=== PATIENT | male | born 1980 | race American Indian/Alaskan Native ===

== ENCOUNTER 2016-10-09 17:30 | Emergency (ER) | payer MEDICARE ==
[2016-10-09] MEDS ORDERED: DILAUDID IV ONE ×2 (21:06→22:12)
[2016-10-09] MEDS ORDERED: ZOFRAN IV ONE (21:06)
[2016-10-09] MEDS ORDERED: BENADRYL IV ONE ×2 (21:06→22:12)
--- NOTE | 2016-10-09 21:45 | Emergency Department Report ---
HPI - General Chief Complaint: Sickle Cell Crisis Time Seen by Provider: 10/09/16 21:01 - HPI HPI: The patient is a 36-year-old male with a history of sickle cell disease, presents for evaluation of pain. The patient reports recurrence of sickle cell pain attack. The patient states that his pain has been present since yesterday evening, 24 hours ago, and has been 8/10 in severity, throbbing in quality, exacerbated with movement of the lower back. He states that his current pain is consistent with previous sickle cell pain episodes. The patient denies blunt trauma to the back, fall, fever, chills, night sweats, saddle anesthesia, paresthesias, numbness or tingling in the legs, leg weakness, urine or bowel incontinence or retention, or other focal neurological deficits. 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 New port placed 2014. - Social History Smoking Status: Never Smoker Substance Use Type: None - Medications Home Medications: Home Medications Medication Instructions Recorded Confirmed Last Taken Type Methadone [Dolophine] 10 mg PO Q12H #60 tablet 12/19/15 06/22/16 1 Day Ago Rx 10 Folic Acid [Folvite] 1 mg PO QDAY #30 tablet 02/10/16 06/22/16 1 Day Ago Rx 1 Rivaroxaban [Xarelto] 2 mg PO BIDDIAB 05/30/16 06/22/16 Unknown History oxyCODONE [Roxicodone] 30 mg PO BID PRN 05/30/16 06/22/16 Unknown History Oxycodone HCl/Acetaminophen 1 each PO Q6HR PRN #15 tablet 07/28/16 Unknown Rx [Percocet 10/325 mg] ED Review of Systems ROS: Stated complaint: SICKLE CELL CRISIS Other details as noted in HPI Constitutional: denies: fever ENT: denies: throat or neck pain Respiratory: denies: cough, shortness of breath Cardiovascular: denies: chest pain Endocrine: denies unexplained weight loss or gain Gastrointestinal: denies: abdominal pain, nausea Genitourinary: denies: dysuria Musculoskeletal: reports back pain Skin: denies: rash Neurological: denies: headache Hematological/Lymphatic: denies: easy bleeding or easy bruising Psych: denies sadness or hopelessness Physical Exam - Physical Exam Vital Signs: Vital Signs 10/09/16 10/09/16 18:08 21:38 Temperature 99 F Pulse Rate 103 H Respiratory 20 18 Rate Blood Pressure 119/74 O2 Sat by Pulse 100 Oximetry Physical Exam: General: well-nourished, well-developed, no acute distress Head: Normocephalic, atraumatic Eyes: normal sclera ENT: Mucous membranes are pale and dry Neck: trachea midline, neck supple, No neck stiffness, no cervical adenopathy Respiratory: Breath sounds equal bilaterally, no wheezing, rales, or rhonchi Cardio: S1 and S2 present, no murmurs, rubs, gallops, capillary refill is delayed Abdomen: Normoactive bowel sounds, soft abdomen, no rigidity, no guarding or rebound tenderness Musc: Tenderness to palpation present to bilateral lumbar paraspinal musculature , no midline lumbar spinous tenderness to palpation, normal active range of motion at the hip intact, no spinous step-off or obvious deformity, ipsi- lateral and contralateral straight leg raise tests are negative. On extremity testing, compartments are soft and pliable, no obvious gross motor strength deficit, 5+ motor strength, including extension of the great toe bilaterally, no muscular atrophy, spasticity, fasciculations, or clonus, no obvious gross sensation deficit including web space between 1st and 2nd toes, reflexes 2+ & symmetric on DTR testing at the knee and ankle joints, distal pulses intact. Skin: No rash Neuro: no facial drooping, normal speech Psych: Normal affect ED Course Vital Signs 10/09/16 10/09/16 18:08 21:38 Temperature 99 F Pulse Rate 103 H Respiratory 20 18 Rate Blood Pressure 119/74 O2 Sat by Pulse 100 Oximetry ED Medical Decision Making - Medical Decision Making The patient was seen and examined by myself. The patient is placed on a curb setter and continuous pulse ox. On initial evaluation, the patient was found to be in no distress. No findings on exam concerning for cauda equina syndrome, spinal stenosis, epidural abscess, or other emergent etiology of back pain. As the patient has no midline tenderness on exam, no neuro deficits, and no findings concerning for emergent etiology of their back pain, imaging will not be obtained at this time. IV access is established and the patient is given fluid resuscitation, Zofran, and multiple doses of dilaudid for their pain. Lab results reveal elevated reticulocyte count, and a stable hemoglobin level at patient baseline. Lab results otherwise are not concerning. The patient was reevaluated and reported that their pain was significantly improved. The patient is stable for discharge with outpatient follow-up. The patient is given follow-up and return instructions. The patient expressed understanding and agreed with the plan. The patient is discharged in stable condition. Critical care attestation.: If time is entered above; I have spent that time in minutes in the direct care of this critically ill patient, excluding procedure time. ED Disposition Clinical Impression: Sickle cell anemia with crisis, Dehydration, Acute bilateral low back pain without sciatica Disposition: DISCHARGED TO HOME OR SELFCARE Is pt being admited?: No Does the pt Need Aspirin: No Condition: Stable Instructions: Sickle Cell Crisis (ED) Referrals: JAMAICA HOLLAND MD, PHD [Primary Care Provider] - 3-5 Days Time of Disposition: 21:41
[2016-10-09 21:52] LABS: Hematocrit 29.7 % (35.5-45.6); Hemoglobin 10.1 gm/dl (11.8-15.2); Mean Corpuscular HGB Conc 34 % (32-34); Mean Corpuscular Hemoglobin 36 pg (28-32); Mean Corpuscular Volume 107 fl (84-94); Platelet Count 284 K/mm3 (140-440); Red Blood Count 2.78 M/mm3 (3.65-5.03); Red Cell Distribution Width 19.7 % (13.2-15.2); Reticulocyte % 3.64 % (0.78-2.58); White Blood Count 10.2 K/mm3 (4.5-11.0)
[2016-10-09] MEDS ORDERED: D5NS 0.2% 1,000 ML IV SCH (22:00)
[2016-10-09 22:15] LABS: Anion Gap 16 mmol/L; Blood Urea Nitrogen 5 mg/dL (9-20); Calcium 8.3 mg/dL (8.4-10.2); Carbon Dioxide 26 mmol/L (22-30); Chloride 101.1 mmol/L (98-107); Glucose 103 mg/dL (75-100); Sodium 140 mmol/L (137-145)
[2016-10-09] MEDS ORDERED: KCL 10MEQ/100ML 10 MEQ/100 ML BAG IV ONE ×2 (22:20→22:32)
[2016-10-09 22:23] LABS: Basophils % (Manual) 0 % (0.0-1.8); Blastocytes % (Manual) 0 %
[2016-10-09 22:24] LABS: Anisocytosis 1+; Potassium 2.9 mmol/L (3.6-5.0)
[2016-10-09 22:25] LABS: Sickle Cells 1+; Target Cells 2+
[2016-10-09 22:26] LABS: Diff Status Complete
[2016-10-09] MEDS ORDERED: FLUSH HEPARIN IV ONE ×2 (23:20→23:35)
[2016-10-10] MEDS ORDERED: KCL 10MEQ/100ML 10 MEQ/100 ML BAG IV ONE (01:30)
[2016-10-10 01:49] VITALS: BP 126/68
== END 2016-10-09 23:45 | disposition home or self-care (01) ==
LOC: ED 17:30
DX: D57.00 Hb-SS disease with crisis, unspecified (principal); E86.0 Dehydration; M54.5 Low back pain; I82.402 Acute embolism and thrombosis of unspecified deep veins of left lower extremity; F41.9 Anxiety disorder, unspecified; Z90.49 Acquired absence of other specified parts of digestive tract
CPT/HCPCS: 36415; 80048; 85007; 85025; 85045; 96361; 96374; 96375; 96376; 99283; J1170; J1200; J1642; J2405; J3480

== ENCOUNTER 2016-12-15 00:18 | Inpatient (IN) | payer MEDICARE ==
--- NOTE | 2016-12-15 16:00 | Cat Scan Report ---
CRANIAL CT SCAN: Serial contiguous axial images were obtained through the cranium. Intravenous contrast material was not administered. The ventricles are normal in size and appearance. There is no mass effect or midline shift. No areas of abnormally increased or decreased attenuation are seen. No mass lesion is seen. The mastoid air cells and visualized portions of the sinuses are normal. IMPRESSION: Cranial CT scan within normal limits. No significant change compared to prior study of December 2015.
[2016-12-15] MEDS ORDERED: PERCOCET 5/325 ONE (16:27)
[2016-12-15] MEDS ORDERED: TORADOL IV ONE ×2 (16:45→18:30)
[2016-12-15] MEDS ORDERED: ZOFRAN IV ONE (16:45)
[2016-12-15 16:53] LABS: INR 1.18 (0.87-1.13)
[2016-12-15] MEDS ORDERED: TORADOL ONE (16:53)
[2016-12-15] MEDS ORDERED: ZOFRAN ONE (16:53)
[2016-12-15 16:55] LABS: Alanine Aminotransferase 10 units/L (7-56); Albumin 3.4 g/dL (3.9-5); Albumin/Globulin Ratio 0.8 %; Anion Gap 14 mmol/L; Bilirubin,Direct 0.3 mg/dL (0-0.2); Bilirubin,Indirect 1.2 mg/dL; Blood Urea Nitrogen 10 mg/dL (9-20); Calcium 8.3 mg/dL (8.4-10.2); Carbon Dioxide 27 mmol/L (22-30); Chloride 102.5 mmol/L (98-107); Creatine Kinase 24 units/L (55-170); Glucose 100 mg/dL (75-100); Partial Thromboplastin Time 144.4 Sec. (24.2-36.6); Potassium 3.6 mmol/L (3.6-5.0); Sodium 140 mmol/L (137-145); Total Protein 7.8 g/dL (6.3-8.2)
[2016-12-15] MEDS: D5NS 0.2% 1,000 ML IV SCH (17:00)
[2016-12-15 17:03] LABS: Basophils % (Auto) 0.5 % (0.0-1.8); Eosinophils % (Auto) 4.3 % (0.0-4.3); Hematocrit 26.8 % (35.5-45.6); Mean Corpuscular HGB Conc 34 % (32-34); Mean Corpuscular Hemoglobin 32 pg (28-32); Mean Corpuscular Volume 96 fl (84-94); Platelet Count 278 K/mm3 (140-440); Red Blood Count 2.81 M/mm3 (3.65-5.03); Reticulocyte % 1.87 % (0.78-2.58); White Blood Count 8.3 K/mm3 (4.5-11.0)
[2016-12-15 17:05] LABS: Creatine Kinase MB < 1.0 ng/mL (0.0-4.0)
--- NOTE | 2016-12-15 17:13 | Emergency Department Report ---
ED General Adult HPI - General Chief complaint: Sickle Cell Crisis Stated complaint: SICKLE CELL PAIN, NUMBNESS AND TINGLING RIGHT SIDE Time Seen by Provider: 12/15/16 15:06 Source: patient Mode of arrival: Ambulatory Limitations: No Limitations - History of Present Illness Initial comments: The patient presents with a somewhat bizarre story which is difficult to have them. He states that he was in his kitchen 2 weeks ago when he passed out. He did not hurt himself. He is vague about the time of his lapse of consciousness but ultimately said it was probably a few minutes. When he awoke he had acute weakness and numbness in his right upper extremity. Since then this has not changed. He has not attempted to consult a physician for the same. He states that he goes to the [facility] and has not gone there either. This patient had frequent visits to this emergency department last year for pain -related complaints and sickle cell disease. However this year he was only here once in September and now today. He states that he has chronic pain in his back and his legs. He does not report any pain in his neck or headache he states that he did not injure his neck at all. 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 He does have an indwelling port. He is not claiming to be in a sickle cell crisis. Indeed he states he's been taking his regular pain medicine all long but it hasn't been helping. When asked specifically if he states taking his methadone he states that he has not taken it for 2 days. Far to reconcile his history as these 2 things are conflicting as she is on chronic accident. The degree to which he is a reliable historian is really uncertain however certainly it would be in question. In any case he denies any history of previous stroke or neuropathy. He denies any prolonged pressure on his right axillary area. He states he is never passed out before as well. -: week(s) (2 weeks ago), year(s) (chronic pain for years) Location: back, lower extremity Radiation: non-radiation Quality: aching Consistency: intermittent Improves with: none Worsens with: none Associated Symptoms: denies other symptoms - Related Data Previous Rx's Medication Instructions Recorded Last Taken Type Methadone [Dolophine] 10 mg PO Q12H #60 tablet 12/19/15 1 Day Ago Rx 10 Folic Acid [Folvite] 1 mg PO QDAY #30 tablet 02/10/16 12/15/16 Rx Oxycodone HCl/Acetaminophen 1 each PO Q6HR PRN #15 tablet 07/28/16 12/15/16 Rx [Percocet 10/325 mg] Allergies Allergy/AdvReac Type Severity Reaction Status Date / Time No Known Allergies Allergy Verified 05/04/16 00:22 ED Review of Systems ROS: Stated complaint: SICKLE CELL PAIN, NUMBNESS AND TINGLING RIGHT SIDE Other details as noted in HPI Constitutional: denies: chills, fever Eyes: denies: eye pain, eye discharge, vision change ENT: denies: ear pain, throat pain Respiratory: denies: cough, shortness of breath, wheezing Cardiovascular: denies: chest pain, palpitations Endocrine: no symptoms reported Gastrointestinal: denies: abdominal pain, nausea, diarrhea Genitourinary: denies: urgency, dysuria Musculoskeletal: as per HPI, back pain, arthralgia, myalgia, other (sickle cell pain). denies: joint swelling Skin: denies: rash, lesions Neurological: as per HPI, weakness, numbness. denies: headache, paresthesias Psychiatric: denies: anxiety, depression Hematological/Lymphatic: denies: easy bleeding, easy bruising ED Past Medical Hx - Past Medical History Previous Medical History?: Yes Hx Hypertension: No Hx CVA: No Hx Heart Attack/AMI: No Hx Congestive Heart Failure: No Hx Diabetes: No Hx Deep Vein Thrombosis: Yes (LEFT LEG) Hx Pulmonary Embolism: No Hx GERD: No Hx Liver Disease: No Hx Renal Disease: No Hx Sickle Cell Disease: Yes Hx Arthritis: No Hx Headaches / Migraines: No Hx Seizures: No Hx Kidney Stones: No Hx Psychiatric Treatment: Yes (anxiety) Hx Asthma: No Hx COPD: No Hx Tuberculosis: No Hx Dementia: No Hx HIV: No Additional medical history: 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 New port placed 2014. - Social History Smoking Status: Never Smoker Substance Use Type: None - Medications Home Medications: Home Medications Medication Instructions Recorded Confirmed Last Taken Type Methadone [Dolophine] 10 mg PO Q12H #60 tablet 12/19/15 12/15/16 1 Day Ago Rx 10 Folic Acid [Folvite] 1 mg PO QDAY #30 tablet 02/10/16 12/15/16 12/15/16 Rx Oxycodone HCl/Acetaminophen 1 each PO Q6HR PRN #15 tablet 07/28/16 12/15/16 Rx [Percocet 10/325 mg] ED Physical Exam - General Limitations: No Limitations General appearance: alert - Head Head exam: Present: atraumatic - Eye Eye exam: Present: normal appearance - ENT ENT exam: Present: normal exam, mucous membranes moist - Neck Neck exam: Present: normal inspection. Absent: tenderness, meningismus - Respiratory Respiratory exam: Present: normal lung sounds bilaterally. Absent: respiratory distress - Cardiovascular Cardiovascular Exam: Present: regular rate, normal rhythm. Absent: systolic murmur, diastolic murmur, rubs, gallop - GI/Abdominal GI/Abdominal exam: Present: soft, normal bowel sounds. Absent: distended, tenderness, guarding, rebound, rigid - Extremities Exam Extremities exam: Present: normal inspection - Back Exam Back exam: Present: normal inspection - Neurological Exam Neurological exam: Present: alert, CN II-XII intact, motor sensory deficit ( motor exam of the patient had upper extremity shows no effort against gravity wrist extensor flexor. Patient does not approximate his thumb and fingers. He has minimal ulnar function. He does appear to have sensation in the ulnar distribution but diminished sensation in the median and radial distribution. He not does have drift of the arm at large. He does have a wrist drop. He does not seem to have drift of the right lower extremity) - Psychiatric Psychiatric exam: Present: normal mood, flat affect ED Course Vital Signs 12/15/16 12/15/16 12/15/16 00:22 05:27 15:10 Temperature 98.4 F Pulse Rate 95 H 81 Respiratory 18 18 18 Rate Blood Pressure 103/65 112/65 O2 Sat by Pulse 100 99 99 Oximetry 12/15/16 17:00 Temperature Pulse Rate Respiratory 18 Rate Blood Pressure O2 Sat by Pulse Oximetry - Reevaluation(s) Reevaluation #1: Patient has reticulocyte count of less than 3. This presentation is not consistent with sickle cell crisis. He was given Percocet for pain. He requested Toradol and I did order that. A CT of his head was negative. A 12- lead EKG showed not infrequent PVCs but no evidence of ischemia. I spoke to the hospitalist about this strange presentation. I feel it is worthwhile to put the patient hospital complete his neurological workup. I have ordered an MRI of the brain and cervical spine. I don't think contrast is useful at this point. Further workup per hospitalist staff. 12/15/16 18:45 ED Medical Decision Making - Lab Data Result diagrams: 12/15/16 16:50 12/15/16 16:18 Laboratory Results - last 24 hr 12/15/16 12/15/16 12/15/16 16:18 16:18 16:50 [place] % (Auto) 10.1 H Eos % (Auto) 4.3 [place] # 0.8 Eos # 0.4 Baso # 0.0 Seg Neutrophils % 60.2 Seg Neutrophils # 5.0 PT 14.9 INR 1.18 H APTT 144.4 H* Sodium 140 Potassium 3.6 Chloride 102.5 Carbon Dioxide 27 Anion Gap 14 BUN 10 Creatinine 0.5 L Estimated GFR > 60 BUN/Creatinine Ratio 20.00 Glucose 100 Calcium 8.3 L Magnesium 1.80 Total Bilirubin 1.50 H Direct Bilirubin 0.3 H Indirect Bilirubin 1.2 AST 17 ALT 10 Alkaline Phosphatase 72 Total Creatine Kinase 24 L CK-MB (CK-2) < 1.0 CK-MB (CK-2) Rel Index 4.1 H Total Protein 7.8 Albumin 3.4 L Albumin/Globulin Ratio 0.8 - EKG Data -: EKG Interpreted by Me EKG shows normal: sinus rhythm Rate: normal - EKG Data Interpretation: other (moderately frequent PVCs are noted. Nonspecific ST-T wave changes.) - Radiology Data Radiology results: report reviewed - Medical Decision Making It would appear that this is a referral neuropathy either axillary or brachial I would think. I do not think this is a stroke syndrome. However the patient will be given aspirin and further workup to include MRI of his brain is pending. Critical care attestation.: If time is entered above; I have spent that time in minutes in the direct care of this critically ill patient, excluding procedure time. ED Disposition Clinical Impression: Weakness of right upper extremity, Ventricular ectopy Sickle cell anemia Qualifiers: Sickle-cell associated disorders: without crisis Qualified Code(s): D57.1 - Sickle-cell disease without crisis Syncope Qualifiers: Syncope type: unspecified Qualified Code(s): R55 - Syncope and collapse Disposition: OP ADMITTED IP TO THIS HOSP Is pt being admited?: Yes Does the pt Need Aspirin: Yes Condition: Stable Time of Disposition: 18:51
[2016-12-15 17:25] LABS: Alkaline Phosphatase 72 units/L (35-129)
[2016-12-15 17:29] LABS: Red Cell Distribution Width 22.8 % (13.2-15.2)
[2016-12-15] MEDS: BABY ASPIRIN PO SCH (20:03)
[2016-12-15] MEDS ORDERED: BABY ASPIRIN ONE (20:03)
--- NOTE | 2016-12-15 20:14 | Magnetic Resonance Report ---
FINAL REPORT EXAM: MR BRAIN WO CON HISTORY: RUE weakness TECHNIQUE: Multi sequence, Multiplanar MR imaging is acquired without administration of gadolinium intravenous contrast. PRIORS: Head CT of the same date FINDINGS: There is no restricted diffusion or abnormal susceptibility. The ventricles and cisterns and sulci are within normal limits. No midline shift or herniation. No intraparenchymal mass , mass effect or hemorrhage. Vascular flow voids are unremarkable. Singer and white matter signal characteristics are also within normal limits. Normal spherical shape of the globes. No abnormal signal within the paranasal sinuses or mastoid aircells. IMPRESSION: Normal MRI Brain.
[2016-12-15] MEDS ORDERED: NON-FORMULARY (Oxycodone Hcl/Acetaminophen [Percocet 10/325 Mg] 1 EACH) PO PRN (20:44)
--- NOTE | 2016-12-15 20:44 | Magnetic Resonance Report ---
FINAL REPORT EXAM: MR CERVICAL SPINE WO CON HISTORY: RUE weakness acute onset 2 weeks ago following fall TECHNIQUE: Multi sequence, multiplanar MR imaging was obtained through the cervical spine without contrast. PRIORS: Cervical spine radiograph FINDINGS: Examination is compromised by motion artifact. The imaged portion of the posterior fossa is unremarkable. The cervical spinal cord is normal in caliber. Signal characteristics of the spinal cord are not well assessed. No obvious cord edema on T2 weighted imaging. There is pulsation artifact. No epidural space abnormality. There is increased T2 weighted signal within the left-sided paraspinal soft tissues best demonstrated on axial series 6, image 8 and sagittal series 2 and series 4, images 5 and 6. Muscular borders are respected. No masslike morphology. The mucosal spaces of the neck are unremarkable. Vertebral body heights throughout the cervical spine are preserved. Marrow signal is within normal limits. No listhesis. No significant spinal canal or neural foraminal stenosis throughout the cervical spine small posterior disc bulges are present the at C4-C5, C5-C6 and C6-C7. IMPRESSION: No specific findings to explain patient's symptoms. The examination is compromised by motion artifact. Nerve root avulsion and cord signal abnormality cannot be sufficiently excluded on this examination. If there is persistent concern, consider repeat cervical spine study with high-resolution imaging of the cervical spinal cord and with intravenous contrast administration. There is focal T2 weighted non masslike signal abnormality within several left paraspinal soft tissues, which is most likely edema/partial thickness tearing related to recent injury. Dr. Morales discussed findings with OLIVIER Anderson at [address] [employer] following the examination.
--- NOTE | 2016-12-15 20:54 | History and Physical Report ---
History of Present Illness Date of admission: 12/15/16 18:26 Chief complaint: Right upper extremity weakness History of present illness: 36-year-old -[place]osoth[place] male with past medical history significant for sickle cell anemia, a vascular necrosis of hips, DVT presented to the emergency department complaining of right upper extremity weakness of one week duration. Patient states a week ago he fell and lost consciousness and from that day onwards he has weakness, tingling and numbness of his right upper extremity. He also complains numbness of his left leg. Patient didn't seek any medical attention by the time. Since it didn't get better he came to the ED. With impression of possible CVA CT head was done and negative for acute intracranial process. Recent is also complaining he has pain in his back and arm 7 out of 10 in intensity, sharp pain. Patient has been taking his pain medications at home and didn't run out of it. patient has been followed by [facility]. Patient has history of DVT and was on xarelto but it is discontinued now by the advice of his doctor at [facility]. REVIEW OF SYSTEMS: GENERAL: no weight change, no fatigue, no fever HEAD: no head ache EYES: no blurry vision, no acute visual loss EARS: no hearing loss, no discharge, no earache NOSE: no stuffiness, no sneezing, no discharge MOUTH, THROAT AND NECK: no bleeding gums, no sore throat, no swollen neck CARDIAC: no palpitations, no dyspnea on exertion, no orthopnea, no PND, no edema , no chest pain RESPIRATORY: no shortness of breath, no wheeze, no cough, no sputum, no hemoptysis, no asthma GI: no decreased appetite, no nausea, no vomiting, no dysphagia, no diarrhea, no constipation, no abdominal pain URINARY: no change in frequency, no urgency, no polyuria, no hematuria, no incontinence MUSCULOSKELETAL: no muscle weakness, no pain, no joint stiffness NEUROLOGIC: Numbness and weakness of the right upper extremity HEMATOLOGIC: Sickle cell anemia, no easy bruising SKIN: no rashes ENDOCRINE: no heat/cold intolerance, no polyuria, no polydipsia, no thyroid problems, no diabetes PSYCHIATRIC: no anxiety, no depression, no suicidal ideations Past History Past Medical History: DVT, other (sickle cell, , avascular necrosis of bilateral hips) Past Surgical History: cholecystectomy, hernia repair Social history: full code. denies: smoking, alcohol abuse, prescription drug abuse, IV drug use Family history: diabetes, other (sickle cell) Medications and Allergies Allergies Allergy/AdvReac Type Severity Reaction Status Date / Time No Known Allergies Allergy Verified 05/04/16 00:22 Home Medications Medication Instructions Recorded Confirmed Last Taken Type Methadone [Dolophine] 10 mg PO Q12H #60 tablet 12/19/15 12/15/16 1 Day Ago Rx 10 Folic Acid [Folvite] 1 mg PO QDAY #30 tablet 02/10/16 12/15/16 12/15/16 Rx Oxycodone HCl/Acetaminophen 1 each PO Q6HR PRN #15 tablet 07/28/16 12/15/16 Rx [Percocet 10/325 mg] Active Meds: Active Medications Aspirin (Baby Aspirin) 162 mg PO QDAY [facility] Last Admin: 12/15/16 20:03 Dose: 162 mg Folic Acid (Folvite) 1 mg PO QDAY [facility] Dextrose/Sodium Chloride (D5ns 0.2%) 1,000 mls @ 250 mls/hr IV DIRECT [facility] Last Admin: 12/15/16 17:00 Dose: 250 mls/hr Methadone HCl (Dolophine) 10 mg PO Q12H [facility] Miscellaneous Medication (Oxycodone Hcl/Acetaminophen [Percocet 10/325 Mg]) 1 each PO Q6HR PRN PRN Reason: Pain Morphine Sulfate (Ms Contin Er) 30 mg PO Q12HR [facility] Exam - Physical Exam Narrative exam: Not in cardiopulmonary distress. The patient appeared well nourished and normally developed. Vital signs as documented. Head exam is unremarkable. No scleral icterus . Neck is without jugular venous distension, thyromegaly, or carotid bruits. Lungs are clear to auscultation. Cardiac exam reveals regular rate and Rhythm. First and second heart sounds normal. No murmurs, rubs or gallops. Abdominal exam reveals normal bowel sounds, no masses, no organomegaly and no aortic enlargement. Extremities are nonedematous and both femoral and pedal pulses are normal. [employer]SEM[employer]: Alert and oriented 3. Right upper extremity weakness. - Constitutional Vitals: Temp Pulse Resp BP Pulse Ox 98.4 F 81 16 112/65 99 12/15/16 00:22 12/15/16 05:27 12/15/16 17:30 12/15/16 05:27 12/15/16 15:10 Results - Labs CBC & Chem 7: 12/15/16 16:50 12/15/16 16:18 Labs: Laboratory Last Values WBC 8.3 K/mm3 (4.5-11.0) 12/15/16 16:50 RBC 2.81 M/mm3 (3.65-5.03) L 12/15/16 16:50 Hgb 9.0 gm/dl (11.8-15.2) L 12/15/16 16:50 Hct 26.8 % (35.5-45.6) L 12/15/16 16:50 MCV 96 fl (84-94) H 12/15/16 16:50 MCH 32 pg (28-32) 12/15/16 16:50 MCHC 34 % (32-34) 12/15/16 16:50 RDW 22.8 % (13.2-15.2) H 12/15/16 16:50 Plt Count 278 K/mm3 (140-440) 12/15/16 16:50 Lymph % (Auto) 24.9 % (13.4-35.0) 12/15/16 16:50 [place] % (Auto) 10.1 % (0.0-7.3) H 12/15/16 16:50 Eos % (Auto) 4.3 % (0.0-4.3) 12/15/16 16:50 Baso % (Auto) 0.5 % (0.0-1.8) 12/15/16 16:50 Lymph # 2.1 K/mm3 (1.2-5.4) 12/15/16 16:50 Pierce # 0.8 K/mm3 (0.0-0.8) 12/15/16 16:50 Eos # 0.4 K/mm3 (0.0-0.4) 12/15/16 16:50 Baso # 0.0 K/mm3 (0.0-0.1) 12/15/16 16:50 Seg Neutrophils % 60.2 % (40.0-70.0) 12/15/16 16:50 Seg Neutrophils # 5.0 K/mm3 (1.8-7.7) 12/15/16 16:50 Percent Retic 1.87 % (0.78-2.58) 12/15/16 16:50 PT 14.9 Sec. (12.2-14.9) 12/15/16 16:18 INR 1.18 (0.87-1.13) H 12/15/16 16:18 APTT 144.4 Sec. (24.2-36.6) H* 12/15/16 16:18 Sodium 140 mmol/L (137-145) 12/15/16 16:18 Potassium 3.6 mmol/L (3.6-5.0) 12/15/16 16:18 Chloride 102.5 mmol/L (98-107) 12/15/16 16:18 Carbon Dioxide 27 mmol/L (22-30) 12/15/16 16:18 Anion Gap 14 mmol/L 12/15/16 16:18 BUN 10 mg/dL (9-20) 12/15/16 16:18 Creatinine 0.5 mg/dL (0.8-1.5) L 12/15/16 16:18 Estimated GFR > 60 ml/min 12/15/16 16:18 BUN/Creatinine Ratio 20.00 % 12/15/16 16:18 Glucose 100 mg/dL (75-100) 12/15/16 16:18 Calcium 8.3 mg/dL (8.4-10.2) L 12/15/16 16:18 Magnesium 1.80 mg/dL (1.7-2.3) 12/15/16 16:18 Total Bilirubin 1.50 mg/dL (0.1-1.2) H 12/15/16 16:18 Direct Bilirubin 0.3 mg/dL (0-0.2) H 12/15/16 16:18 Indirect Bilirubin 1.2 mg/dL 12/15/16 16:18 AST 17 units/L (5-40) 12/15/16 16:18 ALT 10 units/L (7-56) 12/15/16 16:18 Alkaline Phosphatase 72 units/L (35-129) 12/15/16 16:18 Total Creatine Kinase 24 units/L (55-170) L 12/15/16 16:18 CK-MB (CK-2) < 1.0 ng/mL (0.0-4.0) 12/15/16 16:18 CK-MB (CK-2) Rel Index 4.1 (0-4) H 12/15/16 16:18 Total Protein 7.8 g/dL (6.3-8.2) 12/15/16 16:18 Albumin 3.4 g/dL (3.9-5) L 12/15/16 16:18 Albumin/Globulin Ratio 0.8 % 12/15/16 16:18 Assessment and Plan Assessment and plan: Sickle cell anemia with pain crises History of syncope and right upper extremity weakness Avascular necrosis of the hips History of DVT - Head CT was negative, we going to do MRI of spine, head, carotid Doppler, echo - Patient is on aspirin, we going to do lipid panel - Patient is on methadone, ER morphine and breakthrough Percocet - Physical therapy DVT prophylaxis - Lovenox Disposition - Admit to [facility] Advance Directives: Yes VTE prophylaxis?: Chemical Plan of care discussed with patient/family: Yes
[2016-12-15] MEDS: DOLOPHINE PO SCH (21:45)
[2016-12-15] MEDS: MS CONTIN ER PO SCH (21:48)
[2016-12-15] MEDS: ROXICODONE PO PRN (22:15)
[2016-12-16] MEDS: PERCOCET 5/325 PO PRN ×2 (02:56→20:59)
[2016-12-16] MEDS: ROXICODONE PO PRN ×2 (02:57→20:58)
[2016-12-16] MEDS ORDERED: ROXICODONE PO ONE (05:46)
[2016-12-16 07:26] LABS: Basophils % (Auto) 0.4 % (0.0-1.8); Hematocrit 25.8 % (35.5-45.6); Hemoglobin 8.6 gm/dl (11.8-15.2); Mean Corpuscular HGB Conc 33 % (32-34); Mean Corpuscular Hemoglobin 33 pg (28-32); Mean Corpuscular Volume 98 fl (84-94); Platelet Count 271 K/mm3 (140-440); Red Blood Count 2.64 M/mm3 (3.65-5.03); White Blood Count 6.7 K/mm3 (4.5-11.0)
[2016-12-16 07:28] LABS: Red Cell Distribution Width 22.5 % (13.2-15.2)
[2016-12-16 07:46] LABS: Anion Gap 14 mmol/L; Blood Urea Nitrogen 9 mg/dL (9-20); Carbon Dioxide 27 mmol/L (22-30); Chloride 104.7 mmol/L (98-107); Glucose 102 mg/dL (75-100); Potassium 3.4 mmol/L (3.6-5.0); Sodium 142 mmol/L (137-145)
[2016-12-16] MEDS ORDERED: K-DUR PO ONE (08:19)
[2016-12-16] MEDS ORDERED: LOVENOX SUB-Q SCH (10:00)
[2016-12-16] MEDS: BABY ASPIRIN PO SCH (10:29)
[2016-12-16] MEDS: MS CONTIN ER PO SCH (10:29)
[2016-12-16] MEDS: FOLVITE PO SCH (10:29)
--- NOTE | 2016-12-16 10:35 | Progress Note ---
Assessment and Plan Assessment and plan: --History of syncope : no new episodes of syncope, fall precautions follow workup --Hypokalemia; replenish per protocol and monitor levels --Sickle cell disease with painful crises Continue current pain medications per protocol oxygen IV fluids, supportive care --Sickle cell anemia closely monitor H&H and transfuse as needed --right upper extremity weakness, significantly improved CT head MRI negative --Chronic pain syndrome Continue current pain medications, patient needs to see pain management upon discharge --DVT prophylaxis with Lovenox Closely monitor the patient and adjust management as needed Possible discharge home tomorrow if stable Patient's condition treatment plan discussed in detail with the patient and his nurse Medical records reviewed History Interval history: Patient seen and evaluated in his room this morning medical records reviewed Complains of generalized body pains and asked for more pain medications Denies any chest pain or shortness of breath Alert awake oriented 3 not in acute distress Vital signs reviewed stable Hospitalist Physical - Constitutional Vitals: Temp Pulse Resp BP Pulse Ox 98.6 F 80 18 106/63 98 12/16/16 08:00 12/16/16 08:00 12/16/16 08:00 12/16/16 08:00 12/16/16 08:00 General appearance: Present: no acute distress, well-nourished - EENT Eyes: Present: PERRL, EOM intact - Neck Neck: Present: supple, normal ROM - Respiratory Respiratory effort: normal Respiratory: negative: rales, rhonchi, wheezing - Cardiovascular Rhythm: regular Heart Sounds: Present: S1 & S2 - Extremities Extremities: no ischemia, pulses intact, pulses symmetrical Peripheral Pulses: within normal limits - Abdominal General gastrointestinal: soft, non-tender, non-distended, normal bowel sounds - Integumentary Integumentary: Present: clear, warm - Psychiatric Psychiatric: appropriate mood/affect, cooperative - Neurologic Neurologic: CNII-XII intact, moves all extremities Results - Labs CBC & Chem 7: 12/16/16 06:46 12/16/16 06:46 Labs: Laboratory Last Values WBC 6.7 K/mm3 (4.5-11.0) 12/16/16 06:46 RBC 2.64 M/mm3 (3.65-5.03) L 12/16/16 06:46 Hgb 8.6 gm/dl (11.8-15.2) L 12/16/16 06:46 Hct 25.8 % (35.5-45.6) L 12/16/16 06:46 MCV 98 fl (84-94) H 12/16/16 06:46 MCH 33 pg (28-32) H 12/16/16 06:46 MCHC 33 % (32-34) 12/16/16 06:46 RDW 22.5 % (13.2-15.2) H 12/16/16 06:46 Plt Count 271 K/mm3 (140-440) 12/16/16 06:46 Lymph % (Auto) 35.7 % (13.4-35.0) H 12/16/16 06:46 [place] % (Auto) 13.5 % (0.0-7.3) H 12/16/16 06:46 Eos % (Auto) 9.0 % (0.0-4.3) H 12/16/16 06:46 Baso % (Auto) 0.4 % (0.0-1.8) 12/16/16 06:46 Lymph # 2.4 K/mm3 (1.2-5.4) 12/16/16 06:46 [place] # 0.9 K/mm3 (0.0-0.8) H 12/16/16 06:46 Eos # 0.6 K/mm3 (0.0-0.4) H 12/16/16 06:46 Baso # 0.0 K/mm3 (0.0-0.1) 12/16/16 06:46 Seg Neutrophils % 41.4 % (40.0-70.0) 12/16/16 06:46 Seg Neutrophils # 2.8 K/mm3 (1.8-7.7) 12/16/16 06:46 Percent Retic 1.87 % (0.78-2.58) 12/15/16 16:50 PT 14.9 Sec. (12.2-14.9) 12/15/16 16:18 INR 1.18 (0.87-1.13) H 12/15/16 16:18 APTT 144.4 Sec. (24.2-36.6) H* 12/15/16 16:18 Sodium 142 mmol/L (137-145) 12/16/16 06:46 Potassium 3.4 mmol/L (3.6-5.0) L 12/16/16 06:46 Chloride 104.7 mmol/L (98-107) 12/16/16 06:46 Carbon Dioxide 27 mmol/L (22-30) 12/16/16 06:46 Anion Gap 14 mmol/L 12/16/16 06:46 BUN 9 mg/dL (9-20) 12/16/16 06:46 Creatinine 0.3 mg/dL (0.8-1.5) L 12/16/16 06:46 Estimated GFR > 60 ml/min 12/16/16 06:46 BUN/Creatinine Ratio 30.00 % 12/16/16 06:46 Glucose 102 mg/dL (75-100) H 12/16/16 06:46 Calcium 8.0 mg/dL (8.4-10.2) L 12/16/16 06:46 Magnesium 1.80 mg/dL (1.7-2.3) 12/15/16 16:18 Total Bilirubin 1.50 mg/dL (0.1-1.2) H 12/15/16 16:18 Direct Bilirubin 0.3 mg/dL (0-0.2) H 12/15/16 16:18 Indirect Bilirubin 1.2 mg/dL 12/15/16 16:18 AST 17 units/L (5-40) 12/15/16 16:18 ALT 10 units/L (7-56) 12/15/16 16:18 Alkaline Phosphatase 72 units/L (35-129) 12/15/16 16:18 Total Creatine Kinase 24 units/L (55-170) L 12/15/16 16:18 CK-MB (CK-2) < 1.0 ng/mL (0.0-4.0) 12/15/16 16:18 CK-MB (CK-2) Rel Index 4.1 (0-4) H 12/15/16 16:18 Total Protein 7.8 g/dL (6.3-8.2) 12/15/16 16:18 Albumin 3.4 g/dL (3.9-5) L 12/15/16 16:18 Albumin/Globulin Ratio 0.8 % 12/15/16 16:18 Triglycerides 80 mg/dL (2-149) 12/16/16 06:46 Cholesterol 81 mg/dL (50-199) 12/16/16 06:46 LDL Cholesterol Direct 33 mg/dL (50-130) L 12/16/16 06:46 HDL Cholesterol 32 mg/dL (40-59) L 12/16/16 06:46 Cholesterol/HDL Ratio 2.53 % 12/16/16 06:46
[2016-12-16] MEDS: LOVENOX SUB-Q SCH (10:36)
[2016-12-16] MEDS: DOLOPHINE PO SCH ×2 (10:37→21:54)
[2016-12-16] MEDS: MORPHINE IV PRN ×2 (12:32→18:06)
[2016-12-16] MEDS: D5NS 0.2% 1,000 ML IV SCH ×2 (15:59→21:53)
[2016-12-17] MEDS: MORPHINE IV PRN ×2 (00:22→06:58)
[2016-12-17] MEDS: ROXICODONE PO PRN ×3 (02:50→15:40)
[2016-12-17] MEDS: PERCOCET 5/325 PO PRN ×3 (02:50→15:40)
[2016-12-17] MEDS: D5NS 0.2% 1,000 ML IV SCH ×2 (02:51→06:47)
[2016-12-17 03:58] LABS: Basophils % (Auto) 1.4 % (0.0-1.8); Eosinophils % (Auto) 8.9 % (0.0-4.3); Hematocrit 25.1 % (35.5-45.6); Hemoglobin 8.4 gm/dl (11.8-15.2); Mean Corpuscular HGB Conc 34 % (32-34); Mean Corpuscular Hemoglobin 32 pg (28-32); Mean Corpuscular Volume 96 fl (84-94); Platelet Count 284 K/mm3 (140-440); Red Blood Count 2.62 M/mm3 (3.65-5.03); White Blood Count 7.1 K/mm3 (4.5-11.0)
[2016-12-17 04:06] LABS: Red Cell Distribution Width 23.3 % (13.2-15.2)
[2016-12-17 04:22] LABS: Anion Gap 12 mmol/L; BUN/Creatinine Ratio 16.66; Blood Urea Nitrogen 5 mg/dL (9-20); Calcium 7.9 mg/dL (8.4-10.2); Carbon Dioxide 28 mmol/L (22-30); Glucose 108 mg/dL (75-100); Potassium 3.2 mmol/L (3.6-5.0); Sodium 137 mmol/L (137-145)
[2016-12-17] MEDS ORDERED: K-DUR PO ONE (08:45)
[2016-12-17] MEDS: BABY ASPIRIN PO SCH (09:41)
[2016-12-17] MEDS: LOVENOX SUB-Q SCH (09:41)
[2016-12-17] MEDS: DOLOPHINE PO SCH (09:43)
[2016-12-17] MEDS: FOLVITE PO SCH (09:44)
--- NOTE | 2016-12-17 10:16 | Discharge Summary ---
Providers - Providers Date of Admission: 12/15/16 18:26 Date of discharge: 12/17/16 Attending physician: MIR TAMEZ 12/15/16 20:43 Consult to Physician [CONS] Routine Consulting Provider: JONO FITZGERALD Reason For Exam: cva, right arm weakness Place consult to:: Laura Ponce Notified:: Yes Phone number called:: [phone] Was contact made?: No Comment:: Message left for office to confirm they rec'd consult 12/15/16 20:59 Physical Therapy Evaluation and Treat [CONS] Routine Comment: Reason For Exam: RUE weakness Primary care physician: JAMAICA HOLLAND Hospitalization Reason for admission: right upper extremity tingling and numbness Condition: Stable Pertinent studies: CT head without contrast; no acute abnormality noted MRI brain; normal study MRI cervical spine; no specific findings reviewed evulsion cord signal abnormality cannot be sufficiently excluded consider repeating cervical spine study if indicated Carotid Doppler; no hemodynamically significant stenosis Echo; pending report Hospital course: 36-year-old -[place]anese male patient with significant past medical history of sickle cell disease with sickle cell anemia avascular necrosis of the hips DVT was admitted through emergency room with vague right upper extremity weakness patient was initially evaluated and admitted to the hospital and had extensive neuro workup as mentioned above Except for some chronic changes on the cervical spine other tests were within normal limits Echocardiogram was done and report is pending patient was symptomatically managed I reviewed the medical records which revealed that patient's extremity weakness was chronic Patient advised to see a spine surgeon if symptoms do not improve for further evaluation and management as outpatient Today he is comfortable in bed alert awake oriented 3 not in acute distress Vital signs are stable [id number] evaluation and physical examination done by me prior to discharge is unremarkable as detailed below Advised to see his road traffic controller for his sickle cell needs Patient also follows with [facility] Final diagnosis; Extremity weakness Sickle cell anemia Sickle cell disease with painful crisis Ongoing tobacco use Degenerative spine disease Avascular necrosis of the hips Mild protein calorie malnutrition Disposition: DISCHARGED TO HOME OR SELFCARE Time spent for discharge: 31 min Core Measure Documentation - Palliative Care Palliative Care/ Comfort Measures: Not Applicable - Core Measures Any of the following diagnoses?: none Exam - Constitutional Vitals: Temp Pulse Resp BP Pulse Ox 98.3 F 64 18 108/60 98 12/17/16 08:00 12/17/16 08:00 12/17/16 08:00 12/17/16 08:00 12/17/16 08:00 General appearance: Present: no acute distress, well-nourished - EENT Eyes: Present: PERRL, EOM intact - Neck Neck: Present: supple, normal ROM - Respiratory Respiratory effort: normal Respiratory: bilateral: diminished, negative: rales, rhonchi, wheezing - Cardiovascular Rhythm: regular Heart Sounds: Present: S1 & S2 - Extremities Extremities: no ischemia, pulses intact, pulses symmetrical Peripheral Pulses: within normal limits - Abdominal General gastrointestinal: Present: soft, non-tender, non-distended - Integumentary Integumentary: Present: clear, warm - Musculoskeletal Musculoskeletal: strength equal bilaterally, generalized weakness - Psychiatric Psychiatric: appropriate mood/affect, cooperative Plan Activity: no restrictions Diet: regular Special Instructions: smoking cessation Additional Instructions: adised to see a spine surgeon for further evaluation if chronic spine problems Follow up with: JAMAICA HOLLAND MD, PHD [Primary Care Provider] - 3-5 Days [facility]STIT[facility]A GUILLEN MD [Staff Physician] - 7 Days Prescriptions: Oxycodone HCl/Acetaminophen [Percocet 10/325 mg] 1 each PO Q6HR PRN #15 tablet PRN Reason: Pain
[2016-12-17] MEDS ORDERED: TRIPLE ANTIBIOTIC TP ONE (15:43)
[2016-12-17] MEDS ORDERED: FLUSH HEPARIN IV ONE (15:43)
[2016-12-17 16:23] VITALS: BP 108/69
--- NOTE | 2016-12-17 16:46 | Admit Criteria Form ---
Admission Criteria Documentation: SICKLE CELL DISEASE Clinical Indications for Admission to Inpatient Care (Place 'X' for any and all applicable criteria): Admission is indicated for ANY ONE of the following(1)(2)(3)(4)(5): [X ]I. Inpatient admission required rather than observation care because of ANY ONE of the following: [ ]a) Altered mental status [ ]b) High fever or infection requiring inpatient admission as indicated by ANY ONE of the following: [ ]A. Appropriate outpatient observation care antimicrobial treatment unavailable, not effective, or not appropriate for infection [ ]B. Documented bacteremia [ ]C. Temp >104.9F (40.5C) (oral) [ ]D. Temp >103.1F (oral) or <96.8F(rectal) that does not respond to all emergency treatment measures [ ]c) Supplemental O2 or respiratory therapy for over 24 h that are performable only in acute inpatient setting [ ]d) Continuous parenteral narcoticsother major pain intervention for >24 h performable only in acute inpatient setting. [ ]e) Exchange transfusion [X ]f) Other condition, treatment or monitoring requiring inpatient admission [ ]II. Acute chest syndrome indicated by ALL of the following (10): [ ]a) New alveolar infiltrate involving at least one lung segment [ ]b) Associated pulmonary symptoms or findings as indicated by ANY ONE of the following: [ ]i) Chest pain [ ]ii) Hypoxemia [ ]iii) Tachypnea/dyspnea [ ]iv) Wheezing [ ]v) Cough [ ]vi) Sputum production [ ]III. Significant hypoxemia or acidosis (more severe than baseline) [ ]IV. Emergent surgery needed (eg, acute cholecystitis) [ ]V. -related complication(11) [ ]. Splenic or hepatic sequestration(12) [ ]VII. Aplastic crisis [ ]VIII. Priapism or other vascular complication(13) [ ]IX. Traumatic hyphema [A](14) [ ]X. Underlying condition requiring hospitalization (eg, osteomyelitis) [ ]XI. Signs or symptoms of central nervous system injury indicated by ANY ONE of the following: [ ]a) Stroke(9) [ ]b) Seizure [ ]c) Other significant central nervous system symptom or event [ ]XII. Acute renal failure Extended stay beyond goal length of stay may be needed for: [ ]a) Inadequate pain control [ ]b) Acute chest syndrome [ ]c) Sequestration or aplastic crisis (12) [ ]d) Pneumonia and asthma exacerbation [ ]e) Neurologic or vascular complications (25) [ ]f) Infection (eg, osteomyelitis) that requires ongoing treatment) The original [facility] Resource Data content created by [facility] has been revised. The portions of the content which have been revised are identified through the use of italic text or in bold, and [facility] has neither reviewed nor approved the modified material. All other unmodified content is copyright [facility]. Please see references footnoted in the original [facility] edition 2016 Admission Criteria Met: Yes
== END 2016-12-17 20:21 | disposition home or self-care (01) | DRG 812 ==
LOC: ED 00:18 → 3A 18:26
PROVIDERS: ADMIT Internal Medicine; ATTEND Internal Medicine
DX: D57.00 Hb-SS disease with crisis, unspecified (principal); M87.9 Osteonecrosis, unspecified; E44.1 Mild protein-calorie malnutrition; I82.A21 Chronic embolism and thrombosis of right axillary vein; F41.9 Anxiety disorder, unspecified; R55 Syncope and collapse; E87.6 Hypokalemia; G89.4 Chronic pain syndrome; Z72.0 Tobacco use; Z68.22 Body mass index [BMI] 22.0-22.9, adult; Z90.49 Acquired absence of other specified parts of digestive tract; Z83.3 Family history of diabetes mellitus
CPT/HCPCS: 36415; 70450; 70551; 72141; 80048; 80061; 80074; 82550; 82553; 83735; 85025; 85045; 85610; 85730; 93005; 93010; 93306; 93880; 96374; 96375; A6250; G8978-GP; G8979-GP; G8980-GP; J1642; J1650; J1885; J2270; J2405

== ENCOUNTER 2017-03-01 03:04 | Emergency (ER) | payer MEDICARE ==
[2017-03-01] MEDS ORDERED: BENADRYL IV ONE (10:45)
[2017-03-01] MEDS ORDERED: ZOFRAN IV ONE (10:45)
[2017-03-01] MEDS ORDERED: DILAUDID IV ONE ×3 (10:45→13:40)
[2017-03-01] MEDS ORDERED: TORADOL IV ONE (10:45)
[2017-03-01] MEDS ORDERED: D5NS 0.2% 1,000 ML IV SCH (11:00)
[2017-03-01 11:26] LABS: Basophils % (Auto) 1.2 % (0.0-1.8); Eosinophils % (Auto) 5.7 % (0.0-4.3); Hematocrit 26.6 % (35.5-45.6); Hemoglobin 9.1 gm/dl (11.8-15.2); Mean Corpuscular HGB Conc 34 % (32-34); Mean Corpuscular Hemoglobin 37 pg (28-32); Mean Corpuscular Volume 108 fl (84-94); Platelet Count 212 K/mm3 (140-440); Red Blood Count 2.47 M/mm3 (3.65-5.03); Reticulocyte % 7.05 % (0.78-2.58)
[2017-03-01 11:27] LABS: Red Cell Distribution Width 21.2 % (13.2-15.2)
[2017-03-01] MEDS ORDERED: FLUSH HEPARIN IV ONE (13:46)
--- NOTE | 2017-03-01 14:30 | Emergency Department Report ---
ED General Adult HPI - General Chief complaint: Sickle Cell Crisis Stated complaint: SICKLE CELL PAIN Time Seen by Provider: 03/01/17 10:09 Source: patient Mode of arrival: Ambulatory Limitations: No Limitations - History of Present Illness Initial comments: 36-year-old male with a past medical history of sickle cell disease, anxiety, avascular necrosis and frequent ER visits for pain presents to the hospital complaining of pain secondary to sickle cell crisis. Symptoms started yesterday. Complains of generalized constant pain that is moderate to severe in intensity. Patient ran out of his oxycodone 30 mg of methadone 10 mg earlier this week. He states since being seen at the [facility] at [place] they only give him a prescription for 2 weeks because they want to encourage him to come every 2 weeks for an appointment. Patient states she cannot make it out there every 2 weeks and his other doctor used to get them a one-month supply of his medication. He denies fevers, vomiting, chest pain, or shortness of breath. Patient has ongoing right arm weakness for 2 months which is unchanged. Patient states he received neurologic evaluation imaging hospitalization here in November for these symptoms. Severity scale (0 -10): 6 - Related Data Previous Rx's Medication Instructions Recorded Last Taken Type Methadone [Dolophine] 10 mg PO Q12H #60 tablet 12/19/15 02/28/17 Rx Folic Acid [Folvite] 1 mg PO QDAY #30 tablet 02/10/16 02/28/17 Rx Oxycodone HCl/Acetaminophen 1 each PO Q6HR PRN #15 tablet 03/01/17 Unknown Rx [Percocet 10/325 mg] Allergies Allergy/AdvReac Type Severity Reaction Status Date / Time No Known Allergies Allergy Verified 05/04/16 00:22 ED Review of Systems ROS: Stated complaint: SICKLE CELL PAIN Other details as noted in HPI Comment: All other systems reviewed and negative Other: Constitutional: No fevers chills Eyes: No eye pain visual changes ENT: No ear pain or throat pain Neck: Denies pain Respiratory: Denies cough wheezing shortness of breath Cardiovascular: Denies chest pain, palpitations, syncope GI: Denies abdominal pain, nausea, vomiting, diarrhea : Denies dysuria, urinary frequency, or urgency Musculoskeletal: as per hpi Skin: Denies rash, lesions, erythema Neurologic: Denies headache Psychiatric: Denies suicidal ideation, hallucinations ED Past Medical Hx - Past Medical History Previous Medical History?: Yes Hx Hypertension: No Hx CVA: No Hx Heart Attack/AMI: No Hx Congestive Heart Failure: No Hx Diabetes: No Hx Deep Vein Thrombosis: Yes (LEFT LEG) Hx Pulmonary Embolism: No Hx GERD: No Hx Liver Disease: No Hx Renal Disease: No Hx Sickle Cell Disease: Yes Hx Arthritis: No Hx Headaches / Migraines: No Hx Seizures: No Hx Kidney Stones: No Hx Psychiatric Treatment: Yes (anxiety) Hx Asthma: No Hx COPD: No Hx Tuberculosis: No Hx Dementia: No Hx HIV: No Additional medical history: 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 New port placed 2014. - Social History Smoking Status: Never Smoker Substance Use Type: None - Medications Home Medications: Home Medications Medication Instructions Recorded Confirmed Last Taken Type Methadone [Dolophine] 10 mg PO Q12H #60 tablet 12/19/15 03/01/17 02/28/17 Rx Folic Acid [Folvite] 1 mg PO QDAY #30 tablet 02/10/16 03/01/17 02/28/17 Rx Oxycodone HCl/Acetaminophen 1 each PO Q6HR PRN #15 tablet 03/01/17 Unknown Rx [Percocet 10/325 mg] ED Physical Exam - General Limitations: No Limitations - Other Other exam information: General: No limitations, patient is alert in no acute distress Head exam: Atraumatic, normocephalic Eyes exam: Normal appearance, pupils equal reactive to light, extraocular movements intact ENT: Moist mucous membrane, normal oropharynx Neck exam: Normal inspection, full range of motion, no meningismus nontender Respiratory exam: Clear to auscultation bilateral, no wheezes, rales, crackles Cardiovascular: Normal rate and rhythm, normal heart sounds Abdomen: Soft, nondistended, and nontender, with normal bowel sounds, no rebound, or guarding Extremity: Full range of motion, weakness to right wrist and 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 This is unchanged for the last 2 months Back: Normal Inspection, full range of motion, no tenderness Neurologic: Alert, oriented x3, cranial nerves intact, no motor or sensory deficit Psychiatric: normal affect, normal mood Skin: Warm, dry, intact ED Course Vital Signs 03/01/17 03/01/17 03/01/17 03:15 08:29 08:31 Temperature 98.4 F Pulse Rate 94 H 78 Respiratory 20 16 18 Rate Blood Pressure 121/73 117/70 [Right] O2 Sat by Pulse 100 100 Oximetry - Reevaluation(s) Reevaluation #1: 03/01/17 14:29 Patient in the ED for several hours procedure total Dilaudid 6 mg, Zofran, Toradol, and Benadryl. Symptoms improved prior to discharge ED Medical Decision Making - Lab Data Result diagrams: 03/01/17 11:00 Lab Results 03/01/17 Range/Units 11:00 WBC 8.0 (4.5-11.0) K/mm3 RBC 2.47 L (3.65-5.03) M/mm3 Hgb 9.1 L (11.8-15.2) gm/dl Hct 26.6 L (35.5-45.6) % MCV 108 H (84-94) fl MCH 37 H (28-32) pg MCHC 34 (32-34) % RDW 21.2 H (13.2-15.2) % Plt Count 212 (140-440) K/mm3 Lymph % (Auto) 34.8 (13.4-35.0) % [place] % (Auto) 13.7 H (0.0-7.3) % Eos % (Auto) 5.7 H (0.0-4.3) % Baso % (Auto) 1.2 (0.0-1.8) % Lymph # 2.8 (1.2-5.4) K/mm3 [place] # 1.1 H (0.0-0.8) K/mm3 Eos # 0.5 H (0.0-0.4) K/mm3 Baso # 0.1 (0.0-0.1) K/mm3 Seg Neutrophils % 44.6 (40.0-70.0) % Seg Neutrophils # 3.6 (1.8-7.7) K/mm3 Percent Retic 7.05 H (0.78-2.58) % - Medical Decision Making Pain controlled after medication in the ED. Patient reoccurs to follow up with his GI doctor associated with [facility]. Patient been noncompliant with this follow up and therefore has run out of his pain medication. Patient was encouraged to follow-up with his doctors at the sickle cell clinic. - Differential Diagnosis sickle cell crisis, osteoarthritis, anemia, drug-seeking Critical Care Time: No Critical care attestation.: If time is entered above; I have spent that time in minutes in the direct care of this critically ill patient, excluding procedure time. ED Disposition Clinical Impression: Sickle cell pain crisis, Weakness of right upper extremity Disposition: DC- TO HOME OR SELFCARE Is pt being admited?: No Does the pt Need Aspirin: No Condition: Stable Instructions: Sickle Cell Crisis (ED), Weakness (ED) Additional Instructions: It is very important that you go to your scheduled sickle cell appointment so that you do not run out of your pain medication. Follow up with your doctor. Return if symptoms worsen Prescriptions: Oxycodone HCl/Acetaminophen [Percocet 10/325 mg] 1 each PO Q6HR PRN #15 tablet PRN Reason: Pain Referrals: ANIA BENTLEY MD [Staff Physician] - 3-5 Days (neurology) GRZEGORZ CREWS MD [Staff Physician] - 3-5 Days (neurology) NAKIA WOLFE MD [Staff Physician] - 3-5 Days (ortho) Time of Disposition: 14:32
[2017-03-01 14:57] VITALS: BP 117/62
== END 2017-03-01 14:56 | disposition home or self-care (01) ==
LOC: ED 03:04
DX: D57.00 Hb-SS disease with crisis, unspecified (principal); R53.1 Weakness; Z86.718 Personal history of other venous thrombosis and embolism
CPT/HCPCS: 36415; 85025; 85045; 96361; 96374; 96375; 96376; 99283; J1170; J1200; J1642; J1885; J2405

== ENCOUNTER 2017-03-13 21:35 | Inpatient (IN) | payer MEDICARE ==
[2017-03-13] MEDS ORDERED: NACL 0.9% 1000 ML 1,000 ML IV ONE (21:44)
[2017-03-13] MEDS ORDERED: NARCAN 2 MG/2 ML IV ONE (21:44)
[2017-03-13 22:23] LABS: Basophils % (Auto) 0.2 % (0.0-1.8); Hematocrit 32.5 % (35.5-45.6); Hemoglobin 10.8 gm/dl (11.8-15.2); Mean Corpuscular HGB Conc 33 % (32-34); Mean Corpuscular Hemoglobin 35 pg (28-32); Mean Corpuscular Volume 105 fl (84-94); Platelet Count 165 K/mm3 (140-440); Red Blood Count 3.11 M/mm3 (3.65-5.03); White Blood Count 18.7 K/mm3 (4.5-11.0)
[2017-03-13 22:24] LABS: Red Cell Distribution Width 21.6 % (13.2-15.2)
[2017-03-13 22:40] LABS: Alanine Aminotransferase 35 units/L (7-56); Albumin 3.5 g/dL (3.9-5); Albumin/Globulin Ratio 0.7 %; Alkaline Phosphatase 76 units/L (35-129); BUN/Creatinine Ratio 26.66; Blood Urea Nitrogen 40 mg/dL (9-20); Carbon Dioxide 26 mmol/L (22-30); Glucose 126 mg/dL (75-100); Total Protein 8.7 g/dL (6.3-8.2)
[2017-03-13 22:41] LABS: Anion Gap 21 mmol/L; Chloride 97.6 mmol/L (98-107); Potassium 4.6 mmol/L (3.6-5.0); Sodium 140 mmol/L (137-145)
--- NOTE | 2017-03-13 23:10 | Emergency Department Report ---
HPI - General Chief Complaint: Overdose Time Seen by Provider: 03/13/17 21:41 - HPI HPI: 36-year-old male presents to the emergency department by EMS after the patient was found altered and unresponsive. The patient has known sickle cell disease and is often treated with narcotic pain medication. EMS says that they found multiple bottles of narcotic pain pills that were empty including one of methadone and one of Percocet that were filled last week for a one-month supply. EMS is that the patient told them that the pills were underneath the couch but they did not see any. The patient is more awake and alert in the emergency department and says that the pills are hidden somewhere else but that he only took one methadone today. The patient is currently a poor historian secondary to his altered mental status and/or sedated condition. ED Past Medical Hx - Past Medical History Previous Medical History?: Yes Hx Hypertension: No Hx CVA: No Hx Heart Attack/AMI: No Hx Congestive Heart Failure: No Hx Diabetes: No Hx Deep Vein Thrombosis: Yes (LEFT LEG) Hx Pulmonary Embolism: No Hx GERD: No Hx Liver Disease: No Hx Renal Disease: No Hx Sickle Cell Disease: Yes Hx Arthritis: No Hx Headaches / Migraines: No Hx Seizures: No Hx Kidney Stones: No Hx Psychiatric Treatment: Yes (anxiety) Hx Asthma: No Hx COPD: No Hx Tuberculosis: No Hx Dementia: No Hx HIV: No Additional medical history: 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 New port placed 2014. - Social History Smoking Status: Never Smoker Substance Use Type: Marijuana - Medications Home Medications: Home Medications Medication Instructions Recorded Confirmed Last Taken Type Methadone [Dolophine] 10 mg PO Q12H #60 tablet 12/19/15 03/01/17 02/28/17 Rx Folic Acid [Folvite] 1 mg PO QDAY #30 tablet 02/10/16 03/01/17 02/28/17 Rx Gabapentin [Neurontin] 300 mg PO Q8HR #90 capsule 03/01/17 Unknown Rx Oxycodone HCl/Acetaminophen 1 each PO Q6HR PRN #15 tablet 03/01/17 Unknown Rx [Percocet 10/325 mg] ED Review of Systems ROS: Stated complaint: LEG/SHOULDER BACK PAIN Other details as noted in HPI Comment: Unobtainable due to pts medical conditions Physical Exam - Physical Exam Vital Signs: Vital Signs 03/13/17 03/13/17 21:40 21:58 Temperature 98.4 F Pulse Rate 124 H Respiratory 18 18 Rate Blood Pressure 108/56 O2 Sat by Pulse 99 99 Oximetry Physical Exam: GENERAL: Patient is ill-appearing. Patient appears thin and malnourished. HEENT: Normocephalic. Atraumatic. Extraocular motions are intact. Patient has moist mucous membranes. Pupils equal reactive to light bilaterally But they are constricted. NECK: Supple. Trachea is midline. CHEST/LUNGS: Clear to auscultation. There is no respiratory distress noted. HEART/CARDIOVASCULAR: Regular. There is mild to moderate tachycardia. There is no gallop rub or murmur. ABDOMEN: Abdomen is soft, nontender. Patient has normal bowel sounds. There is no abdominal distention. SKIN: Skin is warm and dry. NEURO: Patient appears very fatigued but is arousable. He answers most questions appropriately but is slow to answer. Follows commands. Withdraws to painful stimuli. MUSCULOSKELETAL: There is no tenderness or deformity. There is no limitation range of motion. There is no evidence of acute injury. ED Course Vital Signs 03/13/17 03/13/17 21:40 21:58 Temperature 98.4 F Pulse Rate 124 H Respiratory 18 18 Rate Blood Pressure 108/56 O2 Sat by Pulse 99 99 Oximetry ED Medical Decision Making - Lab Data Result diagrams: 03/13/17 21:50 03/13/17 21:50 - EKG Data -: EKG Interpreted by Tx EKG shows normal: sinus rhythm, axis (left axis deviation), intervals ( prolonged QTC, left anterior fascicular block), QRS complexes (LVH), ST-T waves (nonspecific ST-T changes) Rate: tachycardia (125 bpm) - EKG Data When compared to previous EKG there are: previous EKG unavailable Interpretation: other (sinus tachycardia, left anterior fascicular block, LVH, nonspecific ST-T waves) - Medical Decision Making 36-year-old male presents to the emergency department after possible overdose on narcotic pain medication. He was given some Narcan with some improvement. However the patient still continues to have tachycardia and does appear fatigued if not consistently stimulated. I have seen this patient multiple times in this emergency department and this time this patient appears more dehydrated, malnourished than usual. EKG does not show any signs of S elevation [place]. He has an elevated troponin level without any renal insufficiency. There is a leukocytosis. Elevated liver then but patient has previous cholecystectomy and ultrasound did not show any obvious abnormalities. He'll be admitted to the hospital for further evaluation and treatment has been accepted for admission by the hospitalist. - Differential Diagnosis overdose, sepsis, TIA, dysrhythmia Critical Care Time: No Critical care attestation.: If time is entered above; I have spent that time in minutes in the direct care of this critically ill patient, excluding procedure time. ED Disposition Clinical Impression: Elevated troponin, Elevated bilirubin, Dehydration Altered mental status Qualifiers: Altered mental status type: unspecified Qualified Code(s): R41.82 - Altered mental status, unspecified Overdose of opiate or related narcotic Qualifiers: Encounter type: initial encounter Injury intent: undetermined intent Qualified Code(s): T40.604A - Poisoning by unspecified narcotics, undetermined, initial encounter Disposition: -09 OP ADMIT IP TO THIS HOSP Is pt being admited?: Yes Condition: Fair Referrals: PRIMARY CARE, [Primary Care Provider] - 3-5 Days Time of Disposition: 01:01
[2017-03-14] MEDS ORDERED: MILK OF MAGNESIA PO PRN (00:55)
[2017-03-14] MEDS ORDERED: DULCOLAX PR PRN (00:55)
--- NOTE | 2017-03-14 00:58 | Ultrasound Report ---
FINAL REPORT PROCEDURE: US ABDOMEN LIMITED TECHNIQUE: Real-time sonography was performed of the liver with image documentation. CPT 48187 HISTORY: transaminitis, N/V COMPARISON: No prior studies are available for comparison. FINDINGS: The gallbladder is absent. The portion of the liver imaged is normal. The portion of the pancreas visualized is normal. The right kidney has a normal size and appearance. No hydronephrosis. There are a few small cysts identified on the right kidney 3 are measured with the largest measuring up to 19 millimeters. The right renal size is 10.7 centimeters. The common bile duct is normal and measures 3 millimeters.. IMPRESSION: Previous cholecystectomy. Normal common bile duct measures 3 millimeters. The liver has a normal size and appearance.
--- NOTE | 2017-03-14 01:01 | History and Physical Report ---
History of Present Illness Date of examination: 03/14/17 History of present illness: 36-year-old man with a history of sickle cell disease was brought to the emergency room because he was found unresponsive with pill bottles for methadone and Percocet around him. The patient was given Narcan in the emergency room, he is more awake but is not back to baseline. The patient is unable to give a history, review of system is unobtainable Past Medical History: DVT,s ickle cell, avascular necrosis of bilateral hips Past Surgical History: cholecystectomy, hernia repair Social history: Urine positive for opiates and benzodiazepine, unknown tobacco and alcohol Family history: sickle cell Medications and Allergies Allergies Allergy/AdvReac Type Severity Reaction Status Date / Time No Known Allergies Allergy Verified 03/13/17 21:39 Home Medications Medication Instructions Recorded Confirmed Last Taken Type Methadone [Dolophine] 10 mg PO Q12H #60 tablet 12/19/15 03/14/17 1 Day Ago Rx Folic Acid [Folvite] 1 mg PO QDAY #30 tablet 02/10/16 03/14/17 1 Day Ago Rx Gabapentin [Neurontin] 300 mg PO Q8HR #90 capsule 03/01/17 03/14/17 1 Day Ago Rx Active Meds: Active Medications Acetaminophen (Tylenol) 650 mg PO Q4H PRN PRN Reason: Pain MILD(1-3)/Fever >100.5/BENAVIDEZ Bisacodyl (Dulcolax) 10 mg DC QDAY PRN PRN Reason: Constipation unrelieved by MOM Enoxaparin Sodium (Lovenox) 30 mg SUB-Q QDAY SAHARA Sodium Chloride (Nacl 0.9% 1000 Ml) 1,000 mls @ 150 mls/hr IV DIRECT SAHARA Magnesium Hydroxide (Milk Of Magnesia) 30 ml PO Q4H PRN PRN Reason: Constipation Ondansetron HCl (Zofran) 4 mg IV Q8H PRN PRN Reason: N/V unrelieved by Reglan Exam - Physical Exam Narrative exam: Gen. appearance: Patient lying in bed, no apparent distress HEENT: Normocephalic, atraumatic, pupils equally round and reactive to light, unable to do extraocular movement , and no sclericterus,. No JVD or thyromegaly or nodule,neck supple, no carotid bruit ,mucous membranes moist, no exudate or erythema Heart: S1, S2, regular rate and rhythm Lungs: Clear to auscultation bilaterally, breathing comfortable Abdomen: Positive bowel sounds, soft, nondistended, no organomegaly Extremity: blisrters on knees, No edema, cyanosis, clubbing Skin: No rash, nodules, warm, dry Neuro: - Constitutional Vitals: Temp Pulse Resp BP Pulse Ox 98.4 F 124 H 18 108/56 99 03/13/17 21:40 03/13/17 21:40 03/13/17 21:58 03/13/17 21:40 03/13/17 21:58 Results - Labs CBC & Chem 7: 03/13/17 21:50 03/13/17 21:50 Labs: Abnormal lab results 03/13/17 03/13/17 03/13/17 Range/Units 21:50 21:50 21:50 WBC 18.7 H (4.5-11.0) K/mm3 RBC 3.11 L (3.65-5.03) M/mm3 Hgb 10.8 L (11.8-15.2) gm/dl Hct 32.5 L (35.5-45.6) % MCV 105 H (84-94) fl MCH 35 H (28-32) pg RDW 21.6 H (13.2-15.2) % Lymph % (Auto) 7.1 L (13.4-35.0) % [place] % (Auto) 13.0 H (0.0-7.3) % [place] # 2.4 H (0.0-0.8) K/mm3 Seg Neutrophils % 79.7 H (40.0-70.0) % Seg Neutrophils # 14.9 H (1.8-7.7) K/mm3 Chloride 97.6 L (98-107) mmol/L BUN 40 H (9-20) mg/dL Glucose 126 H (75-100) mg/dL Calcium 8.0 L (8.4-10.2) mg/dL Total Bilirubin 4.20 H (0.1-1.2) mg/dL AST 116 H (5-40) units/L Troponin T 0.071 H (0.00-0.029) ng/mL Total Protein 8.7 H (6.3-8.2) g/dL Albumin 3.5 L (3.9-5) g/dL LDL Cholesterol Direct 48 L (50-130) mg/dL HDL Cholesterol 23 L (40-59) mg/dL Salicylates (2.8-20.0) mg/dL 03/13/17 Range/Units 21:50 WBC (4.5-11.0) K/mm3 RBC (3.65-5.03) M/mm3 Hgb (11.8-15.2) gm/dl Hct (35.5-45.6) % MCV (84-94) fl MCH (28-32) pg RDW (13.2-15.2) % Lymph % (Auto) (13.4-35.0) % [place] % (Auto) (0.0-7.3) % [place] # (0.0-0.8) K/mm3 Seg Neutrophils % (40.0-70.0) % Seg Neutrophils # (1.8-7.7) K/mm3 Chloride (98-107) mmol/L BUN (9-20) mg/dL Glucose (75-100) mg/dL Calcium (8.4-10.2) mg/dL Total Bilirubin (0.1-1.2) mg/dL AST (5-40) units/L Troponin T (0.00-0.029) ng/mL Total Protein (6.3-8.2) g/dL Albumin (3.9-5) g/dL LDL Cholesterol Direct (50-130) mg/dL HDL Cholesterol (40-59) mg/dL Salicylates < 0.3 L (2.8-20.0) mg/dL Assessment and Plan Assessment Drug overdose Rhabdomyolysis SIRS Abnormal cardiac enzymes History of DVT Plan Admit to medicine Start IV fluids, IV vancomycin and Zosyn Obtain blood cultures, chest x-ray, urinalysis Check cardiac enzymes, echo Start DVT prophylaxis
[2017-03-14 01:47] LABS: Urine Drugs of Abuse Note Disclamer
[2017-03-14 01:59] LABS: Bilirubin,Urine NEG (Negative); Blood,Urine NEG (Negative); Ketones,Urine NEG (Negative); Leukocyte Esterase,Urine NEG (Negative); Mucus,Urine FEW /HPF; Nitrite,Urine NEG (Negative); Protein,Urine <15 mg/dL mg/dL (Negative)
[2017-03-14 02:33] LABS: Creatine Kinase MB 3.6 ng/mL (0.0-4.0)
[2017-03-14] MEDS: NACL 0.9% 1000 ML 1,000 ML IV SCH ×2 (02:37→21:17)
[2017-03-14] MEDS ORDERED: VANCOMYCIN/NS 1 GM/250 ML 1 GM/250 ML BAG IV ONE (05:46)
[2017-03-14] MEDS: ZOSYN/NS 4.5GM/100ML 4.5 GM/100 ML VIAL IV SCH ×3 (06:26→21:18)
[2017-03-14 06:55] LABS: Creatine Kinase MB 3.2 ng/mL (0.0-4.0)
--- NOTE | 2017-03-14 07:18 | XRay Report ---
AP CHEST: HISTORY: Fever Right [id number] is unchanged since 05/14/16. Heart size is within normal limits. There are mild chronic interstitial changes in both lungs which are stable. Subtle peribronchial opacity is identified in the left lower lobe which appears to be new. This could represent segmental atelectasis or early infiltrate. The remainder of the lungs are clear. The bony structures are grossly intact. IMPRESSION: Questionable left lower lobe infiltrate.
[2017-03-14] MEDS: TYLENOL PO PRN ×2 (08:27→13:06)
[2017-03-14] MEDS: LOVENOX SUB-Q SCH (10:08)
[2017-03-14] MEDS: FOLVITE PO SCH (10:09)
--- NOTE | 2017-03-14 12:16 | Consultation ---
History of Present Illness - Reason for Consult Consult date: 03/14/17 SIRS Requesting physician: DRAKE HARPER - History of Present Illness This is a 36 years old male with history of SCD admitted on 03/13/2017 due to be found unconscious near to a bottle of percocet and methadone. Brought to the ED and given narcan with improvement of AMS. Patient reports he stood up from bed to go to the restroom and fell down to a sofa and then to the floor. He could not stand up. He does not remember being out or unconscious. Patient is also complaining of 7-day history of non-productive cough. He denies sputum production, chest pain, N/V/D. He also complaints of multiple site body aches in arms, legs and back consistent with his SCD pains. Of note, patient has been complaining of right hand/arm numbness and weakness started in November 2016. He was admitted at that time and CT head and brain MRI were done and negative. Right arm/hand deficits has not recovered. In the ED, temperature was 98.4, HR 125, WBC 18.7K, UA neg, CXR showed left sided consolidation. Current Antibiotics: Zosyn 03/14 Previous Antibiotics: Vancomycin 03/14 Microbiology: Blood cultures: 03/14 pending Urine cultures: Respiratory cultures: Wound cultures: Other: Past History Past Medical History: other (SCD) Past Surgical History: No surgical history Social history: single, lives with family, full code. denies: smoking, alcohol abuse, prescription drug abuse, IV drug use Family history: no significant family history Medications and Allergies Allergies Allergy/AdvReac Type Severity Reaction Status Date / Time No Known Allergies Allergy Verified 03/13/17 21:39 Home Medications Medication Instructions Recorded Confirmed Last Taken Type Methadone [Dolophine] 10 mg PO Q12H #60 tablet 12/19/15 03/14/17 1 Day Ago Rx Folic Acid [Folvite] 1 mg PO QDAY #30 tablet 02/10/16 03/14/17 1 Day Ago Rx Gabapentin [Neurontin] 300 mg PO Q8HR #90 capsule 03/01/17 03/14/17 1 Day Ago Rx Active Meds: Active Medications Acetaminophen (Tylenol) 650 mg PO Q4H PRN PRN Reason: Pain MILD(1-3)/Fever >100.5/BENAVIDEZ Last Admin: 03/14/17 08:27 Dose: 650 mg Bisacodyl (Dulcolax) 10 mg [place] QDAY PRN PRN Reason: Constipation unrelieved by MOM Enoxaparin Sodium (Lovenox) 40 mg SUB-Q QDAY [facility] Last Admin: 03/14/17 10:08 Dose: 40 mg Folic Acid (Folvite) 1 mg PO QDAY [facility] Last Admin: 03/14/17 10:09 Dose: 1 mg Gabapentin (Neurontin) 300 mg PO Q8HR [facility] Sodium Chloride (Nacl 0.9% 1000 Ml) 1,000 mls @ 150 mls/hr IV DIRECT [facility] Last Admin: 03/14/17 02:37 Dose: 150 mls/hr Piperacillin Sod/Tazobactam Sod (Zosyn/Ns 4.5gm/100ml) 4.5 gm in 100 mls @ 200 mls/hr IV Q8HR [facility] PRN Reason: Protocol Last Admin: 03/14/17 06:26 Dose: 200 mls/hr Magnesium Hydroxide (Milk Of Magnesia) 30 ml PO Q4H PRN PRN Reason: Constipation Ondansetron HCl (Zofran) 4 mg IV Q8H PRN PRN Reason: N/V unrelieved by Reglan Review of Systems All systems: negative Constitutional: fever Respiratory: cough Neurological: weakness (right arm/hand), numbness (right arm and hand) Physical Examination - Constitutional Vitals: Vital Signs Temp Pulse Resp BP Pulse Ox 98.9 F 101 H 18 109/58 93 03/14/17 09:03 03/14/17 09:03 03/14/17 09:03 03/14/17 09:03 03/14/17 09:03 Temperature -Last 24 Hours Temperature 98.9 F Temperature 100.6 F Temperature 100.4 F General appearance: Present: no acute distress, well-nourished - EENT Eyes: Present: PERRL ENT: hearing intact, clear oral mucosa - Neck Neck: Present: supple, normal ROM - Respiratory Respiratory: left: rales (+egophony) - Cardiovascular Heart Sounds: Present: S1 & S2. Absent: rub, click - Extremities Extremities: pulses symmetrical, No edema Peripheral Pulses: within normal limits - Abdominal General gastrointestinal: Present: soft, non-tender, non-distended, normal bowel sounds Male genitourinary: Present: normal - Rectal Rectal Exam: deferred - Integumentary Integumentary: Present: clear, warm, dry - Musculoskeletal Musculoskeletal: right sided weakness (right arm/hand) - Psychiatric Psychiatric: appropriate mood/affect, intact judgment & insight - Neurologic Neurologic: CNII-XII intact, moves all extremities Results - Labs CBC & Chem 7: 03/13/17 21:50 03/13/17 21:50 Labs: Abnormal lab results 03/14/17 03/14/17 Range/Units 02:01 06:14 Total Creatine Kinase 6257 H 5175 H (55-170) units/L Troponin T 0.031 H D (0.00-0.029) ng/mL - Imaging and Cardiology Chest x-ray: report reviewed US - abdomen: report reviewed (both normal ) Assessment and Plan Assessment: 1) Sepsis: present on admission, manifested by tachycardia and leukocytosis. Etiology - secondary to pneumonia. 2) Left sided pneumonia: presumed aspiration pneumonia versus CAP 3) SC D 4) Elevated LFTs - normal abdominal US 5) RUE weakness/numbness- unclear etiology, work-up in November 2016 negative Plan: -follow-up blood cultures -obtain respiratory cultures, procalcitonin, C-reactive protein (CRP) -check influenza antigen PCR in nasopharinx -check legionella urine antigen, streptococcus pneumoniae urine antigen, mycoplasma serology, chlamydia pneumophila serology -pt reports HIV test done in 2015 negative -continue zosyn for now -add azithromycin to cover atypicals Thank you Dr Harper for your consultation, will f/u with you. Lubna Porter MD Infectious Diseases Specialist [facility], [place] ([facility]) M [phone] O [phone]
[2017-03-14] MEDS: NEURONTIN PO SCH ×2 (13:07→21:19)
[2017-03-14] MEDS: ZITHROMAX 500 MG in NACL 0.9% 250ML 250 ML IV SCH (15:27)
--- NOTE | 2017-03-14 15:53 | Admit Criteria Form ---
Admission Criteria Documentation: MENTAL STATUS CHANGE Clinical Indications for Inpatient Care (Place 'X' for any and all applicable criteria): Ongoing inpatient care may be needed for 1 or more of the following(1)(2)(3)(5)( 6): [ X]I. Suspected serious etiology (eg, medical disorder, ENGINEERING SCIENTIST event) of altered mental status [ ]II. Danger to self or others not manageable at lower level of care [ ]III. Grave disability (eg, inability to perform self care necessary at lower level of care) [ ]IV. Agitation or inappropriate behavior interfering with care for primary condition (eg, attempting to discontinue lines or drains prematurely, unable to cooperate with respiratory care) [ ]V. Delirium [A] [D][E] as described by 1 or more of the following(26): [ ]a) Delirium due to alcohol or sedative [F] withdrawal [ ]b) Delirium of uncertain etiology that has not responded to appropriate empiric treatment [ ]c) Delirium that prevents performance of a life-sustaining function (eg, feeding or hydrating oneself) [ ]. General contraindications and/or Inappropriate clinical situations for Observational Care in patients with Mental Status Change, when ANY ONE of the following is required: [ ]a) Prediction of prolongation of LOS based on ANY ONE of the following may be considered as a contraindication for observational care 2, 3, 4, 5, 6, 7, 8, 9, 10, 11 [ ]i) Age > 65 yrs. [ ]ii) Patient arriving by ambulance [ ]iii) Patient with high acuity [ ]iv) Patient requiring vital sign monitoring [ ]v) Patient on IV medication [ ]b) Systolic blood pressures greater than or equal to 180mmHg 3, 12 [ ]c) Patient with altered mental status including delirium and other alteration of consciousness, (3) [ ]d) Patient whose discharge disposition will be to a care home home or rehabilitation home should not be managed in Emergency Department Observation Unit. CMS rule requires 3 days hospital stay before such placement.3,13 [ ]e) Patient with failure to thrive due to broad array of etiologies 3,16,17 [ ]f) Inability to ambulate 3,14 Extended stay beyond goal length of stay for the primary condition may be needed until ALL of the following are present(3)(5): [ ]a) Underlying medical etiology of mental status change is absent, or has been established and adequately treated [ ]b) Danger to self or others is absent or manageable at lower level of care. [ ]c) Behavior crisis management, including physical or chemical restraints, is not required or available at lower level of car [ ]d) Substance or alcohol withdrawal is absent or manageable at lower level of care. [ ]e) Behavioral symptoms (eg, agitation, somnolence, inappropriate behavior) are absent, or are manageable at lower level of care. The original [facility] content created by [facility] [email or web address] has been revised. The portions of the content which have been revised are identified through the use of italic text or in bold, and [facility] has neither reviewed nor approved the modified material. All other unmodified content is copyright [facility] [email or web address]. Please see references footnoted in the original [email or web address] edition 2016 Admission Criteria Met: Yes
--- NOTE | 2017-03-14 18:49 | Progress Note ---
Assessment and Plan Assessment and plan: Patient admitted today by Dr. Viky Estrada Patient is a 36-year-old man with history of sickle cell disease, avascular necrosis of the hips, peripheral neuropathy and chronic pain syndrome on methadone who presented with altered mental status, unresponsive state with methadone and Percocet bottle near him. He was given Narcan. UDS showed methadone and benzodiazepine. Chest x-ray showed a questionable left lower infiltrates. Patient is febrile and white blood cell count 18.7. Therefore, I consulted infectious disease. CPK is 6257 now 5175. Total bilirubin 4.2 Abdominal ultrasound reported as previous cholecystectomy, normal calm and bowel duct, normal liver size and appearance. -Acute toxic metabolic encephalopathy due to unintentional drug overdose, this irresponsible behavior disqualifies him for being on methadone: Consulted mental health -Aspiration pneumonitis with sepsis, poa: On IV antibiotics, consulted infectious disease -Hemolytic anemia crisis, sickle cell anemia: Consulted hematology -Acute rhabdomyolysis: Treat with IV fluids -DVT prophylaxis: Started on subcutaneous Lovenox History Interval history: Patient seen and examined. Follow up on current diagnosis/altered mental status. Overnight uneventful. No cp, sob, n/v or severe headaches. Imaging, old records, testing, labs, nursing notes reviewed. Hospitalist Physical - Physical exam Narrative exam: GEN: Thin frail NAD, AWAKE, lethargic, ORIENTATED x 3 HEENT: NCAT, PERRL, EOMI, OP CLEAR, sclera icterus NECK: SUPPLE, NO THYROMEGALY, NO JVD, NO LAD CVS: RRR, NORMAL S1S2 LUNGS/CHEST: Coarse breath sounds in the left base, NORMAL CHEST EXPANSION B, GOOD AIR ENTRY B ABD: SOFT, NTND, GBS, NO REBOUND OR GUARDING EXT/SKIN: NO SIGNIFICANT EDEMA OR RASH, jaundice MSK: FROM X 4 EXTREMITIES NEURO: CN 2-12 GROSSLY INTACT, NO FOCAL DEFICITS PSY: CALM - Constitutional Vitals: Temp Pulse Resp BP Pulse Ox 97.7 F 87 20 107/60 94 03/14/17 17:34 03/14/17 17:34 03/14/17 17:34 03/14/17 17:34 03/14/17 17:34 General appearance: Present: no acute distress, well-nourished Results - Labs CBC & Chem 7: 03/13/17 21:50 03/13/17 21:50 Labs: Laboratory Last Values WBC 18.7 K/mm3 (4.5-11.0) H 03/13/17 21:50 RBC 3.11 M/mm3 (3.65-5.03) L 03/13/17 21:50 Hgb 10.8 gm/dl (11.8-15.2) L 03/13/17 21:50 Hct 32.5 % (35.5-45.6) L 03/13/17 21:50 MCV 105 fl (84-94) H 03/13/17 21:50 MCH 35 pg (28-32) H 03/13/17 21:50 MCHC 33 % (32-34) 03/13/17 21:50 RDW 21.6 % (13.2-15.2) H 03/13/17 21:50 Plt Count 165 K/mm3 (140-440) 03/13/17 21:50 Lymph % (Auto) 7.1 % (13.4-35.0) L 03/13/17 21:50 [place] % (Auto) 13.0 % (0.0-7.3) H 03/13/17 21:50 Eos % (Auto) 0.0 % (0.0-4.3) 03/13/17 21:50 Baso % (Auto) 0.2 % (0.0-1.8) 03/13/17 21:50 Lymph # 1.3 K/mm3 (1.2-5.4) 03/13/17 21:50 [place] # 2.4 K/mm3 (0.0-0.8) H 03/13/17 21:50 Eos # 0.0 K/mm3 (0.0-0.4) 03/13/17 21:50 Baso # 0.0 K/mm3 (0.0-0.1) 03/13/17 21:50 Seg Neutrophils % 79.7 % (40.0-70.0) H 03/13/17 21:50 Seg Neutrophils # 14.9 K/mm3 (1.8-7.7) H 03/13/17 21:50 Sodium 140 mmol/L (137-145) 03/13/17 21:50 Potassium 4.6 mmol/L (3.6-5.0) 03/13/17 21:50 Chloride 97.6 mmol/L (98-107) L 03/13/17 21:50 Carbon Dioxide 26 mmol/L (22-30) 03/13/17 21:50 Anion Gap 21 mmol/L 03/13/17 21:50 BUN 40 mg/dL (9-20) H 03/13/17 21:50 Creatinine 1.5 mg/dL (0.8-1.5) 03/13/17 21:50 Estimated GFR > 60 ml/min 03/13/17 21:50 BUN/Creatinine Ratio 26.66 % 03/13/17 21:50 Glucose 126 mg/dL (75-100) H 03/13/17 21:50 Lactic Acid 1.60 mmol/L (0.7-2.0) 03/13/17 21:50 Calcium 8.0 mg/dL (8.4-10.2) L 03/13/17 21:50 Total Bilirubin 4.20 mg/dL (0.1-1.2) H 03/13/17 21:50 AST 116 units/L (5-40) H 03/13/17 21:50 ALT 35 units/L (7-56) 03/13/17 21:50 Alkaline Phosphatase 76 units/L (35-129) 03/13/17 21:50 Total Creatine Kinase 5175 units/L (55-170) H 03/14/17 06:14 CK-MB (CK-2) 3.2 ng/mL (0.0-4.0) 03/14/17 06:14 CK-MB (CK-2) Rel Index 0.0 (0-4) 03/14/17 06:14 Troponin T 0.025 ng/mL (0.00-0.029) 03/14/17 06:14 C-Reactive Protein 14.10 mg/dL (0.00-1.30) H 03/14/17 06:15 Total Protein 8.7 g/dL (6.3-8.2) H 03/13/17 21:50 Albumin 3.5 g/dL (3.9-5) L 03/13/17 21:50 Albumin/Globulin Ratio 0.7 % 03/13/17 21:50 Triglycerides 80 mg/dL (2-149) 03/13/17 21:50 Cholesterol 87 mg/dL (50-199) 03/13/17 21:50 LDL Cholesterol Direct 48 mg/dL (50-130) L 03/13/17 21:50 HDL Cholesterol 23 mg/dL (40-59) L 03/13/17 21:50 Cholesterol/HDL Ratio 3.78 % 03/13/17 21:50 Urine Color Odette (Yellow) 03/14/17 01:35 Urine Turbidity Clear (Clear) 03/14/17 01:35 Urine pH 5.0 (5.0-7.0) 03/14/17 01:35 Ur Specific [place] 1.013 (1.003-1.030) 03/14/17 01:35 Urine Protein <15 mg/dl mg/dL (Negative) 03/14/17 01:35 Urine Glucose (UA) Neg mg/dL (Negative) 03/14/17 01:35 Urine Ketones Neg mg/dL (Negative) 03/14/17 01:35 Urine Blood Neg (Negative) 03/14/17 01:35 Urine Nitrite Neg (Negative) 03/14/17 01:35 Urine Bilirubin Neg (Negative) 03/14/17 01:35 Urine Urobilinogen 2.0 mg/dL (<2.0) 03/14/17 01:35 Ur Leukocyte Esterase Neg (Negative) 03/14/17 01:35 Urine WBC (Auto) 1.0 /HPF (0.0-6.0) 03/14/17 01:35 Urine RBC (Auto) 1.0 /HPF (0.0-6.0) 03/14/17 01:35 U Epithel Cells (Auto) < 1.0 /HPF (0-13.0) 03/14/17 01:35 Hyaline Casts 13 /LPF 03/14/17 01:35 Urine Mucus Few /HPF 03/14/17 01:35 Salicylates < 0.3 mg/dL (2.8-20.0) L 03/13/17 21:50 Urine Opiates Screen Presumptive negative 03/14/17 01:35 Urine Methadone Screen Presumptive positive 03/14/17 01:35 Acetaminophen < 15.0 ug/mL (10.0-30.0) 03/13/17 21:50 Ur Barbiturates Screen Presumptive negative 03/14/17 01:35 Ur Phencyclidine Scrn Presumptive negative 03/14/17 01:35 Ur Amphetamines Screen Presumptive negative 03/14/17 01:35 U Benzodiazepines Scrn Presumptive positive 03/14/17 01:35 Urine Cocaine Screen Presumptive negative 03/14/17 01:35 U Marijuana (THC) Screen Presumptive negative 03/14/17 01:35 Drugs of Abuse Note Disclamer 03/14/17 01:35 Plasma/Serum Alcohol < 0.01 gm% (0-0.07) 03/13/17 21:50
[2017-03-15] MEDS: TYLENOL PO PRN (03:08)
[2017-03-15] MEDS: ZOSYN/NS 4.5GM/100ML 4.5 GM/100 ML VIAL IV SCH ×3 (05:45→22:22)
[2017-03-15] MEDS: NEURONTIN PO SCH ×3 (05:45→22:24)
[2017-03-15] MEDS: NACL 0.9% 1000 ML 1,000 ML IV SCH ×3 (05:45→22:23)
[2017-03-15 06:28] LABS: Eosinophils % (Auto) 0.1 % (0.0-4.3)
[2017-03-15 06:38] LABS: Anion Gap 13 mmol/L; Blood Urea Nitrogen 16 mg/dL (9-20); Calcium 7.7 mg/dL (8.4-10.2); Carbon Dioxide 27 mmol/L (22-30); Glucose 107 mg/dL (75-100); Potassium 3.7 mmol/L (3.6-5.0); Sodium 141 mmol/L (137-145)
[2017-03-15 06:46] LABS: Hematocrit 22.5 % (35.5-45.6); Hemoglobin 7.2 gm/dl (11.8-15.2); Mean Corpuscular HGB Conc 32 % (32-34); Mean Corpuscular Hemoglobin 33 pg (28-32); Mean Corpuscular Volume 104 fl (84-94); Platelet Count 197 K/mm3 (140-440); Red Blood Count 2.16 M/mm3 (3.65-5.03); White Blood Count 14.4 K/mm3 (4.5-11.0)
[2017-03-15 06:48] LABS: Red Cell Distribution Width 20.9 % (13.2-15.2)
[2017-03-15 08:22] LABS: Basophils % (Manual) 0 % (0.0-1.8); Blastocytes % (Manual) 0 %; Dohle Bodies 1+; Eosinophils % (Manual) 0 % (0.0-4.3)
[2017-03-15 08:23] LABS: Anisocytosis 2+; Elliptocytes 2+; Hypochromasia 2+; Macrocytosis 1+; Poikilocytosis 2+; Polychromasia 2+; Target Cells 2+; Tear Drop Cells Few
[2017-03-15 08:24] LABS: Diff Status Complete
[2017-03-15] MEDS: LOVENOX SUB-Q SCH (10:02)
[2017-03-15] MEDS: FOLVITE PO SCH (10:02)
[2017-03-15] MEDS: PERCOCET 5/325 PO PRN ×2 (11:59→18:35)
--- NOTE | 2017-03-15 13:48 | Progress Note ---
Assessment and Plan Assessment: 1) Sepsis: improving. Etiology - secondary to pneumonia. 2) Left sided pneumonia: presumed aspiration pneumonia versus CAP 3) SCD 4) Elevated LFTs - normal abdominal US 5) RUE weakness/numbness- unclear etiology, work-up in November 2016 negative Plan: -follow-up blood cultures -F/U respiratory cultures, C-reactive protein (CRP), influenza antigen PCR in nasopharinx, streptococcus pneumoniae urine antigen, mycoplasma serology -pt reports HIV test done in 2015 negative -continue zosyn and azithromycin for now -upon discharge will do clindamycin 300 mg PO q8 hours total 7 days from 03/14 until 03/[address] Harper for your consultation, will f/u with you. Lubna Porter MD Infectious Diseases Specialist [facility] M [phone] O [phone] Subjective Date of service: 03/15/17 Interval history: Feels better, still complaining of body aches mainly legs and lower back. He is requesting more pain meds. No fever. No N/V/D. Microbiology: Blood cultures: 03/14 ngtd Urine cultures: Respiratory cultures: Wound cultures: Stool cultures: Other: Current Antimicrobials: Zosyn 03/14 Azithromycin 03/14 Objective - Exam Narrative Exam: General appearance: Alert in NAD, conversant Eyes: anicteric sclerae, moist conjunctivae; no lid-lag; PERRLA HENT: Atraumatic; oropharynx clear with moist mucous membranes and no mucosal ulcerations/no oral thrush; normal hard and soft palate. Normal external ears. Neck: Trachea midline; supple, no thyromegaly or lymphadenopathy Lungs: CTA, with normal respiratory effort and no intercostal retractions CV: RRR, no murmurs Abdomen: Soft, non-tender; no masses or hepatosplenomegaly Extremities: No peripheral edema or extremity lymphadenopathy Skin: +right thigh lateral ecchymoses, right calf blister lesion Psych: Appropriate affect, alert and oriented to person, place and time. Neuro: alert and oriented x 3. Moving all extermities Lines: No CVL / PICC - Constitutional Vitals: Vital Signs Temp Pulse Resp BP Pulse Ox 98.8 F 90 18 107/56 98 03/15/17 11:50 03/15/17 11:50 03/15/17 11:50 03/15/17 11:50 03/15/17 11:50 Temperature -Last 24 Hours Temperature 98.8 F Temperature 98.5 F Temperature 99.3 F Temperature 98.7 F Temperature 98.6 F Temperature 97.7 F - Labs CBC & Chem 7: 03/15/17 05:52 03/15/17 05:52 Labs: Abnormal lab results 03/14/17 03/15/17 03/15/17 Range/Units 06:15 05:52 05:52 WBC 14.4 H (4.5-11.0) K/mm3 RBC 2.16 L (3.65-5.03) M/mm3 Hgb 7.2 L D (11.8-15.2) gm/dl Hct 22.5 L D (35.5-45.6) % MCV 104 H (84-94) fl MCH 33 H (28-32) pg RDW 20.9 H (13.2-15.2) % [place] % (Auto) 11.0 H (0.0-7.3) % [place] # 1.6 H (0.0-0.8) K/mm3 Seg Neutrophils % 78.2 H (40.0-70.0) % Seg Neuts % (Manual) 78.0 H (40.0-70.0) % Lymphocytes % (Manual) 10.0 L (13.4-35.0) % Monocytes % (Manual) 8.0 H (0.0-7.3) % Nucleated RBC % 3.0 H (0.0-0.9) % Seg Neutrophils # 11.4 H (1.8-7.7) K/mm3 Seg Neutrophils # Man 11.2 H (1.8-7.7) K/mm3 Monocytes # (Manual) 1.2 H (0.0-0.8) K/mm3 Creatinine 0.4 L D (0.8-1.5) mg/dL Glucose 107 H (75-100) mg/dL Calcium 7.7 L (8.4-10.2) mg/dL C-Reactive Protein 14.10 H (0.00-1.30) mg/dL
[2017-03-15] MEDS: ZITHROMAX 500 MG in NACL 0.9% 250ML 250 ML IV SCH (14:05)
--- NOTE | 2017-03-15 14:58 | Progress Note ---
Assessment and Plan Assessment and plan: Patient is a 36-year-old man with history of sickle cell disease, avascular necrosis of the hips, peripheral neuropathy and chronic pain syndrome on methadone who presented with altered mental status, unresponsive state with methadone and Percocet bottle near him. He was given Narcan. UDS showed methadone and benzodiazepine. Chest x-ray showed a questionable left lower infiltrates. Patient is febrile and white blood cell count 18.7. Therefore, I consulted infectious disease. CPK is 6257 now 5175. Total bilirubin 4.2, Abdominal ultrasound reported as previous cholecystectomy, normal liver size and appearance. Patient is denies suicide ideation and denies suicide attempt. -Acute toxic metabolic encephalopathy due to unintentional drug overdose, this irresponsible behavior disqualifies him for being on methadone: Consulted mental health -Aspiration pneumonitis with sepsis, poa: On IV antibiotics, consulted infectious disease -Hemolytic anemia crisis, sickle cell anemia: Consulted hematology -Acute rhabdomyolysis: Treat with IV fluids -DVT prophylaxis: SCDs only due to worsening anemia -Acute on chronic anemia related to sickle cell with the drop in hematocrit: Stop Lovenox due to drop in hematocrit, await hematology evaluation. -Chronic pain syndrome: Patient asking for IV Dilaudid, Benadryl and Zofran -Multiple bilateral leg ulcers, present on admission: Consult wound care and treat that symptomatically Full code Disposition: Continue inpatient care, repeat CPK, await hematology evaluation History Interval history: Patient seen and examined. Follow up on current diagnosis/altered mental status- -resolved, denies SI or SA. Overnight uneventful. No cp, sob, n/v or severe headaches. Imaging, old records, testing, labs, nursing notes reviewed. Hospitalist Physical - Physical exam Narrative exam: GEN: Thin frail NAD, AWAKE, lethargic, ORIENTATED x 3 HEENT: NCAT, PERRL, EOMI, OP CLEAR, sclera icterus NECK: SUPPLE, NO THYROMEGALY, NO JVD, NO LAD CVS: RRR, NORMAL S1S2 LUNGS/CHEST: Coarse breath sounds in the left base, NORMAL CHEST EXPANSION B, GOOD AIR ENTRY B ABD: SOFT, NTND, GBS, NO REBOUND OR GUARDING EXT/SKIN: NO SIGNIFICANT EDEMA OR RASH, jaundice, right knee pressure ulcer stage 2-3/left leg stage 2-3 pressure ulcer all poa MSK: FROM X 4 EXTREMITIES NEURO: CN 2-12 GROSSLY INTACT, NO FOCAL DEFICITS PSY: CALM - Constitutional Vitals: Temp Pulse Resp BP Pulse Ox 98.8 F 90 18 107/56 98 03/15/17 11:50 03/15/17 11:50 03/15/17 11:50 03/15/17 11:50 03/15/17 11:50 General appearance: Present: no acute distress, well-nourished Results - Labs CBC & Chem 7: 03/15/17 05:52 03/15/17 05:52 Labs: Laboratory Last Values WBC 14.4 K/mm3 (4.5-11.0) H 03/15/17 05:52 RBC 2.16 M/mm3 (3.65-5.03) L 03/15/17 05:52 Hgb 7.2 gm/dl (11.8-15.2) L D 03/15/17 05:52 Hct 22.5 % (35.5-45.6) L D 03/15/17 05:52 MCV 104 fl (84-94) H 03/15/17 05:52 MCH 33 pg (28-32) H 03/15/17 05:52 MCHC 32 % (32-34) 03/15/17 05:52 RDW 20.9 % (13.2-15.2) H 03/15/17 05:52 Plt Count 197 K/mm3 (140-440) 03/15/17 05:52 Lymph % (Auto) Not Reportable 03/15/17 05:52 [place] % (Auto) 11.0 % (0.0-7.3) H 03/15/17 05:52 Eos % (Auto) 0.1 % (0.0-4.3) 03/15/17 05:52 Baso % (Auto) Not Reportable 03/15/17 05:52 Lymph # Not Reportable 03/15/17 05:52 [place] # 1.6 K/mm3 (0.0-0.8) H 03/15/17 05:52 Eos # 0.0 K/mm3 (0.0-0.4) 03/15/17 05:52 Baso # 0.0 K/mm3 (0.0-0.1) 03/15/17 05:52 Add Manual Diff Complete 03/15/17 05:52 Total Counted 100 03/15/17 05:52 Seg Neutrophils % 78.2 % (40.0-70.0) H 03/15/17 05:52 Seg Neuts % (Manual) 78.0 % (40.0-70.0) H 03/15/17 05:52 Band Neutrophils % 4.0 % 03/15/17 05:52 Lymphocytes % (Manual) 10.0 % (13.4-35.0) L 03/15/17 05:52 Reactive Lymphs % (Man) 0 % 03/15/17 05:52 Monocytes % (Manual) 8.0 % (0.0-7.3) H 03/15/17 05:52 Eosinophils % (Manual) 0 % (0.0-4.3) 03/15/17 05:52 Basophils % (Manual) 0 % (0.0-1.8) 03/15/17 05:52 Metamyelocytes % 0 % 03/15/17 05:52 Myelocytes % 0 % 03/15/17 05:52 Promyelocytes % 0 % 03/15/17 05:52 Blast Cells % 0 % 03/15/17 05:52 Nucleated RBC % 3.0 % (0.0-0.9) H 03/15/17 05:52 Seg Neutrophils # 11.4 K/mm3 (1.8-7.7) H 03/15/17 05:52 Seg Neutrophils # Man 11.2 K/mm3 (1.8-7.7) H 03/15/17 05:52 Band Neutrophils # 0.6 K/mm3 03/15/17 05:52 Lymphocytes # (Manual) 1.4 K/mm3 (1.2-5.4) 03/15/17 05:52 Abs React Lymphs (Man) 0.0 K/mm3 03/15/17 05:52 Monocytes # (Manual) 1.2 K/mm3 (0.0-0.8) H 03/15/17 05:52 Eosinophils # (Manual) 0.0 K/mm3 (0.0-0.4) 03/15/17 05:52 Basophils # (Manual) 0.0 K/mm3 (0.0-0.1) 03/15/17 05:52 Metamyelocytes # 0.0 K/mm3 03/15/17 05:52 Myelocytes # 0.0 K/mm3 03/15/17 05:52 Promyelocytes # 0.0 K/mm3 03/15/17 05:52 Blast Cells # 0.0 K/mm3 03/15/17 05:52 WBC Morphology Not Reportable 03/15/17 05:52 Hypersegmented Neuts Not Reportable 03/15/17 05:52 Hyposegmented Neuts Not Reportable 03/15/17 05:52 Hypogranular Neuts Not Reportable 03/15/17 05:52 Smudge Cells Not Reportable 03/15/17 05:52 Toxic Granulation Not Reportable 03/15/17 05:52 Toxic Vacuolation Not Reportable 03/15/17 05:52 Dohle Bodies 1+ 03/15/17 05:52 Pelger-Huet Anomaly Not Reportable 03/15/17 05:52 Steve Rods Not Reportable 03/15/17 05:52 Platelet Estimate Appears normal 03/15/17 05:52 Clumped Platelets Not Reportable 03/15/17 05:52 Plt Clumps, EDTA Not Reportable 03/15/17 05:52 Large Platelets Not Reportable 03/15/17 05:52 Giant Platelets Not Reportable 03/15/17 05:52 Platelet Satelliting Not Reportable 03/15/17 05:52 Plt Morphology Comment Not Reportable 03/15/17 05:52 RBC Morphology Not Reportable 03/15/17 05:52 Dimorphic RBCs Not Reportable 03/15/17 05:52 Polychromasia 2+ 03/15/17 05:52 Hypochromasia 2+ 03/15/17 05:52 Poikilocytosis 2+ 03/15/17 05:52 Anisocytosis 2+ 03/15/17 05:52 Microcytosis Not Reportable 03/15/17 05:52 Macrocytosis 1+ 03/15/17 05:52 Spherocytes Not Reportable 03/15/17 05:52 Pappenheimer Bodies Not Reportable 03/15/17 05:52 Sickle Cells Not Reportable 03/15/17 05:52 Target Cells 2+ 03/15/17 05:52 Tear Drop Cells Few 03/15/17 05:52 Ovalocytes Not Reportable 03/15/17 05:52 Helmet Cells Not Reportable 03/15/17 05:52 [place] Bodies Not Reportable 03/15/17 05:52 [place] Rings Not Reportable 03/15/17 05:52 [place] Cells Not Reportable 03/15/17 05:52 Bite Cells Not Reportable 03/15/17 05:52 Crenated Cell Not Reportable 03/15/17 05:52 Elliptocytes 2+ 03/15/17 05:52 Acanthocytes (Spur) Not Reportable 03/15/17 05:52 Rouleaux Not Reportable 03/15/17 05:52 Hemoglobin C Crystals Not Reportable 03/15/17 05:52 Schistocytes Not Reportable 03/15/17 05:52 Malaria parasites Not Reportable 03/15/17 05:52 [place] Bodies Not Reportable 03/15/17 05:52 Hem Pathologist Commnt No 03/15/17 05:52 Sodium 141 mmol/L (137-145) 03/15/17 05:52 Potassium 3.7 mmol/L (3.6-5.0) 03/15/17 05:52 Chloride 105.0 mmol/L (98-107) 03/15/17 05:52 Carbon Dioxide 27 mmol/L (22-30) 03/15/17 05:52 Anion Gap 13 mmol/L 03/15/17 05:52 BUN 16 mg/dL (9-20) 03/15/17 05:52 Creatinine 0.4 mg/dL (0.8-1.5) L D 03/15/17 05:52 Estimated GFR > 60 ml/min 03/15/17 05:52 BUN/Creatinine Ratio 40.00 % 03/15/17 05:52 Glucose 107 mg/dL (75-100) H 03/15/17 05:52 Lactic Acid 1.60 mmol/L (0.7-2.0) 03/13/17 21:50 Calcium 7.7 mg/dL (8.4-10.2) L 03/15/17 05:52 Total Bilirubin 4.20 mg/dL (0.1-1.2) H 03/13/17 21:50 AST 116 units/L (5-40) H 03/13/17 21:50 ALT 35 units/L (7-56) 03/13/17 21:50 Alkaline Phosphatase 76 units/L (35-129) 03/13/17 21:50 Total Creatine Kinase 5175 units/L (55-170) H 03/14/17 06:14 CK-MB (CK-2) 3.2 ng/mL (0.0-4.0) 03/14/17 06:14 CK-MB (CK-2) Rel Index 0.0 (0-4) 03/14/17 06:14 Troponin T 0.025 ng/mL (0.00-0.029) 03/14/17 06:14 C-Reactive Protein 14.10 mg/dL (0.00-1.30) H 03/14/17 06:15 Total Protein 8.7 g/dL (6.3-8.2) H 03/13/17 21:50 Albumin 3.5 g/dL (3.9-5) L 03/13/17 21:50 Albumin/Globulin Ratio 0.7 % 03/13/17 21:50 Triglycerides 80 mg/dL (2-149) 03/13/17 21:50 Cholesterol 87 mg/dL (50-199) 03/13/17 21:50 LDL Cholesterol Direct 48 mg/dL (50-130) L 03/13/17 21:50 HDL Cholesterol 23 mg/dL (40-59) L 03/13/17 21:50 Cholesterol/HDL Ratio 3.78 % 03/13/17 21:50 Urine Color Odette (Yellow) 03/14/17 01:35 Urine Turbidity Clear (Clear) 03/14/17 01:35 Urine pH 5.0 (5.0-7.0) 03/14/17 01:35 Ur Specific [place] 1.013 (1.003-1.030) 03/14/17 01:35 Urine Protein <15 mg/dl mg/dL (Negative) 03/14/17 01:35 Urine Glucose (UA) Neg mg/dL (Negative) 03/14/17 01:35 Urine Ketones Neg mg/dL (Negative) 03/14/17 01:35 Urine Blood Neg (Negative) 03/14/17 01:35 Urine Nitrite Neg (Negative) 03/14/17 01:35 Urine Bilirubin Neg (Negative) 03/14/17 01:35 Urine Urobilinogen 2.0 mg/dL (<2.0) 03/14/17 01:35 Ur Leukocyte Esterase Neg (Negative) 03/14/17 01:35 Urine WBC (Auto) 1.0 /HPF (0.0-6.0) 03/14/17 01:35 Urine RBC (Auto) 1.0 /HPF (0.0-6.0) 03/14/17 01:35 U Epithel Cells (Auto) < 1.0 /HPF (0-13.0) 03/14/17 01:35 Hyaline Casts 13 /LPF 03/14/17 01:35 Urine Mucus Few /HPF 03/14/17 01:35 Salicylates < 0.3 mg/dL (2.8-20.0) L 03/13/17 21:50 Urine Opiates Screen Presumptive negative 03/14/17 01:35 Urine Methadone Screen Presumptive positive 03/14/17 01:35 Acetaminophen < 15.0 ug/mL (10.0-30.0) 03/13/17 21:50 Ur Barbiturates Screen Presumptive negative 03/14/17 01:35 Ur Phencyclidine Scrn Presumptive negative 03/14/17 01:35 Ur Amphetamines Screen Presumptive negative 03/14/17 01:35 U Benzodiazepines Scrn Presumptive positive 03/14/17 01:35 Urine Cocaine Screen Presumptive negative 03/14/17 01:35 U Marijuana (THC) Screen Presumptive negative 03/14/17 01:35 Drugs of Abuse Note Disclamer 03/14/17 01:35 Plasma/Serum Alcohol < 0.01 gm% (0-0.07) 03/13/17 21:50
[2017-03-15] MEDS ORDERED: REGLAN IV PRN (15:03)
--- NOTE | 2017-03-15 19:52 | Consultation ---
History of Present Illness - Reason for Consult Consult date: 03/15/17 Reason for consult: Mental Health Evaluation Requesting physician: RASHI SHRESTHA - Chief Complaint Chief complaint: "I am in pain" - History of Present Psychiatric Illness 36-year-old male presents to the emergency department by EMS after the patient was found altered and unresponsive. Today patient is calm, cooperative, but anxious during the assessment. He stated that he did not try to kill himself when he took methadone and percocet pills. He stated that it was accidental and there are pills left over at his home. He stated that he was transitioned to Methadone 10 yrs ago, because he was taking morphine and percocet for 15 yrs previously. He stated that he take Xanax for anxiety when indicated the past 3 yrs. He stated that he last took methadone and Xanax 2 days ago. He denies a mood disorder. He stated when he have a sickle cell crisis the pain is "overwhelming." He stated having generalized pain from other medical issues. He denies SI/HI's, AVH's, and depression. He stated feeling anxious throughout the day. He denies recreational drug use and alcohol consumption (etoh). Medications and Allergies Allergies Allergy/AdvReac Type Severity Reaction Status Date / Time No Known Allergies Allergy Verified 03/13/17 21:39 Home Medications Medication Instructions Recorded Confirmed Last Taken Type Methadone [Dolophine] 10 mg PO Q12H #60 tablet 12/19/15 03/14/17 1 Day Ago Rx Folic Acid [Folvite] 1 mg PO QDAY #30 tablet 02/10/16 03/14/17 1 Day Ago Rx Gabapentin [Neurontin] 300 mg PO Q8HR #90 capsule 03/01/17 03/14/17 1 Day Ago Rx Active Meds: Active Medications Acetaminophen (Tylenol) 650 mg PO Q4H PRN PRN Reason: Pain MILD(1-3)/Fever >100.5/BENAVIDEZ Last Admin: 03/15/17 03:08 Dose: 650 mg Bisacodyl (Dulcolax) 10 mg VA QDAY PRN PRN Reason: Constipation unrelieved by MOM Diphenhydramine HCl (Benadryl) 25 mg IV Q6H PRN PRN Reason: Itching Folic Acid (Folvite) 1 mg PO QDAY [facility] Last Admin: 03/15/17 10:02 Dose: 1 mg Gabapentin (Neurontin) 300 mg PO Q8HR [facility] Last Admin: 03/15/17 13:15 Dose: 300 mg Hydromorphone HCl (Dilaudid) 1 mg IV Q4H PRN PRN Reason: Pain , Severe (7-10) Sodium Chloride (Nacl 0.9% 1000 Ml) 1,000 mls @ 150 mls/hr IV DIRECT [facility] Last Admin: 03/15/17 12:52 Dose: 150 mls/hr Piperacillin Sod/Tazobactam Sod (Zosyn/Ns 4.5gm/100ml) 4.5 gm in 100 mls @ 200 mls/hr IV Q8HR SAHARA PRN Reason: Protocol Last Admin: 03/15/17 13:15 Dose: 200 mls/hr Azithromycin 500 mg/ Sodium (Chloride) 250 mls @ 250 mls/hr IV Q24H [facility] Last Admin: 03/15/17 14:05 Dose: 250 mls/hr Magnesium Hydroxide (Milk Of Magnesia) 30 ml PO Q4H PRN PRN Reason: Constipation Metoclopramide HCl (Reglan) 10 mg IV Q8H PRN PRN Reason: Nausea And Vomiting Ondansetron HCl (Zofran) 4 mg IV Q8H PRN PRN Reason: N/V unrelieved by Reglan Oxycodone/Acetaminophen (Percocet 5/325) 1 tab PO Q4H PRN PRN Reason: Pain, Moderate (4-6) Last Admin: 03/15/17 18:35 Dose: 1 tab Past psychiatric history - Past Medical History Past Medical History: other (Sickle Cell ) Past Surgical History: No surgical history - past Psychiatric treatment and history psychiatric treatment history: Denies a psy hx or fam psy hx. - Social History Social history: Lives alone ( [place]) Mental Status Exam - Vital signs Last Vital Signs Temp 98.8 F 03/15/17 16:10 Pulse 86 03/15/17 16:10 Resp 18 03/15/17 16:10 BP 110/63 03/15/17 16:10 Pulse Ox 97 03/15/17 16:10 - Exam Narrative exam: ROS: (-) depression MSE: Appearance: calm Behavior: regular eye contact Speech: regular rate and tone Mood: "okay" Affect: congruent to mood Thought Process: linear Thought Content: denies SI/HI's and AVH's Motor Activity: lying in bed Cognition: A/Ox 3 Insight: fair Judgment: fair Results Result Diagrams: 03/15/17 05:52 03/15/17 05:52 Abnormal lab results 03/15/17 03/15/17 Range/Units 05:52 05:52 WBC 14.4 H (4.5-11.0) K/mm3 RBC 2.16 L (3.65-5.03) M/mm3 Hgb 7.2 L D (11.8-15.2) gm/dl Hct 22.5 L D (35.5-45.6) % MCV 104 H (84-94) fl MCH 33 H (28-32) pg RDW 20.9 H (13.2-15.2) % [place] % (Auto) 11.0 H (0.0-7.3) % [place] # 1.6 H (0.0-0.8) K/mm3 Seg Neutrophils % 78.2 H (40.0-70.0) % Seg Neuts % (Manual) 78.0 H (40.0-70.0) % Lymphocytes % (Manual) 10.0 L (13.4-35.0) % Monocytes % (Manual) 8.0 H (0.0-7.3) % Nucleated RBC % 3.0 H (0.0-0.9) % Seg Neutrophils # 11.4 H (1.8-7.7) K/mm3 Seg Neutrophils # Man 11.2 H (1.8-7.7) K/mm3 Monocytes # (Manual) 1.2 H (0.0-0.8) K/mm3 Creatinine 0.4 L D (0.8-1.5) mg/dL Glucose 107 H (75-100) mg/dL Calcium 7.7 L (8.4-10.2) mg/dL All other labs normal. Assessment and Plan Assessment and plan: Impression: Opioid Use DO. Somatic Symptom DO. Today patient is calm, cooperative, but anxious during the assessment. Patient reports nausea and anxiety (possible opioid withdrawal symptoms), but denies cravings. DDx: R/O Mood DO Recommendation/Plan: Start Clonidine 0.1 mg BID and Xanax 0.25 mg Q8hrs PRN for anxiety. Monitor for benzo and opioid withdrawals. Patient is willing to attend a detox program.
[2017-03-15] MEDS ORDERED: XANAX PO PRN (20:14)
[2017-03-15] MEDS: DILAUDID IV PRN (20:45)
[2017-03-15] MEDS: CATAPRES PO SCH (22:23)
[2017-03-16] MEDS: DILAUDID IV PRN ×5 (01:37→21:14)
[2017-03-16] MEDS: ZOSYN/NS 4.5GM/100ML 4.5 GM/100 ML VIAL IV SCH ×3 (06:00→21:20)
[2017-03-16] MEDS: NACL 0.9% 1000 ML 1,000 ML IV SCH ×3 (06:00→21:23)
[2017-03-16] MEDS: NEURONTIN PO SCH ×3 (06:01→21:18)
[2017-03-16 06:57] LABS: Hematocrit 22.4 % (35.5-45.6); Hemoglobin 7.3 gm/dl (11.8-15.2); Mean Corpuscular HGB Conc 33 % (32-34); Mean Corpuscular Hemoglobin 34 pg (28-32); Mean Corpuscular Volume 104 fl (84-94); Platelet Count 206 K/mm3 (140-440); Red Blood Count 2.15 M/mm3 (3.65-5.03); White Blood Count 12.3 K/mm3 (4.5-11.0)
[2017-03-16 06:59] LABS: Red Cell Distribution Width 21.6 % (13.2-15.2)
[2017-03-16 07:09] LABS: Anion Gap 11 mmol/L; Blood Urea Nitrogen 5 mg/dL (9-20); Calcium 7.6 mg/dL (8.4-10.2); Carbon Dioxide 25 mmol/L (22-30); Creatine Kinase 1316 units/L (55-170); Glucose 90 mg/dL (75-100); Potassium 3.3 mmol/L (3.6-5.0); Sodium 139 mmol/L (137-145)
[2017-03-16] MEDS: CATAPRES PO SCH ×2 (10:14→21:18)
[2017-03-16] MEDS: FOLVITE PO SCH (10:15)
[2017-03-16] MEDS: ZOFRAN IV PRN (10:16)
--- NOTE | 2017-03-16 11:55 | Progress Note ---
Assessment and Plan Assessment: 1) Sepsis: improving, fever resolved, leukocytosis improving. Etiology - secondary to pneumonia. CRP 14. HIV test done in 2016 negative. 2) Left sided pneumonia: presumed aspiration pneumonia versus CAP 3) SCD 4) Elevated LFTs - normal abdominal US 5) RUE weakness/numbness- unclear etiology, work-up in November 2016 negative Plan: -continue zosyn and azithromycin for now - day 3 of 7 -upon discharge will do clindamycin 300 mg PO q8 hours total 7 days from 03/14 until 03/[address] Mello for your consultation, will f/u with you. Lubna Porter MD Infectious Diseases Specialist [facility] ([facility]) M [phone] O [phone] Subjective Date of service: 03/16/17 Interval history: Feels better, still complaining of body aches mainly legs and lower back 01/06. No fever. No N/V/D. + minimal cough. Microbiology: Blood cultures: 03/14 ngtd Urine cultures: Respiratory cultures: Wound cultures: Stool cultures: Other: Current Antimicrobials: Zosyn 03/14 Azithromycin 03/14 Objective - Exam Narrative Exam: General appearance: Alert in NAD, conversant Eyes: anicteric sclerae, moist conjunctivae; no lid-lag; PERRLA HENT: Atraumatic; oropharynx clear with moist mucous membranes and no mucosal ulcerations/no oral thrush; normal hard and soft palate. Normal external ears. Neck: Trachea midline; supple, no thyromegaly or lymphadenopathy Lungs: CTA, with normal respiratory effort and no intercostal retractions CV: RRR, no murmurs Abdomen: Soft, non-tender; no masses or hepatosplenomegaly Extremities: No peripheral edema or extremity lymphadenopathy Skin: +right thigh lateral ecchymoses, right calf blister lesion Psych: Appropriate affect, alert and oriented to person, place and time. Neuro: alert and oriented x 3. Moving all extremities Lines: No CVL / PICC - Constitutional Vitals: Vital Signs Temp Pulse Resp BP Pulse Ox 99.1 F 76 18 117/67 98 03/16/17 08:50 03/16/17 10:14 03/16/17 08:50 03/16/17 10:14 03/16/17 08:50 Temperature -Last 24 Hours Temperature 99.1 F Temperature 99.4 F Temperature 99.3 F Temperature 99.4 F Temperature 98.8 F - Labs CBC & Chem 7: 03/16/17 06:33 03/16/17 06:33 Labs: Abnormal lab results 03/16/17 03/16/17 Range/Units 06:33 06:33 WBC 12.3 H (4.5-11.0) K/mm3 RBC 2.15 L (3.65-5.03) M/mm3 Hgb 7.3 L (11.8-15.2) gm/dl Hct 22.4 L (35.5-45.6) % MCV 104 H (84-94) fl MCH 34 H (28-32) pg RDW 21.6 H (13.2-15.2) % Potassium 3.3 L (3.6-5.0) mmol/L BUN 5 L (9-20) mg/dL Creatinine 0.4 L (0.8-1.5) mg/dL Calcium 7.6 L (8.4-10.2) mg/dL Total Creatine Kinase 1316 H (55-170) units/L
--- NOTE | 2017-03-16 12:08 | Progress Note ---
Subjective - Reason for Consult Consult date: 03/16/17 Reason for consult: Psychiatry Follow-up - Chief Complaint Chief complaint: "I feel a little better" 36-year-old male presents to the emergency department by EMS after the patient was found altered and unresponsive. Today patient is calm and cooperative during the assessment. He stated that he feel better today than yesterday. He is willing to attend a detox program and PHP once discharged from the hospital. He denies anxiety, but stated having nausea this morning. He denies cravings at this time. He denies SI/HI's, AVH's, and depression. He stated that he live with his daughter (12 yrs old). Mental Status Exam - Vital signs Last Vital Signs Temp 99.1 F 03/16/17 08:50 Pulse 76 03/16/17 10:14 Resp 18 03/16/17 08:50 BP 117/67 03/16/17 10:14 Pulse Ox 98 03/16/17 08:50 - Exam Narrative exam: MSE: Appearance: calm Behavior: regular eye contact Speech: regular rate and tone Mood: "okay" Affect: congruent to mood Thought Process: linear Thought Content: denies SI/HI's and AVH's Motor Activity: lying in bed Cognition: A/Ox 3 Insight: fair Judgment: fair Assessment and Plan Impression: Opioid Use DO. Somatic Symptom DO. Today patient is calm and cooperative during the assessment. Patient reports nausea and but denies cravings. CK 1316, trending down. Recommendation/Plan: Continue Clonidine 0.1 mg BID and Xanax 0.25 mg Q8hrs PRN for anxiety. Monitor for benzo and opioid withdrawals. Once patient is discharged, he is willing to attend a detox program and then be stepped down to a PHP.
[2017-03-16] MEDS: ZITHROMAX 500 MG in NACL 0.9% 250ML 250 ML IV SCH (13:33)
[2017-03-16] MEDS: BENADRYL IV PRN ×2 (15:10→21:13)
--- NOTE | 2017-03-16 19:27 | Progress Note ---
Assessment and Plan Assessment and plan: 36-year-old man with sickle cell disease, avascular necrosis of the hips, peripheral neuropathy and chronic pain syndrome on methadone admitted for unresponsiveness 1. Acute toxic metabolic encephalopathy Due to unintentional drug overdose (UDS showed methadone and benzodiazepine) Mental status back to baseline now 2. Sepsis due to aspiration pneumonitis On antibiotics per ID recommendation 3. Acute rhabdomyolysis Continue IV fluids Trend CPK 4. Acute on chronic anemia due to sickle cell Monitor H&H 5. Chronic pain syndrome 6. Multiple bilateral leg ulcers Local wound care 7. DVT prophylaxis SCDs. Lovenox discontinued due to anemia History Interval history: c/o bilat leg and right shoulder pain Hospitalist Physical - Constitutional Vitals: Temp Pulse Resp BP Pulse Ox 8.7 F L 60 98 H 106/60 98 03/16/17 11:40 03/16/17 11:40 03/16/17 11:40 03/16/17 11:40 03/16/17 11:40 General appearance: Present: no acute distress, other (thin, frail-looking) - EENT Eyes: Present: PERRL, EOM intact. Absent: scleral icterus, conjunctival injection - Neck Neck: Present: supple. Absent: enlarged thyroid, masses or JVD, carotid bruits - Respiratory Respiratory effort: normal Respiratory: bilateral: CTA, negative: rhonchi, wheezing - Cardiovascular Rhythm: regular Heart Sounds: Present: S1 & S2. Absent: systolic murmur - Extremities Extremities: no ischemia - Abdominal General gastrointestinal: soft, non-tender, non-distended, normal bowel sounds - Neurologic Neurologic: CNII-XII intact, no focal deficits Results - Labs CBC & Chem 7: 03/18/17 05:30 03/18/17 05:30 Labs: Laboratory Last Values WBC 12.3 K/mm3 (4.5-11.0) H 03/16/17 06:33 RBC 2.15 M/mm3 (3.65-5.03) L 03/16/17 06:33 Hgb 7.3 gm/dl (11.8-15.2) L 03/16/17 06:33 Hct 22.4 % (35.5-45.6) L 03/16/17 06:33 MCV 104 fl (84-94) H 03/16/17 06:33 MCH 34 pg (28-32) H 03/16/17 06:33 MCHC 33 % (32-34) 03/16/17 06:33 RDW 21.6 % (13.2-15.2) H 03/16/17 06:33 Plt Count 206 K/mm3 (140-440) 03/16/17 06:33 Lymph % (Auto) Not Reportable 03/15/17 05:52 [place] % (Auto) 11.0 % (0.0-7.3) H 03/15/17 05:52 Eos % (Auto) 0.1 % (0.0-4.3) 03/15/17 05:52 Baso % (Auto) Not Reportable 03/15/17 05:52 Lymph # Not Reportable 03/15/17 05:52 [place] # 1.6 K/mm3 (0.0-0.8) H 03/15/17 05:52 Eos # 0.0 K/mm3 (0.0-0.4) 03/15/17 05:52 Baso # 0.0 K/mm3 (0.0-0.1) 03/15/17 05:52 Add Manual Diff Complete 03/15/17 05:52 Total Counted 100 03/15/17 05:52 Seg Neutrophils % 78.2 % (40.0-70.0) H 03/15/17 05:52 Seg Neuts % (Manual) 78.0 % (40.0-70.0) H 03/15/17 05:52 Band Neutrophils % 4.0 % 03/15/17 05:52 Lymphocytes % (Manual) 10.0 % (13.4-35.0) L 03/15/17 05:52 Reactive Lymphs % (Man) 0 % 03/15/17 05:52 Monocytes % (Manual) 8.0 % (0.0-7.3) H 03/15/17 05:52 Eosinophils % (Manual) 0 % (0.0-4.3) 03/15/17 05:52 Basophils % (Manual) 0 % (0.0-1.8) 03/15/17 05:52 Metamyelocytes % 0 % 03/15/17 05:52 Myelocytes % 0 % 03/15/17 05:52 Promyelocytes % 0 % 03/15/17 05:52 Blast Cells % 0 % 03/15/17 05:52 Nucleated RBC % 3.0 % (0.0-0.9) H 03/15/17 05:52 Seg Neutrophils # 11.4 K/mm3 (1.8-7.7) H 03/15/17 05:52 Seg Neutrophils # Man 11.2 K/mm3 (1.8-7.7) H 03/15/17 05:52 Band Neutrophils # 0.6 K/mm3 03/15/17 05:52 Lymphocytes # (Manual) 1.4 K/mm3 (1.2-5.4) 03/15/17 05:52 Abs React Lymphs (Man) 0.0 K/mm3 03/15/17 05:52 Monocytes # (Manual) 1.2 K/mm3 (0.0-0.8) H 03/15/17 05:52 Eosinophils # (Manual) 0.0 K/mm3 (0.0-0.4) 03/15/17 05:52 Basophils # (Manual) 0.0 K/mm3 (0.0-0.1) 03/15/17 05:52 Metamyelocytes # 0.0 K/mm3 03/15/17 05:52 Myelocytes # 0.0 K/mm3 03/15/17 05:52 Promyelocytes # 0.0 K/mm3 03/15/17 05:52 Blast Cells # 0.0 K/mm3 03/15/17 05:52 WBC Morphology Not Reportable 03/15/17 05:52 Hypersegmented Neuts Not Reportable 03/15/17 05:52 Hyposegmented Neuts Not Reportable 03/15/17 05:52 Hypogranular Neuts Not Reportable 03/15/17 05:52 Smudge Cells Not Reportable 03/15/17 05:52 Toxic Granulation Not Reportable 03/15/17 05:52 Toxic Vacuolation Not Reportable 03/15/17 05:52 Dohle Bodies 1+ 03/15/17 05:52 Pelger-Huet Anomaly Not Reportable 03/15/17 05:52 Steve Rods Not Reportable 03/15/17 05:52 Platelet Estimate Appears normal 03/15/17 05:52 Clumped Platelets Not Reportable 03/15/17 05:52 Plt Clumps, EDTA Not Reportable 03/15/17 05:52 Large Platelets Not Reportable 03/15/17 05:52 Giant Platelets Not Reportable 03/15/17 05:52 Platelet Satelliting Not Reportable 03/15/17 05:52 Plt Morphology Comment Not Reportable 03/15/17 05:52 RBC Morphology Not Reportable 03/15/17 05:52 Dimorphic RBCs Not Reportable 03/15/17 05:52 Polychromasia 2+ 03/15/17 05:52 Hypochromasia 2+ 03/15/17 05:52 Poikilocytosis 2+ 03/15/17 05:52 Anisocytosis 2+ 03/15/17 05:52 Microcytosis Not Reportable 03/15/17 05:52 Macrocytosis 1+ 03/15/17 05:52 Spherocytes Not Reportable 03/15/17 05:52 Pappenheimer Bodies Not Reportable 03/15/17 05:52 Sickle Cells Not Reportable 03/15/17 05:52 Target Cells 2+ 03/15/17 05:52 Tear Drop Cells Few 03/15/17 05:52 Ovalocytes Not Reportable 03/15/17 05:52 Helmet Cells Not Reportable 03/15/17 05:52 [place] Bodies Not Reportable 03/15/17 05:52 [place] Rings Not Reportable 03/15/17 05:52 [place] Cells Not Reportable 03/15/17 05:52 Bite Cells Not Reportable 03/15/17 05:52 Crenated Cell Not Reportable 03/15/17 05:52 Elliptocytes 2+ 03/15/17 05:52 Acanthocytes (Spur) Not Reportable 03/15/17 05:52 Rouleaux Not Reportable 03/15/17 05:52 Hemoglobin C Crystals Not Reportable 03/15/17 05:52 Schistocytes Not Reportable 03/15/17 05:52 Malaria parasites Not Reportable 03/15/17 05:52 Laurent Bodies Not Reportable 03/15/17 05:52 Hem Pathologist Commnt No 03/15/17 05:52 Sodium 139 mmol/L (137-145) 03/16/17 06:33 Potassium 3.3 mmol/L (3.6-5.0) L 03/16/17 06:33 Chloride 106.0 mmol/L (98-107) 03/16/17 06:33 Carbon Dioxide 25 mmol/L (22-30) 03/16/17 06:33 Anion Gap 11 mmol/L 03/16/17 06:33 BUN 5 mg/dL (9-20) L 03/16/17 06:33 Creatinine 0.4 mg/dL (0.8-1.5) L 03/16/17 06:33 Estimated GFR > 60 ml/min 03/16/17 06:33 BUN/Creatinine Ratio 12.50 % 03/16/17 06:33 Glucose 90 mg/dL (75-100) 03/16/17 06:33 Lactic Acid 1.60 mmol/L (0.7-2.0) 03/13/17 21:50 Calcium 7.6 mg/dL (8.4-10.2) L 03/16/17 06:33 Total Bilirubin 4.20 mg/dL (0.1-1.2) H 03/13/17 21:50 AST 116 units/L (5-40) H 03/13/17 21:50 ALT 35 units/L (7-56) 03/13/17 21:50 Alkaline Phosphatase 76 units/L (35-129) 03/13/17 21:50 Total Creatine Kinase 1316 units/L (55-170) H 03/16/17 06:33 CK-MB (CK-2) 3.2 ng/mL (0.0-4.0) 03/14/17 06:14 CK-MB (CK-2) Rel Index 0.0 (0-4) 03/14/17 06:14 Troponin T 0.025 ng/mL (0.00-0.029) 03/14/17 06:14 C-Reactive Protein 14.10 mg/dL (0.00-1.30) H 03/14/17 06:15 Total Protein 8.7 g/dL (6.3-8.2) H 03/13/17 21:50 Albumin 3.5 g/dL (3.9-5) L 03/13/17 21:50 Albumin/Globulin Ratio 0.7 % 03/13/17 21:50 Triglycerides 80 mg/dL (2-149) 03/13/17 21:50 Cholesterol 87 mg/dL (50-199) 03/13/17 21:50 LDL Cholesterol Direct 48 mg/dL (50-130) L 03/13/17 21:50 HDL Cholesterol 23 mg/dL (40-59) L 03/13/17 21:50 Cholesterol/HDL Ratio 3.78 % 03/13/17 21:50 Urine Color [place] (Yellow) 03/14/17 01:35 Urine Turbidity Clear (Clear) 03/14/17 01:35 Urine pH 5.0 (5.0-7.0) 03/14/17 01:35 Ur Specific [place] 1.013 (1.003-1.030) 03/14/17 01:35 Urine Protein <15 mg/dl mg/dL (Negative) 03/14/17 01:35 Urine Glucose (UA) Neg mg/dL (Negative) 03/14/17 01:35 Urine Ketones Neg mg/dL (Negative) 03/14/17 01:35 Urine Blood Neg (Negative) 03/14/17 01:35 Urine Nitrite Neg (Negative) 03/14/17 01:35 Urine Bilirubin Neg (Negative) 03/14/17 01:35 Urine Urobilinogen 2.0 mg/dL (<2.0) 03/14/17 01:35 Ur Leukocyte Esterase Neg (Negative) 03/14/17 01:35 Urine WBC (Auto) 1.0 /HPF (0.0-6.0) 03/14/17 01:35 Urine RBC (Auto) 1.0 /HPF (0.0-6.0) 03/14/17 01:35 U Epithel Cells (Auto) < 1.0 /HPF (0-13.0) 03/14/17 01:35 Hyaline Casts 13 /LPF 03/14/17 01:35 Urine Mucus Few /HPF 03/14/17 01:35 Salicylates < 0.3 mg/dL (2.8-20.0) L 03/13/17 21:50 Urine Opiates Screen Presumptive negative 03/14/17 01:35 Urine Methadone Screen Presumptive positive 03/14/17 01:35 Acetaminophen < 15.0 ug/mL (10.0-30.0) 03/13/17 21:50 Ur Barbiturates Screen Presumptive negative 03/14/17 01:35 Ur Phencyclidine Scrn Presumptive negative 03/14/17 01:35 Ur Amphetamines Screen Presumptive negative 03/14/17 01:35 U Benzodiazepines Scrn Presumptive positive 03/14/17 01:35 Urine Cocaine Screen Presumptive negative 03/14/17 01:35 U Marijuana (THC) Screen Presumptive negative 03/14/17 01:35 Drugs of Abuse Note Disclamer 03/14/17 01:35 Plasma/Serum Alcohol < 0.01 gm% (0-0.07) 03/13/17 21:50
[2017-03-17] MEDS: DILAUDID IV PRN ×5 (01:28→20:41)
[2017-03-17] MEDS: BENADRYL IV PRN ×3 (04:38→18:00)
[2017-03-17] MEDS: NACL 0.9% 1000 ML 1,000 ML IV SCH ×2 (04:38→10:12)
[2017-03-17] MEDS: NEURONTIN PO SCH ×3 (06:38→21:29)
[2017-03-17] MEDS: ZOSYN/NS 4.5GM/100ML 4.5 GM/100 ML VIAL IV SCH ×3 (06:39→21:29)
[2017-03-17 07:39] LABS: Hemoglobin 7.6 gm/dl (11.8-15.2); Mean Corpuscular HGB Conc 32 % (32-34); Mean Corpuscular Hemoglobin 33 pg (28-32); Mean Corpuscular Volume 105 fl (84-94); Platelet Count 243 K/mm3 (140-440); Red Blood Count 2.29 M/mm3 (3.65-5.03); Reticulocyte % 6.41 % (0.78-2.58); White Blood Count 9.8 K/mm3 (4.5-11.0)
[2017-03-17 07:40] LABS: Red Cell Distribution Width 20.7 % (13.2-15.2)
[2017-03-17 07:52] LABS: Anion Gap 12 mmol/L; Blood Urea Nitrogen 4 mg/dL (9-20); Calcium 7.8 mg/dL (8.4-10.2); Carbon Dioxide 25 mmol/L (22-30); Chloride 102.9 mmol/L (98-107); Creatine Kinase 536 units/L (55-170); Glucose 88 mg/dL (75-100); Sodium 137 mmol/L (137-145)
[2017-03-17] MEDS: FOLVITE PO SCH (10:11)
[2017-03-17] MEDS: CATAPRES PO SCH ×2 (10:11→21:29)
[2017-03-17] MEDS: KCL 10MEQ/100ML 10 MEQ/100 ML BAG IV SCH ×4 (13:08→20:22)
--- NOTE | 2017-03-17 13:58 | Progress Note ---
Assessment and Plan Assessment: 1) Sepsis: resolved. Etiology - secondary to pneumonia. CRP 14. HIV test done in 2016 negative. 2) Left sided pneumonia: presumed aspiration pneumonia versus CAP 3) SCD pain- better 4) Elevated LFTs - normal abdominal US 5) RUE weakness/numbness- unclear etiology, work-up in November 2016 negative Plan: -continue zosyn and azithromycin for now (cover aspiration pneumonia and atypicals) - day 4 of 7 -upon discharge will do clindamycin 300 mg PO q8 hours total 7 days from 03/14 until 03/[address] Mello for your consultation, will f/u with you. Lubna Porter MD Infectious Diseases Specialist [facility] ([facility]) M [phone] O [phone] Subjective Date of service: 03/17/17 Interval history: Feels good, body aches mainly legs and lower back pain now 11/06. No fever. No cough. Microbiology: Blood cultures: 03/14 ngtd Urine cultures: Respiratory cultures: Wound cultures: Stool cultures: Other: Current Antimicrobials: Zosyn 03/14 Azithromycin 03/14 Objective - Exam Narrative Exam: General appearance: Alert in NAD, conversant Eyes: anicteric sclerae, moist conjunctivae; no lid-lag; PERRLA HENT: Atraumatic; oropharynx clear with moist mucous membranes and no mucosal ulcerations/no oral thrush; normal hard and soft palate. Normal external ears. Neck: Trachea midline; supple, no thyromegaly or lymphadenopathy Lungs: CTA, with normal respiratory effort and no intercostal retractions CV: RRR, no murmurs Abdomen: Soft, non-tender; no masses or hepatosplenomegaly Extremities: No peripheral edema or extremity lymphadenopathy Skin: +right thigh lateral ecchymoses, right calf blister lesion Psych: Appropriate affect, alert and oriented to person, place and time. Neuro: alert and oriented x 3. Moving all extremities Lines: No CVL / PICC - Constitutional Vitals: Vital Signs Temp Pulse Resp BP Pulse Ox 99 F 70 18 118/74 99 03/17/17 11:50 03/17/17 11:50 03/17/17 11:50 03/17/17 11:50 03/17/17 11:50 Temperature -Last 24 Hours Temperature 99 F Temperature 99.5 F Temperature 98.0 F Temperature 98.2 F Temperature 98.5 F - Labs CBC & Chem 7: 03/17/17 05:00 03/17/17 05:00 Labs: Abnormal lab results 03/17/17 03/17/17 Range/Units 05:00 05:00 RBC 2.29 L (3.65-5.03) M/mm3 Hgb 7.6 L (11.8-15.2) gm/dl Hct 24.0 L (35.5-45.6) % MCV 105 H (84-94) fl MCH 33 H (28-32) pg RDW 20.7 H (13.2-15.2) % Percent Retic 6.41 H (0.78-2.58) % Potassium 3.0 L (3.6-5.0) mmol/L BUN 4 L (9-20) mg/dL Creatinine 0.4 L (0.8-1.5) mg/dL Calcium 7.8 L (8.4-10.2) mg/dL Total Creatine Kinase 536 H (55-170) units/L
[2017-03-17] MEDS: ZITHROMAX 500 MG in NACL 0.9% 250ML 250 ML IV SCH (16:13)
--- NOTE | 2017-03-17 16:13 | Hem/Onc Progress Note ---
Assessment and Plan 1. 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- can discuss outpt Hydrea with that individual - pain crisis pain has improved, pt remains in house for antibiotics Subjective Date of service: 03/17/17 Interval history: Mr Cross reports that his pain is improved Objective - Constitutional Vitals: Last Vital Signs Temp 99 F 03/17/17 11:50 Pulse 70 03/17/17 11:50 Resp 18 03/17/17 11:50 BP 118/74 03/17/17 11:50 Pulse Ox 99 03/17/17 11:50 Pain Intensity (0-10): denies any pain - Neck Neck: supple - Respiratory Respiratory effort: Positive: normal - Cardiovascular Rhythm: regular Extremities: No edema - Labs Lab Results: Laboratory Results - last 24 hr 03/17/17 03/17/17 05:00 05:00 WBC 9.8 RBC 2.29 L Hgb 7.6 L Hct 24.0 L MCV 105 H MCH 33 H MCHC 32 RDW 20.7 H Plt Count 243 Percent Retic 6.41 H Sodium 137 Potassium 3.0 L Chloride 102.9 Carbon Dioxide 25 Anion Gap 12 BUN 4 L Creatinine 0.4 L Estimated GFR > 60 BUN/Creatinine Ratio 10.00 Glucose 88 Calcium 7.8 L Total Creatine Kinase 536 H
[2017-03-17] MEDS: ZOFRAN IV PRN (20:41)
--- NOTE | 2017-03-17 20:52 | Progress Note ---
Assessment and Plan Assessment and plan: 36-year-old man with sickle cell disease, avascular necrosis of the hips, peripheral neuropathy and chronic pain syndrome on methadone admitted for unresponsiveness 1. Acute toxic metabolic encephalopathy Due to unintentional drug overdose (UDS showed methadone and benzodiazepine) Mental status back to baseline now 2. Sepsis due to aspiration pneumonitis Resolved Continue antibiotics per ID recommendation 3. Acute rhabdomyolysis CPK slowly trending down Continue IV fluids 4. Acute on chronic anemia due to sickle cell Monitor H&H 5. Chronic pain syndrome 6. Multiple bilateral leg ulcers Local care 7. DVT prophylaxis SCDs. Lovenox discontinued due to anemia History Interval history: c/o bilat leg pain Hospitalist Physical - Constitutional Vitals: Temp Pulse Resp BP Pulse Ox 99.4 F 65 20 138/81 97 03/17/17 20:21 03/17/17 20:21 03/17/17 20:46 03/17/17 20:21 03/17/17 20:21 General appearance: Present: no acute distress - EENT Eyes: Present: PERRL, EOM intact. Absent: scleral icterus, conjunctival injection ENT: hearing intact, clear oral mucosa, poor dentition, no oropharyngeal erythema - Neck Neck: Present: normal ROM. Absent: enlarged thyroid, masses or JVD, carotid bruits - Respiratory Respiratory effort: normal Respiratory: bilateral: CTA, negative: rhonchi, wheezing - Cardiovascular Rhythm: regular Heart Sounds: Present: S1 & S2. Absent: systolic murmur - Extremities Extremities: no ischemia - Abdominal General gastrointestinal: soft, non-tender, non-distended, normal bowel sounds - Neurologic Neurologic: CNII-XII intact, moves all extremities Results - Labs CBC & Chem 7: 03/18/17 05:30 03/18/17 05:30 Labs: Laboratory Last Values WBC 9.8 K/mm3 (4.5-11.0) 03/17/17 05:00 RBC 2.29 M/mm3 (3.65-5.03) L 03/17/17 05:00 Hgb 7.6 gm/dl (11.8-15.2) L 03/17/17 05:00 Hct 24.0 % (35.5-45.6) L 03/17/17 05:00 MCV 105 fl (84-94) H 03/17/17 05:00 MCH 33 pg (28-32) H 03/17/17 05:00 MCHC 32 % (32-34) 03/17/17 05:00 RDW 20.7 % (13.2-15.2) H 03/17/17 05:00 Plt Count 243 K/mm3 (140-440) 03/17/17 05:00 Lymph % (Auto) Not Reportable 03/15/17 05:52 [place] % (Auto) 11.0 % (0.0-7.3) H 03/15/17 05:52 Eos % (Auto) 0.1 % (0.0-4.3) 03/15/17 05:52 Baso % (Auto) Not Reportable 03/15/17 05:52 Lymph # Not Reportable 03/15/17 05:52 [place] # 1.6 K/mm3 (0.0-0.8) H 03/15/17 05:52 Eos # 0.0 K/mm3 (0.0-0.4) 03/15/17 05:52 Baso # 0.0 K/mm3 (0.0-0.1) 03/15/17 05:52 Add Manual Diff Complete 03/15/17 05:52 Total Counted 100 03/15/17 05:52 Seg Neutrophils % 78.2 % (40.0-70.0) H 03/15/17 05:52 Seg Neuts % (Manual) 78.0 % (40.0-70.0) H 03/15/17 05:52 Band Neutrophils % 4.0 % 03/15/17 05:52 Lymphocytes % (Manual) 10.0 % (13.4-35.0) L 03/15/17 05:52 Reactive Lymphs % (Man) 0 % 03/15/17 05:52 Monocytes % (Manual) 8.0 % (0.0-7.3) H 03/15/17 05:52 Eosinophils % (Manual) 0 % (0.0-4.3) 03/15/17 05:52 Basophils % (Manual) 0 % (0.0-1.8) 03/15/17 05:52 Metamyelocytes % 0 % 03/15/17 05:52 Myelocytes % 0 % 03/15/17 05:52 Promyelocytes % 0 % 03/15/17 05:52 Blast Cells % 0 % 03/15/17 05:52 Nucleated RBC % 3.0 % (0.0-0.9) H 03/15/17 05:52 Seg Neutrophils # 11.4 K/mm3 (1.8-7.7) H 03/15/17 05:52 Seg Neutrophils # Man 11.2 K/mm3 (1.8-7.7) H 03/15/17 05:52 Band Neutrophils # 0.6 K/mm3 03/15/17 05:52 Lymphocytes # (Manual) 1.4 K/mm3 (1.2-5.4) 03/15/17 05:52 Abs React Lymphs (Man) 0.0 K/mm3 03/15/17 05:52 Monocytes # (Manual) 1.2 K/mm3 (0.0-0.8) H 03/15/17 05:52 Eosinophils # (Manual) 0.0 K/mm3 (0.0-0.4) 03/15/17 05:52 Basophils # (Manual) 0.0 K/mm3 (0.0-0.1) 03/15/17 05:52 Metamyelocytes # 0.0 K/mm3 03/15/17 05:52 Myelocytes # 0.0 K/mm3 03/15/17 05:52 Promyelocytes # 0.0 K/mm3 03/15/17 05:52 Blast Cells # 0.0 K/mm3 03/15/17 05:52 WBC Morphology Not Reportable 03/15/17 05:52 Hypersegmented Neuts Not Reportable 03/15/17 05:52 Hyposegmented Neuts Not Reportable 03/15/17 05:52 Hypogranular Neuts Not Reportable 03/15/17 05:52 Smudge Cells Not Reportable 03/15/17 05:52 Toxic Granulation Not Reportable 03/15/17 05:52 Toxic Vacuolation Not Reportable 03/15/17 05:52 Dohle Bodies 1+ 03/15/17 05:52 Pelger-Huet Anomaly Not Reportable 03/15/17 05:52 Steve Rods Not Reportable 03/15/17 05:52 Platelet Estimate Appears normal 03/15/17 05:52 Clumped Platelets Not Reportable 03/15/17 05:52 Plt Clumps, EDTA Not Reportable 03/15/17 05:52 Large Platelets Not Reportable 03/15/17 05:52 Giant Platelets Not Reportable 03/15/17 05:52 Platelet Satelliting Not Reportable 03/15/17 05:52 Plt Morphology Comment Not Reportable 03/15/17 05:52 RBC Morphology Not Reportable 03/15/17 05:52 Dimorphic RBCs Not Reportable 03/15/17 05:52 Polychromasia 2+ 03/15/17 05:52 Hypochromasia 2+ 03/15/17 05:52 Poikilocytosis 2+ 03/15/17 05:52 Anisocytosis 2+ 03/15/17 05:52 Microcytosis Not Reportable 03/15/17 05:52 Macrocytosis 1+ 03/15/17 05:52 Spherocytes Not Reportable 03/15/17 05:52 Pappenheimer Bodies Not Reportable 03/15/17 05:52 Sickle Cells Not Reportable 03/15/17 05:52 Target Cells 2+ 03/15/17 05:52 Tear Drop Cells Few 03/15/17 05:52 Ovalocytes Not Reportable 03/15/17 05:52 Helmet Cells Not Reportable 03/15/17 05:52 [place] Bodies Not Reportable 03/15/17 05:52 [place] Rings Not Reportable 03/15/17 05:52 [place] Cells Not Reportable 03/15/17 05:52 Bite Cells Not Reportable 03/15/17 05:52 Crenated Cell Not Reportable 03/15/17 05:52 Elliptocytes 2+ 03/15/17 05:52 Acanthocytes (Spur) Not Reportable 03/15/17 05:52 Rouleaux Not Reportable 03/15/17 05:52 Hemoglobin C Crystals Not Reportable 03/15/17 05:52 Schistocytes Not Reportable 03/15/17 05:52 Malaria parasites Not Reportable 03/15/17 05:52 Percent Retic 6.41 % (0.78-2.58) H 03/17/17 05:00 Laurent Bodies Not Reportable 03/15/17 05:52 Hem Pathologist Commnt No 03/15/17 05:52 Sodium 137 mmol/L (137-145) 03/17/17 05:00 Potassium 3.0 mmol/L (3.6-5.0) L 03/17/17 05:00 Chloride 102.9 mmol/L (98-107) 03/17/17 05:00 Carbon Dioxide 25 mmol/L (22-30) 03/17/17 05:00 Anion Gap 12 mmol/L 03/17/17 05:00 BUN 4 mg/dL (9-20) L 03/17/17 05:00 Creatinine 0.4 mg/dL (0.8-1.5) L 03/17/17 05:00 Estimated GFR > 60 ml/min 03/17/17 05:00 BUN/Creatinine Ratio 10.00 % 03/17/17 05:00 Glucose 88 mg/dL (75-100) 03/17/17 05:00 Lactic Acid 1.60 mmol/L (0.7-2.0) 03/13/17 21:50 Calcium 7.8 mg/dL (8.4-10.2) L 03/17/17 05:00 Total Bilirubin 4.20 mg/dL (0.1-1.2) H 03/13/17 21:50 AST 116 units/L (5-40) H 03/13/17 21:50 ALT 35 units/L (7-56) 03/13/17 21:50 Alkaline Phosphatase 76 units/L (35-129) 03/13/17 21:50 Total Creatine Kinase 536 units/L (55-170) H 03/17/17 05:00 CK-MB (CK-2) 3.2 ng/mL (0.0-4.0) 03/14/17 06:14 CK-MB (CK-2) Rel Index 0.0 (0-4) 03/14/17 06:14 Troponin T 0.025 ng/mL (0.00-0.029) 03/14/17 06:14 C-Reactive Protein 14.10 mg/dL (0.00-1.30) H 03/14/17 06:15 Total Protein 8.7 g/dL (6.3-8.2) H 03/13/17 21:50 Albumin 3.5 g/dL (3.9-5) L 03/13/17 21:50 Albumin/Globulin Ratio 0.7 % 03/13/17 21:50 Triglycerides 80 mg/dL (2-149) 03/13/17 21:50 Cholesterol 87 mg/dL (50-199) 03/13/17 21:50 LDL Cholesterol Direct 48 mg/dL (50-130) L 03/13/17 21:50 HDL Cholesterol 23 mg/dL (40-59) L 03/13/17 21:50 Cholesterol/HDL Ratio 3.78 % 03/13/17 21:50 Urine Color [place] (Yellow) 03/14/17 01:35 Urine Turbidity Clear (Clear) 03/14/17 01:35 Urine pH 5.0 (5.0-7.0) 03/14/17 01:35 Ur Specific [place] 1.013 (1.003-1.030) 03/14/17 01:35 Urine Protein <15 mg/dl mg/dL (Negative) 03/14/17 01:35 Urine Glucose (UA) Neg mg/dL (Negative) 03/14/17 01:35 Urine Ketones Neg mg/dL (Negative) 03/14/17 01:35 Urine Blood Neg (Negative) 03/14/17 01:35 Urine Nitrite Neg (Negative) 03/14/17 01:35 Urine Bilirubin Neg (Negative) 03/14/17 01:35 Urine Urobilinogen 2.0 mg/dL (<2.0) 03/14/17 01:35 Ur Leukocyte Esterase Neg (Negative) 03/14/17 01:35 Urine WBC (Auto) 1.0 /HPF (0.0-6.0) 03/14/17 01:35 Urine RBC (Auto) 1.0 /HPF (0.0-6.0) 03/14/17 01:35 U Epithel Cells (Auto) < 1.0 /HPF (0-13.0) 03/14/17 01:35 Hyaline Casts 13 /LPF 03/14/17 01:35 Urine Mucus Few /HPF 03/14/17 01:35 Salicylates < 0.3 mg/dL (2.8-20.0) L 03/13/17 21:50 Urine Opiates Screen Presumptive negative 03/14/17 01:35 Urine Methadone Screen Presumptive positive 03/14/17 01:35 Acetaminophen < 15.0 ug/mL (10.0-30.0) 03/13/17 21:50 Ur Barbiturates Screen Presumptive negative 03/14/17 01:35 Ur Phencyclidine Scrn Presumptive negative 03/14/17 01:35 Ur Amphetamines Screen Presumptive negative 03/14/17 01:35 U Benzodiazepines Scrn Presumptive positive 03/14/17 01:35 Urine Cocaine Screen Presumptive negative 03/14/17 01:35 U Marijuana (THC) Screen Presumptive negative 03/14/17 01:35 Drugs of Abuse Note Disclamer 03/14/17 01:35 Plasma/Serum Alcohol < 0.01 gm% (0-0.07) 03/13/17 21:50
[2017-03-18] MEDS: DILAUDID IV PRN ×6 (00:37→21:59)
[2017-03-18] MEDS: NACL 0.9% 1000 ML 1,000 ML IV SCH ×3 (00:38→16:54)
[2017-03-18] MEDS: BENADRYL IV PRN ×4 (00:38→21:59)
[2017-03-18] MEDS: ZOSYN/NS 4.5GM/100ML 4.5 GM/100 ML VIAL IV SCH ×3 (05:22→21:58)
[2017-03-18] MEDS: NEURONTIN PO SCH ×3 (05:22→21:58)
[2017-03-18 06:03] LABS: Hematocrit 21.3 % (35.5-45.6); Hemoglobin 7.2 gm/dl (11.8-15.2); Mean Corpuscular HGB Conc 34 % (32-34); Mean Corpuscular Hemoglobin 35 pg (28-32); Mean Corpuscular Volume 103 fl (84-94); Platelet Count 246 K/mm3 (140-440); Red Blood Count 2.06 M/mm3 (3.65-5.03)
[2017-03-18 06:21] LABS: Anion Gap 14 mmol/L; Blood Urea Nitrogen 3 mg/dL (9-20); Calcium 7.9 mg/dL (8.4-10.2); Carbon Dioxide 24 mmol/L (22-30); Chloride 102.9 mmol/L (98-107); Creatine Kinase 281 units/L (55-170); Glucose 90 mg/dL (75-100); Potassium 3.1 mmol/L (3.6-5.0); Sodium 138 mmol/L (137-145)
[2017-03-18] MEDS: ZOFRAN IV PRN ×2 (06:28→17:53)
[2017-03-18] MEDS: FOLVITE PO SCH (09:35)
[2017-03-18] MEDS: CATAPRES PO SCH ×2 (09:36→21:58)
[2017-03-18] MEDS ORDERED: K-DUR PO ONE (13:11)
--- NOTE | 2017-03-18 13:44 | Progress Note ---
Assessment and Plan Assessment: 1) Sepsis: resolved. Etiology - secondary to pneumonia. CRP 14. HIV test done in 2016 negative. 2) Left sided pneumonia: presumed aspiration pneumonia versus CAP 3) SCD pain- better 4) Elevated LFTs - normal abdominal US 5) RUE weakness/numbness- unclear etiology, work-up in November 2016 negative Plan: -continue zosyn and azithromycin for now (cover aspiration pneumonia and atypicals) - day 5 of 7 -upon discharge will do clindamycin 300 mg PO q8 hours total 7 days from 03/14 until 03/20 -I will sign off, please call me if questions. Thank you Dr Mello for your consultation, will f/u with you. Lubna Porter MD Infectious Diseases Specialist [facility] ([facility]) M [phone] O [phone] Subjective Date of service: 03/18/17 Interval history: Feels ok, still body aches mainly legs and lower back pain now 10. No fever. No cough. Microbiology: Blood cultures: 03/14 ngtd Urine cultures: Respiratory cultures: Wound cultures: Stool cultures: Other: Current Antimicrobials: Zosyn 03/14 Azithromycin 03/14 Objective - Exam Narrative Exam: General appearance: Alert in NAD, conversant Eyes: anicteric sclerae, moist conjunctivae; no lid-lag; PERRLA HENT: Atraumatic; oropharynx clear with moist mucous membranes and no mucosal ulcerations/no oral thrush; normal hard and soft palate. Normal external ears. Neck: Trachea midline; supple, no thyromegaly or lymphadenopathy Lungs: CTA, with normal respiratory effort and no intercostal retractions CV: RRR, no murmurs Abdomen: Soft, non-tender; no masses or hepatosplenomegaly Extremities: No peripheral edema or extremity lymphadenopathy Skin: +right thigh lateral ecchymoses, right calf blister lesion Psych: Appropriate affect, alert and oriented to person, place and time. Neuro: alert and oriented x 3. Moving all extremities Lines: No CVL / PICC - Constitutional Vitals: Vital Signs Temp Pulse Resp BP Pulse Ox 98.8 F 65 18 117/72 99 03/18/17 11:50 03/18/17 11:50 03/18/17 11:50 03/18/17 11:50 03/18/17 11:50 Temperature -Last 24 Hours Temperature 98.8 F Temperature 99.0 F Temperature 98.4 F Temperature 98.4 F Temperature 99.4 F Temperature 99.5 F - Labs CBC & Chem 7: 03/18/17 05:30 03/18/17 05:30 Labs: Abnormal lab results 03/18/17 03/18/17 Range/Units 05:30 05:30 RBC 2.06 L (3.65-5.03) M/mm3 Hgb 7.2 L (11.8-15.2) gm/dl Hct 21.3 L (35.5-45.6) % MCV 103 H (84-94) fl MCH 35 H (28-32) pg RDW 21.0 H (13.2-15.2) % Potassium 3.1 L (3.6-5.0) mmol/L BUN 3 L (9-20) mg/dL Creatinine 0.4 L (0.8-1.5) mg/dL Calcium 7.9 L (8.4-10.2) mg/dL Total Creatine Kinase 281 H (55-170) units/L
[2017-03-18] MEDS: ZITHROMAX 500 MG in NACL 0.9% 250ML 250 ML IV SCH (13:48)
--- NOTE | 2017-03-18 18:04 | Progress Note ---
Assessment and Plan Assessment and plan: 36-year-old man with sickle cell disease, avascular necrosis of the hips, peripheral neuropathy and chronic pain syndrome on methadone admitted for unresponsiveness 1. Acute toxic metabolic encephalopathy Due to unintentional drug overdose (UDS showed methadone and benzodiazepine) Mental status back to baseline now 2. Sepsis due to aspiration pneumonitis Resolved Continue antibiotics per ID recommendation 3. Acute rhabdomyolysis CPK trending down Continue IV fluids 4. Hypokalemia Citrate and recheck in a.m. 5. Hypertension BP controlled on clonidine 6. Acute on chronic anemia due to sickle cell Monitor H&H 7. Chronic pain syndrome 8. Multiple bilateral leg ulcers Local care 9. DVT prophylaxis SCDs. Lovenox discontinued due to anemia 10. Dispo Anticipate discharge tomorrow History Interval history: Still complaining of bilat leg pain, but better overall Hospitalist Physical - Constitutional Vitals: Temp Pulse Resp BP Pulse Ox 99.4 F 70 18 109/66 99 03/18/17 16:14 03/18/17 16:14 03/18/17 16:14 03/18/17 16:14 03/18/17 11:50 General appearance: Present: no acute distress, other (thin, frail) - EENT Eyes: Present: PERRL, EOM intact. Absent: scleral icterus, conjunctival injection - Respiratory Respiratory effort: normal Respiratory: bilateral: CTA, negative: rhonchi, wheezing - Cardiovascular Rhythm: regular Heart Sounds: Present: S1 & S2. Absent: systolic murmur - Extremities Extremities: no ischemia - Abdominal General gastrointestinal: soft, non-tender, non-distended, normal bowel sounds - Neurologic Neurologic: CNII-XII intact, no focal deficits Results - Labs CBC & Chem 7: 03/18/17 05:30 03/18/17 05:30 Labs: Laboratory Last Values WBC 8.0 K/mm3 (4.5-11.0) 03/18/17 05:30 RBC 2.06 M/mm3 (3.65-5.03) L 03/18/17 05:30 Hgb 7.2 gm/dl (11.8-15.2) L 03/18/17 05:30 Hct 21.3 % (35.5-45.6) L 03/18/17 05:30 MCV 103 fl (84-94) H 03/18/17 05:30 MCH 35 pg (28-32) H 03/18/17 05:30 MCHC 34 % (32-34) 03/18/17 05:30 RDW 21.0 % (13.2-15.2) H 03/18/17 05:30 Plt Count 246 K/mm3 (140-440) 03/18/17 05:30 Lymph % (Auto) Not Reportable 03/15/17 05:52 Martin % (Auto) 11.0 % (0.0-7.3) H 03/15/17 05:52 Eos % (Auto) 0.1 % (0.0-4.3) 03/15/17 05:52 Baso % (Auto) Not Reportable 03/15/17 05:52 Lymph # Not Reportable 03/15/17 05:52 Martin # 1.6 K/mm3 (0.0-0.8) H 03/15/17 05:52 Eos # 0.0 K/mm3 (0.0-0.4) 03/15/17 05:52 Baso # 0.0 K/mm3 (0.0-0.1) 03/15/17 05:52 Add Manual Diff Complete 03/15/17 05:52 Total Counted 100 03/15/17 05:52 Seg Neutrophils % 78.2 % (40.0-70.0) H 03/15/17 05:52 Seg Neuts % (Manual) 78.0 % (40.0-70.0) H 03/15/17 05:52 Band Neutrophils % 4.0 % 03/15/17 05:52 Lymphocytes % (Manual) 10.0 % (13.4-35.0) L 03/15/17 05:52 Reactive Lymphs % (Man) 0 % 03/15/17 05:52 Monocytes % (Manual) 8.0 % (0.0-7.3) H 03/15/17 05:52 Eosinophils % (Manual) 0 % (0.0-4.3) 03/15/17 05:52 Basophils % (Manual) 0 % (0.0-1.8) 03/15/17 05:52 Metamyelocytes % 0 % 03/15/17 05:52 Myelocytes % 0 % 03/15/17 05:52 Promyelocytes % 0 % 03/15/17 05:52 Blast Cells % 0 % 03/15/17 05:52 Nucleated RBC % 3.0 % (0.0-0.9) H 03/15/17 05:52 Seg Neutrophils # 11.4 K/mm3 (1.8-7.7) H 03/15/17 05:52 Seg Neutrophils # Man 11.2 K/mm3 (1.8-7.7) H 03/15/17 05:52 Band Neutrophils # 0.6 K/mm3 03/15/17 05:52 Lymphocytes # (Manual) 1.4 K/mm3 (1.2-5.4) 03/15/17 05:52 Abs React Lymphs (Man) 0.0 K/mm3 03/15/17 05:52 Monocytes # (Manual) 1.2 K/mm3 (0.0-0.8) H 03/15/17 05:52 Eosinophils # (Manual) 0.0 K/mm3 (0.0-0.4) 03/15/17 05:52 Basophils # (Manual) 0.0 K/mm3 (0.0-0.1) 03/15/17 05:52 Metamyelocytes # 0.0 K/mm3 03/15/17 05:52 Myelocytes # 0.0 K/mm3 03/15/17 05:52 Promyelocytes # 0.0 K/mm3 03/15/17 05:52 Blast Cells # 0.0 K/mm3 03/15/17 05:52 WBC Morphology Not Reportable 03/15/17 05:52 Hypersegmented Neuts Not Reportable 03/15/17 05:52 Hyposegmented Neuts Not Reportable 03/15/17 05:52 Hypogranular Neuts Not Reportable 03/15/17 05:52 Smudge Cells Not Reportable 03/15/17 05:52 Toxic Granulation Not Reportable 03/15/17 05:52 Toxic Vacuolation Not Reportable 03/15/17 05:52 Dohle Bodies 1+ 03/15/17 05:52 Pelger-Huet Anomaly Not Reportable 03/15/17 05:52 Steve Rods Not Reportable 03/15/17 05:52 Platelet Estimate Appears normal 03/15/17 05:52 Clumped Platelets Not Reportable 03/15/17 05:52 Plt Clumps, EDTA Not Reportable 03/15/17 05:52 Large Platelets Not Reportable 03/15/17 05:52 Giant Platelets Not Reportable 03/15/17 05:52 Platelet Satelliting Not Reportable 03/15/17 05:52 Plt Morphology Comment Not Reportable 03/15/17 05:52 RBC Morphology Not Reportable 03/15/17 05:52 Dimorphic RBCs Not Reportable 03/15/17 05:52 Polychromasia 2+ 03/15/17 05:52 Hypochromasia 2+ 03/15/17 05:52 Poikilocytosis 2+ 03/15/17 05:52 Anisocytosis 2+ 03/15/17 05:52 Microcytosis Not Reportable 03/15/17 05:52 Macrocytosis 1+ 03/15/17 05:52 Spherocytes Not Reportable 03/15/17 05:52 Pappenheimer Bodies Not Reportable 03/15/17 05:52 Sickle Cells Not Reportable 03/15/17 05:52 Target Cells 2+ 03/15/17 05:52 Tear Drop Cells Few 03/15/17 05:52 Ovalocytes Not Reportable 03/15/17 05:52 Helmet Cells Not Reportable 03/15/17 05:52 [place] Bodies Not Reportable 03/15/17 05:52 [place] Rings Not Reportable 03/15/17 05:52 Vinod Cells Not Reportable 03/15/17 05:52 Bite Cells Not Reportable 03/15/17 05:52 Crenated Cell Not Reportable 03/15/17 05:52 Elliptocytes 2+ 03/15/17 05:52 Acanthocytes (Spur) Not Reportable 03/15/17 05:52 Rouleaux Not Reportable 03/15/17 05:52 Hemoglobin C Crystals Not Reportable 03/15/17 05:52 Schistocytes Not Reportable 03/15/17 05:52 Malaria parasites Not Reportable 03/15/17 05:52 Percent Retic 6.41 % (0.78-2.58) H 03/17/17 05:00 Laurent Bodies Not Reportable 03/15/17 05:52 Hem Pathologist Commnt No 03/15/17 05:52 Sodium 138 mmol/L (137-145) 03/18/17 05:30 Potassium 3.1 mmol/L (3.6-5.0) L 03/18/17 05:30 Chloride 102.9 mmol/L (98-107) 03/18/17 05:30 Carbon Dioxide 24 mmol/L (22-30) 03/18/17 05:30 Anion Gap 14 mmol/L 03/18/17 05:30 BUN 3 mg/dL (9-20) L 03/18/17 05:30 Creatinine 0.4 mg/dL (0.8-1.5) L 03/18/17 05:30 Estimated GFR > 60 ml/min 03/18/17 05:30 BUN/Creatinine Ratio 7.50 % 03/18/17 05:30 Glucose 90 mg/dL (75-100) 03/18/17 05:30 Lactic Acid 1.60 mmol/L (0.7-2.0) 03/13/17 21:50 Calcium 7.9 mg/dL (8.4-10.2) L 03/18/17 05:30 Total Bilirubin 4.20 mg/dL (0.1-1.2) H 03/13/17 21:50 AST 116 units/L (5-40) H 03/13/17 21:50 ALT 35 units/L (7-56) 03/13/17 21:50 Alkaline Phosphatase 76 units/L (35-129) 03/13/17 21:50 Total Creatine Kinase 281 units/L (55-170) H 03/18/17 05:30 CK-MB (CK-2) 3.2 ng/mL (0.0-4.0) 03/14/17 06:14 CK-MB (CK-2) Rel Index 0.0 (0-4) 03/14/17 06:14 Troponin T 0.025 ng/mL (0.00-0.029) 03/14/17 06:14 C-Reactive Protein 14.10 mg/dL (0.00-1.30) H 03/14/17 06:15 Total Protein 8.7 g/dL (6.3-8.2) H 03/13/17 21:50 Albumin 3.5 g/dL (3.9-5) L 03/13/17 21:50 Albumin/Globulin Ratio 0.7 % 03/13/17 21:50 Triglycerides 80 mg/dL (2-149) 03/13/17 21:50 Cholesterol 87 mg/dL (50-199) 03/13/17 21:50 LDL Cholesterol Direct 48 mg/dL (50-130) L 03/13/17 21:50 HDL Cholesterol 23 mg/dL (40-59) L 03/13/17 21:50 Cholesterol/HDL Ratio 3.78 % 03/13/17 21:50 Urine Color Odette (Yellow) 03/14/17 01:35 Urine Turbidity Clear (Clear) 03/14/17 01:35 Urine pH 5.0 (5.0-7.0) 03/14/17 01:35 Ur Specific [place] 1.013 (1.003-1.030) 03/14/17 01:35 Urine Protein <15 mg/dl mg/dL (Negative) 03/14/17 01:35 Urine Glucose (UA) Neg mg/dL (Negative) 03/14/17 01:35 Urine Ketones Neg mg/dL (Negative) 03/14/17 01:35 Urine Blood Neg (Negative) 03/14/17 01:35 Urine Nitrite Neg (Negative) 03/14/17 01:35 Urine Bilirubin Neg (Negative) 03/14/17 01:35 Urine Urobilinogen 2.0 mg/dL (<2.0) 03/14/17 01:35 Ur Leukocyte Esterase Neg (Negative) 03/14/17 01:35 Urine WBC (Auto) 1.0 /HPF (0.0-6.0) 03/14/17 01:35 Urine RBC (Auto) 1.0 /HPF (0.0-6.0) 03/14/17 01:35 U Epithel Cells (Auto) < 1.0 /HPF (0-13.0) 03/14/17 01:35 Hyaline Casts 13 /LPF 03/14/17 01:35 Urine Mucus Few /HPF 03/14/17 01:35 Salicylates < 0.3 mg/dL (2.8-20.0) L 03/13/17 21:50 Urine Opiates Screen Presumptive negative 03/14/17 01:35 Urine Methadone Screen Presumptive positive 03/14/17 01:35 Acetaminophen < 15.0 ug/mL (10.0-30.0) 03/13/17 21:50 Ur Barbiturates Screen Presumptive negative 03/14/17 01:35 Ur Phencyclidine Scrn Presumptive negative 03/14/17 01:35 Ur Amphetamines Screen Presumptive negative 03/14/17 01:35 U Benzodiazepines Scrn Presumptive positive 03/14/17 01:35 Urine Cocaine Screen Presumptive negative 03/14/17 01:35 U Marijuana (THC) Screen Presumptive negative 03/14/17 01:35 Drugs of Abuse Note Disclamer 03/14/17 01:35 Plasma/Serum Alcohol < 0.01 gm% (0-0.07) 03/13/17 21:50
[2017-03-19] MEDS: NACL 0.9% 1000 ML 1,000 ML IV SCH ×2 (02:11→10:19)
[2017-03-19] MEDS: DILAUDID IV PRN ×3 (02:11→10:17)
[2017-03-19] MEDS: NEURONTIN PO SCH (05:59)
[2017-03-19] MEDS: ZOSYN/NS 4.5GM/100ML 4.5 GM/100 ML VIAL IV SCH (05:59)
[2017-03-19] MEDS: BENADRYL IV PRN (06:00)
[2017-03-19 07:41] LABS: Hematocrit 25.3 % (35.5-45.6); Hemoglobin 8.5 gm/dl (11.8-15.2); Mean Corpuscular HGB Conc 33 % (32-34); Mean Corpuscular Hemoglobin 34 pg (28-32); Mean Corpuscular Volume 102 fl (84-94); Platelet Count 321 K/mm3 (140-440); Red Blood Count 2.49 M/mm3 (3.65-5.03); White Blood Count 8.6 K/mm3 (4.5-11.0)
[2017-03-19 08:20] LABS: Anion Gap 18 mmol/L; Blood Urea Nitrogen 3 mg/dL (9-20); Carbon Dioxide 21 mmol/L (22-30); Chloride 106.2 mmol/L (98-107); Creatine Kinase 132 units/L (55-170); Glucose 110 mg/dL (75-100); Potassium 3.3 mmol/L (3.6-5.0); Sodium 142 mmol/L (137-145)
[2017-03-19] MEDS ORDERED: K-DUR PO SCH (09:00)
[2017-03-19 09:10] LABS: Albumin 2.9 g/dL (3.9-5); Albumin/Globulin Ratio 0.7 %; Bilirubin,Direct 0.4 mg/dL (0-0.2); Bilirubin,Total 1.4 mg/dL (0.1-1.2); Total Protein 7.1 g/dL (6.3-8.2)
[2017-03-19] MEDS: FOLVITE PO SCH (09:26)
[2017-03-19] MEDS: CATAPRES PO SCH (09:26)
[2017-03-19 09:57] LABS: Anisocytosis 1+; Basophils % (Manual) 0 % (0.0-1.8); Blastocytes % (Manual) 0 %
[2017-03-19 09:59] LABS: Target Cells 1+
[2017-03-19 10:00] LABS: Diff Status Complete; Hypochromasia 1+
--- NOTE | 2017-03-19 10:51 | Discharge Summary ---
Providers - Providers Date of Admission: 03/14/17 00:55 Date of discharge: 03/19/17 Attending physician: TULIO LIRIANO 03/14/17 04:39 Consult to Wound/ET Nurse [CONS] Routine Reason For Exam: open blisters to bilateral knees/abrassions arms 03/14/17 10:48 Consult to Physician [CONS] Routine Consulting Provider: BERNADINE PRESCOTT Reason For Exam: Evaluate the fever, ?due to SS dz, LLL pna Place consult to:: Татьяна Escobar MD Notified:: yes Was contact made?: Yes If yes, spoke with:: Dr Escobar Time called:: 11:18 03/14/17 18:52 Consult to Mental Health [CONS] Routine Reason For Exam: drug overdose Place consult to:: Dr. Jaylan Larios Notified:: Gayle RN Phone number called:: [phone] Was contact made?: Yes If yes, spoke with:: [facility] Time called:: 08:29 03/15/17 14:51 Consult to Physician [CONS] Routine Consulting Provider: DISHA GARCIA Reason For Exam: ss disease, hemolysis, left thigh nodule Place consult to:: Sarah GALO Notified:: Gayle RN Phone number called:: Was contact made?: Yes If yes, spoke with:: [facility] Time called:: 15:47 Primary care physician: JAMAICA HOLLAND Hospitalization Condition: Fair Hospital course: Patient is 36 yo with sickle cell disease, chronic pain. He was found unresponsive and bottles of percocet and methadone nearby. he was given Narcan with some response. In Emergency Department, Chest X ray showed left lower lobe pneumonia. He was diagnosed with sepsis due to aspiration pneumonia left lower lobe, rhabdomyolysis. Patient was started on iv Antibiotics, iv fluids and admitted. ID Physician was consulted and he was evaluated. He improved slowly. Fever resolved, leukocytosis resolved. He was subsequently discharged home on . Total time spent on discharge, 35 mins. Disposition: DC-01 TO HOME OR SELFCARE - Discharge Diagnoses (1) Sepsis Status: Acute Qualifiers: Sepsis type: S (2) Aspiration pneumonia of left lower lobe Status: Acute Qualifiers: Aspiration pneumonia type: A (3) Toxic metabolic encephalopathy Status: Acute (4) Hypertension Status: Acute Qualifiers: Hypertension type: H (5) Rhabdomyolysis Status: Acute Qualifiers: Rhabdomyolysis type: R Encounter type: E (6) Sickle cell anemia Status: Chronic Qualifiers: Sickle-cell associated disorders: S (7) Opioid overdose Status: Acute Qualifiers: Encounter type: E Injury intent: accidental or unintentional Core Measure Documentation - Palliative Care Palliative Care/ Comfort Measures: Not Applicable - Core Measures Any of the following diagnoses?: none Exam - Constitutional Vitals: Temp Pulse Resp BP Pulse Ox 98.9 F 70 70 H 123/76 100 03/19/17 08:20 03/19/17 08:20 03/19/17 08:20 03/19/17 08:20 03/19/17 08:20 General appearance: Present: no acute distress - Respiratory Respiratory effort: normal - Cardiovascular Rhythm: regular Heart Sounds: Present: S1 & S2 Plan Activity: no restrictions Diet: regular Additional Instructions: 1.Follow up with PCP or [facility] in 1 week Follow up with: PRIMARY CAREMD [Referring] - 3-5 Days Prescriptions: Clindamycin [Clindamycin CAP] 300 mg PO Q8H #6 cap
[2017-03-19] MEDS ORDERED: FLUSH HEPARIN IV ONE (12:21)
[2017-03-19] MEDS ORDERED: FLUSH HEPARIN IV NR (13:00)
[2017-03-19 13:06] VITALS: BP 107/63
== END 2017-03-19 13:05 | disposition home or self-care (01) | DRG 871 ==
LOC: ED 21:35 → 4A 03-14 00:55
PROVIDERS: ADMIT Internal Medicine; ATTEND Internal Medicine
DX: A41.9 Sepsis, unspecified organism (principal); G92 Toxic encephalopathy; J69.0 Pneumonitis due to inhalation of food and vomit; D57.00 Hb-SS disease with crisis, unspecified; M62.82 Rhabdomyolysis; L97.929 Non-pressure chronic ulcer of unspecified part of left lower leg with unspecified severity; L97.919 Non-pressure chronic ulcer of unspecified part of right lower leg with unspecified severity; T39.1X1A Poisoning by 4-Aminophenol derivatives, accidental (unintentional), initial encounter; F41.9 Anxiety disorder, unspecified; F12.10 Cannabis abuse, uncomplicated; T40.3X1A Poisoning by methadone, accidental (unintentional), initial encounter; G62.9 Polyneuropathy, unspecified; G89.4 Chronic pain syndrome; Z90.49 Acquired absence of other specified parts of digestive tract; Y92.89 Other specified places as the place of occurrence of the external cause; Z86.718 Personal history of other venous thrombosis and embolism
CPT/HCPCS: 36415; 71010; 76705; 80048; 80053; 80061; 80074; 80307; 80320; 81001; 82140; 82550; 82553; 84484; 85007; 85025; 85027; 85045; 86140; 87040; 93005; 93010; 93306; 96361; 96374; G0480; J0456; J1170; J1200; J1642; J1650; J2310; J2405; J2543; J3370; J3480; J7030; J7050

== ENCOUNTER 2017-04-02 15:29 | Inpatient (IN) | payer MEDICARE ==
--- NOTE | 2017-04-02 17:14 | Cat Scan Report ---
CRANIAL CT SCAN: Neuro deficits. Serial contiguous axial images were obtained through the cranium. Intravenous contrast material was not administered. The ventricles are normal in size and appearance. There is no mass effect or midline shift. No areas of abnormally increased or decreased attenuation are seen. No mass lesion is seen.The mastoid air cells and visualized portions of the sinuses are normal except for a tiny polyp or retention cyst in the posterior left maxillary sinus. No interval intracranial changes compared to prior scan on December 15, 2016. IMPRESSION: Cranial CT scan within normal limits. Left maxillary polyp/retention cyst.
[2017-04-02] MEDS ORDERED: NACL 0.9% 1000 ML 1,000 ML IV ONE (17:26)
[2017-04-02] MEDS ORDERED: NACL 0.9% 1000 ML 2,000 ML ONE (17:31)
--- NOTE | 2017-04-02 17:31 | Emergency Department Report ---
ED Altered Mental Status HPI - General Chief Complaint: Altered Mental Status Stated Complaint: POSSIBLE CVA Time Seen by Provider: 04/02/17 17:18 Source: patient, EMS Mode of arrival: Stretcher Limitations: No Limitations, Altered Mental Status - History of Present Illness Initial Comments: She has old male history of sickle cell disease brought by EMS with main complaint of altered mental status, last known well time Sunday per family. EMS stated that they found an empty bottles of methadone on hydrocodone patient does have history of recreational drug abuse. MD Complaint: altered mental status -: Gradual Severity: moderate - Related Data Previous Rx's Medication Instructions Recorded Last Taken Type Methadone [Dolophine] 10 mg PO Q12H #60 tablet 12/19/15 1 Day Ago Rx Folic Acid [Folvite] 1 mg PO QDAY #30 tablet 02/10/16 1 Day Ago Rx Gabapentin [Neurontin] 300 mg PO Q8HR #90 capsule 03/01/17 1 Day Ago Rx Clindamycin [Clindamycin CAP] 300 mg PO Q8H #6 cap 03/19/17 Unknown Rx Allergies Allergy/AdvReac Type Severity Reaction Status Date / Time No Known Allergies Allergy Verified 03/13/17 21:39 ED Review of Systems ROS: Stated complaint: POSSIBLE CVA Other details as noted in HPI Comment: All other systems reviewed and negative Constitutional: denies: chills, fever Respiratory: denies: cough, shortness of breath Cardiovascular: denies: chest pain, orthopnea Gastrointestinal: denies: nausea, vomiting, diarrhea Genitourinary: denies: dysuria, hematuria Musculoskeletal: arthralgia. denies: back pain, joint swelling Skin: denies: rash, lesions Neurological: weakness (generalized). denies: headache, numbness, paresthesias , confusion ED Past Medical Hx - Past Medical History Hx Hypertension: No Hx CVA: No Hx Heart Attack/AMI: No Hx Congestive Heart Failure: No Hx Diabetes: No Hx Deep Vein Thrombosis: Yes (LEFT LEG) Hx Pulmonary Embolism: No Hx GERD: No Hx Liver Disease: No Hx Renal Disease: No Hx Sickle Cell Disease: Yes Hx Arthritis: No Hx Headaches / Migraines: No Hx Seizures: No Hx Kidney Stones: No Hx Psychiatric Treatment: Yes (anxiety) Hx Asthma: No Hx COPD: No Hx Tuberculosis: No Hx Dementia: No Hx HIV: No Additional medical history: 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 New port placed 2014. - Social History Smoking Status: Unknown if ever smoked Substance Use Type: Prescribed - Medications Home Medications: Home Medications Medication Instructions Recorded Confirmed Last Taken Type Methadone [Dolophine] 10 mg PO Q12H #60 tablet 12/19/15 03/14/17 1 Day Ago Rx Folic Acid [Folvite] 1 mg PO QDAY #30 tablet 02/10/16 03/14/17 1 Day Ago Rx Gabapentin [Neurontin] 300 mg PO Q8HR #90 capsule 03/01/17 03/14/17 1 Day Ago Rx Clindamycin [Clindamycin CAP] 300 mg PO Q8H #6 cap 03/19/17 Unknown Rx ED Physical Exam - General Limitations: Altered Mental Status General appearance: alert, in no apparent distress, other (patient is still lethargic but he is also having all questions appropriately, very dry skin and mucosa) - Head Head exam: Present: atraumatic, normocephalic - Eye Eye exam: Present: normal appearance - ENT ENT exam: Present: mucous membranes dry - Neck Neck exam: Present: normal inspection, full ROM. Absent: tenderness, meningismus, lymphadenopathy - Respiratory Respiratory exam: Present: normal lung sounds bilaterally. Absent: respiratory distress, wheezes, rales, rhonchi, stridor, chest wall tenderness, accessory muscle use, decreased breath sounds - Cardiovascular Cardiovascular Exam: Present: regular rate, normal rhythm, normal heart sounds - GI/Abdominal GI/Abdominal exam: Present: soft. Absent: distended, tenderness, guarding, rebound, mass, bruit, pulsatile mass, hernia - Extremities Exam Extremities exam: Present: normal inspection - Back Exam Back exam: Present: normal inspection. Absent: tenderness, CVA tenderness (R), CVA tenderness (L) - Neurological Exam Neurological exam: Present: alert, oriented X3, CN II-XII intact - Psychiatric Psychiatric exam: Absent: depressed, homicidal ideation, suicidal ideation - Skin Skin exam: Present: dry, intact ED Course Vital Signs 04/02/17 04/02/17 04/02/17 15:42 17:39 18:44 Temperature 99.4 F 97.6 F Pulse Rate 89 88 77 Respiratory 14 11 L 11 L Rate Blood Pressure 100/68 Blood Pressure 94/63 93/49 [Left] O2 Sat by Pulse 98 99 98 Oximetry - Reevaluation(s) Reevaluation #1: 04/02/17 19:[address] Persaud for admission, he accepted to admit. - Lab Data Result diagrams: 04/02/17 17:20 04/02/17 17:20 Lab Results 04/02/17 04/02/17 04/02/17 Range/Units 17:20 17:20 17:20 WBC 18.8 H (4.5-11.0) K/mm3 RBC 2.37 L (3.65-5.03) M/mm3 Hgb 7.7 L (11.8-15.2) gm/dl Hct 23.6 L (35.5-45.6) % MCV 100 H (84-94) fl MCH 32 (28-32) pg MCHC 32 (32-34) % RDW 21.0 H (13.2-15.2) % Plt Count 201 (140-440) K/mm3 Lymph % (Auto) 8.2 L (13.4-35.0) % [place] % (Auto) 10.7 H (0.0-7.3) % Eos % (Auto) 0.1 (0.0-4.3) % Baso % (Auto) 0.2 (0.0-1.8) % Lymph # 1.5 (1.2-5.4) K/mm3 [place] # 2.0 H (0.0-0.8) K/mm3 Eos # 0.0 (0.0-0.4) K/mm3 Baso # 0.0 (0.0-0.1) K/mm3 Seg Neutrophils % 80.8 H (40.0-70.0) % Seg Neutrophils # 15.2 H (1.8-7.7) K/mm3 Percent Retic 4.09 H (0.78-2.58) % PT (12.2-14.9) Sec. INR (0.87-1.13) APTT (24.2-36.6) Sec. Thrombin Time (15.1-19.6) Sec. Sodium 135 L (137-145) mmol/L Potassium 3.8 (3.6-5.0) mmol/L Chloride 97.0 L (98-107) mmol/L Carbon Dioxide 28 (22-30) mmol/L Anion Gap 14 mmol/L BUN 23 H (9-20) mg/dL Creatinine 1.0 (0.8-1.5) mg/dL Estimated GFR > 60 ml/min BUN/Creatinine Ratio 23.00 % Glucose 104 H (75-100) mg/dL Lactic Acid (0.7-2.0) mmol/L Calcium 7.9 L (8.4-10.2) mg/dL Magnesium 2.30 (1.7-2.3) mg/dL Total Bilirubin 3.10 H (0.1-1.2) mg/dL AST 35 (5-40) units/L ALT 11 (7-56) units/L Alkaline Phosphatase 69 (35-129) units/L Troponin T (0.00-0.029) ng/mL Total Protein 8.4 H (6.3-8.2) g/dL Albumin 3.0 L (3.9-5) g/dL Albumin/Globulin Ratio 0.6 % Triglycerides (2-149) mg/dL Cholesterol (50-199) mg/dL LDL Cholesterol Direct (50-130) mg/dL HDL Cholesterol (40-59) mg/dL Cholesterol/HDL Ratio % TSH 0.782 (0.270-4.200) mlU/mL Salicylates (2.8-20.0) mg/dL Acetaminophen (10.0-30.0) ug/mL Plasma/Serum Alcohol (0-0.07) gm% 04/02/17 04/02/17 04/02/17 Range/Units 17:20 17:20 17:20 WBC (4.5-11.0) K/mm3 RBC (3.65-5.03) M/mm3 Hgb (11.8-15.2) gm/dl Hct (35.5-45.6) % MCV (84-94) fl MCH (28-32) pg MCHC (32-34) % RDW (13.2-15.2) % Plt Count (140-440) K/mm3 Lymph % (Auto) (13.4-35.0) % [place] % (Auto) (0.0-7.3) % Eos % (Auto) (0.0-4.3) % Baso % (Auto) (0.0-1.8) % Lymph # (1.2-5.4) K/mm3 [place] # (0.0-0.8) K/mm3 Eos # (0.0-0.4) K/mm3 Baso # (0.0-0.1) K/mm3 Seg Neutrophils % (40.0-70.0) % Seg Neutrophils # (1.8-7.7) K/mm3 Percent Retic (0.78-2.58) % PT (12.2-14.9) Sec. INR (0.87-1.13) APTT (24.2-36.6) Sec. Thrombin Time (15.1-19.6) Sec. Sodium (137-145) mmol/L Potassium (3.6-5.0) mmol/L Chloride (98-107) mmol/L Carbon Dioxide (22-30) mmol/L Anion Gap mmol/L BUN (9-20) mg/dL Creatinine (0.8-1.5) mg/dL Estimated GFR ml/min BUN/Creatinine Ratio % Glucose (75-100) mg/dL Lactic Acid (0.7-2.0) mmol/L Calcium (8.4-10.2) mg/dL Magnesium (1.7-2.3) mg/dL Total Bilirubin (0.1-1.2) mg/dL AST (5-40) units/L ALT (7-56) units/L Alkaline Phosphatase (35-129) units/L Troponin T (0.00-0.029) ng/mL Total Protein (6.3-8.2) g/dL Albumin (3.9-5) g/dL Albumin/Globulin Ratio % Triglycerides (2-149) mg/dL Cholesterol (50-199) mg/dL LDL Cholesterol Direct (50-130) mg/dL HDL Cholesterol (40-59) mg/dL Cholesterol/HDL Ratio % TSH (0.270-4.200) mlU/mL Salicylates < 0.3 L (2.8-20.0) mg/dL Acetaminophen < 15.0 (10.0-30.0) ug/mL Plasma/Serum Alcohol < 0.01 (0-0.07) gm% 04/02/17 04/02/17 04/02/17 Range/Units 17:20 17:20 17:20 WBC (4.5-11.0) K/mm3 RBC (3.65-5.03) M/mm3 Hgb (11.8-15.2) gm/dl Hct (35.5-45.6) % MCV (84-94) fl MCH (28-32) pg MCHC (32-34) % RDW (13.2-15.2) % Plt Count (140-440) K/mm3 Lymph % (Auto) (13.4-35.0) % [place] % (Auto) (0.0-7.3) % Eos % (Auto) (0.0-4.3) % Baso % (Auto) (0.0-1.8) % Lymph # (1.2-5.4) K/mm3 [place] # (0.0-0.8) K/mm3 Eos # (0.0-0.4) K/mm3 Baso # (0.0-0.1) K/mm3 Seg Neutrophils % (40.0-70.0) % Seg Neutrophils # (1.8-7.7) K/mm3 Percent Retic (0.78-2.58) % PT 17.5 H (12.2-14.9) Sec. INR 1.36 H (0.87-1.13) APTT 69.0 H* (24.2-36.6) Sec. Thrombin Time 73.5 H (15.1-19.6) Sec. Sodium (137-145) mmol/L Potassium (3.6-5.0) mmol/L Chloride (98-107) mmol/L Carbon Dioxide (22-30) mmol/L Anion Gap mmol/L BUN (9-20) mg/dL Creatinine (0.8-1.5) mg/dL Estimated GFR ml/min BUN/Creatinine Ratio % Glucose (75-100) mg/dL Lactic Acid (0.7-2.0) mmol/L Calcium (8.4-10.2) mg/dL Magnesium (1.7-2.3) mg/dL Total Bilirubin (0.1-1.2) mg/dL AST (5-40) units/L ALT (7-56) units/L Alkaline Phosphatase (35-129) units/L Troponin T 0.032 H (0.00-0.029) ng/mL Total Protein (6.3-8.2) g/dL Albumin (3.9-5) g/dL Albumin/Globulin Ratio % Triglycerides 94 (2-149) mg/dL Cholesterol 68 (50-199) mg/dL LDL Cholesterol Direct 25 L (50-130) mg/dL HDL Cholesterol 25 L (40-59) mg/dL Cholesterol/HDL Ratio 2.72 % TSH (0.270-4.200) mlU/mL Salicylates (2.8-20.0) mg/dL Acetaminophen (10.0-30.0) ug/mL Plasma/Serum Alcohol (0-0.07) gm% 04/02/17 04/02/17 Range/Units 17:30 18:37 WBC (4.5-11.0) K/mm3 RBC (3.65-5.03) M/mm3 Hgb (11.8-15.2) gm/dl Hct (35.5-45.6) % MCV (84-94) fl MCH (28-32) pg MCHC (32-34) % RDW (13.2-15.2) % Plt Count (140-440) K/mm3 Lymph % (Auto) (13.4-35.0) % [place] % (Auto) (0.0-7.3) % Eos % (Auto) (0.0-4.3) % Baso % (Auto) (0.0-1.8) % Lymph # (1.2-5.4) K/mm3 [place] # (0.0-0.8) K/mm3 Eos # (0.0-0.4) K/mm3 Baso # (0.0-0.1) K/mm3 Seg Neutrophils % (40.0-70.0) % Seg Neutrophils # (1.8-7.7) K/mm3 Percent Retic (0.78-2.58) % PT (12.2-14.9) Sec. INR (0.87-1.13) APTT (24.2-36.6) Sec. Thrombin Time (15.1-19.6) Sec. Sodium (137-145) mmol/L Potassium (3.6-5.0) mmol/L Chloride (98-107) mmol/L Carbon Dioxide (22-30) mmol/L Anion Gap mmol/L BUN (9-20) mg/dL Creatinine (0.8-1.5) mg/dL Estimated GFR ml/min BUN/Creatinine Ratio % Glucose (75-100) mg/dL Lactic Acid 0.80 0.80 (0.7-2.0) mmol/L Calcium (8.4-10.2) mg/dL Magnesium (1.7-2.3) mg/dL Total Bilirubin (0.1-1.2) mg/dL AST (5-40) units/L ALT (7-56) units/L Alkaline Phosphatase (35-129) units/L Troponin T (0.00-0.029) ng/mL Total Protein (6.3-8.2) g/dL Albumin (3.9-5) g/dL Albumin/Globulin Ratio % Triglycerides (2-149) mg/dL Cholesterol (50-199) mg/dL LDL Cholesterol Direct (50-130) mg/dL HDL Cholesterol (40-59) mg/dL Cholesterol/HDL Ratio % TSH (0.270-4.200) mlU/mL Salicylates (2.8-20.0) mg/dL Acetaminophen (10.0-30.0) ug/mL Plasma/Serum Alcohol (0-0.07) gm% Critical care attestation.: If time is entered above; I have spent that time in minutes in the direct care of this critically ill patient, excluding procedure time. ED Disposition Clinical Impression: Altered mental state, Dehydration Disposition: OP ADMIT IP TO THIS HOSP Is pt being admited?: Yes Does the pt Need Aspirin: No Condition: Stable Referrals: PRIMARY CARE, [Primary Care Provider] - 3-5 Days
[2017-04-02 17:44] LABS: Basophils % (Auto) 0.2 % (0.0-1.8); Eosinophils % (Auto) 0.1 % (0.0-4.3); Hematocrit 23.6 % (35.5-45.6); Hemoglobin 7.7 gm/dl (11.8-15.2); Mean Corpuscular HGB Conc 32 % (32-34); Mean Corpuscular Hemoglobin 32 pg (28-32); Mean Corpuscular Volume 100 fl (84-94); Platelet Count 201 K/mm3 (140-440); Red Blood Count 2.37 M/mm3 (3.65-5.03); Reticulocyte % 4.09 % (0.78-2.58); White Blood Count 18.8 K/mm3 (4.5-11.0)
[2017-04-02 18:00] LABS: Alanine Aminotransferase 11 units/L (7-56); Albumin/Globulin Ratio 0.6 %; Alkaline Phosphatase 69 units/L (35-129); Anion Gap 14 mmol/L; Blood Urea Nitrogen 23 mg/dL (9-20); Calcium 7.9 mg/dL (8.4-10.2); Carbon Dioxide 28 mmol/L (22-30); Glucose 104 mg/dL (75-100); Potassium 3.8 mmol/L (3.6-5.0); Sodium 135 mmol/L (137-145); Total Protein 8.4 g/dL (6.3-8.2)
[2017-04-02 18:06] LABS: INR 1.36 (0.87-1.13)
[2017-04-02] MEDS ORDERED: ZOSYN IV SCH (19:00)
[2017-04-02] MEDS ORDERED: NS IV SCH (19:00)
[2017-04-02 19:10] LABS: Urine Drugs of Abuse Note Disclamer
--- NOTE | 2017-04-02 19:19 | History and Physical Report ---
History of Present Illness Chief complaint: I woke up sick History of present illness: 36 YO Male with Narcotic Abuse, SSD, DVT, Anxiety present to ED for evaluation. Pt found by family at home, confused, lying nest to empty bottles of methadone, and hydrocodone. Pt unable to provide detailed history, but history taken from ED staff, and EMS. Pt seen and evaluated in ED, and is lethargic, but is able to protect his airway. No reports of fever, chills, CP, Palpitations, NVD, SI/HI , recent ill contacts. Past History Past Medical History: DVT, other Past Surgical History: cholecystectomy, hernia repair, Other (Prot placement/ removal) Social history: single, prescription drug abuse. denies: smoking, alcohol abuse Family history: hypertension Medications and Allergies Allergies Allergy/AdvReac Type Severity Reaction Status Date / Time No Known Allergies Allergy Verified 03/13/17 21:39 Home Medications Medication Instructions Recorded Confirmed Last Taken Type Methadone [Dolophine] 10 mg PO Q12H #60 tablet 12/19/15 04/03/17 1 Day Ago Rx Folic Acid [Folvite] 1 mg PO QDAY #30 tablet 02/10/16 04/03/17 1 Day Ago Rx Gabapentin [Neurontin] 300 mg PO Q8HR #90 capsule 03/01/17 04/03/17 1 Day Ago Rx Clindamycin [Clindamycin CAP] 300 mg PO Q8H #6 cap 03/19/17 04/03/17 Unknown Rx Active Meds: Active Medications Piperacillin Sod/Tazobactam Sod (Zosyn/Ns 3.375gm/50ml) 3.75 gm in 55.56 mls @ 111.12 mls/hr IV Q6H SAHARA Last Admin: 04/02/17 18:53 Dose: 111.12 mls/hr Review of Systems ROS unobtainable: due to mental status Exam - Constitutional Vitals: Temp Pulse Resp BP Pulse Ox 97.6 F 77 11 L 93/49 98 04/02/17 17:39 04/02/17 18:44 04/02/17 18:44 04/02/17 18:44 04/02/17 18:44 General appearance: Present: mild distress, cachectic, disheveled, malodorous - EENT Eyes: Present: PERRL, miosis ENT: hearing intact, clear oral mucosa - Neck Neck: Present: supple, normal ROM - Respiratory Respiratory effort: normal Respiratory: bilateral: CTA - Extremities Extremities: pulses symmetrical, No edema Peripheral Pulses: within normal limits - Abdominal General gastrointestinal: Present: soft, non-tender, non-distended, normal bowel sounds Male genitourinary: Present: normal - Integumentary Integumentary: Present: clear, warm, dry - Musculoskeletal Musculoskeletal: generalized weakness - Psychiatric Psychiatric: appropriate mood/affect, no intact judgment & insight, no memory intact - Neurologic Neurologic: CNII-XII intact, moves all extremities, no gait normal Results - Labs CBC & Chem 7: 04/02/17 17:20 04/02/17 17:20 Labs: Abnormal lab results 04/02/17 04/02/17 04/02/17 Range/Units 17:20 17:20 17:20 WBC 18.8 H (4.5-11.0) K/mm3 RBC 2.37 L (3.65-5.03) M/mm3 Hgb 7.7 L (11.8-15.2) gm/dl Hct 23.6 L (35.5-45.6) % MCV 100 H (84-94) fl RDW 21.0 H (13.2-15.2) % Lymph % (Auto) 8.2 L (13.4-35.0) % Miller % (Auto) 10.7 H (0.0-7.3) % Miller # 2.0 H (0.0-0.8) K/mm3 Seg Neutrophils % 80.8 H (40.0-70.0) % Seg Neutrophils # 15.2 H (1.8-7.7) K/mm3 Percent Retic 4.09 H (0.78-2.58) % PT (12.2-14.9) Sec. INR (0.87-1.13) APTT (24.2-36.6) Sec. Thrombin Time (15.1-19.6) Sec. Sodium 135 L (137-145) mmol/L Chloride 97.0 L (98-107) mmol/L BUN 23 H (9-20) mg/dL Glucose 104 H (75-100) mg/dL Calcium 7.9 L (8.4-10.2) mg/dL Total Bilirubin 3.10 H (0.1-1.2) mg/dL Troponin T (0.00-0.029) ng/mL Total Protein 8.4 H (6.3-8.2) g/dL Albumin 3.0 L (3.9-5) g/dL LDL Cholesterol Direct (50-130) mg/dL HDL Cholesterol (40-59) mg/dL Salicylates < 0.3 L (2.8-20.0) mg/dL 04/02/17 04/02/17 04/02/17 Range/Units 17:20 17:20 17:20 WBC (4.5-11.0) K/mm3 RBC (3.65-5.03) M/mm3 Hgb (11.8-15.2) gm/dl Hct (35.5-45.6) % MCV (84-94) fl RDW (13.2-15.2) % Lymph % (Auto) (13.4-35.0) % Miller % (Auto) (0.0-7.3) % Miller # (0.0-0.8) K/mm3 Seg Neutrophils % (40.0-70.0) % Seg Neutrophils # (1.8-7.7) K/mm3 Percent Retic (0.78-2.58) % PT 17.5 H (12.2-14.9) Sec. INR 1.36 H (0.87-1.13) APTT 69.0 H* (24.2-36.6) Sec. Thrombin Time 73.5 H (15.1-19.6) Sec. Sodium (137-145) mmol/L Chloride (98-107) mmol/L BUN (9-20) mg/dL Glucose (75-100) mg/dL Calcium (8.4-10.2) mg/dL Total Bilirubin (0.1-1.2) mg/dL Troponin T 0.032 H (0.00-0.029) ng/mL Total Protein (6.3-8.2) g/dL Albumin (3.9-5) g/dL LDL Cholesterol Direct 25 L (50-130) mg/dL HDL Cholesterol 25 L (40-59) mg/dL Salicylates (2.8-20.0) mg/dL Assessment and Plan - Patient Problems (1) Sepsis Current Visit: Yes Status: Acute Qualifiers: Sepsis type: S Plan to address problem: Sepsis protocol: IV abx, IVF< supportive care, serial lactic acid, blood cultures (2) Toxic encephalopathy Current Visit: Yes Status: Acute Plan to address problem: Secondary to sepsis/and carcotics. Hold narcotics, treat sepsis, supportive care. (3) Narcotic overdose Current Visit: Yes Status: Acute Qualifiers: Encounter type: E Injury intent: undetermined intent Plan to address problem: Treat sepsis, IVF resuscitation, supportive care, reevaluate in AM, (4) Anxiety Current Visit: Yes Status: Acute Plan to address problem: supportive care, hold sedating medication for now. reevaluate in AM (5) DVT prophylaxis Current Visit: Yes Status: Acute
[2017-04-02 19:37] LABS: Bilirubin,Urine NEG (Negative); Blood,Urine NEG (Negative); Ketones,Urine NEG (Negative); Leukocyte Esterase,Urine NEG (Negative); Mucus,Urine FEW /HPF; Nitrite,Urine NEG (Negative); Protein,Urine <15 mg/dL mg/dL (Negative); Urobilinogen,Urine < 2.0 mg/dL (<2.0)
[2017-04-02] MEDS ORDERED: TYLENOL PO PRN (20:26)
[2017-04-02] MEDS ORDERED: PROVENTIL IH PRN (20:26)
[2017-04-02] MEDS ORDERED: NACL 0.9% 1000 ML IV ONE (20:29)
[2017-04-02] MEDS ORDERED: VANCOMYCIN VIAL IV ONE (20:29)
[2017-04-02] MEDS ORDERED: VANCOMYCIN 1,250 MG in NACL 0.9% 250ML 250 ML IV ONE (21:00)
[2017-04-02] MEDS ORDERED: VANCOMYCIN PHARMACY TO DOSE IV SCH (21:00)
[2017-04-02] MEDS: NACL 0.45% 1000 ML 1,000 ML IV SCH (23:32)
[2017-04-03] MEDS ORDERED: ZOFRAN IV PRN (00:32)
[2017-04-03] MEDS: TORADOL IV PRN ×2 (01:07→18:00)
[2017-04-03] MEDS: ZOSYN/NS 4.5GM/100ML 4.5 GM/100 ML VIAL IV SCH ×3 (03:51→17:50)
--- NOTE | 2017-04-03 08:22 | XRay Report ---
AP CHEST: HISTORY: Altered mental status Compared to 03/14/17. The right [id number] remains in good position. Heart size and pulmonary vascularity are within normal limits. Patchy infiltration at the left lung base has resolved since the previous exam. There is new linear density at the right lung base which is most consistent with segmental atelectasis. No large infiltrate with air bronchograms. No pleural effusion or pneumothorax. The bony structures are grossly intact. IMPRESSION: Probable atelectasis at the right lung base. Otherwise, unremarkable AP chest.
[2017-04-03] MEDS: NACL 0.45% 1000 ML 1,000 ML IV SCH ×2 (08:47→17:46)
[2017-04-03] MEDS ORDERED: VANCOMYCIN/NS 1 GM/250 ML 1 GM/250 ML BAG IV SCH (12:00)
--- NOTE | 2017-04-03 15:15 | Progress Note ---
Assessment and Plan Sepsis suspected on admission placed on Sepsis protocol: IV abx, IVF< supportive care, serial lactic acid, blood cultures cont abx for elevated white count, will cont to follow cx will also get UA to find the source of infection Toxic encephalopathy Secondary to narcotics overdose. mental status improved cont supportive care Narcotic overdose he denies taking any extra pills will consult mental health Anxiety supportive care, hold sedating medication for now. follow mental health recommendation Abnormal LFT will get abdominal US, hepatitis pannel follow liver function DVT prophylaxis SCD Brief history: 36 YO Male with Narcotic Abuse, SSD, DVT, Anxiety present to ED for evaluation. Pt found by family at home, confused, lying nest to empty bottles of methadone, and hydrocodone. Subjective Date of service: 04/03/17 Interval history: Patient seen and examined. Medical records and medication list reviewed. No acute event overnight noted by the RN. Patient c/o generalized pain. Patient is tolerating diet. Discussed plan of care at bedside with patient. Objective - Exam Narrative Exam: GENERAL: well-developed male lying on bed appeared to be in no discomfort. HEENT: Normocephalic. Atraumatic. No conjunctival congestion or icterus. Patient has moist mucous membranes. NECK: Supple. Trachea midline. CHEST/LUNGS: Clear to auscultated bilaterally, breathing nonlabored. No wheezes crackles or rhonchi. HEART/CARDIOVASCULAR: Regular in rate and rhythm. S1 and S2 positive. ABDOMEN: Abdomen is soft, nontender. Patient has normal bowel sounds. SKIN: There is no rash. Warm and dry. NEURO: No focal motor deficit. Follows command. MUSCULOSKELETAL: No joint effusion or tenderness. EXTRIMITY: No edema, no cyanosis or clubbing. PSYCH: Cooperative. - Constitutional Vitals: Vital Signs - 12hr 04/03/17 04/03/17 07:18 10:00 Temperature 97.6 F Pulse Rate 75 Respiratory 14 Rate Blood Pressure 87/53 O2 Sat by Pulse 100 93 Oximetry - Labs CBC & Chem 7: 04/02/17 17:20 04/02/17 17:20
[2017-04-03 16:26] VITALS: BP 101/56
[2017-04-03] MEDS ORDERED: DOLOPHINE PO SCH ×2 (21:00→22:00)
[2017-04-03] MEDS ORDERED: FLUSH HEPARIN IV SCH (21:04)
[2017-04-03] MEDS ORDERED: NEURONTIN PO SCH (22:00)
[2017-04-04] MEDS ORDERED: FOLVITE PO SCH (10:00)
--- NOTE | 2017-04-05 23:24 | Discharge Summary ---
Providers - Providers Date of Admission: 04/02/17 20:26 Date of discharge: 04/03/17 Attending physician: LINO LIN 04/03/17 13:30 Physical Therapy Evaluation and Treat [CONS] Routine Comment: Reason For Exam: FALLS 04/03/17 21:15 Consult to Physician [CONS] Routine Consulting Provider: Reason For Exam: drug overdose Place consult to:: mental health Primary care physician: JAMAICA HOLLAND Hospitalization Condition: Stable Hospital course: 36 YO Male with Narcotic Abuse, SSD, DVT, Anxiety present to ED for evaluation. Pt found by family at home, confused, lying nest to empty bottles of methadone, and hydrocodone. He was admitted to the hospital with AMS. He was placed on iv fluid and mental status improved by next morning. he also noted to have elevated billirubin, high white count, elevated troponin. He denied any intentional overdose. Mental health was consulted for further evaluation. Patient refused to stay hospital and left AMA. Discharge Diagnosis: Sepsis suspected on admission placed on Sepsis protocol: IV abx, IVF< supportive care, serial lactic acid, blood cultures started abx for elevated white count, also ordered UA to find the source of infection Toxic encephalopathy Secondary to narcotics overdose. mental status improved provided supportive care Narcotic overdose he denied taking any extra pills Consulted mental health Anxiety Continued supportive care, held sedating medication for now. Abnormal LFT Ordered abdominal US, hepatitis pannel Disposition: DC-07 LEFT AGAINST MED ADVICE Core Measure Documentation - Palliative Care Palliative Care/ Comfort Measures: Not Applicable - Core Measures Any of the following diagnoses?: none Exam - Constitutional Vitals: Temp Pulse Resp BP Pulse Ox 98.3 F 82 16 101/56 96 04/03/17 16:24 04/03/17 16:24 04/03/17 16:24 04/03/17 16:24 04/03/17 16:24 Plan Follow up with: PRIMARY MD MIKEL [Referring] - 3-5 Days
== END 2017-04-03 21:30 | disposition left against medical advice (07) | DRG 871 ==
LOC: ED 15:29 → 3A 20:26
PROVIDERS: ADMIT Internal Medicine; ATTEND Internal Medicine
DX: A41.9 Sepsis, unspecified organism (principal); G92 Toxic encephalopathy; F41.9 Anxiety disorder, unspecified; T40.601A Poisoning by unspecified narcotics, accidental (unintentional), initial encounter; E86.0 Dehydration; Z86.718 Personal history of other venous thrombosis and embolism; Z90.49 Acquired absence of other specified parts of digestive tract; Y92.89 Other specified places as the place of occurrence of the external cause; Z82.49 Family history of ischemic heart disease and other diseases of the circulatory system
CPT/HCPCS: 36415; 70450; 71010; 80053; 80061; 80307; 80320; 81001; 82140; 83735; 84443; 84484; 85025; 85045; 85610; 85670; 85730; 86850; 86870; 86900; 86901; 87040; 93005; 93010; 96365; G0480; J1642; J1885; J2405; J2543; J3370; J7030; J7050

== ENCOUNTER 2017-08-02 16:08 | Emergency (ER) | payer MEDICARE | END 2017-08-02 17:30 | disposition left against medical advice (07) | LOC: ED 16:08 | DX: D57.00 Hb-SS disease with crisis, unspecified (principal); Z53.21 Procedure and treatment not carried out due to patient leaving prior to being seen by health care provider ==

== ENCOUNTER 2017-08-17 01:37 | Emergency (ER) | payer MEDICARE ==
[2017-08-17 02:13] VITALS: BP 111/65
== END 2017-08-17 17:20 | disposition left against medical advice (07) ==
LOC: ED 01:37
DX: M54.9 Dorsalgia, unspecified (principal); Z53.21 Procedure and treatment not carried out due to patient leaving prior to being seen by health care provider

== ENCOUNTER 2018-08-21 22:54 | Emergency (ER) | payer MEDICARE ==
[2018-08-21] MEDS ORDERED: D5NS 0.2% 1,000 ML IV SCH (23:45)
--- NOTE | 2018-08-22 01:39 | Emergency Department Report ---
ED General Adult HPI - General Chief complaint: Sickle Cell Crisis Stated complaint: CHEST/BACK/SICKLE CELL PAIN Source: patient Mode of arrival: Ambulatory Limitations: No Limitations - History of Present Illness Initial comments: 38-year-old male with a history of sickle cell anemia presents stating that he is having sickle cell crisis type pain. Patient states that he was recently discharged from [facility] after being treated for pneumonia on April 15 and just has completed his antibiotics. Patient states it continues to have pain when he takes a deep breath in. Patient states that he's had bilateral shoulder pain consistent with his history of avascular necrosis also complains of lower back pain consistent with his history of sickle cell anemia patient denies any use of blood tenderness. Patient denies any fever. Patient denies any focal weakness with slurred speech. - Related Data Previous Rx's Medication Instructions Recorded Last Taken Type Methadone [Dolophine] 10 mg PO Q12H #60 tablet 12/19/15 04/01/17 Rx 10 mmg Folic Acid [Folvite] 1 mg PO QDAY #30 tablet 02/10/16 04/01/17 Rx 1 mg Oxycodone HCl [Roxicodone] 30 mg PO BID #14 tablet 07/27/18 Unknown Rx Magnesium Oxide [Mag-Ox] 400 mg PO QDAY #10 tablet 07/31/18 Unknown Rx Allergies Allergy/AdvReac Type Severity Reaction Status Date / Time aspirin Allergy Unknown Verified 07/25/18 22:18 ED Review of Systems ROS: Stated complaint: CHEST/BACK/SICKLE CELL PAIN Other details as noted in HPI Constitutional: denies: chills, fever Eyes: denies: eye pain, eye discharge, vision change ENT: denies: ear pain, throat pain Respiratory: SOB at rest. denies: cough, shortness of breath, wheezing Cardiovascular: denies: chest pain, palpitations Endocrine: no symptoms reported Gastrointestinal: denies: abdominal pain, nausea, diarrhea Genitourinary: denies: urgency, dysuria Musculoskeletal: arthralgia. denies: back pain, joint swelling Skin: denies: rash, lesions Neurological: denies: headache, weakness, paresthesias Psychiatric: denies: anxiety, depression Hematological/Lymphatic: denies: easy bleeding, easy bruising ED Past Medical Hx - Past Medical History Previous Medical History?: Yes Hx Hypertension: No Hx CVA: No Hx Heart Attack/AMI: No Hx Congestive Heart Failure: No Hx Diabetes: No Hx Deep Vein Thrombosis: Yes (LEFT LEG) Hx Pulmonary Embolism: No Hx GERD: No Hx Liver Disease: No Hx Renal Disease: No Hx Sickle Cell Disease: Yes Hx Arthritis: No Hx Headaches / Migraines: No Hx Seizures: No Hx Kidney Stones: No Hx Psychiatric Treatment: Yes (anxiety) Hx Asthma: No Hx COPD: No Hx Tuberculosis: No Hx Dementia: No Hx HIV: No Additional medical history: 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 New port placed 2014. - Social History Smoking Status: Never Smoker Substance Use Type: None - Medications Home Medications: Home Medications Medication Instructions Recorded Confirmed Last Taken Type Methadone [Dolophine] 10 mg PO Q12H #60 tablet 12/19/15 07/25/18 04/01/17 Rx 10 mmg Folic Acid [Folvite] 1 mg PO QDAY #30 tablet 02/10/16 07/25/18 04/01/17 Rx 1 mg Oxycodone HCl [Roxicodone] 30 mg PO BID #14 tablet 07/27/18 Unknown Rx Magnesium Oxide [Mag-Ox] 400 mg PO QDAY #10 tablet 07/31/18 Unknown Rx ED Physical Exam - General Limitations: No Limitations General appearance: alert, other (uncomfortable; dehydrated; minimal distress) - Head Head exam: Present: atraumatic, normocephalic - Eye Eye exam: Present: normal appearance - ENT ENT exam: Present: mucous membranes dry - Neck Neck exam: Present: normal inspection - Respiratory Respiratory exam: Present: normal lung sounds bilaterally. Absent: respiratory distress - Cardiovascular Cardiovascular Exam: Present: regular rate, normal rhythm. Absent: systolic murmur, diastolic murmur, rubs, gallop - GI/Abdominal GI/Abdominal exam: Present: soft, normal bowel sounds - Rectal Rectal exam: Present: deferred - Extremities Exam Extremities exam: Present: normal inspection - Back Exam Back exam: Present: normal inspection - Neurological Exam Neurological exam: Present: alert, oriented X3 - Psychiatric Psychiatric exam: Present: normal affect, normal mood - Skin Skin exam: Present: warm, dry, intact, normal color. Absent: rash ED Course Vital Signs 08/21/18 08/22/18 08/22/18 23:08 01:15 01:45 Temperature 98.2 F Pulse Rate 78 68 66 Respiratory 18 10 L 10 L Rate Blood Pressure 109/35 97/59 102/61 Blood Pressure [Right] O2 Sat by Pulse 98 Oximetry 08/22/18 08/22/18 08/22/18 02:20 02:30 03:15 Temperature Pulse Rate 68 61 Respiratory 8 L 9 L Rate Blood Pressure 97/55 89/42 Blood Pressure 97/55 [Right] O2 Sat by Pulse Oximetry 08/22/18 08/22/18 08/22/18 03:30 03:55 03:59 Temperature Pulse Rate 66 65 73 Respiratory 9 L 7 L Rate Blood Pressure 84/37 102/58 Blood Pressure 88/46 85/42 [Right] O2 Sat by Pulse Oximetry 08/22/18 08/22/18 08/22/18 04:00 04:15 04:48 Temperature Pulse Rate 68 67 68 Respiratory 10 L 10 L 12 Rate Blood Pressure 102/58 78/41 Blood Pressure 91/45 [Right] O2 Sat by Pulse Oximetry ED Medical Decision Making - Lab Data Result diagrams: 08/22/18 02:46 08/22/18 02:46 - EKG Data -: EKG Interpreted by Nd EKG shows normal: sinus rhythm Rate: normal - EKG Data Interpretation: LVH - Medical Decision Making Patient received 2 mg of Dilaudid, 30 mg of Toradol, Zofran therapy, and Benadryl. Patient was given IV fluid hydration as well and with the administration of these medications patient still stated he had only mild relief of this medication and patient became hypotensive with these interventions. Patient did receive aggressive fluid hydration. The arterial pressure came up above 65. Patient's pain ambulated around the emergency department without any difficulty. Patient's reticulocyte count is only 6% his hemoglobin is 8.8. Patient is currently on methadone therapy and will be discharged to transition back to his by mouth narcotic therapy. Patient is saturating normally and a chest x-ray shows no acute consolidation does low suspicion for acute chest syn drome. - Differential Diagnosis Sickle Cell Pain Crisis; Pneumonia; Dehydration; Anemia; Critical care attestation.: If time is entered above; I have spent that time in minutes in the direct care of this critically ill patient, excluding procedure time. ED Disposition Clinical Impression: Sickle cell pain crisis Disposition: DC-01 TO HOME OR SELFCARE Is pt being admited?: No Condition: Stable Instructions: Sickle Cell Crisis (ED) Referrals: JONNA STEARNS MD [Primary Care Provider] - 3-5 Days Print Language: [place]
[2018-08-22] MEDS ORDERED: DILAUDID IV ONE (02:22)
[2018-08-22] MEDS ORDERED: BENADRYL IV ONE (02:23)
[2018-08-22] MEDS ORDERED: TORADOL IV ONE (02:23)
[2018-08-22] MEDS ORDERED: ZOFRAN IV ONE (02:23)
[2018-08-22] MEDS ORDERED: NACL 0.9% 1000 ML 1,000 ML IV ONE ×3 (02:25→03:53)
[2018-08-22 02:58] LABS: Basophils # (Auto) 0.1 K/mm3 (0.0-0.1); Eosinophils # (Auto) 0.5 K/mm3 (0.0-0.4); Eosinophils % (Auto) 7.1 % (0.0-4.3); Hematocrit 26.6 % (35.5-45.6); Hemoglobin 8.8 gm/dl (11.8-15.2); Lymphocytes # (Auto) 2.4 K/mm3 (1.2-5.4); Lymphocytes % (Auto) 33.8 % (13.4-35.0); Mean Corpuscular HGB Conc 33 % (32-34); Mean Corpuscular Volume 110 fl (84-94); Monocytes # (Auto) 0.8 K/mm3 (0.0-0.8); Monocytes % (Auto) 10.6 % (0.0-7.3); Platelet Count 295 K/mm3 (140-440); Red Blood Count 2.43 M/mm3 (3.65-5.03); Red Cell Distribution Width 18.2 % (13.2-15.2)
--- NOTE | 2018-08-22 03:15 | XRay Report ---
FINAL REPORT EXAM: XR CHEST 1V AP HISTORY: shortness of breath TECHNIQUE: AP portable view of the chest. PRIORS: 07/25/2018 FINDINGS: There is a right-sided Port-A-Cath with the tip in the distal SVC. The cardiomediastinal silhouette a ppears normal. The lungs are hypoaerated. There is a small linear opacity in the left lung base consi stent with subsegmental atelectasis or parenchymal scar, stable. Otherwise, the lungs are clear. Ther e is subchondral sclerosis and fragmentation of the right humeral head and subchondral sclerosis of t he left humeral head. IMPRESSION: Mild left basilar subsegmental atelectasis or parenchymal scar without significant change. Changes of the bilateral shoulders are suspicious for avascular necrosis
[2018-08-22 03:19] LABS: Alanine Aminotransferase 18 units/L (7-56); Albumin 3.2 g/dL (3.9-5); BUN/Creatinine Ratio 15; Blood Urea Nitrogen 6 mg/dL (9-20); Calcium 7.8 mg/dL (8.4-10.2); Hemolysis Index 11
[2018-08-22 04:49] VITALS: BP 91/45
== END 2018-08-22 05:32 | disposition home or self-care (01) ==
LOC: ED 22:54
DX: D57.00 Hb-SS disease with crisis, unspecified (principal); F41.9 Anxiety disorder, unspecified; I95.9 Hypotension, unspecified; Z86.718 Personal history of other venous thrombosis and embolism; Z88.6 Allergy status to analgesic agent
CPT/HCPCS: 36415; 71045; 80053; 84484; 85025; 85045; 93005; 93010; 96361; 96374; 96375; 99284; J1170; J1200; J1885; J2405; J7030

== ENCOUNTER 2018-09-23 06:08 | Inpatient (IN) | payer MEDICARE ==
--- NOTE | 2018-09-23 10:26 | Emergency Department Report ---
ED General Adult HPI - General Chief complaint: Sickle Cell Crisis Stated complaint: SICKLE CELL PAIN CRISIS/RT SHOULDER PAIN Time Seen by Provider: 09/23/18 09:50 Source: patient, RN notes reviewed, old records reviewed Mode of arrival: Ambulatory Limitations: Physical Limitation - History of Present Illness Initial comments: Primary care DrAisha: Fabian This is a 38-year-old gentleman with a history of sickle cell disease, right- sided thoracic port, presents to the emergency room today with complaint of sharp nontraumatic right-sided shoulder pain, muscular back pain, lower extremity pain, subjective fever, generalized weakness, malaise, fatigue, with no abdominal pain or urinary symptoms the patient's symptoms typically increased with palpation, range of motion, and decreased with hydromorphone and diphenhydramine. The patient is known to this provider previously. -: Gradual, days(s) Location: back, right, upper extremity, lower extremity Severity scale (0 -10): 10 Quality: aching Consistency: intermittent Improves with: medication, rest Worsens with: movement Associated Symptoms: fever/chills, loss of appetite, malaise, weakness. denies: confusion, chest pain, cough, diaphoresis, headaches, nausea/vomiting, rash, seizure, shortness of breath, syncope - Related Data Previous Rx's Medication Instructions Recorded Last Taken Type Methadone [Dolophine] 10 mg PO Q12H #60 tablet 12/19/15 04/01/17 Rx 10 mmg Folic Acid [Folvite] 1 mg PO QDAY #30 tablet 02/10/16 04/01/17 Rx 1 mg Oxycodone HCl [Roxicodone] 30 mg PO BID #14 tablet 07/27/18 Unknown Rx Magnesium Oxide [Mag-Ox] 400 mg PO QDAY #10 tablet 07/31/18 Unknown Rx Allergies Allergy/AdvReac Type Severity Reaction Status Date / Time aspirin Allergy Unknown Verified 07/25/18 22:18 ED Review of Systems ROS: Stated complaint: SICKLE CELL PAIN CRISIS/RT SHOULDER PAIN Other details as noted in HPI Constitutional: chills, fever, malaise, weakness Eyes: denies: vision change ENT: denies: epistaxis Respiratory: denies: cough Cardiovascular: denies: chest pain Genitourinary: denies: dysuria Musculoskeletal: back pain, arthralgia, myalgia Skin: denies: lesions Neurological: weakness Psychiatric: anxiety ED Past Medical Hx - Past Medical History Hx Hypertension: No Hx CVA: No Hx Heart Attack/AMI: No Hx Congestive Heart Failure: No Hx Diabetes: No Hx Deep Vein Thrombosis: Yes (LEFT LEG) Hx Pulmonary Embolism: No Hx GERD: No Hx Liver Disease: No Hx Renal Disease: No Hx Sickle Cell Disease: Yes Hx Arthritis: No Hx Headaches / Migraines: No Hx Seizures: No Hx Kidney Stones: No Hx Psychiatric Treatment: Yes (anxiety) Hx Asthma: No Hx COPD: No Hx Tuberculosis: No Hx Dementia: No Hx HIV: No Additional medical history: 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 New port placed 2014. - Social History Smoking Status: Never Smoker Substance Use Type: None - Medications Home Medications: Home Medications Medication Instructions Recorded Confirmed Last Taken Type Methadone [Dolophine] 10 mg PO Q12H #60 tablet 12/19/15 07/25/18 04/01/17 Rx 10 mmg Folic Acid [Folvite] 1 mg PO QDAY #30 tablet 02/10/16 07/25/18 04/01/17 Rx 1 mg Oxycodone HCl [Roxicodone] 30 mg PO BID #14 tablet 07/27/18 Unknown Rx Magnesium Oxide [Mag-Ox] 400 mg PO QDAY #10 tablet 07/31/18 Unknown Rx ED Physical Exam - General Limitations: Physical Limitation General appearance: alert, anxious, in distress - Head Head exam: Present: atraumatic, normocephalic - Eye Eye exam: Present: normal appearance, EOMI. Absent: nystagmus - ENT ENT exam: Present: mucous membranes dry, normal external ear exam - Neck Neck exam: Present: normal inspection, full ROM. Absent: tenderness, meningismus - Respiratory Respiratory exam: Present: normal lung sounds bilaterally, chest wall tenderness. Absent: respiratory distress - Cardiovascular Cardiovascular Exam: Present: normal rhythm, tachycardia, normal heart sounds. Absent: systolic murmur, diastolic murmur, rubs, gallop - GI/Abdominal GI/Abdominal exam: Present: soft. Absent: distended, tenderness, guarding, rebound, rigid, pulsatile mass - Rectal Rectal exam: Present: deferred - Extremities Exam Extremities exam: Present: normal inspection (there is full range of motion of bilateral elbows, knees, ankles, hips, wrists.), tenderness (there is proximal right shoulder tenderness. There is decreased range of motion passively and actively in the right shoulder.), other (2+ pulses noted in the bilateral upper, lower extremities. Compartments soft. No long bony tenderness. The pelvis is stable.). Absent: full ROM - Back Exam Back exam: Present: normal inspection, full ROM, paraspinal tenderness. Absent: CVA tenderness (R), CVA tenderness (L), vertebral tenderness - Neurological Exam Neurological exam: Present: alert, other (Extraocular movements intact. Tongue midline. No facial droop. Facial sensation intact to light touch in the V1, V2, V3 distribution bilaterally. 5 and 5 strength in 4 extremities.. Sensation is intact to light touch in 4 extremities.). Absent: motor sensory deficit - Psychiatric Psychiatric exam: Present: anxious - Skin Skin exam: Present: warm, dry, intact, normal color. 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 09/20/2018 1 09/20/2018 ALPRAZOLAM 1 MG TABLET 60.0 30 PA LIAT [id number] COMMU ([id number]) 0 [place] 08/28/2018 1 08/28/2018 METHADONE HCL 10 MG TABLET 120.0 30 FU EL [id number] COMMU ([id number]) 0 120.0 MME [place] 08/28/2018 1 08/28/2018 OXYCODONE HCL 30 MG TABLET 60.0 15 FU EL [id number] COMMU ([id number]) 0 180.0 MME Medicare Reevaluation #2: 09/23/18 12:32 Differential diagnosis, including but not limited to: Pneumonia, urinary tract infection, sickle cell crisis, septic joint, avascular necrosis Assessment and plan: 38-year-old gentleman with decreased range of motion in the right shoulder, low-grade fever, tachycardia, rapid respiratory rate, leuk ocytosis of almost 12,000, borderline for sepsis criteria. The patient appears weak and is ill-appearing. We will resuscitate and the patient empirically according to the sepsis pathway. He'll be covered empirically with ceftriaxone. We will treat his pain. Orthopedic consultation has been requested. We're waiting for them to call back. Dr. Persaud to admit the patient to the medical service. Reevaluation #3: 09/23/18 12:58 Dr. Garcia to follow in consultation. ED Medical Decision Making - Lab Data Result diagrams: 09/23/18 10:22 09/23/18 11:12 Vital Signs 09/23/18 09/23/18 09/23/18 06:25 11:21 11:22 Temperature 99.6 F 100.3 F H 100.3 F H Pulse Rate 120 H 102 H Respiratory 20 18 Rate Blood Pressure 113/71 Blood Pressure 117/67 [Left] O2 Sat by Pulse 97 98 Oximetry 09/23/18 09/23/18 12:15 12:17 Temperature Pulse Rate 106 H Respiratory 18 18 Rate Blood Pressure Blood Pressure 108/73 [Left] O2 Sat by Pulse 97 96 Oximetry Lab Results 09/23/18 09/23/18 09/23/18 Range/Units 10:22 10:22 11:12 WBC 11.9 H (4.5-11.0) K/mm3 RBC 2.39 L (3.65-5.03) M/mm3 Hgb 8.8 L (11.8-15.2) gm/dl Hct 25.9 L (35.5-45.6) % MCV 109 H (84-94) fl MCH 37 H (28-32) pg MCHC 34 (32-34) % RDW 19.8 H (13.2-15.2) % Plt Count 253 (140-440) K/mm3 Lymph % (Auto) 16.3 (13.4-35.0) % [place] % (Auto) 15.8 H (0.0-7.3) % Eos % (Auto) 0.8 (0.0-4.3) % Baso % (Auto) 0.6 (0.0-1.8) % Lymph # 1.9 (1.2-5.4) K/mm3 [place] # 1.9 H (0.0-0.8) K/mm3 Eos # 0.1 (0.0-0.4) K/mm3 Baso # 0.1 (0.0-0.1) K/mm3 Seg Neutrophils % 66.5 (40.0-70.0) % Seg Neutrophils # 7.9 H (1.8-7.7) K/mm3 ESR 66 (0-20) mm/Hr Percent Retic 3.37 H (0.78-2.58) % Sodium (137-145) mmol/L Potassium (3.6-5.0) mmol/L Chloride (98-107) mmol/L Carbon Dioxide (22-30) mmol/L Anion Gap mmol/L BUN (9-20) mg/dL Creatinine (0.8-1.5) mg/dL Estimated GFR ml/min BUN/Creatinine Ratio % Glucose (75-100) mg/dL Lactic Acid 1.40 (0.7-2.0) mmol/L Calcium (8.4-10.2) mg/dL Total Bilirubin (0.1-1.2) mg/dL AST (5-40) units/L ALT (7-56) units/L Alkaline Phosphatase (35-129) units/L Lactate Dehydrogenase (91-180) units/L Total Creatine Kinase (55-170) units/L C-Reactive Protein (0.00-1.30) mg/dL Total Protein (6.3-8.2) g/dL Albumin (3.9-5) g/dL Albumin/Globulin Ratio % Urine Bilirubin (Negative) Urine RBC (Auto) (0.0-6.0) /HPF U Epithel Cells (Auto) (0-13.0) /HPF 09/23/18 09/23/18 Range/Units 11:12 12:16 WBC (4.5-11.0) K/mm3 RBC (3.65-5.03) M/mm3 Hgb (11.8-15.2) gm/dl Hct (35.5-45.6) % MCV (84-94) fl MCH (28-32) pg MCHC (32-34) % RDW (13.2-15.2) % Plt Count (140-440) K/mm3 Lymph % (Auto) (13.4-35.0) % [place] % (Auto) (0.0-7.3) % Eos % (Auto) (0.0-4.3) % Baso % (Auto) (0.0-1.8) % Lymph # (1.2-5.4) K/mm3 [place] # (0.0-0.8) K/mm3 Eos # (0.0-0.4) K/mm3 Baso # (0.0-0.1) K/mm3 Seg Neutrophils % (40.0-70.0) % Seg Neutrophils # (1.8-7.7) K/mm3 ESR (0-20) mm/Hr Percent Retic (0.78-2.58) % Sodium 137 (137-145) mmol/L Potassium 3.8 (3.6-5.0) mmol/L Chloride 100.4 (98-107) mmol/L Carbon Dioxide 27 (22-30) mmol/L Anion Gap 13 mmol/L BUN 10 (9-20) mg/dL Creatinine 0.5 L (0.8-1.5) mg/dL Estimated GFR > 60 ml/min BUN/Creatinine Ratio 20 % Glucose 135 H (75-100) mg/dL Lactic Acid (0.7-2.0) mmol/L Calcium 8.2 L (8.4-10.2) mg/dL Total Bilirubin 2.20 H (0.1-1.2) mg/dL AST 12 (5-40) units/L ALT 7 (7-56) units/L Alkaline Phosphatase 64 (35-129) units/L Lactate Dehydrogenase 212 H (91-180) units/L Total Creatine Kinase 19 L (55-170) units/L C-Reactive Protein 4.70 H (0.00-1.30) mg/dL Total Protein 8.8 H (6.3-8.2) g/dL Albumin 3.5 L (3.9-5) g/dL Albumin/Globulin Ratio 0.7 % Urine Bilirubin Neg (Negative) Urine RBC (Auto) 1.0 (0.0-6.0) /HPF U Epithel Cells (Auto) < 1.0 (0-13.0) /HPF - EKG Data -: EKG Interpreted by Me EKG shows normal: sinus rhythm Rate: tachycardia - EKG Data 09/23/18 12:33 Sinus, 94 bpm, left axis deviation, left anterior fascicular block, high left ventricular voltage, motion artifact, abnormal EKG, not consistent with ST elevation myocardial infarction. - Radiology Data Radiology results: report reviewed, image reviewed interpreted by me: X-ray the chest nonspecific, right-sided port noted. Nonspecific interstitial pattern suggestive. Print Report Referring Physician: TULIO BIRD Patient Name: MADELIN HURST JR Date of : 1980 Sex: Male Report Date: 2018-09-23 Report Status: Finalized Findings [facility] [address] [place] [address] XRay Report Signed Patient: MADELIN HURST JR MR#: [id number] : 1980 Acct:[id number] Age/Sex: 38 / M ADM Date: 09/23/18 Loc: ED Attending Dr: Ordering Physician: TULIO BIRD MD Date of Service: 09/23/18 Procedure(s): XR shoulder 2+V RT Accession Number(s): [id number] cc: TULIO BIRD MD Fluoro Time In Minutes: RIGHT SHOULDER, 3 VIEWS: HISTORY: right shoulder pain. There is severe irregularity of the superior right humeral head suggestive of osteonecrosis with fragmentation. There are mild osteoarthritic changes at the glenohumeral joint. Normal articulation at the a.c. joint. No suspicious bony lesion or dislocation. IMPRESSION: Concerned avascular necrosis of the superior right humeral head with fragmentation. Mild osteoarthritis. Transcribed By: TTR Dictated By: TIFFANY ROMERO JR, MD Electronically Authenticated By: TIFFANY ROMERO JR, MD Signed Date/Time: 09/23/18 1249 Critical care attestation.: If time is entered above; I have spent that time in minutes in the direct care of this critically ill patient, excluding procedure time. ED Disposition Clinical Impression: Sickle cell anemia with crisis Disposition: DC- OP ADMIT IP TO THIS HOSP Is pt being admited?: Yes Condition: Fair Referrals: PRIMARY CARE, [Primary Care Provider] - 3-5 Days
[2018-09-23] MEDS ORDERED: DILAUDID IV ONE (10:34)
[2018-09-23] MEDS ORDERED: BENADRYL PO ONE (10:35)
[2018-09-23 10:53] LABS: Basophils # (Auto) 0.1 K/mm3 (0.0-0.1); Basophils % (Auto) 0.6 % (0.0-1.8); Eosinophils # (Auto) 0.1 K/mm3 (0.0-0.4); Eosinophils % (Auto) 0.8 % (0.0-4.3); Hematocrit 25.9 % (35.5-45.6); Hemoglobin 8.8 gm/dl (11.8-15.2); Lymphocytes # (Auto) 1.9 K/mm3 (1.2-5.4); Lymphocytes % (Auto) 16.3 % (13.4-35.0); Mean Corpuscular HGB Conc 34 % (32-34); Mean Corpuscular Volume 109 fl (84-94); Monocytes # (Auto) 1.9 K/mm3 (0.0-0.8); Monocytes % (Auto) 15.8 % (0.0-7.3); Platelet Count 253 K/mm3 (140-440); Red Blood Count 2.39 M/mm3 (3.65-5.03); Red Cell Distribution Width 19.8 % (13.2-15.2)
[2018-09-23 12:04] LABS: Alanine Aminotransferase 7 units/L (7-56); Albumin 3.5 g/dL (3.9-5); BUN/Creatinine Ratio 20; Blood Urea Nitrogen 10 mg/dL (9-20); Calcium 8.2 mg/dL (8.4-10.2); Hemolysis Index 15
[2018-09-23] MEDS ORDERED: NACL 0.9% 1000 ML IV ONE (12:26)
[2018-09-23] MEDS ORDERED: ROCEPHIN/NS 2 GM/100 ML 2 GM/100 ML BAG IV ONE (12:26)
[2018-09-23] MEDS ORDERED: TYLENOL PO ONE (12:27)
[2018-09-23 12:31] LABS: Bilirubin,Urine NEG (Negative); Blood,Urine NEG (Negative); Color,Urine Yellow (Yellow); Protein,Urine <15 mg/dL mg/dL (Negative); WBC,Urine < 1.0 /HPF (0.0-6.0)
--- NOTE | 2018-09-23 12:50 | History and Physical Report ---
History of Present Illness Chief complaint: Im hurting, im in a crisis History of present illness: 38 YO Male with Narcotic Abuse on Methadone Maintenance Program, SSD, DVT, Anxiety present to ED for evaluation. Pt states that he has experienced pain all over his body over the past 3 days. Pt states that pain is 10/10, but is worse in his shoulder, back, legs. Pt also reports subjective fever, weakness, fatigue, and abdominal discomfort. Pt transported to [facility] by his family for further care and evaluation Pt seen and evaluated in ED and found to have SCD Crisis, as well as RLL Pneumonia. Pt is lethargic with pinoint pupils and falling asleep during exam. Pt awakes to request pain medication and falls back asleep. Pt is able to protect his airway. No reports of CP, Palpitations, NVD, SI/HI, Productive cough, skin rash, itching, or recent ill contacts. Pt admitted to medical floor and initiated on Pneumonia Protocol. Ortho consulted in ED for evaluation of Right shoulder avascular necrosis. Past History Past Medical History: DVT, other (avascular necrosis) Past Surgical History: cholecystectomy, hernia repair Social history: single, prescription drug abuse. denies: smoking, alcohol abuse Family history: hypertension Medications and Allergies Allergies Allergy/AdvReac Type Severity Reaction Status Date / Time aspirin Allergy Unknown Verified 07/25/18 22:18 Home Medications Medication Instructions Recorded Confirmed Last Taken Type Methadone [Dolophine] 10 mg PO Q12H #60 tablet 12/19/15 07/25/18 04/01/17 Rx 10 mmg Folic Acid [Folvite] 1 mg PO QDAY #30 tablet 02/10/16 07/25/18 04/01/17 Rx 1 mg Oxycodone HCl [Roxicodone] 30 mg PO BID #14 tablet 07/27/18 Unknown Rx Magnesium Oxide [Mag-Ox] 400 mg PO QDAY #10 tablet 07/31/18 Unknown Rx ALPRAZolam [Xanax TAB] 2 mg PO TID PRN 09/23/18 09/23/18 Unknown History Active Meds: Active Medications Dextrose/Sodium Chloride (D5ns 0.2%) 1,000 mls @ 250 mls/hr IV DIRECT SAHARA Ceftriaxone Sodium 2 gm/ (Sodium Chloride) 100 mls @ 200 mls/hr IM ONCE ONE Stop: 02/25/19 13:29 Review of Systems Constitutional: fever, no weight loss, no weight gain, no chills, no sweats Ears, nose, mouth and throat: no ear pain, no ear discharge, no tinnitis, no decreased hearing, no nose pain Cardiovascular: no chest pain, no orthopnea, no palpitations, no rapid/irregular heart beat Respiratory: no cough, no cough with sputum, no excessive sputum, no hemoptysis Gastrointestinal: no nausea, no vomiting, no diarrhea, no constipation Genitourinary Male: no hematuria, no discharge, no urinary frequency, no urinary hesitancy Rectal: no incontinence, no bleeding, no itching Musculoskeletal: no neck stiffness, no shooting arm pain, no myalgias, no atrophy Integumentary: no rash, no pruritis, no redness, no sores, no wounds Neurological: no transient paralysis, no paralysis, no weakness, no parathesias, no numbness, no tingling Psychiatric: no memory loss, no change in sleep habits, no sleep disturbances, no insomnia, no hypersomnia, no change in appetite Endocrine: no cold intolerance, no heat intolerance, no polyphagia, no excessive thirst, no polydipsia, no polyuria Hematologic/Lymphatic: no easy bruising, no easy bleeding Allergic/Immunologic: no urticaria, no allergic rhinitis, no wheezing Exam - Constitutional Vitals: Temp Pulse Resp BP Pulse Ox 100.3 F H 106 H 18 108/73 96 09/23/18 11:22 09/23/18 12:15 09/23/18 12:17 09/23/18 12:15 09/23/18 12:17 General appearance: Present: mild distress - EENT Eyes: Present: PERRL ENT: hearing intact, clear oral mucosa - Neck Neck: Present: supple, normal ROM - Respiratory Respiratory effort: normal Respiratory: bilateral: CTA - Cardiovascular Heart Sounds: Present: S1 & S2. Absent: rub, click - Extremities Extremities: pulses symmetrical, No edema Peripheral Pulses: within normal limits - Abdominal General gastrointestinal: Present: soft, non-tender, non-distended, normal bowel sounds Male genitourinary: Present: normal - Integumentary Integumentary: Present: clear, warm, dry - Musculoskeletal Musculoskeletal: gait normal, strength equal bilaterally - Psychiatric Psychiatric: appropriate mood/affect, intact judgment & insight, other - Neurologic Neurologic: CNII-XII intact, moves all extremities, other (lethargic) Results - Labs CBC & Chem 7: 09/23/18 10:22 09/23/18 11:12 Labs: Abnormal lab results 09/23/18 09/23/18 Range/Units 10:22 11:12 WBC 11.9 H (4.5-11.0) K/mm3 RBC 2.39 L (3.65-5.03) M/mm3 Hgb 8.8 L (11.8-15.2) gm/dl Hct 25.9 L (35.5-45.6) % MCV 109 H (84-94) fl MCH 37 H (28-32) pg RDW 19.8 H (13.2-15.2) % [place] % (Auto) 15.8 H (0.0-7.3) % [place] # 1.9 H (0.0-0.8) K/mm3 Seg Neutrophils # 7.9 H (1.8-7.7) K/mm3 Percent Retic 3.37 H (0.78-2.58) % Creatinine 0.5 L (0.8-1.5) mg/dL Glucose 135 H (75-100) mg/dL Calcium 8.2 L (8.4-10.2) mg/dL Total Bilirubin 2.20 H (0.1-1.2) mg/dL Lactate Dehydrogenase 212 H (91-180) units/L Total Creatine Kinase 19 L (55-170) units/L C-Reactive Protein 4.70 H (0.00-1.30) mg/dL Total Protein 8.8 H (6.3-8.2) g/dL Albumin 3.5 L (3.9-5) g/dL Assessment and Plan - Patient Problems (1) Pneumonia Current Visit: Yes Status: Acute Qualifiers: Laterality: right Lung location: lower lobe of lung Plan to address problem: Pneumonia Protocol: IV antibiotic therapy, supplemental oxygen, nebulizer therapy, IVF resuscitation therapy, pulse oximetry, chest x ray, blood cultures, (2) SIRS (systemic inflammatory response syndrome) Current Visit: Yes Status: Acute Plan to address problem: IVF resuscitation therapy, IV antibiotic therapy, CBC, CMP (3) Avascular necrosis Current Visit: Yes Status: Acute Plan to address problem: Ortho consulted in ED, right shoulder x ray (4) Sickle cell anemia with crisis Current Visit: Yes Status: Acute Plan to address problem: IVF resuscitation therapy, pain control, supportive care. Pt is lethargic with pinpoint pupils. Pt requesting pain medication and falling asleep. Pt is able to protect his airway. (5) DVT prophylaxis Current Visit: Yes Status: Acute Plan to address problem: SCD to BLE while in bed.
[2018-09-23] MEDS ORDERED: SODIUM CHLORIDE FLUSH SYRINGE 10 ML IV PRN (12:51)
[2018-09-23] MEDS ORDERED: ZOFRAN IV PRN (12:51)
[2018-09-23] MEDS ORDERED: TYLENOL PO PRN (12:51)
--- NOTE | 2018-09-23 12:52 | XRay Report ---
RIGHT SHOULDER, 3 VIEWS: HISTORY: right shoulder pain. There is severe irregularity of the superior right humeral head suggestive of osteonecrosis with fragmentation. There are mild osteoarthritic changes at the glenohumeral joint. Normal articulation at the a.c. joint. No suspicious bony lesion or dislocation. IMPRESSION: Concerned avascular necrosis of the superior right humeral head with fragmentation. Mild osteoarthritis.
--- NOTE | 2018-09-23 12:54 | XRay Report ---
AP CHEST: HISTORY: Sickle cell disease, shoulder pain Heart size and pulmonary vascularity are within normal limits. There is blurring of the right hemidiaphragm suggesting right basilar atelectasis or possibly early infiltrate. The left lung is generally clear. Right [id number] terminates in the lower SVC. Osteonecrosis of the right humeral head is again noted. There may be early findings of avascular necrosis in the left humeral head which is partially imaged. IMPRESSION: Subtle opacity at the right lung base as described.
[2018-09-23] MEDS ORDERED: ZITHROMAX PO ONE (12:58)
[2018-09-23] MEDS ORDERED: ROCEPHIN IM ONE (13:00)
[2018-09-23] MEDS ORDERED: NACL 0.9% IM ONE (13:00)
[2018-09-23] MEDS: ZITHROMAX 500 MG in NACL 0.9% 250ML 250 ML IV SCH (15:07)
[2018-09-23] MEDS ORDERED: NACL 0.9% 1000 ML 1,000 ML ONE (16:19)
[2018-09-23] MEDS: NACL 0.9% 1000 ML 3,000 ML IV SCH (18:33)
[2018-09-23] MEDS: DOLOPHINE PO SCH (18:47)
[2018-09-23] MEDS: ROXICODONE PO SCH ×2 (18:47→21:48)
[2018-09-23] MEDS ORDERED: NON-FORMULARY (Oxycodone Hcl [Roxicodone] 30 MG) PO SCH (22:00)
[2018-09-24] MEDS: SODIUM CHLORIDE FLUSH SYRINGE 10 ML IV SCH ×3 (00:51→22:59)
[2018-09-24] MEDS: NACL 0.9% 1000 ML 3,000 ML IV SCH (01:05)
[2018-09-24] MEDS: DOLOPHINE PO SCH ×3 (01:22→17:42)
[2018-09-24 06:45] LABS: Basophils % (Auto) 0.3 % (0.0-1.8); Eosinophils # (Auto) 0.2 K/mm3 (0.0-0.4); Hematocrit 22.3 % (35.5-45.6); Hemoglobin 7.9 gm/dl (11.8-15.2); Lymphocytes # (Auto) 1.3 K/mm3 (1.2-5.4); Lymphocytes % (Auto) 12.1 % (13.4-35.0); Mean Corpuscular HGB Conc 35 % (32-34); Mean Corpuscular Volume 108 fl (84-94); Monocytes # (Auto) 1.6 K/mm3 (0.0-0.8); Monocytes % (Auto) 14.6 % (0.0-7.3); Platelet Count 217 K/mm3 (140-440); Red Blood Count 2.07 M/mm3 (3.65-5.03); Red Cell Distribution Width 19.6 % (13.2-15.2)
[2018-09-24] MEDS: TORADOL IV PRN ×2 (09:35→15:05)
[2018-09-24] MEDS: MAG-OX PO SCH (09:36)
[2018-09-24] MEDS: ROXICODONE PO SCH ×2 (09:36→22:56)
[2018-09-24] MEDS: FOLVITE PO SCH (09:36)
[2018-09-24] MEDS: ZITHROMAX 500 MG in NACL 0.9% 250ML 250 ML IV SCH (10:05)
[2018-09-24] MEDS: D5NS 0.2% 1,000 ML IV SCH ×2 (10:06→17:44)
--- NOTE | 2018-09-24 10:12 | Consultation ---
History of Present Illness - HPI Consult date: 09/24/18 Consult reason: joint pain History of present illness: 38 y/o male with history of SCD and bilateral AVN proximal humerii who presented to the ED in sickle crisis and possible pneumonia...c/o right shoulder pain s fina has had problem with shoulder for some time and received several cortison injections over time... Past History Past Medical History: DVT, other (avascular necrosis) Past Surgical History: cholecystectomy, hernia repair Social history: single, prescription drug abuse. denies: smoking, alcohol abuse Family history: hypertension Medications and Allergies Allergies Allergy/AdvReac Type Severity Reaction Status Date / Time aspirin Allergy Unknown Verified 07/25/18 22:18 Home Medications Medication Instructions Recorded Confirmed Last Taken Type Methadone [Dolophine] 10 mg PO Q12H #60 tablet 12/19/15 09/23/18 04/01/17 Rx 10 mmg Folic Acid [Folvite] 1 mg PO QDAY #30 tablet 02/10/16 09/23/18 04/01/17 Rx 1 mg Oxycodone HCl [Roxicodone] 30 mg PO BID #14 tablet 07/27/18 09/23/18 Unknown Rx Magnesium Oxide [Mag-Ox] 400 mg PO QDAY #10 tablet 07/31/18 09/23/18 Unknown Rx ALPRAZolam [Xanax TAB] 2 mg PO TID PRN 09/23/18 09/23/18 Unknown History Active Meds: Active Medications Acetaminophen (Tylenol) 650 mg PO Q4H PRN PRN Reason: Pain MILD(1-3)/Fever >100.5/BENAVIDEZ Folic Acid (Folvite) 1 mg PO QDAY [facility]ARA Last Admin: 09/24/18 09:36 Dose: 1 mg Documented by: Dextrose/Sodium Chloride (D5ns 0.2%) 1,000 mls @ 250 mls/hr IV DIRECT SAHARA Last Admin: 09/24/18 10:06 Dose: 250 mls/hr Documented by: Sodium Chloride (Nacl 0.9% 1000 Ml) 3,000 mls @ 150 mls/hr IV DIRECT SAHARA Last Admin: 09/24/18 01:05 Dose: 150 mls/hr Documented by: Azithromycin 500 mg/ Sodium (Chloride) 250 mls @ 250 mls/hr IV Q24HR SAHARA; Protocol Last Admin: 09/24/18 10:05 Dose: 250 mls/hr Documented by: Ketorolac Tromethamine (Toradol) 30 mg IV Q6H PRN PRN Reason: Pain, Moderate (4-6) Stop: 09/29/18 08:45 Last Admin: 09/24/18 09:35 Dose: 30 mg Documented by: Magnesium Oxide (Mag-Ox) 400 mg PO QDAY [facility] Last Admin: 09/24/18 09:36 Dose: 400 mg Documented by: Methadone HCl (Dolophine) 10 mg PO Q12H [facility] Last Admin: 09/24/18 05:23 Dose: 10 mg Documented by: Ondansetron HCl (Zofran) 4 mg IV Q8H PRN PRN Reason: Nausea And Vomiting Oxycodone HCl (Roxicodone) 30 mg PO BID [facility] Last Admin: 09/24/18 09:36 Dose: 30 mg Documented by: Sodium Chloride (Sodium Chloride Flush Syringe 10 Ml) 10 ml IV BID [facility] Last Admin: 09/24/18 09:37 Dose: 10 ml Documented by: Sodium Chloride (Sodium Chloride Flush Syringe 10 Ml) 10 ml IV PRN PRN PRN Reason: LINE FLUSH Physical Examination - Physical exam Narrative exam: Right shoulder - mild swollen, no erythema, slightly warm to touch, passive ROM Ok Assessment and Plan Right shoulder pain secondary to Avascular Necrosis humeral head with degenerative changes Recommendation - hemiarthroplasty right shoulder
--- NOTE | 2018-09-24 10:44 | Progress Note ---
Assessment and Plan Assessment and plan: --Sickle cell disease with painful crisis; Continue IV fluids and pain medications and supportive care --Right lower lobe pneumonia/community-acquired Continue current antibiotics follow cultures oxygen titrate O2 sats to more than 90% --Right avascular necrosis of the shoulder; Orthopedic evaluated the patient, recommend right hemiarthroplasty of the shoulder --Sepsis secondary to community-acquired pneumonia Continue antibiotics and supportive care --SIRS; IV fluids IV antibiotics cultures supportive care --DVT prophylaxis; SCDs Closely monitor the patient and the management as needed Follow-up the evaluation and recommendations Possible discharge in 1-2 days if stable History Interval history: Patient seen and examined medical records reviewed No new events reported by the nursing staff Patient is requesting and fighting for more pain medications Orthopedic evaluation noted and appreciated Possible hemiarthroplasty of the right shoulder inpatient versus outpatient Vital signs noted Hospitalist Physical - Constitutional Vitals: Temp Pulse Resp BP Pulse Ox 99.3 F 92 H 20 103/63 95 09/24/18 05:28 09/24/18 05:28 09/24/18 05:28 09/24/18 05:28 09/24/18 05:28 General appearance: Present: mild distress, well-nourished - EENT Eyes: Present: PERRL, EOM intact - Neck Neck: Present: supple, normal ROM - Respiratory Respiratory effort: normal Respiratory: bilateral: diminished, negative: rales, rhonchi, wheezing - Cardiovascular Rhythm: regular Heart Sounds: Present: S1 & S2 - Extremities Extremities: no ischemia, No edema - Abdominal General gastrointestinal: soft, non-tender, non-distended, normal bowel sounds - Integumentary Integumentary: Present: clear, warm - Psychiatric Psychiatric: appropriate mood/affect, cooperative - Neurologic Neurologic: CNII-XII intact, moves all extremities Results - Labs CBC & Chem 7: 09/24/18 06:25 09/23/18 11:12 Labs: Laboratory Last Values WBC 10.9 K/mm3 (4.5-11.0) 09/24/18 06:25 RBC 2.07 M/mm3 (3.65-5.03) L 09/24/18 06:25 Hgb 7.9 gm/dl (11.8-15.2) L 09/24/18 06:25 Hct 22.3 % (35.5-45.6) L 09/24/18 06:25 MCV 108 fl (84-94) H 09/24/18 06:25 MCH 38 pg (28-32) H 09/24/18 06:25 MCHC 35 % (32-34) H 09/24/18 06:25 RDW 19.6 % (13.2-15.2) H 09/24/18 06:25 Plt Count 217 K/mm3 (140-440) 09/24/18 06:25 Lymph % (Auto) 12.1 % (13.4-35.0) L 09/24/18 06:25 [place] % (Auto) 14.6 % (0.0-7.3) H 09/24/18 06:25 Eos % (Auto) 2.0 % (0.0-4.3) 09/24/18 06:25 Baso % (Auto) 0.3 % (0.0-1.8) 09/24/18 06:25 Lymph # 1.3 K/mm3 (1.2-5.4) 09/24/18 06:25 [place] # 1.6 K/mm3 (0.0-0.8) H 09/24/18 06:25 Eos # 0.2 K/mm3 (0.0-0.4) 09/24/18 06:25 Baso # 0.0 K/mm3 (0.0-0.1) 09/24/18 06:25 Seg Neutrophils % 71.0 % (40.0-70.0) H 09/24/18 06:25 Seg Neutrophils # 7.8 K/mm3 (1.8-7.7) H 09/24/18 06:25 ESR 66 mm/Hr (0-20) 09/23/18 10:22 Percent Retic 3.37 % (0.78-2.58) H 09/23/18 10:22 Sodium 137 mmol/L (137-145) 09/23/18 11:12 Potassium 3.8 mmol/L (3.6-5.0) 09/23/18 11:12 Chloride 100.4 mmol/L (98-107) 09/23/18 11:12 Carbon Dioxide 27 mmol/L (22-30) 09/23/18 11:12 Anion Gap 13 mmol/L 09/23/18 11:12 BUN 10 mg/dL (9-20) 09/23/18 11:12 Creatinine 0.5 mg/dL (0.8-1.5) L 09/23/18 11:12 Estimated GFR > 60 ml/min 09/23/18 11:12 BUN/Creatinine Ratio 20 % 09/23/18 11:12 Glucose 135 mg/dL (75-100) H 09/23/18 11:12 Lactic Acid 0.50 mmol/L (0.7-2.0) L 09/23/18 15:05 Calcium 8.2 mg/dL (8.4-10.2) L 09/23/18 11:12 Magnesium 1.90 mg/dL (1.7-2.3) 09/23/18 11:12 Total Bilirubin 2.20 mg/dL (0.1-1.2) H 09/23/18 11:12 AST 12 units/L (5-40) 09/23/18 11:12 ALT 7 units/L (7-56) 09/23/18 11:12 Alkaline Phosphatase 64 units/L (35-129) 09/23/18 11:12 Lactate Dehydrogenase 212 units/L (91-180) H 09/23/18 11:12 Total Creatine Kinase 19 units/L (55-170) L 09/23/18 11:12 C-Reactive Protein 4.70 mg/dL (0.00-1.30) H 09/23/18 11:12 Total Protein 8.8 g/dL (6.3-8.2) H 09/23/18 11:12 Albumin 3.5 g/dL (3.9-5) L 09/23/18 11:12 Albumin/Globulin Ratio 0.7 % 09/23/18 11:12 Urine Color Yellow (Yellow) 09/23/18 12:16 Urine Turbidity Clear (Clear) 09/23/18 12:16 Urine pH 7.0 (5.0-7.0) 09/23/18 12:16 Ur Specific [place] 1.012 (1.003-1.030) 09/23/18 12:16 Urine Protein <15 mg/dl mg/dL (Negative) 09/23/18 12:16 Urine Glucose (UA) Neg mg/dL (Negative) 09/23/18 12:16 Urine Ketones Neg mg/dL (Negative) 09/23/18 12:16 Urine Blood Neg (Negative) 09/23/18 12:16 Urine Nitrite Neg (Negative) 09/23/18 12:16 Urine Bilirubin Neg (Negative) 09/23/18 12:16 Urine Urobilinogen 4.0 mg/dL (<2.0) 09/23/18 12:16 Ur Leukocyte Esterase Neg (Negative) 09/23/18 12:16 Urine WBC (Auto) < 1.0 /HPF (0.0-6.0) 09/23/18 12:16 Urine RBC (Auto) 1.0 /HPF (0.0-6.0) 09/23/18 12:16 U Epithel Cells (Auto) < 1.0 /HPF (0-13.0) 09/23/18 12:16
[2018-09-24] MEDS ORDERED: FLUSH HEPARIN IV ONE (14:00)
[2018-09-24] MEDS ORDERED: TRIPLE ANTIBIOTIC TP ONE (14:01)
[2018-09-24] MEDS: DILAUDID IV PRN (18:33)
[2018-09-25] MEDS: D5NS 0.2% 1,000 ML IV SCH ×3 (03:14→13:22)
[2018-09-25] MEDS: TORADOL IV PRN (04:38)
[2018-09-25] MEDS: DOLOPHINE PO SCH ×2 (05:37→18:31)
--- NOTE | 2018-09-25 08:53 | Progress Note ---
Assessment and Plan Assessment and plan: --Sickle cell disease with painful crisis; Continue IV fluids and pain medications and supportive care --Right lower lobe pneumonia/community-acquired Continue current antibiotics follow cultures oxygen titrate O2 sats to more than 90% --Right avascular necrosis of the shoulder; Orthopedic evaluated the patient, recommend right hemiarthroplasty of the shoulder --SIRS; IV fluids IV antibiotics cultures supportive care --DVT prophylaxis; SCDs Closely monitor the patient and the management as needed Follow-up the evaluation and recommendations Possible discharge in 1-2 days if stable Hospitalist Physical - Constitutional Vitals: Temp Pulse Resp BP Pulse Ox 98.8 F 86 24 97/60 95 09/25/18 05:26 09/25/18 05:26 09/25/18 05:26 09/25/18 05:26 09/25/18 05:26 General appearance: Present: mild distress, well-nourished Results - Labs CBC & Chem 7: 09/24/18 06:25 09/23/18 11:12 Labs: Laboratory Last Values WBC 10.9 K/mm3 (4.5-11.0) 09/24/18 06:25 RBC 2.07 M/mm3 (3.65-5.03) L 09/24/18 06:25 Hgb 7.9 gm/dl (11.8-15.2) L 09/24/18 06:25 Hct 22.3 % (35.5-45.6) L 09/24/18 06:25 MCV 108 fl (84-94) H 09/24/18 06:25 MCH 38 pg (28-32) H 09/24/18 06:25 MCHC 35 % (32-34) H 09/24/18 06:25 RDW 19.6 % (13.2-15.2) H 09/24/18 06:25 Plt Count 217 K/mm3 (140-440) 09/24/18 06:25 Lymph % (Auto) 12.1 % (13.4-35.0) L 09/24/18 06:25 [place] % (Auto) 14.6 % (0.0-7.3) H 09/24/18 06:25 Eos % (Auto) 2.0 % (0.0-4.3) 09/24/18 06:25 Baso % (Auto) 0.3 % (0.0-1.8) 09/24/18 06:25 Lymph # 1.3 K/mm3 (1.2-5.4) 09/24/18 06:25 [place] # 1.6 K/mm3 (0.0-0.8) H 09/24/18 06:25 Eos # 0.2 K/mm3 (0.0-0.4) 09/24/18 06:25 Baso # 0.0 K/mm3 (0.0-0.1) 09/24/18 06:25 Seg Neutrophils % 71.0 % (40.0-70.0) H 09/24/18 06:25 Seg Neutrophils # 7.8 K/mm3 (1.8-7.7) H 09/24/18 06:25 ESR 66 mm/Hr (0-20) 09/23/18 10:22 Percent Retic 3.37 % (0.78-2.58) H 09/23/18 10:22 Sodium 137 mmol/L (137-145) 09/23/18 11:12 Potassium 3.8 mmol/L (3.6-5.0) 09/23/18 11:12 Chloride 100.4 mmol/L (98-107) 09/23/18 11:12 Carbon Dioxide 27 mmol/L (22-30) 09/23/18 11:12 Anion Gap 13 mmol/L 09/23/18 11:12 BUN 10 mg/dL (9-20) 09/23/18 11:12 Creatinine 0.5 mg/dL (0.8-1.5) L 09/23/18 11:12 Estimated GFR > 60 ml/min 09/23/18 11:12 BUN/Creatinine Ratio 20 % 09/23/18 11:12 Glucose 135 mg/dL (75-100) H 09/23/18 11:12 Lactic Acid 0.50 mmol/L (0.7-2.0) L 09/23/18 15:05 Calcium 8.2 mg/dL (8.4-10.2) L 09/23/18 11:12 Magnesium 1.90 mg/dL (1.7-2.3) 09/23/18 11:12 Total Bilirubin 2.20 mg/dL (0.1-1.2) H 09/23/18 11:12 AST 12 units/L (5-40) 09/23/18 11:12 ALT 7 units/L (7-56) 09/23/18 11:12 Alkaline Phosphatase 64 units/L (35-129) 09/23/18 11:12 Lactate Dehydrogenase 212 units/L (91-180) H 09/23/18 11:12 Total Creatine Kinase 19 units/L (55-170) L 09/23/18 11:12 C-Reactive Protein 4.70 mg/dL (0.00-1.30) H 09/23/18 11:12 Total Protein 8.8 g/dL (6.3-8.2) H 09/23/18 11:12 Albumin 3.5 g/dL (3.9-5) L 09/23/18 11:12 Albumin/Globulin Ratio 0.7 % 09/23/18 11:12 Urine Color Yellow (Yellow) 09/23/18 12:16 Urine Turbidity Clear (Clear) 09/23/18 12:16 Urine pH 7.0 (5.0-7.0) 09/23/18 12:16 Ur Specific [place] 1.012 (1.003-1.030) 09/23/18 12:16 Urine Protein <15 mg/dl mg/dL (Negative) 09/23/18 12:16 Urine Glucose (UA) Neg mg/dL (Negative) 09/23/18 12:16 Urine Ketones Neg mg/dL (Negative) 09/23/18 12:16 Urine Blood Neg (Negative) 09/23/18 12:16 Urine Nitrite Neg (Negative) 09/23/18 12:16 Urine Bilirubin Neg (Negative) 09/23/18 12:16 Urine Urobilinogen 4.0 mg/dL (<2.0) 09/23/18 12:16 Ur Leukocyte Esterase Neg (Negative) 09/23/18 12:16 Urine WBC (Auto) < 1.0 /HPF (0.0-6.0) 09/23/18 12:16 Urine RBC (Auto) 1.0 /HPF (0.0-6.0) 09/23/18 12:16 U Epithel Cells (Auto) < 1.0 /HPF (0-13.0) 09/23/18 12:16
[2018-09-25] MEDS: FOLVITE PO SCH (09:55)
[2018-09-25] MEDS: MAG-OX PO SCH (09:55)
[2018-09-25] MEDS: ROXICODONE PO SCH (09:55)
[2018-09-25] MEDS: ZITHROMAX 500 MG in NACL 0.9% 250ML 250 ML IV SCH (09:56)
[2018-09-25] MEDS: DILAUDID IV PRN (13:21)
[2018-09-25] MEDS: SODIUM CHLORIDE FLUSH SYRINGE 10 ML IV SCH (13:26)
--- NOTE | 2018-09-25 13:58 | Discharge Summary ---
Providers - Providers Date of Admission: 09/23/18 12:51 Date of discharge: 09/25/18 Attending physician: MIR TAMEZ 09/23/18 12:26 Consult to Physician [CONS] Urgent Comment: Consulting Provider: NAKIA WOLFE Physician Instructions: Reason For Exam: ? septic shoulder Hospitalization Reason for admission: generalized body pain/sickle cell crisis Condition: Fair Pertinent studies: Chest x-ray; subtle opacity in the right lung base Right Shoulder x-ray; avascular necrosis of the superior right humeral head with fragmentation mild osteoarthritis Hospital course: 38-year-old male patient with significant past medical history of sickle cell disease DVT avascular necrosis of the shoulder was admitted through emergency room with generalized body pains and sickle cell crisis, Patient was admitted symptomatically managed subsequently evaluated by orthopedic surgery who evaluated the patient and , recommend right hemiarthroplasty of the shoulder Patient also had sepsis secondary to community-acquired pneumonia, managed with empiric antibiotics and supportive care Symptoms significantly improved today patient is comfortable in no new complaints, Heart the patient recommended outpatient follow-up for further evaluation and management of avascular necrosis of the shoulder, Vital signs are stable Physical examination is unremarkable, cleared by orthopedic for discharge and follow-up the patient in the office per schedule Patient is hemodynamically and clinically stable at discharge Discharge diagnosis; --Sickle cell disease with painful crisis; Continue IV fluids and pain medications and supportive care --Right lower lobe pneumonia/community-acquired Continue current antibiotics follow cultures oxygen titrate O2 sats to more than 90% --Sepsis secondary to pneumonia; continue antibiotics and follow cultures --Right avascular necrosis of the shoulder; Orthopedic, recommend right hemiarthroplasty of the shoulder --SIRS; IV fluids IV antibiotics cultures supportive care Disposition: DC-01 TO HOME OR SELFCARE Time spent for discharge: 32 min Core Measure Documentation - Palliative Care Palliative Care/ Comfort Measures: Not Applicable - Core Measures Any of the following diagnoses?: none Exam - Constitutional Vitals: Temp Pulse Resp BP Pulse Ox 98.7 F 86 20 98/60 96 09/25/18 11:12 09/25/18 11:12 09/25/18 11:12 09/25/18 11:12 09/25/18 11:12 General appearance: Present: no acute distress, well-nourished - EENT Eyes: Present: PERRL, EOM intact - Neck Neck: Present: supple, normal ROM - Respiratory Respiratory effort: normal Respiratory: bilateral: diminished, negative: rales, rhonchi, wheezing - Cardiovascular Rhythm: regular Heart Sounds: Present: S1 & S2 - Extremities Extremities: no ischemia, No edema - Abdominal General gastrointestinal: Present: soft, non-tender, non-distended, normal bowel sounds - Integumentary Integumentary: Present: clear, warm - Musculoskeletal Musculoskeletal: strength equal bilaterally, generalized weakness - Psychiatric Psychiatric: appropriate mood/affect, cooperative - Neurologic Neurologic: CNII-XII intact, moves all extremities Plan Activity: advance as tolerated Diet: regular Additional Instructions: Advised to follow private/[facility] for scheduled. Advised to follow private orthopedic surgeon/[facility] for further evaluation of avascular necrosis of the shoulder Follow up with: PRIMARY CAREMD [Referring] - 3-5 Days NAKIA WOLFE MD [Staff Physician] - 7 Days Prescriptions: Azithromycin [Zithromax Z-WALT] 0 mg PO DAILY #1 tab Folic Acid [Folvite] 1 mg PO QDAY #30 tablet oxyCODONE /ACETAMINOPHEN [Percocet 5/325] 1 tab PO Q8H PRN #6 tablet PRN Reason: Pain
[2018-09-25] MEDS ORDERED: FLUSH HEPARIN IV ONE (17:00)
[2018-09-25] MEDS ORDERED: TRIPLE ANTIBIOTIC TP ONE (17:00)
[2018-09-25 17:21] VITALS: BP 100/53
== END 2018-09-25 19:00 | disposition home or self-care (01) | DRG 871 ==
LOC: ED 06:08 → 3A 12:51
PROVIDERS: ADMIT Internal Medicine; ATTEND Internal Medicine
DX: A41.9 Sepsis, unspecified organism (principal); D57.00 Hb-SS disease with crisis, unspecified; J18.1 Lobar pneumonia, unspecified organism; M87.9 Osteonecrosis, unspecified; F41.9 Anxiety disorder, unspecified; Z86.718 Personal history of other venous thrombosis and embolism; Z82.49 Family history of ischemic heart disease and other diseases of the circulatory system; Z88.6 Allergy status to analgesic agent; Z90.49 Acquired absence of other specified parts of digestive tract; Z79.01 Long term (current) use of anticoagulants
CPT/HCPCS: 36415; 71045; 80053; 81001; 82140; 82550; 83615; 83735; 85025; 85045; 85652; 86140; 87040; 87086; 93005; 93010; G0378; A6250; J0456; J0696; J1170; J1642; J1885; J2405; J7030; J7050

== ENCOUNTER 2018-12-15 12:01 | Emergency (ER) | payer MEDICARE ==
--- NOTE | 2018-12-15 13:09 | Emergency Department Report ---
Blank Doc - Documentation Documentation: pt presents for sickle cell pain that began two days ago back and shoulder last hospitalized in june 2018 states he is taking his medication last had a blood transfusion in Jul 2018
[2018-12-15] MEDS ORDERED: NACL 0.9% 1000 ML 1,000 ML IV ONE ×2 (15:24)
[2018-12-15] MEDS ORDERED: ZOFRAN IV ONE (15:24)
[2018-12-15] MEDS ORDERED: DILAUDID IV ONE ×2 (15:24→17:02)
[2018-12-15] MEDS ORDERED: TORADOL IV ONE (15:24)
[2018-12-15 16:33] LABS: Basophils % (Auto) 0.6 % (0.0-1.8); Eosinophils # (Auto) 0.4 K/mm3 (0.0-0.4); Hemoglobin 8.4 gm/dl (11.8-15.2); Lymphocytes # (Auto) 2.2 K/mm3 (1.2-5.4); Lymphocytes % (Auto) 30.9 % (13.4-35.0); Monocytes # (Auto) 0.8 K/mm3 (0.0-0.8); Monocytes % (Auto) 11.4 % (0.0-7.3)
[2018-12-15 16:41] LABS: Red Blood Count 2.26 M/mm3 (3.65-5.03)
[2018-12-15 16:42] LABS: Hematocrit 24.8 % (35.5-45.6); Mean Corpuscular HGB Conc 34 % (32-34); Mean Corpuscular Volume 110 fl (84-94); Platelet Count 325 K/mm3 (140-440); Red Cell Distribution Width 24.2 % (13.2-15.2)
[2018-12-15 16:49] LABS: BUN/Creatinine Ratio 10; Blood Urea Nitrogen 5 mg/dL (9-20); Calcium 8.2 mg/dL (8.4-10.2); Hemolysis Index 13
[2018-12-15] MEDS ORDERED: BENADRYL IV ONE (17:03)
--- NOTE | 2018-12-15 19:02 | Emergency Department Report ---
ED General Adult HPI - General Chief complaint: Sickle Cell Crisis Stated complaint: SICKLE CELL PAIN Time Seen by Provider: 12/15/18 13:07 Source: patient Mode of arrival: Ambulatory Limitations: No Limitations - History of Present Illness Initial comments: Patient is a 38-year-old male who has past history of sickle cell disease who is here complaining of some back and bilateral leg pain. Patient states is compliant with his methadone and oxycodone. He states that he is feeling 7 minutes 10 pain most likely secondary to the heat outside. Patient when trying to keep himself hydrated. Patient denies any fevers chills nausea vomiting diarrhea abdominal pain at this time. Severity scale (0 -10): 9 Consistency: constant Improves with: none Worsens with: movement - Related Data Home Medications Medication Instructions Recorded Confirmed Last Taken ALPRAZolam [Xanax TAB] 2 mg PO TID PRN 09/23/18 09/23/18 Unknown Previous Rx's Medication Instructions Recorded Last Taken Type Methadone [Dolophine] 10 mg PO Q12H #60 tablet 12/19/15 04/01/17 Rx 10 mmg Oxycodone HCl [roxiCODONE] 30 mg PO BID #14 tablet 07/27/18 Unknown Rx Magnesium Oxide [Mag-Ox] 400 mg PO QDAY #10 tablet 07/31/18 Unknown Rx Azithromycin [Zithromax Z-WALT] 0 mg PO DAILY #1 tab 09/25/18 Unknown Rx Folic Acid [Folvite] 1 mg PO QDAY #30 tablet 09/25/18 Unknown Rx oxyCODONE /ACETAMINOPHEN [Percocet 1 tab PO Q8H PRN #6 tablet 09/25/18 Unknown Rx 5/325] Ketorolac [Toradol] 10 mg PO Q6H PRN #12 tablet 12/15/18 Unknown Rx Allergies Allergy/AdvReac Type Severity Reaction Status Date / Time No Known Allergies Allergy Verified 12/15/18 13:09 ED Review of Systems ROS: Stated complaint: SICKLE CELL PAIN Other details as noted in HPI Comment: All other systems reviewed and negative ED Past Medical Hx - Past Medical History Hx Hypertension: No Hx CVA: No Hx Heart Attack/AMI: No Hx Congestive Heart Failure: No Hx Diabetes: No Hx Deep Vein Thrombosis: Yes (LEFT LEG) Hx Pulmonary Embolism: No Hx GERD: No Hx Liver Disease: No Hx Renal Disease: No Hx Sickle Cell Disease: Yes Hx Arthritis: No Hx Headaches / Migraines: No Hx Seizures: No Hx Kidney Stones: No Hx Psychiatric Treatment: Yes (anxiety) Hx Asthma: No Hx COPD: No Hx Tuberculosis: No Hx Dementia: No Hx HIV: No Additional medical history: 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 New port placed 2014. - Social History Smoking Status: Never Smoker Substance Use Type: None - Medications Home Medications: Home Medications Medication Instructions Recorded Confirmed Last Taken Type Methadone [Dolophine] 10 mg PO Q12H #60 tablet 12/19/15 09/23/18 04/01/17 Rx 10 mmg Oxycodone HCl [roxiCODONE] 30 mg PO BID #14 tablet 07/27/18 09/23/18 Unknown Rx Magnesium Oxide [Mag-Ox] 400 mg PO QDAY #10 tablet 07/31/18 09/23/18 Unknown Rx ALPRAZolam [Xanax TAB] 2 mg PO TID PRN 09/23/18 09/23/18 Unknown History Azithromycin [Zithromax Z-WALT] 0 mg PO DAILY #1 tab 09/25/18 Unknown Rx Folic Acid [Folvite] 1 mg PO QDAY #30 tablet 09/25/18 Unknown Rx oxyCODONE /ACETAMINOPHEN [Percocet 1 tab PO Q8H PRN #6 tablet 09/25/18 Unknown Rx 5/325] Ketorolac [Toradol] 10 mg PO Q6H PRN #12 tablet 12/15/18 Unknown Rx ED Physical Exam - General Limitations: No Limitations General appearance: alert, in no apparent distress - Head Head exam: Present: atraumatic, normocephalic - Eye Eye exam: Present: normal appearance - ENT ENT exam: Present: mucous membranes moist - Neck Neck exam: Present: normal inspection - Respiratory Respiratory exam: Present: normal lung sounds bilaterally. Absent: respiratory distress, wheezes, rales, rhonchi - Cardiovascular Cardiovascular Exam: Present: regular rate, normal rhythm. Absent: systolic murmur, diastolic murmur, rubs, gallop - GI/Abdominal GI/Abdominal exam: Present: soft, normal bowel sounds. Absent: distended, tenderness, guarding, rebound - Rectal Rectal exam: Present: deferred - Extremities Exam Extremities exam: Present: normal inspection, full ROM - Back Exam Back exam: Present: normal inspection - Neurological Exam Neurological exam: Present: alert, oriented X3 - Psychiatric Psychiatric exam: Present: normal affect, normal mood - Skin Skin exam: Present: warm, dry, intact, normal color. Absent: rash ED Course Vital Signs 12/15/18 12/15/18 12/15/18 13:07 16:27 16:54 Temperature 98.1 F Pulse Rate 97 H Respiratory 20 18 18 Rate Blood Pressure 104/60 [Right] O2 Sat by Pulse 99 Oximetry 12/15/18 12/15/18 16:57 18:54 Temperature Pulse Rate Respiratory 18 18 Rate Blood Pressure [Right] O2 Sat by Pulse Oximetry ED Medical Decision Making - Lab Data Result diagrams: 12/15/18 16:13 12/15/18 16:13 Lab Results 12/15/18 12/15/18 Range/Units 16:13 16:13 WBC 7.1 (4.5-11.0) K/mm3 RBC 2.26 L (3.65-5.03) M/mm3 Hgb 8.4 L (11.8-15.2) gm/dl Hct 24.8 L (35.5-45.6) % MCV 110 H (84-94) fl MCH 37 H (28-32) pg MCHC 34 (32-34) % RDW 24.2 H (13.2-15.2) % Plt Count 325 (140-440) K/mm3 Lymph % (Auto) 30.9 (13.4-35.0) % [place] % (Auto) 11.4 H (0.0-7.3) % Eos % (Auto) 6.0 H (0.0-4.3) % Baso % (Auto) 0.6 (0.0-1.8) % Lymph # 2.2 (1.2-5.4) K/mm3 [place] # 0.8 (0.0-0.8) K/mm3 Eos # 0.4 (0.0-0.4) K/mm3 Baso # 0.0 (0.0-0.1) K/mm3 Seg Neutrophils % 51.1 (40.0-70.0) % Seg Neutrophils # 3.6 (1.8-7.7) K/mm3 Percent Retic 9.26 H (0.78-2.58) % Sodium 142 (137-145) mmol/L Potassium 4.4 (3.6-5.0) mmol/L Chloride 106.1 (98-107) mmol/L Carbon Dioxide 27 (22-30) mmol/L Anion Gap 13 mmol/L BUN 5 L (9-20) mg/dL Creatinine 0.5 L (0.8-1.5) mg/dL Estimated GFR > 60 ml/min BUN/Creatinine Ratio 10 % Glucose 100 (75-100) mg/dL Calcium 8.2 L (8.4-10.2) mg/dL - Medical Decision Making Patient was hydrated with 2 L of normal saline and also given 3 mg of Dilaudid with Benadryl and Toradol. Patient states he is feeling better. Patient be discharged home with a prescription for Toradol for breakthrough pain. Patient has his prescriptions for his narcotics. Patient discharged in stable conditi on. Critical care attestation.: If time is entered above; I have spent that time in minutes in the direct care of this critically ill patient, excluding procedure time. ED Disposition Clinical Impression: Sickle cell pain crisis Disposition: - TO HOME OR SELFCARE Is pt being admited?: No Does the pt Need Aspirin: No Condition: Stable Instructions: Sickle Cell Crisis (ED) Referrals: PRIMARY CARE, [Primary Care Provider] - 3-5 Days Time of Disposition: 19:01
[2018-12-15 19:36] VITALS: BP 108/72
== END 2018-12-15 19:35 | disposition home or self-care (01) ==
LOC: ED 12:01
DX: D57.00 Hb-SS disease with crisis, unspecified (principal); Z86.718 Personal history of other venous thrombosis and embolism; Z90.49 Acquired absence of other specified parts of digestive tract
CPT/HCPCS: 36415; 80048; 85025; 85045; 96374; 96375; 96376; 99283; J1170; J1200; J1885; J2405; J7030

== ENCOUNTER 2019-01-12 08:09 | Emergency (ER) | payer MEDICARE ==
[2019-01-12 08:14] VITALS: BP 108/64
[2019-01-12] MEDS ORDERED: MORPHINE IM ONE (10:58)
[2019-01-12] MEDS ORDERED: BENADRYL IM ONE (10:58)
[2019-01-12] MEDS ORDERED: TORADOL IM ONE (10:58)
[2019-01-12] MEDS ORDERED: ZOFRAN IM ONE (10:58)
--- NOTE | 2019-01-12 11:03 | Emergency Department Report ---
HPI - General Chief Complaint: Sickle Cell Crisis Time Seen by Provider: 01/12/19 10:53 - HPI HPI: Room 7 The patient is a 38-year-old male presenting with chief complaint sickle cell pain crisis. The patient states he has had pain in bilateral lower extremities and back since 01/08/2019 and the pain feels like his sickle cell pain crises. Location: [See above] Duration: [See above] Quality: Sickle cell pain Severity: [See above] Modifying factors: [see above] Context: [see above] Mode of transportation: [not driving] ED Past Medical Hx - Past Medical History Hx Deep Vein Thrombosis: Yes (LEFT LEG) Hx Sickle Cell Disease: Yes Hx Psychiatric Treatment: Yes (anxiety) Additional medical history: avascular necrosis R shoulder and bilateral hips - Surgical History Hx Cholecystectomy: Yes Additional Surgical History: hernia repaired-year unknown, Patient has had a previous port was removed. New port placed 2014. - Family History Family history: no significant - Social History Smoking Status: Current Every Day Smoker Substance Use Type: None - Medications Home Medications: Home Medications Medication Instructions Recorded Confirmed Last Taken Type Methadone [Dolophine] 10 mg PO Q12H #60 tablet 12/19/15 09/23/18 04/01/17 Rx 10 mmg Oxycodone HCl [roxiCODONE] 30 mg PO BID #14 tablet 07/27/18 09/23/18 Unknown Rx Magnesium Oxide [Mag-Ox] 400 mg PO QDAY #10 tablet 07/31/18 09/23/18 Unknown Rx ALPRAZolam [Xanax TAB] 2 mg PO TID PRN 09/23/18 09/23/18 Unknown History Azithromycin [Zithromax Z-WALT] 0 mg PO DAILY #1 tab 09/25/18 Unknown Rx Folic Acid [Folvite] 1 mg PO QDAY #30 tablet 09/25/18 Unknown Rx oxyCODONE /ACETAMINOPHEN [Percocet 1 tab PO Q8H PRN #6 tablet 09/25/18 Unknown Rx 5/325] Ketorolac [Toradol] 10 mg PO Q6H PRN #12 tablet 12/15/18 Unknown Rx HYDROcodone/APAP 5-325 [[place] 1 each PO Q6HR PRN #5 tablet 01/12/19 Unknown Rx 5/325] ED Review of Systems ROS: Stated complaint: SICKLE CELL CRISIS/BACK PAIN Other details as noted in HPI Constitutional: no symptoms reported Eyes: denies: eye pain ENT: denies: throat pain Respiratory: no symptoms reported Cardiovascular: denies: chest pain Endocrine: no symptoms reported Gastrointestinal: denies: abdominal pain Genitourinary: denies: dysuria Musculoskeletal: back pain Neurological: denies: headache Hematological/Lymphatic: other (sickle cell pain crisis) Physical Exam - Physical Exam Vital Signs: Vital Signs 01/12/19 08:13 Temperature 97.6 F Pulse Rate 84 Respiratory 18 Rate Blood Pressure 108/64 [Left] O2 Sat by Pulse 100 Oximetry Physical Exam: GENERAL: The patient is well-developed well-nourished male sleeping on stretcher drooling on himself. Patient easily awakened by verbal stimuli. Patient does not appear to be in any acute distress HEENT: Normocephalic. Atraumatic. Extraocular motions are intact. Patient has moist mucous membranes. NECK: Trachea midline CHEST/LUNGS: Clear to auscultation. There is no respiratory distress noted. HEART/CARDIOVASCULAR: Regular. There is no tachycardia. There is no gallop rub or murmur. ABDOMEN: Abdomen is soft, nontender. Patient has normal bowel sounds. There is no abdominal distention. SKIN: There is no rash. There is no edema. There is no diaphoresis. NEURO: The patient is awake, alert, and oriented. The patient is cooperative. The patient has normal speech MUSCULOSKELETAL: There is no evidence of acute injury. ED Course Vital Signs 01/12/19 08:13 Temperature 97.6 F Pulse Rate 84 Respiratory 18 Rate Blood Pressure 108/64 [Left] O2 Sat by Pulse 100 Oximetry ED Medical Decision Making - Lab Data Result diagrams: 01/12/19 11:05 Laboratory Tests 01/12/19 11:05 WBC 7.4 RBC 2.34 L Hgb 8.5 L Hct 25.3 L MCV 108 H MCH 37 H MCHC 34 RDW 20.1 H Plt Count 244 [place] % (Auto) Hearing Aid Mechanic Percent Retic 3.52 H - Differential Diagnosis sickle cell pain crisis, malingering, drug-seeking behavior Critical care attestation.: If time is entered above; I have spent that time in minutes in the direct care of this critically ill patient, excluding procedure time. ED Disposition Clinical Impression: Leg pain, Sickle cell disease Disposition: DC-01 TO HOME OR SELFCARE Is pt being admited?: No Does the pt Need Aspirin: No Condition: Stable Additional Instructions: Return to the emergency department immediately should you develop worsening symptoms, fever, inability to tolerate food or liquid or any other concerns. Prescriptions: HYDROcodone/APAP 5-325 [[place] 5/325] 1 each PO Q6HR PRN #5 tablet PRN Reason: Pain Referrals: DELFIN MANN MD [Primary Care Provider] - 3-[address] Crowley, your drier and evaporator operator [Other] - 3-5 Days Time of Disposition: 11:48
[2019-01-12 11:27] LABS: Hematocrit 25.3 % (35.5-45.6); Hemoglobin 8.5 gm/dl (11.8-15.2); Mean Corpuscular HGB Conc 34 % (32-34); Mean Corpuscular Volume 108 fl (84-94); Platelet Count 244 K/mm3 (140-440); Red Blood Count 2.34 M/mm3 (3.65-5.03)
[2019-01-12 11:34] LABS: Red Cell Distribution Width 20.1 % (13.2-15.2)
[2019-01-12 12:47] LABS: Platelet Estimate Consistent w Auto; Sickle Cells 1+; Target Cells 2+; Total Cells Counted 100
== END 2019-01-12 12:28 | disposition home or self-care (01) ==
LOC: ED 08:09
DX: D57.00 Hb-SS disease with crisis, unspecified (principal); F41.9 Anxiety disorder, unspecified; F17.200 Nicotine dependence, unspecified, uncomplicated; Z86.718 Personal history of other venous thrombosis and embolism; Z90.49 Acquired absence of other specified parts of digestive tract; Z79.899 Other long term (current) drug therapy
CPT/HCPCS: 36415; 85007; 85025; 85045; 96372; 99283; J1200; J1885; J2270; J2405

== ENCOUNTER 2019-01-15 13:37 | Inpatient (IN) | payer MEDICARE ==
--- NOTE | 2019-01-15 13:52 | Emergency Department Report ---
Blank Doc - Documentation Documentation: This is a 38-year-old male that presents with sickle cell crisis. This initial assessment/diagnostic orders/clinical plan/treatment(s) is/are subject to change based on patient's health status, clinical progression and re- assessment by fellow clinical providers in the ED. Further treatment and workup at subsequent clinical providers discretion. Patient/guardians urged not to elope from the ED as their condition may be serious if not clinically assessed and managed. Initial orders include: 1- Patient sent to MAIN for further evaluation and treatment 2- labs
--- NOTE | 2019-01-15 14:28 | Emergency Department Report ---
ED General Adult HPI - General Chief complaint: Sickle Cell Crisis Stated complaint: SICKLE CELL PAIN Time Seen by Provider: 01/15/19 13:51 Source: patient Mode of arrival: Ambulatory Limitations: No Limitations - History of Present Illness Initial comments: Patient is a 38-year-old male that presents emergency room with complaints of back pain and leg pains 4 days. Patient states she was here couple days ago was not given anything for pain. Patient states pain is worsening. Patient states that he was not able to control it with outpatient medications. Patient states pain is absent. Patient states pain is better with rest and worse with movement. Patient denies chest pain shortness of breath. Patient states she has a history of sickle cell crisis and this feels like his sickle cell pain. -: Sudden Location: back, lower extremity Radiation: non-radiation Severity scale (0 -10): 10 Quality: stabbing Consistency: constant Improves with: rest Worsens with: movement Associated Symptoms: denies other symptoms. denies: confusion, chest pain, cough, diaphoresis, fever/chills, headaches, loss of appetite, malaise, nausea/vomiting, rash, seizure, shortness of breath, syncope, weakness - Related Data Home Medications Medication Instructions Recorded Confirmed Last Taken ALPRAZolam [Xanax TAB] 2 mg PO TID PRN 09/23/18 09/23/18 Unknown Previous Rx's Medication Instructions Recorded Last Taken Type Methadone [Dolophine] 10 mg PO Q12H #60 tablet 12/19/15 04/01/17 Rx 10 mmg Oxycodone HCl [roxiCODONE] 30 mg PO BID #14 tablet 07/27/18 Unknown Rx Magnesium Oxide [Mag-Ox] 400 mg PO QDAY #10 tablet 07/31/18 Unknown Rx Azithromycin [Zithromax Z-WALT] 0 mg PO DAILY #1 tab 09/25/18 Unknown Rx Folic Acid [Folvite] 1 mg PO QDAY #30 tablet 09/25/18 Unknown Rx oxyCODONE /ACETAMINOPHEN [Percocet 1 tab PO Q8H PRN #6 tablet 09/25/18 Unknown Rx 5/325] Ketorolac [Toradol] 10 mg PO Q6H PRN #12 tablet 12/15/18 Unknown Rx HYDROcodone/APAP 5-325 [[place] 1 each PO Q6HR PRN #5 tablet 01/12/19 Unknown Rx 5/325] Allergies Allergy/AdvReac Type Severity Reaction Status Date / Time No Known Allergies Allergy Verified 01/15/19 13:39 ED Review of Systems ROS: Stated complaint: SICKLE CELL PAIN Other details as noted in HPI Constitutional: denies: chills, fever Eyes: denies: eye pain, eye discharge, vision change ENT: denies: ear pain, throat pain Respiratory: denies: cough, shortness of breath, wheezing Cardiovascular: denies: chest pain, palpitations Endocrine: no symptoms reported Gastrointestinal: denies: abdominal pain, nausea, diarrhea Genitourinary: denies: urgency, dysuria Musculoskeletal: back pain, arthralgia. denies: joint swelling Skin: denies: rash, lesions Neurological: denies: headache, weakness, paresthesias Psychiatric: denies: anxiety, depression Hematological/Lymphatic: denies: easy bleeding, easy bruising ED Past Medical Hx - Past Medical History Previous Medical History?: Yes Hx Hypertension: No Hx CVA: No Hx Heart Attack/AMI: No Hx Congestive Heart Failure: No Hx Diabetes: No Hx Deep Vein Thrombosis: Yes (LEFT LEG) Hx Pulmonary Embolism: No Hx GERD: No Hx Liver Disease: No Hx Renal Disease: No Hx Sickle Cell Disease: Yes Hx Arthritis: No Hx Headaches / Migraines: No Hx Seizures: No Hx Kidney Stones: No Hx Psychiatric Treatment: Yes (anxiety) Hx Asthma: No Hx COPD: No Hx Tuberculosis: No Hx Dementia: No Hx HIV: No Additional medical history: 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 New port placed 2014. - Family History Family history: no significant - Social History Smoking Status: Former Smoker Substance Use Type: None - Medications Home Medications: Home Medications Medication Instructions Recorded Confirmed Last Taken Type Methadone [Dolophine] 10 mg PO Q12H #60 tablet 12/19/15 09/23/18 04/01/17 Rx 10 mmg Oxycodone HCl [roxiCODONE] 30 mg PO BID #14 tablet 07/27/18 09/23/18 Unknown Rx Magnesium Oxide [Mag-Ox] 400 mg PO QDAY #10 tablet 07/31/18 09/23/18 Unknown Rx ALPRAZolam [Xanax TAB] 2 mg PO TID PRN 09/23/18 09/23/18 Unknown History Azithromycin [Zithromax Z-WALT] 0 mg PO DAILY #1 tab 09/25/18 Unknown Rx Folic Acid [Folvite] 1 mg PO QDAY #30 tablet 09/25/18 Unknown Rx oxyCODONE /ACETAMINOPHEN [Percocet 1 tab PO Q8H PRN #6 tablet 09/25/18 Unknown Rx 5/325] Ketorolac [Toradol] 10 mg PO Q6H PRN #12 tablet 12/15/18 Unknown Rx HYDROcodone/APAP 5-325 [[place] 1 each PO Q6HR PRN #5 tablet 01/12/19 Unknown Rx 5/325] ED Physical Exam - General Limitations: No Limitations General appearance: alert, in no apparent distress - Head Head exam: Present: atraumatic, normocephalic - Eye Eye exam: Present: normal appearance - ENT ENT exam: Present: mucous membranes moist - Neck Neck exam: Present: normal inspection - Respiratory Respiratory exam: Present: normal lung sounds bilaterally. Absent: respiratory distress - Cardiovascular Cardiovascular Exam: Present: regular rate, normal rhythm. Absent: systolic murmur, diastolic murmur, rubs, gallop - GI/Abdominal GI/Abdominal exam: Present: soft, normal bowel sounds - Rectal Rectal exam: Present: deferred - Extremities Exam Extremities exam: Present: normal inspection - Back Exam Back exam: Present: normal inspection - Neurological Exam Neurological exam: Present: alert, oriented X3 - Psychiatric Psychiatric exam: Present: normal affect, normal mood - Skin Skin exam: Present: warm, dry, intact, normal color. Absent: rash ED Course Vital Signs 01/15/19 01/15/19 13:51 15:29 Temperature 98.2 F Pulse Rate 95 H Respiratory 16 20 Rate Blood Pressure 110/71 O2 Sat by Pulse 95 Oximetry - Reevaluation(s) Reevaluation #1: Patient states his pain is still ongoing. Patient will be given pain medications. Discussed all results with patient. Patient will be admitted to the hospitalist service. Patient agrees to plan of care. 01/15/19 15:09 - Consultations Consultation #1: Hospitalist consulted for admission. Hospitalist to admit patient. Hospitalist to assume care patient. Bridging orders placed. 01/15/19 15:09 ED Medical Decision Making - Lab Data Result diagrams: 01/15/19 14:52 01/15/19 14:52 - Medical Decision Making Patient is a 38-year-old male that presents to emergency room with complaints of back pain and leg pain. Patient found to be in sickle cell crisis. Patient was admitted to the hospital service. Patient agrees with plan of care and admission. Patient will be given Dilaudid and fluids and Zofran. Patient's labs unremarkable except for anemia, elevated reticulocyte count and hypokalemia. - Differential Diagnosis leg pain. Back pain. Sickle cell crisis. Critical Care Time: Yes Critical care attestation.: If time is entered above; I have spent that time in minutes in the direct care of this critically ill patient, excluding procedure time. Critical Care Time: 35 minutes ED Disposition Clinical Impression: Sickle cell anemia with crisis, Leg pain, bilateral, Hypokalemia Back pain Qualifiers: Back pain location: low back pain Chronicity: acute Back pain laterality: bilateral Sciatica presence: without sciatica Qualified Code(s): M54.5 - Low rachel k pain Disposition: OP ADMIT IP TO THIS HOSP Is pt being admited?: Yes Does the pt Need Aspirin: No Condition: Critical Referrals: REINIER FELIX MD [Primary Care Provider] - 3-5 Days Time of Disposition: 15:12
[2019-01-15 14:57] LABS: Basophils % (Auto) 0.6 % (0.0-1.8); Eosinophils # (Auto) 0.4 K/mm3 (0.0-0.4); Eosinophils % (Auto) 5.6 % (0.0-4.3); Hematocrit 28.4 % (35.5-45.6); Hemoglobin 9.7 gm/dl (11.8-15.2); Lymphocytes % (Auto) 27.6 % (13.4-35.0); Mean Corpuscular HGB Conc 34 % (32-34); Mean Corpuscular Volume 109 fl (84-94); Monocytes # (Auto) 0.7 K/mm3 (0.0-0.8); Monocytes % (Auto) 9.8 % (0.0-7.3); Platelet Count 323 K/mm3 (140-440)
[2019-01-15 15:03] LABS: Red Cell Distribution Width 21.8 % (13.2-15.2)
[2019-01-15] MEDS ORDERED: DILAUDID IV ONE ×2 (15:08→15:36)
[2019-01-15] MEDS ORDERED: TORADOL IV ONE (15:08)
[2019-01-15] MEDS ORDERED: ZOFRAN IV ONE (15:08)
[2019-01-15] MEDS ORDERED: NACL 0.9% 1000 ML 1,000 ML IV ONE ×2 (15:08→15:36)
[2019-01-15 15:32] LABS: BUN/Creatinine Ratio 10; Blood Urea Nitrogen 5 mg/dL (9-20); Calcium 8.3 mg/dL (8.4-10.2); Hemolysis Index 5
[2019-01-15] MEDS ORDERED: BENADRYL IV ONE (15:37)
[2019-01-15] MEDS: KCL 10MEQ/100ML 10 MEQ/100 ML BAG IV SCH ×2 (15:56→18:50)
[2019-01-15] MEDS ORDERED: TYLENOL PO PRN (17:02)
[2019-01-15] MEDS ORDERED: SODIUM CHLORIDE FLUSH SYRINGE 10 ML IV PRN (17:02)
[2019-01-15] MEDS ORDERED: TORADOL PO PRN (17:11)
[2019-01-15] MEDS ORDERED: ALPRAZOLAM 4 MG PO PRN (17:11)
[2019-01-15] MEDS: D5NS 1,000 ML IV SCH (18:35)
[2019-01-15] MEDS: DOLOPHINE PO SCH (18:37)
[2019-01-15] MEDS: MAG-OX PO SCH (18:44)
[2019-01-15] MEDS: DILAUDID IV PRN (18:44)
[2019-01-15] MEDS: FOLVITE PO SCH (18:44)
[2019-01-15] MEDS: COLACE PO SCH (21:31)
[2019-01-15] MEDS: OxyCONTIN PO SCH (21:31)
[2019-01-15] MEDS: BENADRYL IV PRN (21:32)
[2019-01-15] MEDS: SODIUM CHLORIDE FLUSH SYRINGE 10 ML IV SCH (21:32)
[2019-01-15] MEDS: PEPCID PO SCH (22:00)
[2019-01-15] MEDS ORDERED: NON-FORMULARY (Oxycodone Hcl [Roxicodone] 30 MG) PO SCH (22:00)
[2019-01-16] MEDS: DILAUDID IV PRN ×5 (03:06→23:01)
[2019-01-16] MEDS: DOLOPHINE PO SCH ×2 (06:00→18:28)
[2019-01-16] MEDS: D5NS 1,000 ML IV SCH ×3 (06:01→20:49)
[2019-01-16 06:25] LABS: Basophils % (Auto) 0.2 % (0.0-1.8); Eosinophils # (Auto) 0.6 K/mm3 (0.0-0.4); Eosinophils % (Auto) 5.3 % (0.0-4.3); Hematocrit 22.2 % (35.5-45.6); Hemoglobin 7.7 gm/dl (11.8-15.2); Lymphocytes # (Auto) 2.2 K/mm3 (1.2-5.4); Lymphocytes % (Auto) 21.4 % (13.4-35.0); Mean Corpuscular HGB Conc 35 % (32-34); Mean Corpuscular Volume 110 fl (84-94); Monocytes # (Auto) 1.1 K/mm3 (0.0-0.8); Monocytes % (Auto) 10.4 % (0.0-7.3); Platelet Count 232 K/mm3 (140-440); Red Blood Count 2.02 M/mm3 (3.65-5.03); Red Cell Distribution Width 21.9 % (13.2-15.2)
[2019-01-16 07:06] LABS: Alanine Aminotransferase 7 units/L (7-56); Albumin 3.1 g/dL (3.9-5); BUN/Creatinine Ratio 10; Blood Urea Nitrogen 5 mg/dL (9-20); Calcium 7.4 mg/dL (8.4-10.2); Hemolysis Index 3
--- NOTE | 2019-01-16 07:37 | Event Note ---
Date: 01/15/19 Sickle cell crisis
[2019-01-16] MEDS: BENADRYL IV PRN ×3 (08:07→20:53)
--- NOTE | 2019-01-16 08:26 | History and Physical Report ---
CHIEF COMPLAINT: Pain all over, especially lower back and the leg for 4 days. HISTORY OF PRESENT ILLNESS: A 38-year-old male -N[place]alese with history of sickle cell disease, comes in for severe back pain and leg pain for 4 days. He was in the Emergency Room couple of days ago and was treated and discharged. The patient is not able to control his pain with his home medications. The patient says pain is better with rest and worsens with exertion. No chest pain, no shortness of breath. PAST MEDICAL HISTORY: As mentioned sickle cell crisis and sickle cell disease. PAST SURGICAL HISTORY: Hernia repair, previous port and cholecystectomy. FAMILY HISTORY: No significant family history. SOCIAL HISTORY: Former smoker. CURRENT MEDICATIONS: Xanax 2 mg 3 times a day, oxycodone 30 mg twice a day, folic acid 1 mg once a day and methadone 10 mg q.12. REVIEW OF SYSTEMS: Significant for pain all over, especially lower back and extremities. No chest pain, no shortness of breath. PHYSICAL EXAMINATION: GENERAL: Young male, cooperative during examination. VITAL SIGNS: Blood pressure is 108/67, temperature 97.3, pulse is 70, respirations 16. HEENT: Unremarkable. Pupils equal and reactive. NECK: Supple, no lymphadenopathy, no thyromegaly. LUNGS: Clear to auscultation and percussion. Good air entry. CARDIOVASCULAR: S1, S2 heard. No gallop, no murmur, no rub. Apical impulse in left fifth intercostal space and midclavicular line. ABDOMEN: Soft and benign. No hepatosplenomegaly. No guarding, no rigidity. Hernial orifices are normal. EXTREMITIES: Good pedal pulses. No pedal edema. CENTRAL NERVOUS SYSTEM: Alert and oriented x 4, nonfocal exam. SKIN: Normal. LABORATORY DATA: Significant for white count of 7300, H and H is 9.7 and 28.4, platelet count is 322,000. MCH is slightly high at 38. Electrolytes are normal. Potassium is 3.00. Glucose is 121. A1c is 4.8. ASSESSMENT AND PLAN: 1. Sickle cell crisis. The patient initiated on IV Dilaudid 1 mg q.3 and also IV normal saline at 125 mL per hour. Continue his home methadone and oxycodone. 2. Hypokalemia, supplemented. 3. Deep venous thrombosis prophylaxis, Lovenox 40 mg subcutaneous daily. [facility]# [id number] VSM/NTS MTDD
[2019-01-16] MEDS: OxyCONTIN PO SCH ×2 (10:48→22:55)
[2019-01-16] MEDS: PEPCID PO SCH ×2 (10:49→22:55)
[2019-01-16] MEDS: FOLVITE PO SCH (10:49)
[2019-01-16] MEDS: MAG-OX PO SCH (10:49)
[2019-01-16] MEDS: COLACE PO SCH ×2 (10:49→22:55)
[2019-01-16] MEDS: SODIUM CHLORIDE FLUSH SYRINGE 10 ML IV SCH ×2 (10:52→22:57)
--- NOTE | 2019-01-16 11:28 | Progress Note ---
Assessment and Plan Assessment and plan: Sickle cell vaso-occlusive crisis. Continue Dilaudid iv prn On Methadone and Oxycontin from home, continue repeat CBC in am Hypokalemia Improved Full code status History Interval history: Gen body pain persisting No fever Hospitalist Physical - Physical exam Narrative exam: Gen: Not in acute distress, lying in bed, HEENT: Normocephalic, atraumatic Neck: supple, no JVD Heart: S1 and S2 reg, no murmurs, rubs or gallop Lungs: Clear, no crackles, no wheeze Abd: soft, non tender, non distended, normal BS Ext: No edema, no clubbing, no cyanosis, Neuro: Awake,alert, oriented x 3, moves all ext, non focal Psych:Normal mood - Constitutional Vitals: Temp Pulse Resp BP Pulse Ox 98.1 F 78 19 90/58 95 01/16/19 06:26 01/16/19 06:26 01/16/19 10:48 01/16/19 10:48 01/16/19 06:26 Results - Labs CBC & Chem 7: 01/17/19 07:05 01/17/19 07:05 Labs: Laboratory Last Values WBC 10.5 K/mm3 (4.5-11.0) 01/16/19 06:13 RBC 2.02 M/mm3 (3.65-5.03) L 01/16/19 06:13 Hgb 7.7 gm/dl (11.8-15.2) L 01/16/19 06:13 Hct 22.2 % (35.5-45.6) L D 01/16/19 06:13 MCV 110 fl (84-94) H 01/16/19 06:13 MCH 38 pg (28-32) H 01/16/19 06:13 MCHC 35 % (32-34) H 01/16/19 06:13 RDW 21.9 % (13.2-15.2) H 01/16/19 06:13 Plt Count 232 K/mm3 (140-440) 01/16/19 06:13 Lymph % (Auto) 21.4 % (13.4-35.0) 01/16/19 06:13 [place] % (Auto) 10.4 % (0.0-7.3) H 01/16/19 06:13 Eos % (Auto) 5.3 % (0.0-4.3) H 01/16/19 06:13 Baso % (Auto) 0.2 % (0.0-1.8) 01/16/19 06:13 Lymph # 2.2 K/mm3 (1.2-5.4) 01/16/19 06:13 [place] # 1.1 K/mm3 (0.0-0.8) H 01/16/19 06:13 Eos # 0.6 K/mm3 (0.0-0.4) H 01/16/19 06:13 Baso # 0.0 K/mm3 (0.0-0.1) 01/16/19 06:13 Seg Neutrophils % 62.7 % (40.0-70.0) 01/16/19 06:13 Seg Neutrophils # 6.6 K/mm3 (1.8-7.7) 01/16/19 06:13 Percent Retic 6.39 % (0.78-2.58) H 01/15/19 14:52 Sodium 142 mmol/L (137-145) 01/16/19 06:13 Potassium 3.6 mmol/L (3.6-5.0) 01/16/19 06:13 Chloride 109.8 mmol/L (98-107) H 01/16/19 06:13 Carbon Dioxide 26 mmol/L (22-30) 01/16/19 06:13 10 mmol/L 01/16/19 06:13 BUN 5 mg/dL (9-20) L 01/16/19 06:13 0.5 mg/dL (0.8-1.5) L 01/16/19 06:13 Estimated GFR > 60 ml/min 01/16/19 06:13 10 % 01/16/19 06:13 Glucose 138 mg/dL (75-100) H 01/16/19 06:13 4.8 % (4-6) 01/15/19 14:13 Calcium 7.4 mg/dL (8.4-10.2) L 01/16/19 06:13 2.60 mg/dL (0.1-1.2) H 01/16/19 06:13 AST 12 units/L (5-40) 01/16/19 06:13 ALT 7 units/L (7-56) 01/16/19 06:13 55 units/L (35-129) 01/16/19 06:13 7.3 g/dL (6.3-8.2) 01/16/19 06:13 3.1 g/dL (3.9-5) L 01/16/19 06:13 0.7 % 01/16/19 06:13 Active Medications - Current Medications Current Medications: Generic Name Dose Route Start Last Admin Trade Name Freq PRN Reason Stop Dose Admin Acetaminophen 650 mg 01/15/19 17:02 Tylenol PO Q4H PRN Pain MILD(1-3)/Fever >100.5/BENAVIDEZ Alprazolam 4 mg 01/15/19 17:20 Xanax PO BID PRN Anxiety Diphenhydramine HCl 25 mg 01/15/19 18:52 01/16/19 08:07 Benadryl IV 25 mg Q3H PRN Administration Itching Docusate Sodium 100 mg 01/15/19 22:00 01/16/19 10:49 Colace PO 100 mg BID SAHARA Administration Famotidine 20 mg 01/15/19 22:00 01/16/19 10:49 Pepcid PO 20 mg BID SAHARA Administration Folic Acid 1 mg 01/15/19 18:00 01/16/19 10:49 Folvite PO 1 mg QDAY SAHARA Administration Hydromorphone HCl 1 mg 01/15/19 17:02 01/16/19 06:19 Dilaudid IV 1 mg Q3H PRN Administration Pain , Severe (7-10) Dextrose/Sodium Chloride 1,000 mls @ 125 mls/hr 01/15/19 18:00 01/16/19 10:57 D5ns IV 125 mls/hr DIRECT SAHARA Administration Ketorolac Tromethamine 10 mg 01/15/19 17:11 Toradol PO 01/20/19 17:10 Q6H PRN Pain Magnesium Oxide 400 mg 01/15/19 18:00 01/16/19 10:49 Mag-Ox PO 400 mg QDAY SAHARA Administration Methadone HCl 20 mg 01/15/19 18:00 01/16/19 06:00 Dolophine PO 20 mg Q12H SAHARA Administration Ondansetron HCl 4 mg 01/15/19 17:02 Zofran IV Q8H PRN Nausea And Vomiting Oxycodone HCl 30 mg 01/15/19 22:00 01/16/19 10:48 Oxycontin PO 30 mg Q12HR SAHARA Administration Oxycodone/Acetaminophen 1 tab 01/15/19 17:02 Percocet 5/325 PO Q6H PRN Pain, Moderate (4-6) Sodium Chloride 10 ml 01/15/19 22:00 01/16/19 10:52 Sodium Chloride Flush Syringe 10 Ml IV 10 ml BID SAHARA Administration Sodium Chloride 10 ml 01/15/19 17:02 Sodium Chloride Flush Syringe 10 Ml IV PRN PRN LINE FLUSH
[2019-01-16] MEDS: ZOFRAN IV PRN (18:33)
[2019-01-17] MEDS: D5NS 1,000 ML IV SCH ×3 (05:15→21:47)
[2019-01-17] MEDS: DOLOPHINE PO SCH ×2 (06:54→18:12)
[2019-01-17] MEDS: BENADRYL IV PRN ×3 (06:56→16:53)
[2019-01-17] MEDS: DILAUDID IV PRN ×4 (07:01→16:53)
[2019-01-17 07:31] LABS: Mean Corpuscular HGB Conc 35 % (32-34); Mean Corpuscular Volume 108 fl (84-94); Platelet Count 232 K/mm3 (140-440); Red Blood Count 1.85 M/mm3 (3.65-5.03); Red Cell Distribution Width 21.3 % (13.2-15.2)
[2019-01-17 07:52] LABS: BUN/Creatinine Ratio 10; Blood Urea Nitrogen 4 mg/dL (9-20); Calcium 7.5 mg/dL (8.4-10.2); Hemolysis Index 3
[2019-01-17] MEDS ORDERED: NACL 0.9% 500 ML 500 ML IV NR (09:00)
[2019-01-17] MEDS: OxyCONTIN PO SCH ×2 (11:41→21:46)
[2019-01-17] MEDS: FOLVITE PO SCH (11:42)
[2019-01-17] MEDS: PEPCID PO SCH ×2 (11:42→21:46)
[2019-01-17] MEDS: MAG-OX PO SCH (11:42)
[2019-01-17] MEDS: COLACE PO SCH ×2 (11:42→21:46)
[2019-01-17] MEDS: SODIUM CHLORIDE FLUSH SYRINGE 10 ML IV SCH ×2 (11:43→21:47)
[2019-01-17] MEDS ORDERED: K-DUR PO NR (14:03)
--- NOTE | 2019-01-17 14:14 | Progress Note ---
Assessment and Plan Assessment and plan: Sickle cell Vaso-occlusive crisis. Continue Dilaudid iv prn On Methadone and Oxycontin from home, continue Anemia from sickle cell Transfuse 1 Unit PRBC for Hgb 7.0 Hypokalemia Improved Full code status History Interval history: Gen body pain persisting No fever Hospitalist Physical - Physical exam Narrative exam: Gen: Not in acute distress, lying in bed, HEENT: Normocephalic, atraumatic Neck: supple, no JVD Heart: S1 and S2 reg, no murmurs, rubs or gallop Lungs: Clear, no crackles, no wheeze Abd: soft, non tender, non distended, normal BS Ext: No edema, no clubbing, no cyanosis, Neuro: Awake,alert, oriented x 3, moves all ext, non focal Psych:Normal mood - Constitutional Vitals: Temp Pulse Resp BP Pulse Ox 98.0 F 80 16 108/64 93 01/17/19 06:25 01/17/19 06:25 01/17/19 07:31 01/17/19 06:25 01/17/19 06:25 Results - Labs CBC & Chem 7: 01/17/19 07:05 01/17/19 07:05 Labs: Laboratory Last Values WBC 7.8 K/mm3 (4.5-11.0) 01/17/19 07:05 RBC 1.85 M/mm3 (3.65-5.03) L 01/17/19 07:05 Hgb 7.0 gm/dl (11.8-15.2) L 01/17/19 07:05 Hct 20.0 % (35.5-45.6) L 01/17/19 07:05 MCV 108 fl (84-94) H 01/17/19 07:05 MCH 38 pg (28-32) H 01/17/19 07:05 MCHC 35 % (32-34) H 01/17/19 07:05 RDW 21.3 % (13.2-15.2) H 01/17/19 07:05 Plt Count 232 K/mm3 (140-440) 01/17/19 07:05 Lymph % (Auto) 21.4 % (13.4-35.0) 01/16/19 06:13 [place] % (Auto) 10.4 % (0.0-7.3) H 01/16/19 06:13 Eos % (Auto) 5.3 % (0.0-4.3) H 01/16/19 06:13 Baso % (Auto) 0.2 % (0.0-1.8) 01/16/19 06:13 Lymph # 2.2 K/mm3 (1.2-5.4) 01/16/19 06:13 [place] # 1.1 K/mm3 (0.0-0.8) H 01/16/19 06:13 Eos # 0.6 K/mm3 (0.0-0.4) H 01/16/19 06:13 Baso # 0.0 K/mm3 (0.0-0.1) 01/16/19 06:13 Seg Neutrophils % 62.7 % (40.0-70.0) 01/16/19 06:13 Seg Neutrophils # 6.6 K/mm3 (1.8-7.7) 01/16/19 06:13 Percent Retic 4.76 % (0.78-2.58) H 01/17/19 07:05 Sodium 139 mmol/L (137-145) 01/17/19 07:05 Potassium 3.5 mmol/L (3.6-5.0) L 01/17/19 07:05 Chloride 106.3 mmol/L (98-107) 01/17/19 07:05 Carbon Dioxide 26 mmol/L (22-30) 01/17/19 07:05 10 mmol/L 01/17/19 07:05 BUN 4 mg/dL (9-20) L 01/17/19 07:05 0.4 mg/dL (0.8-1.5) L 01/17/19 07:05 Estimated GFR > 60 ml/min 01/17/19 07:05 10 % 01/17/19 07:05 Glucose 98 mg/dL (75-100) 01/17/19 07:05 4.8 % (4-6) 01/15/19 14:13 Calcium 7.5 mg/dL (8.4-10.2) L 01/17/19 07:05 2.60 mg/dL (0.1-1.2) H 01/16/19 06:13 AST 12 units/L (5-40) 01/16/19 06:13 ALT 7 units/L (7-56) 01/16/19 06:13 55 units/L (35-129) 01/16/19 06:13 186 units/L (91-180) H 01/17/19 07:05 7.3 g/dL (6.3-8.2) 01/16/19 06:13 3.1 g/dL (3.9-5) L 01/16/19 06:13 0.7 % 01/16/19 06:13 Blood Type O POSITIVE 01/17/19 10:00 Active Medications - Current Medications Current Medications: Generic Name Dose Route Start Last Admin Trade Name Freq PRN Reason Stop Dose Admin Acetaminophen 650 mg 01/15/19 17:02 Tylenol PO Q4H PRN Pain MILD(1-3)/Fever >100.5/BENAVIDEZ Alprazolam 4 mg 01/15/19 17:20 Xanax PO BID PRN Anxiety Diphenhydramine HCl 25 mg 01/15/19 18:52 01/17/19 13:12 Benadryl IV 25 mg Q3H PRN Administration Itching Docusate Sodium 100 mg 01/15/19 22:00 01/17/19 11:42 Colace PO 100 mg BID SAHARA Administration Famotidine 20 mg 01/15/19 22:00 01/17/19 11:42 Pepcid PO 20 mg BID SAHARA Administration Folic Acid 1 mg 01/15/19 18:00 01/17/19 11:42 Folvite PO 1 mg QDAY SAHARA Administration Hydromorphone HCl 1 mg 01/15/19 17:02 01/17/19 13:13 Dilaudid IV 1 mg Q3H PRN Administration Pain , Severe (7-10) Dextrose/Sodium Chloride 1,000 mls @ 125 mls/hr 01/15/19 18:00 01/17/19 13:40 D5ns IV 125 mls/hr DIRECT SAHARA Administration Sodium Chloride 500 mls @ 0 mls/hr 01/17/19 09:00 Nacl 0.9% 500 Ml IV 01/17/19 16:00 ONCE NR As Directed Ketorolac Tromethamine 10 mg 01/15/19 17:11 Toradol PO 01/20/19 17:10 Q6H PRN Pain Magnesium Oxide 400 mg 01/15/19 18:00 01/17/19 11:42 Mag-Ox PO 400 mg QDAY SAHARA Administration Methadone HCl 20 mg 01/15/19 18:00 01/17/19 06:54 Dolophine PO 20 mg Q12H SAHARA Administration Ondansetron HCl 4 mg 01/15/19 17:02 01/16/19 18:33 Zofran IV 4 mg Q8H PRN Administration Nausea And Vomiting Oxycodone HCl 30 mg 01/15/19 22:00 01/17/19 11:41 Oxycontin PO 30 mg Q12HR SAHARA Administration Oxycodone/Acetaminophen 1 tab 01/15/19 17:02 Percocet 5/325 PO Q6H PRN Pain, Moderate (4-6) Potassium Chloride 40 meq 01/17/19 14:03 K-Dur PO 01/17/19 14:04 ONCE ONE Sodium Chloride 10 ml 01/15/19 22:00 01/17/19 11:43 Sodium Chloride Flush Syringe 10 Ml IV 10 ml BID SAHARA Administration Sodium Chloride 10 ml 01/15/19 17:02 Sodium Chloride Flush Syringe 10 Ml IV PRN PRN LINE FLUSH Nutrition/Malnutrition Assess - Dietary Evaluation Nutrition/Malnutrition Findings: Nutrition Notes Start: 01/16/19 16:15 Freq: Status: Active Protocol: Document 01/16/19 16:15 RM (Rec: 01/16/19 16:15 RM [id number]) Nutrition Notes Need for Assessment generated from: fine arts model Initial or Follow up Brief Note Subjective/Other Information Screened for skin risk. [place] 21 points. Nutrition Intervention Revisit per MD consult or patient Sign Off request:
[2019-01-17] MEDS ORDERED: FLUSH HEPARIN IV ONE (22:57)
[2019-01-18] MEDS: DOLOPHINE PO SCH ×3 (06:03→19:02)
[2019-01-18] MEDS: PERCOCET 5/325 PO PRN ×2 (08:08→19:55)
[2019-01-18] MEDS ORDERED: TRIPLE ANTIBIOTIC TP ONE (09:00)
[2019-01-18] MEDS ORDERED: FLUSH HEPARIN IV ONE (09:00)
[2019-01-18] MEDS: OxyCONTIN PO SCH ×2 (09:40→23:50)
[2019-01-18] MEDS: COLACE PO SCH ×2 (09:41→21:52)
[2019-01-18] MEDS: MAG-OX PO SCH (09:41)
[2019-01-18] MEDS: SODIUM CHLORIDE FLUSH SYRINGE 10 ML IV SCH (09:41)
[2019-01-18] MEDS: PEPCID PO SCH ×2 (09:41→21:53)
[2019-01-18] MEDS: FOLVITE PO SCH (09:41)
[2019-01-18] MEDS: BENADRYL IV PRN ×3 (09:41→19:55)
[2019-01-18 10:18] LABS: Hematocrit 20.1 % (35.5-45.6); Mean Corpuscular HGB Conc 35 % (32-34); Mean Corpuscular Volume 106 fl (84-94); Platelet Count 242 K/mm3 (140-440)
[2019-01-18 10:27] LABS: Red Cell Distribution Width 21.4 % (13.2-15.2)
[2019-01-18 10:33] LABS: BUN/Creatinine Ratio 13; Blood Urea Nitrogen 5 mg/dL (9-20); Calcium 7.8 mg/dL (8.4-10.2); Hemolysis Index 5
--- NOTE | 2019-01-18 10:33 | Progress Note ---
Assessment and Plan Assessment and plan: Sickle cell Vaso-occlusive crisis. Continue Dilaudid iv prn On Methadone and Oxycontin from home, continue Anemia from sickle cell PRBC 1 Unit ordered but not available yet because he has multiple Antibodies in blood Hypokalemia Improved. Replace and recheck Full code status History Interval history: Gen body pain persisting No fever Blood transfusion ordered, pending Hospitalist Physical - Physical exam Narrative exam: Gen: Not in acute distress, lying in bed, HEENT: Normocephalic, atraumatic Neck: supple, no JVD Heart: S1 and S2 reg, no murmurs, rubs or gallop Lungs: Clear, no crackles, no wheeze Abd: soft, non tender, non distended, normal BS Ext: No edema, no clubbing, no cyanosis, Neuro: Awake,alert, oriented x 3, moves all ext, non focal Psych:Normal mood - Constitutional Vitals: Temp Pulse Resp BP Pulse Ox 97.5 F L 103 H 16 119/67 98 01/18/19 06:15 01/18/19 06:15 01/18/19 06:15 01/18/19 06:15 01/18/19 06:15 Results - Labs CBC & Chem 7: 01/18/19 09:17 01/18/19 09:17 Labs: Laboratory Last Values WBC 11.2 K/mm3 (4.5-11.0) H 01/18/19 09:17 RBC 1.90 M/mm3 (3.65-5.03) L 01/18/19 09:17 Hgb 7.0 gm/dl (11.8-15.2) L 01/18/19 09:17 Hct 20.1 % (35.5-45.6) L 01/18/19 09:17 MCV 106 fl (84-94) H 01/18/19 09:17 MCH 37 pg (28-32) H 01/18/19 09:17 MCHC 35 % (32-34) H 01/18/19 09:17 RDW 21.4 % (13.2-15.2) H 01/18/19 09:17 Plt Count 242 K/mm3 (140-440) 01/18/19 09:17 Lymph % (Auto) 21.4 % (13.4-35.0) 01/16/19 06:13 [place] % (Auto) 10.4 % (0.0-7.3) H 01/16/19 06:13 Eos % (Auto) 5.3 % (0.0-4.3) H 01/16/19 06:13 Baso % (Auto) 0.2 % (0.0-1.8) 01/16/19 06:13 Lymph # 2.2 K/mm3 (1.2-5.4) 01/16/19 06:13 [place] # 1.1 K/mm3 (0.0-0.8) H 01/16/19 06:13 Eos # 0.6 K/mm3 (0.0-0.4) H 01/16/19 06:13 Baso # 0.0 K/mm3 (0.0-0.1) 01/16/19 06:13 Seg Neutrophils % 62.7 % (40.0-70.0) 01/16/19 06:13 Seg Neutrophils # 6.6 K/mm3 (1.8-7.7) 01/16/19 06:13 Percent Retic 4.76 % (0.78-2.58) H 01/17/19 07:05 Sodium 139 mmol/L (137-145) 01/17/19 07:05 Potassium 3.5 mmol/L (3.6-5.0) L 01/17/19 07:05 Chloride 106.3 mmol/L (98-107) 01/17/19 07:05 Carbon Dioxide 26 mmol/L (22-30) 01/17/19 07:05 10 mmol/L 01/17/19 07:05 BUN 4 mg/dL (9-20) L 01/17/19 07:05 0.4 mg/dL (0.8-1.5) L 01/17/19 07:05 Estimated GFR > 60 ml/min 01/17/19 07:05 10 % 01/17/19 07:05 Glucose 98 mg/dL (75-100) 01/17/19 07:05 4.8 % (4-6) 01/15/19 14:13 Calcium 7.5 mg/dL (8.4-10.2) L 01/17/19 07:05 2.60 mg/dL (0.1-1.2) H 01/16/19 06:13 AST 12 units/L (5-40) 01/16/19 06:13 ALT 7 units/L (7-56) 01/16/19 06:13 55 units/L (35-129) 01/16/19 06:13 186 units/L (91-180) H 01/17/19 07:05 7.3 g/dL (6.3-8.2) 01/16/19 06:13 3.1 g/dL (3.9-5) L 01/16/19 06:13 0.7 % 01/16/19 06:13 Blood Type O POSITIVE 01/17/19 10:00 Active Medications - Current Medications Current Medications: Generic Name Dose Route Start Last Admin Trade Name Freq PRN Reason Stop Dose Admin Acetaminophen 650 mg 01/15/19 17:02 Tylenol PO Q4H PRN Pain MILD(1-3)/Fever >100.5/BENAVIDEZ Alprazolam 4 mg 01/15/19 17:20 Xanax PO BID PRN Anxiety Diphenhydramine HCl 25 mg 01/15/19 18:52 01/18/19 09:41 Benadryl IV 25 mg Q3H PRN Administration Itching Docusate Sodium 100 mg 01/15/19 22:00 01/18/19 09:41 Colace PO 100 mg BID SAHARA Administration Famotidine 20 mg 01/15/19 22:00 01/18/19 09:41 Pepcid PO 20 mg BID SAHARA Administration Folic Acid 1 mg 01/15/19 18:00 01/18/19 09:41 Folvite PO 1 mg QDAY SAHARA Administration Hydromorphone HCl 1 mg 01/15/19 17:02 01/17/19 16:53 Dilaudid IV 1 mg Q3H PRN Administration Pain , Severe (7-10) Dextrose/Sodium Chloride 1,000 mls @ 125 mls/hr 01/15/19 18:00 01/17/19 21:47 D5ns IV 125 mls/hr DIRECT SAHARA Administration Ketorolac Tromethamine 10 mg 01/15/19 17:11 Toradol PO 01/20/19 17:10 Q6H PRN Pain Magnesium Oxide 400 mg 01/15/19 18:00 01/18/19 09:41 Mag-Ox PO 400 mg QDAY SAHARA Administration Methadone HCl 20 mg 01/15/19 18:00 01/18/19 06:04 Dolophine PO Not Given Q12H SAHARA Ondansetron HCl 4 mg 01/15/19 17:02 01/16/19 18:33 Zofran IV 4 mg Q8H PRN Administration Nausea And Vomiting Oxycodone HCl 30 mg 01/15/19 22:00 01/18/19 09:40 Oxycontin PO 30 mg Q12HR SAHARA Administration Oxycodone/Acetaminophen 1 tab 01/15/19 17:02 01/18/19 08:08 Percocet 5/325 PO 1 tab Q6H PRN Administration Pain, Moderate (4-6) Sodium Chloride 10 ml 01/15/19 22:00 01/18/19 09:41 Sodium Chloride Flush Syringe 10 Ml IV 10 ml BID SAHARA Administration Sodium Chloride 10 ml 01/15/19 17:02 Sodium Chloride Flush Syringe 10 Ml IV PRN PRN LINE FLUSH Nutrition/Malnutrition Assess - Dietary Evaluation Nutrition/Malnutrition Findings: Nutrition Notes Start: 01/16/19 16:15 Freq: Status: Active Protocol: Document 01/16/19 16:15 RM (Rec: 01/16/19 16:15 RM [id number]) Nutrition Notes Need for Assessment generated from: deputy city 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 [place] 21 points. Nutrition Intervention Revisit per MD consult or patient Sign Off request:
[2019-01-18] MEDS: DILAUDID IV PRN ×2 (11:41→15:22)
[2019-01-18] MEDS: K-DUR PO SCH (14:20)
[2019-01-18] MEDS: D5NS 1,000 ML IV SCH (15:22)
[2019-01-18] MEDS: ZOFRAN IV PRN (15:28)
--- NOTE | 2019-01-18 18:15 | Cat Scan Report ---
PROCEDURE: CT HEAD/BRAIN WO CON TECHNIQUE: Computerized tomography of the head was performed without contrast material. CT DOSE LENGTH PRODUCT: 920.5 mGycm HISTORY: altered mental status, confused COMPARISONS: CT head 04/02/2017 . FINDINGS: Skull and scalp: Normal . Paranasal sinuses: Normal . Ventricles and subarachnoid spaces: Normal . Cerebrum: No evidence of hemorrhage, acute infarction or mass . Cerebellum and brainstem: No evidence of hemorrhage, acute infarction or mass . Vasculature: Normal . Other: None . ASPECTS: 10 IMPRESSION: No acute intracranial abnormality. No change. This document is electronically signed by Elizabeth Khan MD., January 18 2019 06:13:58 PM ET
[2019-01-18] MEDS: HEPARIN SUB-Q SCH ×2 (18:41→21:52)
[2019-01-18] MEDS: XANAX PO PRN (21:54)
[2019-01-19] MEDS: SODIUM CHLORIDE FLUSH SYRINGE 10 ML IV SCH ×3 (01:06→21:17)
[2019-01-19] MEDS: K-DUR PO SCH (01:07)
[2019-01-19] MEDS: D5NS 1,000 ML IV SCH ×2 (02:43→21:24)
[2019-01-19] MEDS: BENADRYL IV PRN ×4 (05:14→20:13)
[2019-01-19] MEDS: PERCOCET 5/325 PO PRN (05:15)
[2019-01-19] MEDS: HEPARIN SUB-Q SCH ×3 (05:16→22:29)
[2019-01-19] MEDS: ZOFRAN IV PRN ×2 (05:38→15:25)
[2019-01-19] MEDS: DOLOPHINE PO SCH ×2 (06:57→17:37)
[2019-01-19] MEDS ORDERED: ATIVAN IV ONE (08:16)
[2019-01-19] MEDS: MAG-OX PO SCH (09:47)
[2019-01-19] MEDS: COLACE PO SCH ×2 (09:47→21:17)
[2019-01-19] MEDS: FOLVITE PO SCH (09:47)
[2019-01-19] MEDS: OxyCONTIN PO SCH ×2 (09:47→21:16)
[2019-01-19] MEDS: PEPCID PO SCH ×2 (09:47→21:19)
[2019-01-19] MEDS ORDERED: NACL 0.9% 500 ML 500 ML IV SCH (11:00)
[2019-01-19] MEDS: DILAUDID IV PRN ×3 (11:03→20:13)
--- NOTE | 2019-01-19 11:43 | Progress Note ---
Assessment and Plan Assessment and plan: Sickle cell Vaso-occlusive crisis. 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 Anemia from sickle cell PRBC 1 Unit ordered but not available yet because he has multiple Antibodies in blood Hypokalemia Will give kdur 40meq X 2 Replace and recheck Full code status History Interval history: Gen body pain persisting No fever Blood transfusion ordered, pending Confused briefly yesterday, improved today Hospitalist Physical - Physical exam Narrative exam: Gen: Not in acute distress, lying in bed, HEENT: Normocephalic, atraumatic Neck: supple, no JVD Heart: S1 and S2 reg, no murmurs, rubs or gallop Lungs: Clear, no crackles, no wheeze Abd: soft, non tender, non distended, normal BS Ext: No edema, no clubbing, no cyanosis, Neuro: Awake,alert, oriented x 3, moves all ext, non focal Psych:Normal mood - Constitutional Vitals: Temp Pulse Resp BP Pulse Ox 98.5 F 61 17 104/56 93 01/18/19 23:28 01/18/19 23:28 01/19/19 06:44 01/18/19 23:28 01/18/19 23:50 Results - Labs CBC & Chem 7: 01/18/19 09:17 01/18/19 09:17 Labs: Laboratory Last Values WBC 11.2 K/mm3 (4.5-11.0) H 01/18/19 09:17 RBC 1.90 M/mm3 (3.65-5.03) L 01/18/19 09:17 Hgb 7.0 gm/dl (11.8-15.2) L 01/18/19 09:17 Hct 20.1 % (35.5-45.6) L 01/18/19 09:17 MCV 106 fl (84-94) H 01/18/19 09:17 MCH 37 pg (28-32) H 01/18/19 09:17 MCHC 35 % (32-34) H 01/18/19 09:17 RDW 21.4 % (13.2-15.2) H 01/18/19 09:17 Plt Count 242 K/mm3 (140-440) 01/18/19 09:17 Lymph % (Auto) 21.4 % (13.4-35.0) 01/16/19 06:13 [place] % (Auto) 10.4 % (0.0-7.3) H 01/16/19 06:13 Eos % (Auto) 5.3 % (0.0-4.3) H 01/16/19 06:13 Baso % (Auto) 0.2 % (0.0-1.8) 01/16/19 06:13 Lymph # 2.2 K/mm3 (1.2-5.4) 01/16/19 06:13 [place] # 1.1 K/mm3 (0.0-0.8) H 01/16/19 06:13 Eos # 0.6 K/mm3 (0.0-0.4) H 01/16/19 06:13 Baso # 0.0 K/mm3 (0.0-0.1) 01/16/19 06:13 Seg Neutrophils % 62.7 % (40.0-70.0) 01/16/19 06:13 Seg Neutrophils # 6.6 K/mm3 (1.8-7.7) 01/16/19 06:13 Percent Retic 4.76 % (0.78-2.58) H 01/17/19 07:05 Sodium 138 mmol/L (137-145) 01/18/19 09:17 Potassium 3.5 mmol/L (3.6-5.0) L 01/18/19 09:17 Chloride 102.0 mmol/L (98-107) 01/18/19 09:17 Carbon Dioxide 26 mmol/L (22-30) 01/18/19 09:17 14 mmol/L 01/18/19 09:17 BUN 5 mg/dL (9-20) L 01/18/19 09:17 0.4 mg/dL (0.8-1.5) L 01/18/19 09:17 Estimated GFR > 60 ml/min 01/18/19 09:17 13 % 01/18/19 09:17 Glucose 86 mg/dL (75-100) 01/18/19 09:17 4.8 % (4-6) 01/15/19 14:13 Calcium 7.8 mg/dL (8.4-10.2) L 06/22/19 09:17 2.60 mg/dL (0.1-1.2) H 01/16/19 06:13 AST 12 units/L (5-40) 01/16/19 06:13 ALT 7 units/L (7-56) 01/16/19 06:13 55 units/L (35-129) 01/16/19 06:13 186 units/L (91-180) H 01/17/19 07:05 7.3 g/dL (6.3-8.2) 01/16/19 06:13 3.1 g/dL (3.9-5) L 01/16/19 06:13 0.7 % 01/16/19 06:13 Blood Type O POSITIVE 01/17/19 10:00 Antibody Screen Positive 01/17/19 10:00 Antibody Identification HTLA Antibodies Anti-K 01/17/19 10:00 Antibody Identification HTLA Antibodies Anti-K 01/17/19 10:00 Active Medications - Current Medications Current Medications: Generic Name Dose Route Start Last Admin Trade Name Freq PRN Reason Stop Dose Admin Acetaminophen 650 mg 01/15/19 17:02 Tylenol PO Q4H PRN Pain MILD(1-3)/Fever >100.5/BENAVIDEZ Alprazolam 4 mg 01/15/19 17:20 01/18/19 21:54 Xanax PO 4 mg BID PRN Administration Anxiety Diphenhydramine HCl 25 mg 01/15/19 18:52 01/19/19 11:09 Benadryl IV 25 mg Q3H PRN Administration Itching Docusate Sodium 100 mg 01/15/19 22:00 01/19/19 09:47 Colace PO 100 mg BID SAHARA Administration Famotidine 20 mg 01/15/19 22:00 01/19/19 09:47 Pepcid PO 20 mg BID SAHARA Administration Folic Acid 1 mg 01/15/19 18:00 01/19/19 09:47 Folvite PO 1 mg QDAY SAHARA Administration Heparin Sodium (Porcine) 5,000 unit 01/18/19 16:00 01/19/19 05:16 Heparin SUB-Q Not Given Q8HR SAHARA Hydromorphone HCl 1 mg 01/19/19 09:40 01/19/19 11:03 Dilaudid IV 1 mg Q4H PRN Administration Pain , Severe (7-10) Dextrose/Sodium Chloride 1,000 mls @ 125 mls/hr 01/15/19 18:00 01/19/19 02:43 D5ns IV 125 mls/hr DIRECT SAHARA Administration Sodium Chloride 500 mls @ 30 mls/hr 01/19/19 11:00 01/19/19 11:03 Nacl 0.9% 500 Ml IV 01/20/19 02:00 30 mls/hr DIRECT SAHARA Administration Ketorolac Tromethamine 10 mg 01/15/19 17:11 01/19/19 06:14 Toradol PO 01/20/19 17:10 10 mg Q6H PRN Administration Pain Magnesium Oxide 400 mg 01/15/19 18:00 01/19/19 09:47 Mag-Ox PO 400 mg QDAY SAHARA Administration Methadone HCl 20 mg 01/15/19 18:00 01/19/19 06:57 Dolophine PO Not Given Q12H SAHARA Ondansetron HCl 4 mg 01/15/19 17:02 01/19/19 05:38 Zofran IV 4 mg Q8H PRN Administration Nausea And Vomiting Oxycodone HCl 30 mg 01/15/19 22:00 01/19/19 09:47 Oxycontin PO 30 mg Q12HR SAHARA Administration Oxycodone/Acetaminophen 1 tab 01/15/19 17:02 01/19/19 05:15 Percocet 5/325 PO 1 tab Q6H PRN Administration Pain, Moderate (4-6) Sodium Chloride 10 ml 01/15/19 22:00 01/19/19 11:02 Sodium Chloride Flush Syringe 10 Ml IV 10 ml BID SAHARA Administration Sodium Chloride 10 ml 01/15/19 17:02 Sodium Chloride Flush Syringe 10 Ml IV PRN PRN LINE FLUSH Nutrition/Malnutrition Assess - Dietary Evaluation Nutrition/Malnutrition Findings: Nutrition Notes Start: 01/16/19 16:15 Freq: Status: Active Protocol: Document 01/16/19 16:15 RM (Rec: 01/16/19 16:15 RM [id number]) Nutrition 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 [place] 21 points. Nutrition Intervention Revisit per MD consult or patient Sign Off request:
[2019-01-19] MEDS: XANAX PO PRN (20:13)
[2019-01-20] MEDS: BENADRYL IV PRN ×5 (02:19→21:51)
[2019-01-20] MEDS: ZOFRAN IV PRN ×2 (02:19→23:18)
[2019-01-20] MEDS: DILAUDID IV PRN ×5 (02:20→21:47)
[2019-01-20] MEDS: HEPARIN SUB-Q SCH ×3 (05:30→21:47)
[2019-01-20] MEDS: D5NS 1,000 ML IV SCH ×3 (05:32→23:17)
[2019-01-20] MEDS: DOLOPHINE PO SCH ×2 (07:04→19:39)
[2019-01-20] MEDS: OxyCONTIN PO SCH ×2 (11:58→23:22)
[2019-01-20] MEDS: COLACE PO SCH ×2 (11:59→21:45)
[2019-01-20] MEDS: MAG-OX PO SCH (11:59)
[2019-01-20] MEDS: PEPCID PO SCH ×2 (12:00→21:46)
[2019-01-20] MEDS: SODIUM CHLORIDE FLUSH SYRINGE 10 ML IV SCH ×2 (12:00→21:54)
[2019-01-20] MEDS: FOLVITE PO SCH (12:00)
--- NOTE | 2019-01-20 13:28 | Progress Note ---
Assessment and Plan - Patient Problems (1) Sickle cell anemia with crisis Current Visit: Yes Status: Acute Plan to address problem: She had sickle cell pain crisis. I do sympathize with nurse is concerned about overmedication polypharmacy. Would dose titrate down in anticipation of discharge tomorrow. I did explain to patient that most likely will be discharged tomorrow. (2) Acute back pain Current Visit: No Status: Acute Qualifiers: Back pain location: low back pain Back pain laterality: midline Sciatica presence: without sciatica Qualified Code(s): M54.5 - Low back pain Plan to address problem: Resolved secondary to sickle cell crisis this is his typical pain. (3) Sickle cell anemia Current Visit: No Status: Chronic Plan to address problem: Adequate pain control supportive care. Will discharge home with current methadone and oxycodone. We'll wean Dilaudid. Patient had plan for transfusion. May be beneficial but hemoglobin and hematocrit has been stable the past 24 hours at 7 and 24. History Interval history: Discussed with nurse about patient asking for pain meds when clearly somnolent. And no evidence of significant pain at the time of request. Patient visit at the bedside and observe no clear indication of acute pain at that time. Nurse noted patient to be somnolent gurgling with respiratory depression and still wanted pain medications. Patient was not in pain at that time. She admitted for sickle cell crisis appears to be resolving. Hospitalist Physical - Constitutional Vitals: Temp Pulse Resp BP Pulse Ox 98.4 F 79 16 100/60 94 01/20/19 12:11 01/20/19 12:11 01/20/19 12:11 01/20/19 12:11 01/20/19 12:11 General appearance: Present: no acute distress - EENT Eyes: Present: PERRL, EOM intact ENT: hearing intact, clear oral mucosa, dentition normal - Neck Neck: Present: supple, normal ROM - Respiratory Respiratory: bilateral: CTA - Cardiovascular Rhythm: regular - Extremities Extremities: no ischemia, pulses intact, pulses symmetrical, No edema, normal temperature Peripheral Pulses: within normal limits - Abdominal General gastrointestinal: soft, non-tender, non-distended, normal bowel sounds, no distended, no rigid - Integumentary Integumentary: Present: clear, warm, dry - Psychiatric Psychiatric: appropriate mood/affect - Neurologic Neurologic: CNII-XII intact, no focal deficits, moves all extremities Results - Labs CBC & Chem 7: 01/18/19 09:17 01/18/19 09:17 Labs: Laboratory Last Values WBC 11.2 K/mm3 (4.5-11.0) H 01/18/19 09:17 RBC 1.90 M/mm3 (3.65-5.03) L 01/18/19 09:17 Hgb 7.0 gm/dl (11.8-15.2) L 01/18/19 09:17 Hct 20.1 % (35.5-45.6) L 01/18/19 09:17 MCV 106 fl (84-94) H 01/18/19 09:17 MCH 37 pg (28-32) H 01/18/19 09:17 MCHC 35 % (32-34) H 01/18/19 09:17 RDW 21.4 % (13.2-15.2) H 01/18/19 09:17 Plt Count 242 K/mm3 (140-440) 01/18/19 09:17 Lymph % (Auto) 21.4 % (13.4-35.0) 01/16/19 06:13 [place] % (Auto) 10.4 % (0.0-7.3) H 01/16/19 06:13 Eos % (Auto) 5.3 % (0.0-4.3) H 01/16/19 06:13 Baso % (Auto) 0.2 % (0.0-1.8) 01/16/19 06:13 Lymph # 2.2 K/mm3 (1.2-5.4) 01/16/19 06:13 [place] # 1.1 K/mm3 (0.0-0.8) H 01/16/19 06:13 Eos # 0.6 K/mm3 (0.0-0.4) H 01/16/19 06:13 Baso # 0.0 K/mm3 (0.0-0.1) 01/16/19 06:13 Seg Neutrophils % 62.7 % (40.0-70.0) 01/16/19 06:13 Seg Neutrophils # 6.6 K/mm3 (1.8-7.7) 01/16/19 06:13 Percent Retic 4.76 % (0.78-2.58) H 01/17/19 07:05 Sodium 138 mmol/L (137-145) 01/18/19 09:17 Potassium 3.5 mmol/L (3.6-5.0) L 01/18/19 09:17 Chloride 102.0 mmol/L (98-107) 01/18/19 09:17 Carbon Dioxide 26 mmol/L (22-30) 01/18/19 09:17 14 mmol/L 01/18/19 09:17 BUN 5 mg/dL (9-20) L 01/18/19 09:17 0.4 mg/dL (0.8-1.5) L 01/18/19 09:17 Estimated GFR > 60 ml/min 01/18/19 09:17 13 % 01/18/19 09:17 Glucose 86 mg/dL (75-100) 01/18/19 09:17 4.8 % (4-6) 01/15/19 14:13 Calcium 7.8 mg/dL (8.4-10.2) L 01/18/19 09:17 2.60 mg/dL (0.1-1.2) H 01/16/19 06:13 AST 12 units/L (5-40) 01/16/19 06:13 ALT 7 units/L (7-56) 01/16/19 06:13 55 units/L (35-129) 01/16/19 06:13 186 units/L (91-180) H 01/17/19 07:05 7.3 g/dL (6.3-8.2) 01/16/19 06:13 3.1 g/dL (3.9-5) L 01/16/19 06:13 0.7 % 01/16/19 06:13 Blood Type O POSITIVE 01/19/19 13:00 Antibody Screen Positive 01/19/19 13:00 Antibody Identification HTLA Antibodies Anti-K 01/17/19 10:00 Antibody Identification HTLA Antibodies Anti-K 01/17/19 10:00 Active Medications - Current Medications Current Medications: Generic Name Dose Route Start Last Admin Trade Name Freq PRN Reason Stop Dose Admin Acetaminophen 650 mg 01/15/19 17:02 Tylenol PO Q4H PRN Pain MILD(1-3)/Fever >100.5/BENAVIDEZ Alprazolam 4 mg 01/15/19 17:20 01/19/19 20:13 Xanax PO 4 mg BID PRN Administration Anxiety Diphenhydramine HCl 25 mg 01/15/19 18:52 01/20/19 09:02 Benadryl IV 25 mg Q3H PRN Administration Itching Docusate Sodium 100 mg 01/15/19 22:00 01/20/19 11:59 Colace PO 100 mg BID SAHARA Administration Famotidine 20 mg 01/15/19 22:00 01/20/19 12:00 Pepcid PO 20 mg BID SAHARA Administration Folic Acid 1 mg 01/15/19 18:00 01/20/19 12:00 Folvite PO 1 mg QDAY SAHARA Administration Heparin Sodium (Porcine) 5,000 unit 01/18/19 16:00 01/20/19 05:30 Heparin SUB-Q Not Given Q8HR SAHARA Hydromorphone HCl 1 mg 01/19/19 09:40 01/20/19 09:02 Dilaudid IV 1 mg Q4H PRN Administration Pain , Severe (7-10) Dextrose/Sodium Chloride 1,000 mls @ 125 mls/hr 01/15/19 18:00 01/20/19 05:32 D5ns IV 125 mls/hr DIRECT SAHARA Administration Ketorolac Tromethamine 10 mg 01/15/19 17:11 01/19/19 06:14 Toradol PO 01/20/19 17:10 10 mg Q6H PRN Administration Pain Magnesium Oxide 400 mg 01/15/19 18:00 01/20/19 11:59 Mag-Ox PO 400 mg QDAY SAHARA Administration Methadone HCl 20 mg 01/15/19 18:00 01/20/19 07:04 Dolophine PO Not Given Q12H SAHARA Ondansetron HCl 4 mg 01/15/19 17:02 01/20/19 02:19 Zofran IV 4 mg Q8H PRN Administration Nausea And Vomiting Oxycodone HCl 30 mg 01/15/19 22:00 01/20/19 11:58 Oxycontin PO 30 mg Q12HR SAHARA Administration Oxycodone/Acetaminophen 1 tab 01/15/19 17:02 01/19/19 05:15 Percocet 5/325 PO 1 tab Q6H PRN Administration Pain, Moderate (4-6) Sodium Chloride 10 ml 01/15/19 22:00 01/20/19 12:00 Sodium Chloride Flush Syringe 10 Ml IV 10 ml BID SAHARA Administration Sodium Chloride 10 ml 01/15/19 17:02 Sodium Chloride Flush Syringe 10 Ml IV PRN PRN LINE FLUSH Nutrition/Malnutrition Assess - Dietary Evaluation Nutrition/Malnutrition Findings: Nutrition Notes Start: 01/16/19 16:15 Freq: Status: Active Protocol: Document 01/16/19 16:15 RM (Rec: 01/16/19 16:15 RM [id number]) Nutrition Notes Need for Assessment generated from: tester armature or fields Initial or Follow up Brief Note Subjective/Other Information Screened for skin risk. [place] 21 points. Nutrition Intervention Revisit per MD consult or patient Sign Off request:
[2019-01-20] MEDS ORDERED: DILAUDID IM PRN (13:29)
--- NOTE | 2019-01-20 15:02 | Hem/Onc Progress Note ---
Subjective Date of service: 01/20/19 Objective - Constitutional Vitals: Last Vital Signs Temp 98.4 F 01/20/19 12:11 Pulse 79 01/20/19 12:11 Resp 16 01/20/19 12:11 BP 100/60 01/20/19 12:11 Pulse Ox 94 01/20/19 12:11 Medications & Allergies - Medications Allergies/Adverse Reactions: Allergies No Known Allergies Allergy (Verified 01/15/19 13:39) Home Medications: Home Medications Medication Instructions Recorded Confirmed Last Taken Type Oxycodone HCl [roxiCODONE] 30 mg PO BID #14 tablet 07/27/18 01/15/19 01/14/19 Rx Magnesium Oxide [Mag-Ox] 400 mg PO QDAY #10 tablet 07/31/18 01/15/19 01/14/19 Rx ALPRAZolam [Xanax TAB] 4 mg PO BID PRN 09/23/18 01/15/19 01/14/19 History Folic Acid [Folvite] 1 mg PO QDAY #30 tablet 09/25/18 01/14/19 Rx Ketorolac [Toradol] 10 mg PO Q6H PRN #12 tablet 12/15/18 01/15/19 01/14/19 Rx Methadone [Dolophine] 20 mg PO Q12H 01/15/19 01/15/19 01/14/19 History Active Medications: Generic Name Dose Route Start Last Admin Trade Name Freq PRN Reason Stop Dose Admin Acetaminophen 650 mg 01/15/19 17:02 Tylenol PO Q4H PRN Pain MILD(1-3)/Fever >100.5/BENAVIDEZ Alprazolam 4 mg 01/15/19 17:20 01/19/19 20:13 Xanax PO 4 mg BID PRN Administration Anxiety Diphenhydramine HCl 25 mg 01/15/19 18:52 01/20/19 13:53 Benadryl IV 25 mg Q3H PRN Administration Itching Docusate Sodium 100 mg 01/15/19 22:00 01/20/19 11:59 Colace PO 100 mg BID SAHARA Administration Famotidine 20 mg 01/15/19 22:00 01/20/19 12:00 Pepcid PO 20 mg BID SAHARA Administration Folic Acid 1 mg 01/15/19 18:00 01/20/19 12:00 Folvite PO 1 mg QDAY SAHARA Administration Heparin Sodium (Porcine) 5,000 unit 01/18/19 16:00 01/20/19 05:30 Heparin SUB-Q Not Given Q8HR SAHARA Hydromorphone HCl 1 mg 01/19/19 09:40 01/20/19 13:50 Dilaudid IV 1 mg Q4H PRN Administration Pain , Severe (7-10) Hydromorphone HCl 0.5 mg 01/20/19 13:29 Dilaudid IM Q4H PRN Pain , Severe (7-10) Dextrose/Sodium Chloride 1,000 mls @ 125 mls/hr 01/15/19 18:00 01/20/19 13:51 D5ns IV 125 mls/hr DIRECT SAHARA Administration Ketorolac Tromethamine 10 mg 01/15/19 17:11 01/19/19 06:14 Toradol PO 01/20/19 17:10 10 mg Q6H PRN Administration Pain Magnesium Oxide 400 mg 01/15/19 18:00 01/20/19 11:59 Mag-Ox PO 400 mg QDAY SAHARA Administration Methadone HCl 20 mg 01/15/19 18:00 01/20/19 07:04 Dolophine PO Not Given Q12H SAHARA Ondansetron HCl 4 mg 01/15/19 17:02 01/20/19 02:19 Zofran IV 4 mg Q8H PRN Administration Nausea And Vomiting Oxycodone HCl 30 mg 01/15/19 22:00 01/20/19 11:58 Oxycontin PO 30 mg Q12HR SAHARA Administration Sodium Chloride 10 ml 01/15/19 22:00 01/20/19 12:00 Sodium Chloride Flush Syringe 10 Ml IV 10 ml BID SAHARA Administration Sodium Chloride 10 ml 01/15/19 17:02 Sodium Chloride Flush Syringe 10 Ml IV PRN PRN LINE FLUSH
[2019-01-21] MEDS: DILAUDID IV PRN ×4 (03:03→18:30)
[2019-01-21] MEDS: BENADRYL IV PRN ×4 (03:07→18:30)
[2019-01-21] MEDS: XANAX PO PRN ×2 (03:10→17:24)
[2019-01-21] MEDS: HEPARIN SUB-Q SCH ×2 (06:01→17:21)
[2019-01-21] MEDS: DOLOPHINE PO SCH (06:02)
--- NOTE | 2019-01-21 07:48 | Event Note ---
Date: 01/20/19 [id number]
--- NOTE | 2019-01-21 07:48 | Hem/Onc Progress Note ---
Assessment and Plan sickle cell disease sickle cell pain anemia MCV elevated h/o back pain pain meds ? 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 - Patient Problems (1) Sickle cell anemia Status: Acute Qualifiers: Sickle-cell associated disorders: with unspecified crisis Qualified Code(s): D57.00 - Hb-SS disease with crisis, unspecified; D57.0 - Hb-SS disease with crisis Subjective Date of service: 01/21/19 Principal diagnosis: sickle cell Interval history: pain better Objective - Exam Narrative Exam: Pain none General appearance no distress Performance status limited self care Eyes no pallor ENT no ear discharge LNs - cervical not palpable Neck normal ROM Respiratory - normal breath sounds diminished b/l CVS S1 S2 + Extremities normal temperature General GI Soft non tender Rectal deferred Male - deferred Skin warm Musculoskeletal no edema Neurologically no focal - Constitutional Vitals: Last Vital Signs Temp 98.6 F 01/21/19 06:17 Pulse 84 01/21/19 06:17 Resp 18 01/21/19 06:17 BP 121/84 01/21/19 06:17 Pulse Ox 94 01/21/19 06:17 - Labs Lab Results: Laboratory Results - last 24 hr 01/19/19 13:00 Antibody Identification Anti-K Medications & Allergies - Medications Allergies/Adverse Reactions: Allergies No Known Allergies Allergy (Verified 01/15/19 13:39) Home Medications: Home Medications Medication Instructions Recorded Confirmed Last Taken Type ALPRAZolam [Xanax TAB] 4 mg PO BID PRN tablet 01/21/19 Unknown Rx ALPRAZolam [Xanax TAB] 4 mg PO BID PRN #10 tablet 01/21/19 Unknown Rx Folic Acid [Folvite] 1 mg PO QDAY #30 tablet 01/21/19 Unknown Rx Ketorolac [Toradol] 10 mg PO Q6H PRN #12 tablet 01/21/19 Unknown Rx Magnesium Oxide [Mag-Ox] 400 mg PO QDAY #10 tablet 01/21/19 Unknown Rx Methadone [Dolophine] 20 mg PO Q12H #12 tablet 01/21/19 Unknown Rx Oxycodone HCl [roxiCODONE] 30 mg PO BID #14 tablet 01/21/19 Unknown Rx Active Medications: Generic Name Dose Route Start Last Admin Trade Name Freq PRN Reason Stop Dose Admin Acetaminophen 650 mg 01/15/19 17:02 Tylenol PO Q4H PRN Pain MILD(1-3)/Fever >100.5/BENAVIDEZ Alprazolam 4 mg 01/15/19 17:20 01/21/19 03:10 Xanax PO 4 mg BID PRN Administration Anxiety Diphenhydramine HCl 25 mg 01/15/19 18:52 01/21/19 03:07 Benadryl IV 25 mg Q3H PRN Administration Itching Docusate Sodium 100 mg 01/15/19 22:00 01/20/19 21:45 Colace PO 100 mg BID SAHARA Administration Famotidine 20 mg 01/15/19 22:00 01/20/19 21:46 Pepcid PO 20 mg BID SAHARA Administration Folic Acid 1 mg 01/15/19 18:00 01/20/19 12:00 Folvite PO 1 mg QDAY SAHARA Administration Heparin Sodium (Porcine) 5,000 unit 01/18/19 16:00 01/21/19 06:01 Heparin SUB-Q Not Given Q8HR SAHARA Hydromorphone HCl 1 mg 01/19/19 09:40 01/21/19 03:03 Dilaudid IV 1 mg Q4H PRN Administration Pain , Severe (7-10) Hydromorphone HCl 0.5 mg 01/20/19 13:29 Dilaudid IM Q4H PRN Pain , Severe (7-10) Dextrose/Sodium Chloride 1,000 mls @ 125 mls/hr 01/15/19 18:00 01/20/19 23:17 D5ns IV 125 mls/hr DIRECT SAHARA Administration Magnesium Oxide 400 mg 01/15/19 18:00 01/20/19 11:59 Mag-Ox PO 400 mg QDAY SAHARA Administration Methadone HCl 20 mg 01/15/19 18:00 01/21/19 06:02 Dolophine PO 20 mg Q12H SAHARA Administration Ondansetron HCl 4 mg 01/15/19 17:02 01/20/19 23:18 Zofran IV 4 mg Q8H PRN Administration Nausea And Vomiting Oxycodone HCl 30 mg 01/15/19 22:00 01/20/19 23:22 Oxycontin PO 30 mg Q12HR SAHARA Administration Sodium Chloride 10 ml 01/15/19 22:00 01/20/19 21:54 Sodium Chloride Flush Syringe 10 Ml IV 10 ml BID SAHARA Administration Sodium Chloride 10 ml 01/15/19 17:02 Sodium Chloride Flush Syringe 10 Ml IV PRN PRN LINE FLUSH
[2019-01-21] MEDS ORDERED: HYDREA PO SCH (10:00)
--- NOTE | 2019-01-21 11:28 | Discharge Summary ---
Providers - Providers Date of Admission: 01/15/19 15:13 Date of discharge: 01/21/19 Attending physician: GIANNI MARK 01/19/19 11:44 Consult to Physician [CONS] Routine Comment: Consulting Provider: CLARK JENKINS Physician Instructions: Reason For Exam: sickle cell crisis, anemia Primary care physician: JAMAICA HOLLAND Hospitalization Reason for admission: sickle cell pain crisis Condition: Critical Hospital course: 38-year-old male who was admitted with diagnosis of sickle cell vaso-occlusive crisis. Patient was treated with IV fluid hydration and IV pain medication with slow but significant improvement. IV pain medication was later weaned off. Patient is on methadone and OxyContin at home. Hematology was also consulted during the hospitalization. Patient remained stable and his reticulocyte decreased. Patient feels back to baseline and thus will be discharged home. Dedicated discharge time 32 minutes. Disposition: DC-01 TO HOME OR SELFCARE Time spent for discharge: 32 - Discharge Diagnoses (1) Back pain Status: Acute Qualifiers: Back pain location: low back pain Chronicity: acute Back pain laterality: bilateral Sciatica presence: without sciatica Qualified Code(s): M54.5 - Low back pain (2) Sickle cell anemia with crisis Status: Acute Core Measure Documentation - Palliative Care Palliative Care/ Comfort Measures: Not Applicable - Core Measures Any of the following diagnoses?: none Exam - Constitutional Vitals: Temp Pulse Resp BP Pulse Ox 98.6 F 84 18 121/84 94 01/21/19 06:17 01/21/19 06:17 01/21/19 06:17 01/21/19 06:17 01/21/19 06:17 General appearance: Present: no acute distress, well-nourished - EENT Eyes: Present: PERRL ENT: hearing intact, clear oral mucosa - Neck Neck: Present: supple, normal ROM - Respiratory Respiratory effort: normal Respiratory: bilateral: CTA - Cardiovascular Heart Sounds: Present: S1 & S2. Absent: rub, click - Extremities Extremities: pulses symmetrical, No edema Peripheral Pulses: within normal limits - Abdominal General gastrointestinal: Present: soft, non-tender, non-distended, normal bowel sounds Male genitourinary: Present: normal - Integumentary Integumentary: Present: clear, warm, dry - Musculoskeletal Musculoskeletal: gait normal, strength equal bilaterally - Psychiatric Psychiatric: appropriate mood/affect, intact judgment & insight - Neurologic Neurologic: CNII-XII intact, moves all extremities Plan Activity: no restrictions Weight Bearing Status: Full Weight Bearing Diet: regular Follow up with: REINIER FELIX MD [Referring] - 3-5 Days CLARK JENKINS MD [Staff Physician] - 7 Days Prescriptions: Methadone [Dolophine] 20 mg PO Q12H #12 tablet Folic Acid [Folvite] 1 mg PO QDAY #30 tablet Magnesium Oxide [Mag-Ox] 400 mg PO QDAY #10 tablet Oxycodone HCl [roxiCODONE] 30 mg PO BID #14 tablet Ketorolac [Toradol] 10 mg PO Q6H PRN #12 tablet PRN Reason: Pain ALPRAZolam [Xanax TAB] 4 mg PO BID PRN #10 tablet PRN Reason: Anxiety
[2019-01-21] MEDS: COLACE PO SCH (14:01)
[2019-01-21] MEDS: OxyCONTIN PO SCH (14:02)
[2019-01-21] MEDS: FOLVITE PO SCH (14:02)
[2019-01-21] MEDS: MAG-OX PO SCH (14:02)
[2019-01-21] MEDS: SODIUM CHLORIDE FLUSH SYRINGE 10 ML IV SCH (14:03)
[2019-01-21] MEDS: PEPCID PO SCH (14:03)
[2019-01-21 18:07] VITALS: BP 128/78
--- NOTE | 2019-01-21 22:27 | Consultation ---
REFERRED BY: Dr. Martinez REASON FOR CONSULTATION: Sickle cell disease. HISTORY OF PRESENT ILLNESS: I saw the patient, a 38-year-old -[place] male on the Medical floor. 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 He came to the hospital because of severe back pain and leg pain for a few days. He was in the ER a few days ago and was discharged. As he could not control his pain with the pain medication, he came back to the hospital. I have been consulted to evaluate the patient. The patient is on pain medications at this time. The patient is complaining of generalized body ache, the back pain and the extremities. No shortness of breath. No visual disturbances. No ear discharge. No abdominal pain, no vomiting, no diarrhea. PAST MEDICAL HISTORY: Sickle cell disease, sickle cell crisis. PAST SURGICAL HISTORY: Hernia surgery. The patient has had port before gallbladder surgery. FAMILY HISTORY: Not contributory. SOCIAL HISTORY: Former smoker. ALLERGIES: None. MEDICATIONS: Include oxycodone, Zofran, methadone, Dilaudid, folic acid. PHYSICAL EXAMINATION: VITAL SIGNS: Temperature 98, pulse 79, respirations 16, BP 100/60. HEENT: Pallor present. No icterus. NECK: No neck lymph nodes. HEART: S1, S2. LUNGS: Clear to auscultation anteriorly. ABDOMEN: Soft. EXTREMITIES: No calf tenderness. LABORATORY DATA: White cell 11, hemoglobin 7, MCV 106, platelet 242. Potassium 3.5, creatinine 0.4, calcium 7.8. RADIOLOGY: CT head was done, nil acute. ASSESSMENT AND PLAN: 1. History of sickle cell disease. 2. Sickle cell pain crisis, on pain medication. If there is no improvement, we will look into a NURSING FACULTY for pain. 3. Anemia secondary to sickle cell disease. The patient is on folic acid. 4. MCV is elevated. I discussed with the patient regarding hydroxyurea. 5. Back pain issues. 6. Target hemoglobin and hematocrit, 02/16. 7. I will follow the patient during inpatient stay. JOB# [id number] MN/NTS
== END 2019-01-21 20:36 | disposition home health service (06) | DRG 640 ==
LOC: ED 13:37 → 3A 15:13
PROVIDERS: ADMIT Internal Medicine; ATTEND Hospitalist
DX: E87.6 Hypokalemia (principal); D57.00 Hb-SS disease with crisis, unspecified; M54.5 Low back pain; F41.9 Anxiety disorder, unspecified; Z87.891 Personal history of nicotine dependence; Z60.2 Problems related to living alone
CPT/HCPCS: 36415; 70450; 80048; 80053; 83036; 83615; 85025; 85027; 85045; 86850; 86870; 86900; 86901; 87116; 96374; 99291; G0378; A6250; J1170; J1200; J1642; J1644; J1885; J2405; J3480; J7030; J7040; J7042

== ENCOUNTER 2019-03-19 23:48 | Emergency (ER) | payer MEDICARE ==
[2019-03-20] MEDS ORDERED: NACL 0.9% 1000 ML 1,000 ML IV ONE (01:24)
[2019-03-20] MEDS ORDERED: DILAUDID IV ONE (01:24)
--- NOTE | 2019-03-20 01:24 | Emergency Department Report ---
ED General Adult HPI - General Chief complaint: Sickle Cell Crisis Stated complaint: SICKLE CELL PAIN Time Seen by Provider: 03/20/19 01:00 Source: patient Mode of arrival: Ambulatory Limitations: No Limitations - History of Present Illness Initial comments: 38-year-old male presents to ED with complaint sickle cell pain. Patient has history of HbSS. States he normally takes oxycodone and methadone, but has currently run out. The patient reports he is followed by the [facility]. Patient is reporting pain to his chest, back, arm, and legs. Patient denies fever, cough, shortness of breath. -: days(s) (3) Location: chest, back, left, right, upper extremity, lower extremity Severity scale (0 -10): 9 Quality: aching Consistency: constant Improves with: none Worsens with: none Associated Symptoms: chest pain. denies: fever/chills, shortness of breath - Related Data Previous Rx's Medication Instructions Recorded Last Taken Type ALPRAZolam [Xanax TAB] 4 mg PO BID PRN tablet 01/21/19 Unknown Rx ALPRAZolam [Xanax TAB] 4 mg PO BID PRN #10 tablet 01/21/19 Unknown Rx Folic Acid [Folvite] 1 mg PO QDAY #30 tablet 01/21/19 Unknown Rx Ketorolac [Toradol] 10 mg PO Q6H PRN #12 tablet 01/21/19 Unknown Rx Magnesium Oxide [Mag-Ox] 400 mg PO QDAY #10 tablet 01/21/19 Unknown Rx Methadone [Dolophine] 20 mg PO Q12H #12 tablet 01/21/19 Unknown Rx Oxycodone HCl [roxiCODONE] 30 mg PO BID #14 tablet 01/21/19 Unknown Rx Allergies Allergy/AdvReac Type Severity Reaction Status Date / Time No Known Allergies Allergy Verified 01/15/19 13:39 ED Review of Systems ROS: Stated complaint: SICKLE CELL PAIN Other details as noted in HPI Comment: All other systems reviewed and negative Constitutional: denies: chills, fever Respiratory: denies: cough, shortness of breath Cardiovascular: chest pain Gastrointestinal: denies: abdominal pain Musculoskeletal: as per HPI ED Past Medical Hx - Past Medical History Previous Medical History?: Yes Hx Hypertension: No Hx CVA: No Hx Heart Attack/AMI: No Hx Congestive Heart Failure: No Hx Diabetes: No Hx Deep Vein Thrombosis: Yes (LEFT LEG) Hx Pulmonary Embolism: No Hx GERD: No Hx Liver Disease: No Hx Renal Disease: No Hx Sickle Cell Disease: Yes Hx Arthritis: No Hx Headaches / Migraines: No Hx Seizures: No Hx Kidney Stones: No Hx Psychiatric Treatment: Yes (anxiety) Hx Asthma: No Hx COPD: No Hx Tuberculosis: No Hx Dementia: No Hx HIV: No Additional medical history: 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 New port placed 2014. - Social History Smoking Status: Never Smoker Substance Use Type: None - Medications Home Medications: Home Medications Medication Instructions Recorded Confirmed Last Taken Type ALPRAZolam [Xanax TAB] 4 mg PO BID PRN tablet 01/21/19 Unknown Rx ALPRAZolam [Xanax TAB] 4 mg PO BID PRN #10 tablet 01/21/19 Unknown Rx Folic Acid [Folvite] 1 mg PO QDAY #30 tablet 01/21/19 Unknown Rx Ketorolac [Toradol] 10 mg PO Q6H PRN #12 tablet 01/21/19 Unknown Rx Magnesium Oxide [Mag-Ox] 400 mg PO QDAY #10 tablet 01/21/19 Unknown Rx Methadone [Dolophine] 20 mg PO Q12H #12 tablet 01/21/19 Unknown Rx Oxycodone HCl [roxiCODONE] 30 mg PO BID #14 tablet 01/21/19 Unknown Rx ED Physical Exam - General Limitations: No Limitations General appearance: alert, in no apparent distress - Head Head exam: Present: atraumatic, normocephalic - Eye Eye exam: Present: normal appearance, PERRL, EOMI - ENT ENT exam: Present: mucous membranes moist - Neck Neck exam: Present: normal inspection - Respiratory Respiratory exam: Present: normal lung sounds bilaterally. Absent: respiratory distress - Cardiovascular Cardiovascular Exam: Present: regular rate, normal rhythm - GI/Abdominal GI/Abdominal exam: Present: soft. Absent: distended, tenderness - Extremities Exam Extremities exam: Present: normal inspection - Neurological Exam Neurological exam: Present: alert, oriented X3 - Psychiatric Psychiatric exam: Present: normal affect, normal mood - Skin Skin exam: Present: warm, dry, intact, normal color ED Course Vital Signs 03/20/19 00:02 Temperature 98.1 F Pulse Rate 101 H Respiratory 18 Rate Blood Pressure 110/64 [Right] O2 Sat by Pulse 100 Oximetry ED Medical Decision Making - Lab Data Result diagrams: 03/20/19 01:09 03/20/19 01:09 - EKG Data -: EKG Interpreted by Me EKG shows normal: sinus rhythm, axis, intervals, QRS complexes, ST-T waves Rate: normal - EKG Data Interpretation: no acute changes, LVH - Medical Decision Making - Hb 10 - retic count is 1 - EKG and CXR unremarkable - pt given IV fluids, benadryl, dilaudid, toradol - labs do not appear to show that pt is in a sickle cell crisis - hematology f/u advised - return precautions given - Differential Diagnosis sickle cell crisis, acute chest Critical care attestation.: If time is entered above; I have spent that time in minutes in the direct care of this critically ill patient, excluding procedure time. ED Disposition Clinical Impression: Sickle cell anemia, Generalized pain Disposition: DC-01 TO HOME OR SELFCARE Is pt being admited?: No Condition: Stable Instructions: Sickle Cell Crisis (ED) Referrals: PRIMARY CARE, [Referring] - 3-5 Days Time of Disposition: 04:08
[2019-03-20] MEDS ORDERED: TORADOL IV ONE (01:25)
[2019-03-20] MEDS ORDERED: BENADRYL IV ONE (01:39)
[2019-03-20 01:46] LABS: Hematocrit 29.1 % (35.5-45.6); Mean Corpuscular HGB Conc 34 % (32-34); Mean Corpuscular Volume 106 fl (84-94); Platelet Count 294 K/mm3 (140-440); Red Blood Count 2.74 M/mm3 (3.65-5.03); Red Cell Distribution Width 19.8 % (13.2-15.2)
[2019-03-20 02:07] LABS: BUN/Creatinine Ratio 16; Blood Urea Nitrogen 8 mg/dL (9-20); Calcium 8.6 mg/dL (8.4-10.2); Hemolysis Index 2
[2019-03-20 02:57] LABS: Anisocytosis 1+; Eosinophils % (Manual) 0 % (0.0-4.3); Hypochromasia Few; Sickle Cells 1+; Total Cells Counted 100
[2019-03-20 02:58] LABS: Platelet Estimate Consistent w Auto; Target Cells 2+
--- NOTE | 2019-03-20 03:29 | XRay Report ---
CHEST 1 VIEW 3:09 AM INDICATION / CLINICAL INFORMATION: Chest pain. COMPARISON: 09/23/2018. FINDINGS: SUPPORT DEVICES: The position of the right Port-A-Cath has not changed. HEART / MEDIASTINUM: Borderline cardiomegaly is stable. The aorta is normal in caliber. LUNGS / PLEURA: Low lung volumes, mild chronic interstitial lung disease and mild scarring in the rig ht lung base have not changed. No pneumothorax. ADDITIONAL FINDINGS: No significant additional findings. IMPRESSION: No significant change since the prior study. Signer Name: Brock Hahn MD Signed: 03/20/2019 3:25 AM Workstation Name: [id number]
[2019-03-20 05:19] VITALS: BP 108/68
== END 2019-03-20 05:19 | disposition home or self-care (01) ==
LOC: ED 23:48
DX: D57.1 Sickle-cell disease without crisis (principal); M79.18 Myalgia, other site; Z86.718 Personal history of other venous thrombosis and embolism; Z79.899 Other long term (current) drug therapy
CPT/HCPCS: 36415; 71045; 80048; 84484; 85007; 85025; 85045; 93005; 93010; 96374; 96375; 99284; J1170; J1200; J1885; J7030

== ENCOUNTER 2019-04-08 03:45 | Emergency (ER) | payer MEDICARE ==
[2019-04-08 06:10] LABS: Basophils # (Auto) 0.1 K/mm3 (0.0-0.1); Basophils % (Auto) 0.7 % (0.0-1.8); Eosinophils # (Auto) 0.7 K/mm3 (0.0-0.4); Eosinophils % (Auto) 9.3 % (0.0-4.3); Hematocrit 25.2 % (35.5-45.6); Hemoglobin 8.7 gm/dl (11.8-15.2); Lymphocytes # (Auto) 2.7 K/mm3 (1.2-5.4); Lymphocytes % (Auto) 34.5 % (13.4-35.0); Mean Corpuscular HGB Conc 35 % (32-34); Mean Corpuscular Volume 109 fl (84-94); Monocytes # (Auto) 0.9 K/mm3 (0.0-0.8); Monocytes % (Auto) 11.7 % (0.0-7.3); Platelet Count 214 K/mm3 (140-440); Red Blood Count 2.31 M/mm3 (3.65-5.03)
[2019-04-08 06:19] LABS: Red Cell Distribution Width 22.1 % (13.2-15.2)
[2019-04-08 06:28] LABS: BUN/Creatinine Ratio 18; Blood Urea Nitrogen 9 mg/dL (9-20); Calcium 8.5 mg/dL (8.4-10.2); Hemolysis Index 5
[2019-04-08] MEDS ORDERED: NACL 0.9% 1000 ML 1,000 ML IV ONE (06:45)
[2019-04-08] MEDS ORDERED: TORADOL IVP ONE (06:45)
[2019-04-08] MEDS ORDERED: MORPHINE IV ONE ×2 (06:45→07:55)
[2019-04-08] MEDS ORDERED: ZOFRAN IV ONE (06:45)
[2019-04-08] MEDS ORDERED: BENADRYL IV ONE (06:46)
--- NOTE | 2019-04-08 06:48 | Emergency Department Report ---
ED General Adult HPI - General Chief complaint: Sickle Cell Crisis Stated complaint: SICKLE CELL PAIN Time Seen by Provider: 04/08/19 06:42 Source: patient Mode of arrival: Ambulatory Limitations: No Limitations - History of Present Illness Initial comments: Patient presents to the emergency department with a chief complaint of sickle cell pain. Patient complains of pain in his legs, back, and arms that are consistent with prior sickle cell crises. Patient describes the pain as sharp in nature and intense. Patient denies any exacerbating cause of his sickle cell crisis. Patient denies fever, cough, dysuria. -: unknown Radiation: non-radiation Severity scale (0 -10): 10 Quality: sharp Consistency: constant Improves with: none Worsens with: none Associated Symptoms: denies other symptoms Treatments Prior to Arrival: none - Related Data Previous Rx's Medication Instructions Recorded Last Taken Type ALPRAZolam [Xanax TAB] 4 mg PO BID PRN tablet 01/21/19 Unknown Rx ALPRAZolam [Xanax TAB] 4 mg PO BID PRN #10 tablet 01/21/19 Unknown Rx Folic Acid [Folvite] 1 mg PO QDAY #30 tablet 01/21/19 Unknown Rx Ketorolac [Toradol] 10 mg PO Q6H PRN #12 tablet 01/21/19 Unknown Rx Magnesium Oxide [Mag-Ox] 400 mg PO QDAY #10 tablet 01/21/19 Unknown Rx Methadone [Dolophine] 20 mg PO Q12H #12 tablet 01/21/19 Unknown Rx Oxycodone HCl [roxiCODONE] 30 mg PO BID #14 tablet 01/21/19 Unknown Rx Allergies Allergy/AdvReac Type Severity Reaction Status Date / Time No Known Allergies Allergy Verified 01/15/19 13:39 ED Review of Systems ROS: Stated complaint: SICKLE CELL PAIN Other details as noted in HPI Comment: All other systems reviewed and negative Constitutional: denies: chills, fever Eyes: denies: eye pain, eye discharge, vision change ENT: denies: ear pain, throat pain Respiratory: denies: cough, shortness of breath, wheezing Cardiovascular: denies: chest pain, palpitations Endocrine: no symptoms reported Gastrointestinal: denies: abdominal pain, nausea, diarrhea Genitourinary: denies: urgency, dysuria Musculoskeletal: denies: back pain, joint swelling, arthralgia Skin: denies: rash, lesions Neurological: denies: headache, weakness, paresthesias Psychiatric: denies: anxiety, depression Hematological/Lymphatic: denies: easy bleeding, easy bruising ED Past Medical Hx - Past Medical History Previous Medical History?: Yes Hx Hypertension: No Hx CVA: No Hx Heart Attack/AMI: No Hx Congestive Heart Failure: No Hx Diabetes: No Hx Deep Vein Thrombosis: Yes (LEFT LEG & right arm) Hx Pulmonary Embolism: No Hx GERD: No Hx Liver Disease: No Hx Renal Disease: No Hx Sickle Cell Disease: Yes Hx Arthritis: No Hx Headaches / Migraines: No Hx Seizures: No Hx Kidney Stones: No Hx Psychiatric Treatment: Yes (anxiety) Hx Asthma: No Hx COPD: No Hx Tuberculosis: No Hx Dementia: No Hx HIV: No Additional medical history: 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 New port placed 2014. - Social History Smoking Status: Never Smoker Substance Use Type: None - Medications Home Medications: Home Medications Medication Instructions Recorded Confirmed Last Taken Type ALPRAZolam [Xanax TAB] 4 mg PO BID PRN tablet 01/21/19 Unknown Rx ALPRAZolam [Xanax TAB] 4 mg PO BID PRN #10 tablet 01/21/19 Unknown Rx Folic Acid [Folvite] 1 mg PO QDAY #30 tablet 01/21/19 Unknown Rx Ketorolac [Toradol] 10 mg PO Q6H PRN #12 tablet 01/21/19 Unknown Rx Magnesium Oxide [Mag-Ox] 400 mg PO QDAY #10 tablet 01/21/19 Unknown Rx Methadone [Dolophine] 20 mg PO Q12H #12 tablet 01/21/19 Unknown Rx Oxycodone HCl [roxiCODONE] 30 mg PO BID #14 tablet 01/21/19 Unknown Rx ED Physical Exam - General Limitations: No Limitations General appearance: alert, in no apparent distress - Head Head exam: Present: atraumatic, normocephalic - Eye Eye exam: Present: normal appearance - ENT ENT exam: Present: mucous membranes dry - Neck Neck exam: Present: normal inspection - Respiratory Respiratory exam: Present: normal lung sounds bilaterally. Absent: respiratory distress, wheezes, rales - Cardiovascular Cardiovascular Exam: Present: regular rate, normal rhythm. Absent: systolic m urmur, diastolic murmur, rubs, gallop - GI/Abdominal GI/Abdominal exam: Present: soft, normal bowel sounds. Absent: distended, tenderness - Rectal Rectal exam: Present: deferred - Extremities Exam Extremities exam: Present: normal inspection - Back Exam Back exam: Present: normal inspection - Neurological Exam Neurological exam: Present: alert, oriented X3, CN II-XII intact. Absent: motor sensory deficit - Psychiatric Psychiatric exam: Present: normal affect, normal mood - Skin Skin exam: Present: warm, dry, intact, normal color. Absent: rash ED Course Vital Signs 04/08/19 04/08/19 04/08/19 04:35 05:30 06:00 Temperature 98.7 F Pulse Rate 76 72 74 Respiratory 24 14 13 Rate Blood Pressure 93/55 96/56 Blood Pressure 90/55 [Right] O2 Sat by Pulse 96 98 100 Oximetry 04/08/19 04/08/19 04/08/19 07:05 07:24 07:53 Temperature 98.3 F Pulse Rate 76 Respiratory 18 16 Rate Blood Pressure Blood Pressure 99/48 94/53 [Right] O2 Sat by Pulse 98 Oximetry 04/08/19 07:58 Temperature Pulse Rate Respiratory 16 Rate Blood Pressure Blood Pressure [Right] O2 Sat by Pulse Oximetry ED Medical Decision Making - Lab Data Result diagrams: 04/08/19 Unknown 04/08/19 Unknown Lab Results 04/08/19 04/08/19 Range/Units Unknown Unknown WBC 7.9 (4.5-11.0) K/mm3 RBC 2.31 L (3.65-5.03) M/mm3 Hgb 8.7 L (11.8-15.2) gm/dl Hct 25.2 L (35.5-45.6) % MCV 109 H (84-94) fl MCH 38 H (28-32) pg MCHC 35 H (32-34) % RDW 22.1 H (13.2-15.2) % Plt Count 214 (140-440) K/mm3 Lymph % (Auto) 34.5 (13.4-35.0) % [place] % (Auto) 11.7 H (0.0-7.3) % Eos % (Auto) 9.3 H (0.0-4.3) % Baso % (Auto) 0.7 (0.0-1.8) % Lymph # 2.7 (1.2-5.4) K/mm3 [place] # 0.9 H (0.0-0.8) K/mm3 Eos # 0.7 H (0.0-0.4) K/mm3 Baso # 0.1 (0.0-0.1) K/mm3 Seg Neutrophils % 43.8 (40.0-70.0) % Seg Neutrophils # 3.4 (1.8-7.7) K/mm3 Percent Retic 10.18 H (0.78-2.58) % Sodium 137 (137-145) mmol/L Potassium 4.0 (3.6-5.0) mmol/L Chloride 101.9 (98-107) mmol/L Carbon Dioxide 28 (22-30) mmol/L Anion Gap 11 mmol/L BUN 9 (9-20) mg/dL Creatinine 0.5 L (0.8-1.5) mg/dL Estimated GFR > 60 ml/min BUN/Creatinine Ratio 18 % Glucose 107 H (75-100) mg/dL Calcium 8.5 (8.4-10.2) mg/dL - Medical Decision Making Patient eloped because he was not given Dilaudid Critical care attestation.: If time is entered above; I have spent that time in minutes in the direct care of this critically ill patient, excluding procedure time. ED Disposition Clinical Impression: Sickle cell pain crisis Disposition: ELOPED Is pt being admited?: No Does the pt Need Aspirin: No Condition: Stable Referrals: REINIER FELIX MD [Referring] - 3-5 Days
[2019-04-08 07:54] VITALS: BP 94/53
[2019-04-08] MEDS ORDERED: HALDOL IM ONE (08:38)
== END 2019-04-08 09:33 | disposition left against medical advice (07) ==
LOC: ED 03:45
DX: D57.00 Hb-SS disease with crisis, unspecified (principal); F41.9 Anxiety disorder, unspecified; Z86.718 Personal history of other venous thrombosis and embolism; Z90.49 Acquired absence of other specified parts of digestive tract; Z79.899 Other long term (current) drug therapy
CPT/HCPCS: 36415; 80048; 85025; 85045; 96361; 96372; 96374; 96375; 99283; J1200; J1630; J1885; J2270; J2405; J7030

== ENCOUNTER 2019-05-08 00:41 | Emergency (ER) | payer MEDICARE ==
--- NOTE | 2019-05-08 01:52 | Emergency Department Report ---
ED General Adult HPI - General Chief complaint: Seizure Stated complaint: SEIZURE Time Seen by Provider: 05/08/19 01:27 Source: patient, EMS Mode of arrival: Ambulatory Limitations: No Limitations - History of Present Illness Initial comments: 38-year-old male presents to ED with complaint of sickle cell pain. Patient states pain started on yesterday, reports pain to his back and bilateral legs. Reports he had 2 seizures on yesterday as well. He is unclear patient has a history of seizures. I was questioning the patient, patient was laying in the stretcher on his side, reaching toward my leg. When I asked the patient what he was doing, patient responded "I am having a seizure." - Related Data Previous Rx's Medication Instructions Recorded Last Taken Type ALPRAZolam [Xanax TAB] 4 mg PO BID PRN tablet 01/21/19 Unknown Rx ALPRAZolam [Xanax TAB] 4 mg PO BID PRN #10 tablet 01/21/19 Unknown Rx Folic Acid [Folvite] 1 mg PO QDAY #30 tablet 01/21/19 Unknown Rx Ketorolac [Toradol] 10 mg PO Q6H PRN #12 tablet 01/21/19 Unknown Rx Magnesium Oxide [Mag-Ox] 400 mg PO QDAY #10 tablet 01/21/19 Unknown Rx Methadone [Dolophine] 20 mg PO Q12H #12 tablet 01/21/19 Unknown Rx Oxycodone HCl [roxiCODONE] 30 mg PO BID #14 tablet 01/21/19 Unknown Rx Allergies Allergy/AdvReac Type Severity Reaction Status Date / Time No Known Allergies Allergy Verified 01/15/19 13:39 ED Review of Systems ROS: Stated complaint: SEIZURE Other details as noted in HPI ED Past Medical Hx - Past Medical History Previous Medical History?: Yes Hx Hypertension: No Hx CVA: No Hx Heart Attack/AMI: No Hx Congestive Heart Failure: No Hx Diabetes: No Hx Deep Vein Thrombosis: Yes (LEFT LEG & right arm) Hx Pulmonary Embolism: No Hx GERD: No Hx Liver Disease: No Hx Renal Disease: No Hx Sickle Cell Disease: Yes Hx Arthritis: No Hx Headaches / Migraines: No Hx Seizures: No Hx Kidney Stones: No Hx Psychiatric Treatment: Yes (anxiety) Hx Asthma: No Hx COPD: No Hx Tuberculosis: No Hx Dementia: No Hx HIV: No Additional medical history: 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 New port placed 2014. - Social History Smoking Status: Current Every Day Smoker Substance Use Type: None - Medications Home Medications: Home Medications Medication Instructions Recorded Confirmed Last Taken Type ALPRAZolam [Xanax TAB] 4 mg PO BID PRN tablet 01/21/19 Unknown Rx ALPRAZolam [Xanax TAB] 4 mg PO BID PRN #10 tablet 01/21/19 Unknown Rx Folic Acid [Folvite] 1 mg PO QDAY #30 tablet 01/21/19 Unknown Rx Ketorolac [Toradol] 10 mg PO Q6H PRN #12 tablet 01/21/19 Unknown Rx Magnesium Oxide [Mag-Ox] 400 mg PO QDAY #10 tablet 01/21/19 Unknown Rx Methadone [Dolophine] 20 mg PO Q12H #12 tablet 01/21/19 Unknown Rx Oxycodone HCl [roxiCODONE] 30 mg PO BID #14 tablet 01/21/19 Unknown Rx ED Physical Exam - General Limitations: No Limitations ED Course Vital Signs 05/08/19 05/08/19 05/08/19 00:50 00:53 04:21 Temperature 99.5 F Pulse Rate 86 72 Respiratory 16 16 14 Rate Blood Pressure 110/70 Blood Pressure 94/58 [Left] O2 Sat by Pulse 98 96 Oximetry - Reevaluation(s) Reevaluation #1: 05/08/19 01:30 Pt tremulous. Awake and alert, acting bizarre, stating that he is having a seizure. What pt is displaying is NOT a seizure. Will not answer my questions regarding seizure history, but is able to tell be where his sickle cell pain is located. Reevaluation #2: 05/08/19 02:30 I again attempted to ask pt about his seizure history. Pt not answering any of my questions although he is awake and alert. Reevaluation #3: 05/08/19 03:27 Nurse accessed pt's port to administer IV fluids. Pt asking about pain medications. I went in to re-assess pt. He is awake and alert, sitting up in bed. Pt is now conversing. States the last time I came in to see hime he was "having a pain crisis" and could not speak but he knew I was in the room. Pt has no neuro deficits, moves all extremities, speech is clear, no facial droop present. Explained to pt that given his Hb of 10 and retic of 3, it will not be advisable to give any pain medications that may cause any further mind alterati on. Will give toradol and discharge. Of note, blood pressure is chronically low on review of old charts. This is pt's baseline. ED Medical Decision Making - Lab Data Result diagrams: 05/08/19 01:41 05/08/19 01:41 - Radiology Data Radiology results: report reviewed, image reviewed - Differential Diagnosis sickle cell anemia, drug-seeking behavior, pseudoseizure Critical care attestation.: If time is entered above; I have spent that time in minutes in the direct care of this critically ill patient, excluding procedure time. ED Disposition Clinical Impression: Sickle cell anemia Disposition: - TO HOME OR SELFCARE Is pt being admited?: No Condition: Stable Instructions: Sickle Cell Crisis (ED) Referrals: PRIMARY CARE, [Primary Care Provider] - 3-5 Days OLAF HUNTER DO [Staff Physician] - 3-5 Days Time of Disposition: 03:32
[2019-05-08 01:59] LABS: Hematocrit 29.6 % (35.5-45.6); Mean Corpuscular HGB Conc 34 % (32-34); Mean Corpuscular Volume 108 fl (84-94); Platelet Count 379 K/mm3 (140-440); Red Blood Count 2.75 M/mm3 (3.65-5.03); Red Cell Distribution Width 19.2 % (13.2-15.2)
[2019-05-08 02:15] LABS: BUN/Creatinine Ratio 15; Blood Urea Nitrogen 6 mg/dL (9-20); Calcium 8.8 mg/dL (8.4-10.2); Hemolysis Index 5
[2019-05-08 02:31] LABS: Amphetamine Screen,Urine PRESUMPTIVE NEGATIVE; Benzodiazepines Screen,Urine PRESUMPTIVE NEGATIVE; Cannabinoid Screen,Urine PRESUMPTIVE NEGATIVE; Cocaine Screen,Urine PRESUMPTIVE NEGATIVE; Methadone Screen,Urine PRESUMPTIVE NEGATIVE; Opiate Screen,Urine PRESUMPTIVE NEGATIVE
[2019-05-08] MEDS ORDERED: POTASSIUM CHLORIDE ER 20 MEQ TAB PO ONE (02:31)
[2019-05-08] MEDS ORDERED: SODIUM CHLORIDE 0.9% 1000 ML 1,000 ML IV ONE (02:40)
--- NOTE | 2019-05-08 03:13 | Cat Scan Report ---
CT head/brain wo con INDICATION: seizure. TECHNIQUE: Routine CT head without contrast. All CT scans at this location are performed using CT dos e reduction for ALARA by means of automated exposure control. COMPARISON: CT brain 01/18/2019 FINDINGS: BRAIN / INTRACRANIAL CONTENTS: No acute hemorrhage, mass effect, midline shift, or hydrocephalus. No appreciable acute large territorial or lacunar infarct. No chronic infarct or focal atrophy. Normal b rain volume and ventricular/sulcal size for age. ORBITS: No significant abnormality of visualized orbits. SINUSES / MASTOIDS: No significant abnormality of visualized sinuses and mastoid air cells. ADDITIONAL FINDINGS: None. IMPRESSION: 1. No acute intracranial abnormality on noncontrast CT of the brain. Signer Name: Estrella Gold MD Signed: 05/08/2019 3:08 AM Workstation Name: [id number]
[2019-05-08] MEDS ORDERED: KETOROLAC 30 MG/1 ML INJ IV ONE (03:30)
[2019-05-08 04:22] VITALS: BP 94/58
== END 2019-05-08 04:30 | disposition home or self-care (01) ==
LOC: ED 00:41
DX: D57.1 Sickle-cell disease without crisis (principal); R56.9 Unspecified convulsions; F41.9 Anxiety disorder, unspecified; F17.200 Nicotine dependence, unspecified, uncomplicated
CPT/HCPCS: 36415; 70450; 80048; 80307; 85027; 85045; 96374; 99285; J1885; J7030; 80320; G0480

== ENCOUNTER 2019-05-19 20:43 | Emergency (ER) | payer MEDICARE ==
--- NOTE | 2019-05-19 21:27 | Emergency Department Report ---
Blank Doc - Documentation Documentation: 38-year-old male that presents with generalized body aches. HX of sickle cell. This initial assessment/diagnostic orders/clinical plan/treatment(s) is/are subject to change based on patient's health status, clinical progression and re- assessment by fellow clinical providers in the ED. Further treatment and workup at subsequent clinical providers discretion. Patient/guardians urged not to elope from the ED as their condition may be serious if not clinically assessed and managed. Initial orders include: 1- Patient sent to [facility] for further evaluation and treatment 2- labs 3- UA
[2019-05-19 21:59] LABS: Bilirubin,Urine NEG (Negative); Blood,Urine NEG (Negative); Color,Urine Yellow (Yellow); Protein,Urine <15 mg/dL mg/dL (Negative); Urobilinogen,Urine < 2.0 mg/dL (<2.0); WBC,Urine < 1.0 /HPF (0.0-6.0)
[2019-05-19] MEDS ORDERED: DILAUDID IV ONE (23:52)
[2019-05-20] MEDS ORDERED: BENADRYL IV ONE (00:26)
[2019-05-20] MEDS ORDERED: ZOFRAN IV ONE (00:26)
[2019-05-20] MEDS ORDERED: TORADOL IV ONE (00:26)
[2019-05-20] MEDS ORDERED: FLUSH HEPARIN IV ONE ×2 (00:39→01:26)
[2019-05-20 00:48] VITALS: BP 105/65
--- NOTE | 2019-05-20 00:51 | Emergency Department Report ---
ED General Adult HPI - General Chief complaint: Sickle Cell Crisis Stated complaint: SICKLE CELL PAIN Time Seen by Provider: 05/19/19 21:26 Source: patient, EMS Mode of arrival: Ambulatory Limitations: No Limitations - History of Present Illness Initial comments: Mr. Cross is a 38 yo male with hx of sickle celll disease, AVN shoulder, CVA, DVT, Pneumonia, sepsis who presents with back and leg pain for several day. He takes methadone and oxycodone daily. 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 Previously followed at [facility]. He denies fever, chest pain, shortness of breath. No trauma. Severe 10/10 pain. Gradual onset. Minimal relief with home medications. Central lower back pain. No radiation. Constant in nature. -: Gradual, days(s) (3) Location: back, left, right, lower extremity Radiation: non-radiation Severity scale (0 -10): 10 Quality: aching Consistency: constant Improves with: medication Worsens with: none Associated Symptoms: denies other symptoms Treatments Prior to Arrival: other (home medications) - Related Data Previous Rx's Medication Instructions Recorded Last Taken Type ALPRAZolam [Xanax TAB] 4 mg PO BID PRN tablet 01/21/19 Unknown Rx ALPRAZolam [Xanax TAB] 4 mg PO BID PRN #10 tablet 01/21/19 Unknown Rx Folic Acid [Folvite] 1 mg PO QDAY #30 tablet 01/21/19 Unknown Rx Ketorolac [Toradol] 10 mg PO Q6H PRN #12 tablet 01/21/19 Unknown Rx Magnesium Oxide [Mag-Ox] 400 mg PO QDAY #10 tablet 01/21/19 Unknown Rx Methadone [Dolophine] 20 mg PO Q12H #12 tablet 01/21/19 Unknown Rx Oxycodone HCl [roxiCODONE] 30 mg PO BID #14 tablet 01/21/19 Unknown Rx Allergies Allergy/AdvReac Type Severity Reaction Status Date / Time No Known Allergies Allergy Verified 01/15/19 13:39 ED Review of Systems ROS: Stated complaint: SICKLE CELL PAIN Other details as noted in HPI Comment: All other systems reviewed and negative Constitutional: denies: fever, malaise Respiratory: denies: shortness of breath Cardiovascular: denies: chest pain Gastrointestinal: denies: abdominal pain, nausea, vomiting ED Past Medical Hx - Past Medical History Previous Medical History?: Yes Hx Hypertension: No Hx CVA: No Hx Heart Attack/AMI: No Hx Congestive Heart Failure: No Hx Diabetes: No Hx Deep Vein Thrombosis: Yes (LEFT LEG & right arm) Hx Pulmonary Embolism: No Hx GERD: No Hx Liver Disease: No Hx Renal Disease: No Hx Sickle Cell Disease: Yes Hx Arthritis: No Hx Headaches / Migraines: No Hx Seizures: No Hx Kidney Stones: No Hx Psychiatric Treatment: Yes (anxiety) Hx Asthma: No Hx COPD: No Hx Tuberculosis: No Hx Dementia: No Hx HIV: No Additional medical history: 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 New port placed 2014. - Social History Smoking Status: Never Smoker - Medications Home Medications: Home Medications Medication Instructions Recorded Confirmed Last Taken Type ALPRAZolam [Xanax TAB] 4 mg PO BID PRN tablet 01/21/19 Unknown Rx ALPRAZolam [Xanax TAB] 4 mg PO BID PRN #10 tablet 01/21/19 Unknown Rx Folic Acid [Folvite] 1 mg PO QDAY #30 tablet 01/21/19 Unknown Rx Ketorolac [Toradol] 10 mg PO Q6H PRN #12 tablet 01/21/19 Unknown Rx Magnesium Oxide [Mag-Ox] 400 mg PO QDAY #10 tablet 01/21/19 Unknown Rx Methadone [Dolophine] 20 mg PO Q12H #12 tablet 01/21/19 Unknown Rx Oxycodone HCl [roxiCODONE] 30 mg PO BID #14 tablet 01/21/19 Unknown Rx ED Physical Exam - General Limitations: No Limitations General appearance: alert, in no apparent distress - Head Head exam: Present: atraumatic, normocephalic - Eye Eye exam: Present: normal appearance - ENT ENT exam: Present: mucous membranes moist - Neck Neck exam: Present: normal inspection, full ROM - Respiratory Respiratory exam: Present: normal lung sounds bilaterally. Absent: respiratory distress, wheezes, rales, rhonchi, stridor - Cardiovascular Cardiovascular Exam: Present: regular rate, normal rhythm, normal heart sounds. Absent: rubs, gallop - GI/Abdominal GI/Abdominal exam: Present: soft. Absent: distended, tenderness, guarding, rebound - Rectal Rectal exam: Present: deferred - Extremities Exam Extremities exam: Present: normal inspection - Back Exam Back exam: Present: normal inspection - Neurological Exam Neurological exam: Present: alert, oriented X3 - Psychiatric Psychiatric exam: Present: normal affect, normal mood - Skin Skin exam: Present: warm, dry, intact, normal color. Absent: rash ED Course Vital Signs 05/19/19 05/20/19 05/20/19 20:47 00:29 00:47 Temperature 98.8 F Pulse Rate 98 H 82 Respiratory 18 18 16 Rate Blood Pressure 109/66 Blood Pressure 105/65 [Right] O2 Sat by Pulse 98 99 Oximetry ED Medical Decision Making - Lab Data Result diagrams: 05/19/19 00:30 Laboratory Results - last 24 hr 05/19/19 05/19/19 00:30 21:33 WBC 7.1 RBC 2.81 L Hgb 9.9 L Hct 29.4 L MCV 105 H MCH 35 H MCHC 34 RDW 20.3 H Plt Count 270 Lymph % (Auto) 27.7 Grand % (Auto) 9.7 H Eos % (Auto) 6.4 H Baso % (Auto) 1.5 Lymph # 2.0 Grand # 0.7 Eos # 0.5 H Baso # 0.1 Seg Neutrophils % 54.7 Seg Neutrophils # 3.9 Percent Retic 3.21 H Urine Color Yellow Urine Turbidity Clear Urine pH 7.0 Ur Specific [place] 1.006 Urine Protein <15 mg/dl Urine Glucose (UA) Neg Urine Ketones Neg Urine Blood Neg Urine Nitrite Neg Urine Bilirubin Neg Urine Urobilinogen < 2.0 Ur Leukocyte Esterase Neg Urine WBC (Auto) < 1.0 Urine RBC (Auto) 1.0 U Epithel Cells (Auto) 2.0 - Medical Decision Making Mr. Cross presents with sickle cell pain crisis. He appears well without indication of infection or thromboembolic complication. He was given hydromorphone, ketorolac, diphenhydramine and zofran in the ED. 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 I reviewed labs. No significant anemia beyond Mr. Cross's baseline. Critical care attestation.: If time is entered above; I have spent that time in minutes in the direct care of this critically ill patient, excluding procedure time. ED Disposition Clinical Impression: Sickle cell pain crisis Disposition: DC-01 TO HOME OR SELFCARE Is pt being admited?: No Does the pt Need Aspirin: No Condition: Stable Instructions: Sickle Cell Crisis (ED) Referrals: PRIMARY CARE, [Referring] - 3-5 Days
[2019-05-20 01:11] LABS: Basophils # (Auto) 0.1 K/mm3 (0.0-0.1); Basophils % (Auto) 1.5 % (0.0-1.8); Eosinophils # (Auto) 0.5 K/mm3 (0.0-0.4); Eosinophils % (Auto) 6.4 % (0.0-4.3); Hematocrit 29.4 % (35.5-45.6); Hemoglobin 9.9 gm/dl (11.8-15.2); Lymphocytes % (Auto) 27.7 % (13.4-35.0); Mean Corpuscular HGB Conc 34 % (32-34); Mean Corpuscular Volume 105 fl (84-94); Monocytes # (Auto) 0.7 K/mm3 (0.0-0.8); Monocytes % (Auto) 9.7 % (0.0-7.3); Platelet Count 270 K/mm3 (140-440); Red Blood Count 2.81 M/mm3 (3.65-5.03)
[2019-05-20 01:12] LABS: Red Cell Distribution Width 20.3 % (13.2-15.2)
[2019-05-20 01:32] LABS: Alanine Aminotransferase 9 units/L (7-56); Albumin 3.7 g/dL (3.9-5); BUN/Creatinine Ratio 14; Blood Urea Nitrogen 7 mg/dL (9-20); Calcium 8.1 mg/dL (8.4-10.2); Hemolysis Index 5
== END 2019-05-20 01:15 | disposition home or self-care (01) ==
LOC: ED 20:43
DX: D57.00 Hb-SS disease with crisis, unspecified (principal); F41.9 Anxiety disorder, unspecified; Z90.49 Acquired absence of other specified parts of digestive tract; Z79.899 Other long term (current) drug therapy
CPT/HCPCS: 36415; 80053; 81001; 85025; 85045; 96374; 96375; 99284; J1170; J1200; J1642; J1885; J2405

== ENCOUNTER 2019-06-03 11:56 | Emergency (ER) | payer MEDICARE ==
[2019-06-03 12:55] VITALS: BP 115/70
[2019-06-03] MEDS ORDERED: KETOROLAC 30 MG/1 ML INJ IV ONE (13:44)
[2019-06-03] MEDS ORDERED: SODIUM CHLORIDE 0.9% 1000 ML 1,000 ML IV ONE (13:44)
--- NOTE | 2019-06-03 13:44 | Event Note ---
ED Screening Note Date of service: 06/03/19 Time: 13:39 ED Screening Note: patient with hx of Sickle cell disease presents c/o flare up of his sickle cell. c/o pain in low back, legs and arms, typical areas of pain with crisis. No swelling. On oxycodone and methadone for pain, out of both since this past weekend. Scheduled for refill next week. denies n/v/d, no cp, no sob, no fever or chills. This initial assessment/diagnostic orders/clinical plan/treatment(s) is/are subject to change based on patients health status, clinical progression and re- assessment by fellow clinical providers in the ED. Further treatment and workup at subsequent clinical providers discretion. Patient/guardian urged not to elope from the ED as their condition may be serious if not clinically assessed and managed. Initial orders include: labs ua
== END 2019-06-03 22:27 | disposition left against medical advice (07) ==
LOC: ED 11:56
DX: D57.00 Hb-SS disease with crisis, unspecified (principal); Z53.21 Procedure and treatment not carried out due to patient leaving prior to being seen by health care provider

== ENCOUNTER 2019-06-29 07:21 | Inpatient (IN) | payer MEDICARE ==
[2019-06-29] MEDS ORDERED: HYDROmorphone 1 MG/1 ML INJ IV ONE ×5 (12:28→20:19)
[2019-06-29] MEDS ORDERED: diphenhydrAMINE 50 MG/ML VIAL IV ONE ×2 (12:28→16:10)
[2019-06-29] MEDS ORDERED: ONDANSETRON 4 MG/2 ML INJ IV ONE (12:28)
[2019-06-29] MEDS ORDERED: KETOROLAC 30 MG/1 ML INJ IV ONE (12:28)
[2019-06-29] MEDS: D5W/0.2% NACL 1,000 ML IV SCH ×2 (13:08→22:53)
[2019-06-29 13:49] LABS: Hematocrit 26.3 % (35.5-45.6); Hemoglobin 9.1 gm/dl (11.8-15.2); Mean Corpuscular HGB Conc 34 % (32-34); Platelet Count 203 K/mm3 (140-440); Red Blood Count 2.27 M/mm3 (3.65-5.03); Red Cell Distribution Width 19.5 % (13.2-15.2)
[2019-06-29 13:52] LABS: Mean Corpuscular Volume 116 fl (84-94)
--- NOTE | 2019-06-29 14:00 | XRay Report ---
Lumbar spine-3 views INDICATION: lower back pain, sickle cell. COMPARISON: None. IMPRESSION: Normal alignment. No significant discogenic DJD or facet arthropathy. No acute osseous or soft tissue abnormality. Signer Name: Ilan Doherty MD Signed: 06/29/2019 1:55 PM Workstation Name: [id number]
--- NOTE | 2019-06-29 14:34 | Emergency Department Report ---
ED General Adult HPI - General Chief complaint: Pain General Stated complaint: SICKLE CELL CRISIS Time Seen by Provider: 06/29/19 12:22 Source: patient Mode of arrival: Ambulatory Limitations: No Limitations - History of Present Illness Initial comments: 39-year-old male with a past medical history of DVT, anxiety, avascular necrosis, and sickle cell disease presents to the hospital complaining of sickle cell pain for the past 3 days. Patient complains of lower back and bilateral leg pain is moderate to severe in intensity. Patient takes methadone 20 mg every 12 hours and Roxicodone 30 mg twice a day at home for pain. 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 He denies fever, weakness, numbness, incontinence, dysuria, chest pain, or shortness of breath. + port Severity scale (0 -10): 9 - Related Data Previous Rx's Medication Instructions Recorded Last Taken Type ALPRAZolam [Xanax TAB] 4 mg PO BID PRN tablet 01/21/19 Unknown Rx ALPRAZolam [Xanax TAB] 4 mg PO BID PRN #10 tablet 01/21/19 Unknown Rx Folic Acid [Folvite] 1 mg PO QDAY #30 tablet 01/21/19 Unknown Rx Ketorolac [Toradol] 10 mg PO Q6H PRN #12 tablet 01/21/19 Unknown Rx Magnesium Oxide [Mag-Ox] 400 mg PO QDAY #10 tablet 01/21/19 Unknown Rx Methadone [Dolophine] 20 mg PO Q12H #12 tablet 01/21/19 Unknown Rx Oxycodone HCl [roxiCODONE] 30 mg PO BID #14 tablet 01/21/19 Unknown Rx Allergies Allergy/AdvReac Type Severity Reaction Status Date / Time No Known Allergies Allergy Verified 01/15/19 13:39 ED Review of Systems ROS: Stated complaint: SICKLE CELL CRISIS Other details as noted in HPI Comment: All other systems reviewed and negative ED Past Medical Hx - Past Medical History Previous Medical History?: Yes Hx Hypertension: No Hx CVA: No Hx Heart Attack/AMI: No Hx Congestive Heart Failure: No Hx Diabetes: No Hx Deep Vein Thrombosis: Yes (LEFT LEG & right arm) Hx Pulmonary Embolism: No Hx GERD: No Hx Liver Disease: No Hx Renal Disease: No Hx Sickle Cell Disease: Yes Hx Arthritis: No Hx Headaches / Migraines: No Hx Seizures: Yes Hx Kidney Stones: No Hx Psychiatric Treatment: Yes (anxiety) Hx Asthma: No Hx COPD: No Hx Tuberculosis: No Hx Dementia: No Hx HIV: No Additional medical history: 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 New port placed 2014. - Social History Smoking Status: Never Smoker Substance Use Type: None - Medications Home Medications: Home Medications Medication Instructions Recorded Confirmed Last Taken Type ALPRAZolam [Xanax TAB] 4 mg PO BID PRN tablet 01/21/19 Unknown Rx ALPRAZolam [Xanax TAB] 4 mg PO BID PRN #10 tablet 01/21/19 Unknown Rx Folic Acid [Folvite] 1 mg PO QDAY #30 tablet 01/21/19 Unknown Rx Ketorolac [Toradol] 10 mg PO Q6H PRN #12 tablet 01/21/19 Unknown Rx Magnesium Oxide [Mag-Ox] 400 mg PO QDAY #10 tablet 01/21/19 Unknown Rx Methadone [Dolophine] 20 mg PO Q12H #12 tablet 01/21/19 Unknown Rx Oxycodone HCl [roxiCODONE] 30 mg PO BID #14 tablet 01/21/19 Unknown Rx ED Physical Exam - General Limitations: No Limitations - Other Other exam information: General: No acute distress Head: Atraumatic Eyes: normal appearance ENT: Moist mucous membranes Neck: Normal appearance, no midline tenderness Chest: Clear to auscultation bilaterally CV: Regular rate and rhythm Abdomen: Soft, normal bowel sounds, nontender, nondistended, no rebound or guarding Back: Normal inspection, mild lumbar tenderness Extremity: Normal inspection infection, full range of motion Neuro: Alert O x 3, no facial asymmetry, speech clear, no gross motor sensory deficit Psych: Appropriate behavior Skin: No rash ED Course Vital Signs 06/29/19 06/29/19 06/29/19 07:45 12:45 13:34 Temperature 98.6 F Pulse Rate 82 73 Respiratory 13 15 Rate Blood Pressure 110/63 Blood Pressure 110/62 [Left] O2 Sat by Pulse 98 Oximetry 06/29/19 06/29/19 15:27 16:14 Temperature Pulse Rate 78 74 Respiratory 14 15 Rate Blood Pressure Blood Pressure 111/68 108/69 [Left] O2 Sat by Pulse 94 Oximetry ED Medical Decision Making - Lab Data Result diagrams: 06/29/19 13:25 Lab Results 06/29/19 Range/Units 13:25 WBC 6.9 (4.5-11.0) K/mm3 RBC 2.27 L (3.65-5.03) M/mm3 Hgb 9.1 L (11.8-15.2) gm/dl Hct 26.3 L (35.5-45.6) % MCV 116 H (84-94) fl MCH 40 H (28-32) pg MCHC 34 (32-34) % RDW 19.5 H (13.2-15.2) % Plt Count 203 (140-440) K/mm3 [place] % (Auto) Information Assurance Manager Add Manual Diff Complete Total Counted 100 Seg Neuts % (Manual) 44.0 (40.0-70.0) % Band Neutrophils % 0 % Lymphocytes % (Manual) 41 H (13.4-35.0) % Reactive Lymphs % (Man) 0 % Monocytes % (Manual) 12 H (0.0-7.3) % Eosinophils % (Manual) 3.0 (0.0-4.3) % Basophils % (Manual) 0 (0.0-1.8) % Metamyelocytes % 0 % Myelocytes % 0 % Promyelocytes % 0 % Blast Cells % 0 % Nucleated RBC % 2.0 H (0.0-0.9) % Seg Neutrophils # Man 3.0 (1.8-7.7) K/mm3 Band Neutrophils # 0.0 K/mm3 Lymphocytes # (Manual) 2.8 (1.2-5.4) K/mm3 Abs React Lymphs (Man) 0.0 K/mm3 Monocytes # (Manual) 0.8 (0.0-0.8) K/mm3 Eosinophils # (Manual) 0.2 (0.0-0.4) K/mm3 Basophils # (Manual) 0.0 (0.0-0.1) K/mm3 Metamyelocytes # 0.0 K/mm3 Myelocytes # 0.0 K/mm3 Promyelocytes # 0.0 K/mm3 Blast Cells # 0.0 K/mm3 WBC Morphology Not Reportable Hypersegmented Neuts Not Reportable Hyposegmented Neuts Not Reportable Hypogranular Neuts Not Reportable Smudge Cells Not Reportable Toxic Granulation Not Reportable Toxic Vacuolation Not Reportable Dohle Bodies Not Reportable Pelger-Huet Anomaly Not Reportable Steve Rods Not Reportable Platelet Estimate Not Reportable Clumped Platelets Not Reportable Plt Clumps, EDTA Not Reportable Large Platelets Not Reportable Giant Platelets Not Reportable Platelet Satelliting Not Reportable Plt Morphology Comment Not Reportable RBC Morphology Not Reportable Dimorphic RBCs Not Reportable Polychromasia 1+ Hypochromasia Not Reportable Poikilocytosis Not Reportable Anisocytosis 1+ Microcytosis Not Reportable Macrocytosis 1+ Spherocytes Not Reportable Pappenheimer Bodies Not Reportable Sickle Cells Not Reportable Target Cells 1+ Tear Drop Cells Not Reportable Ovalocytes Not Reportable Helmet Cells Not Reportable [place] Bodies Not Reportable [place] Rings Not Reportable [place] Cells Not Reportable Bite Cells Not Reportable Crenated Cell Not Reportable Elliptocytes 1+ Acanthocytes (Spur) Not Reportable Rouleaux Not Reportable Hemoglobin C Crystals Not Reportable Schistocytes Not Reportable Malaria parasites Not Reportable Percent Retic 8.52 H (0.78-2.58) % Laurent Bodies Not Reportable Hem Pathologist Commnt No - Radiology Data Radiology results: report reviewed Lumbar spine-3 views INDICATION: lower back pain, sickle cell. COMPARISON: None. IMPRESSION: Normal alignment. No significant discogenic DJD or facet arthropathy. No acute osseous or soft tissue abnormality. - Differential Diagnosis sickle cell crises, infection, fracture, uti Critical Care Time: No Critical care attestation.: If time is entered above; I have spent that time in minutes in the direct care of this critically ill patient, excluding procedure time. ED Disposition Clinical Impression: Sickle cell pain crisis Disposition: DC-09 OP ADMIT IP TO THIS HOSP Is pt being admited?: Yes Condition: Stable Time of Disposition: 16:46 (Dr borjas/hosp)
[2019-06-29 15:10] LABS: Basophils % (Manual) 0 % (0.0-1.8); Monocytes % (Manual) 12 % (0.0-7.3); Total Cells Counted 100
[2019-06-29 15:11] LABS: Anisocytosis 1+; Target Cells 1+
[2019-06-29 15:12] LABS: Macrocytosis 1+
[2019-06-29] MEDS ORDERED: HYDROmorphone 1 MG/1 ML INJ ONE (20:27)
[2019-06-29] MEDS ORDERED: ACETAMINOPHEN 325 MG TAB PO PRN (23:43)
[2019-06-29] MEDS ORDERED: ONDANSETRON 4 MG/2 ML INJ IV PRN (23:43)
[2019-06-29] MEDS ORDERED: METOCLOPRAMIDE 10 MG/2 ML INJ IV PRN (23:43)
--- NOTE | 2019-06-29 23:43 | Event Note ---
Date: 06/29/19 See history and physical in the reports Sickle cell crisis
[2019-06-30] MEDS: oxyCODONE ER 10 MG TAB PO SCH ×3 (00:11→21:55)
[2019-06-30] MEDS: HYDROmorphone 1 MG/1 ML INJ IV PRN ×8 (00:12→21:58)
[2019-06-30] MEDS: FAMOTIDINE 20 MG/2 ML INJ IV SCH ×3 (00:12→21:53)
[2019-06-30] MEDS ORDERED: diphenhydrAMINE 50 MG/ML VIAL IV PRN (00:21)
--- NOTE | 2019-06-30 00:26 | History and Physical Report ---
CHIEF COMPLAINT: Pain all over the body, especially the chest and both lower extremities and lower back for 3 days. HISTORY OF PRESENT ILLNESS: A 39-year-old -English male with history of anxiety disorder, sickle cell anemia, sickle cell crisis, avascular necrosis and DVT, comes in for severe pain for the past 3 days. Pain is especially in the lower back and bilateral leg pain and chest pain. Pain is about 8-10 on a scale of 1-10. Sharp and intermittent in nature. No shortness of breath. The patient goes to [facility]. Wants the local real estate acquisition analyst to follow him. The patient takes oxycodone 30 mg twice a day and methadone 20 mg every 12 hours. PAST MEDICAL HISTORY: Significant for generalized anxiety disorder; avascular necrosis, right shoulder and both hips; deep vein thrombosis of left leg and right arm. PAST SURGICAL HISTORY: Hernia repair, year unknown. The patient had a previous port, new port was placed in 2014. SOCIAL HISTORY: Does not smoke. No alcohol, no recreational drugs. FAMILY HISTORY: Hypertension. CURRENT MEDICATIONS: On the chart including Xanax 4 mg twice a day p.r.n., folic acid 1 mg p.o. once a day, Toradol 10 mg p.o. q. 6 p.r.n., and magnesium oxide 400 mg p.o. daily. REVIEW OF SYSTEMS: Significant for pain all over, especially chest and lower back and both hips. Chest pain is about 8-10 on a scale of 1-10. Sharp and intermittent in nature. No shortness of breath. Otherwise, review of systems negative. A 14-point review of systems was done. PHYSICAL EXAMINATION: GENERAL: Middle-aged male, cooperative during examination. VITAL SIGNS: Blood pressure is 111/68, temperature is 99, pulse is 78, respiratory rate is 14. HEENT: Unremarkable. Pupils equal and reactive. NECK: Supple, no lymphadenopathy, no thyromegaly. LUNGS: Clear to auscultation and percussion. Good air entry. CARDIOVASCULAR: S1, S2 heard. No gallop, no murmur, no rub. Apical impulse in left fifth intercostal space and midclavicular line. ABDOMEN: Soft and benign. No hepatosplenomegaly, no guarding. Hernial orifices are normal. EXTREMITIES: Good pedal pulses. No pedal edema. CENTRAL NERVOUS SYSTEM: Alert and oriented x 4, nonfocal exam. LABORATORY DATA: Significant for white count of 6900, hemoglobin of 9.1, hematocrit of 26.3, platelet count is 203,000. Retic count is 8.52. No electrolytes were ordered. Lumbar spine x-ray shows normal alignment, no significant discogenic degenerative joint disease. ASSESSMENT AND PLAN: 1. Sickle cell crisis. The patient has a high retic count. The patient initiated on IV fluids at 125 mL per hour, IV Dilaudid 1-2 mg q. 3 hours p.r.n. The patient also to continue oxycodone, methadone kept on hold. 2. Generalized anxiety disorder. Continue Xanax. 3. Pain management. The patient on oxycodone and IV Dilaudid. Methadone on hold. We will increase Dilaudid to 2 mg if necessary. 4. Deep venous thrombosis prophylaxis, heparin 5000 q. 12. In summary, the patient has sickle cell crisis, generalized anxiety disorder, severe pain management and DVT prophylaxis. JOB# [id number] FAUSTINA/DAVIS SANZ
[2019-06-30] MEDS: oxyCODONE /ACETAMINOPHEN 5-325MG TAB PO PRN (01:31)
[2019-06-30] MEDS: D5W/0.9% NACL 1,000 ML IV SCH ×4 (03:09→22:26)
[2019-06-30 03:30] LABS: Bilirubin,Urine NEG (Negative); Blood,Urine NEG (Negative); Color,Urine Yellow (Yellow); Protein,Urine <15 mg/dL mg/dL (Negative); RBC,Urine < 1.0 /HPF (0.0-6.0); Urobilinogen,Urine < 2.0 mg/dL (<2.0); WBC,Urine < 1.0 /HPF (0.0-6.0)
[2019-06-30] MEDS: diphenhydrAMINE 50 MG/ML VIAL IV PRN ×5 (06:15→21:57)
--- NOTE | 2019-06-30 07:34 | Progress Note ---
Assessment and Plan Assessment and plan: 39-year-old male with a past medical history of DVT, anxiety, chronic back pain, right shoulder and both hips avascular necrosis and sickle cell disease presents to the hospital complaining of sickle cell pain for the past 3 days. Patient complains of lower back and bilateral leg pain is moderate to severe in intensity. Patient takes methadone 20 mg every 12 hours and Roxicodone 30 mg twice a day at home for pain. He states he is being seen by [facility] but wants a more local biological science technician fish. He denies fever, weakness, numbness, incontinence, dysuria, chest pain, or shortness of breath. + port Sickle cell crisis Chronic Opioid dependant syndrome Generalized anxiety Plan Continue supportive care Increase IV fluids rate Pain control Obtain pharmacy consult to assist with patient home meds so appropriate meds can be given will continue wilmer and denzel Anticipate discharge in a day or two DVT/GI prophy History Interval history: Patient seen and examined, but requesting pain medication, reports generalized body pain, He recalls that he is on Seizure medications x 2 but not quit sure the name. He gets his meds from [facility] Physical - Constitutional Vitals: Temp Pulse Resp BP Pulse Ox 98.8 F 70 16 106/55 95 06/30/19 05:23 06/30/19 05:23 06/30/19 05:23 06/30/19 05:23 06/30/19 05:23 General appearance: Present: mild distress (secondary to pain) - EENT Eyes: Present: PERRL, EOM intact ENT: hearing intact, clear oral mucosa - Neck Neck: Present: supple, normal ROM - Respiratory Respiratory effort: normal Respiratory: bilateral: CTA - Cardiovascular Rhythm: regular Heart Sounds: Present: S1 & S2 - Extremities Extremities: no ischemia, pulses intact, pulses symmetrical, No edema, normal temperature, normal color, Full ROM Peripheral Pulses: within normal limits - Abdominal General gastrointestinal: soft, non-tender, non-distended, normal bowel sounds - Integumentary Integumentary: Present: warm, dry (chest port) - Psychiatric Psychiatric: appropriate mood/affect, intact judgment & insight - Neurologic Neurologic: CNII-XII intact, gait normal Results - Labs CBC & Chem 7: 06/30/19 09:18 06/30/19 09:18 Labs: Laboratory Last Values WBC 6.9 K/mm3 (4.5-11.0) 06/29/19 13:25 RBC 2.27 M/mm3 (3.65-5.03) L 06/29/19 13:25 Hgb 9.1 gm/dl (11.8-15.2) L 06/29/19 13:25 Hct 26.3 % (35.5-45.6) L 06/29/19 13:25 MCV 116 fl (84-94) H 06/29/19 13:25 MCH 40 pg (28-32) H 06/29/19 13:25 MCHC 34 % (32-34) 06/29/19 13:25 RDW 19.5 % (13.2-15.2) H 06/29/19 13:25 Plt Count 203 K/mm3 (140-440) 06/29/19 13:25 [facility] % (Auto) Letter Of Credit Document Examiner 06/29/19 13:25 Add Manual Diff Complete 06/29/19 13:25 Total Counted 100 06/29/19 13:25 Seg Neuts % (Manual) 44.0 % (40.0-70.0) 06/29/19 13:25 Band Neutrophils % 0 % 06/29/19 13:25 Lymphocytes % (Manual) 41 % (13.4-35.0) H 06/29/19 13:25 Reactive Lymphs % (Man) 0 % 06/29/19 13:25 Monocytes % (Manual) 12 % (0.0-7.3) H 06/29/19 13:25 Eosinophils % (Manual) 3.0 % (0.0-4.3) 06/29/19 13:25 Basophils % (Manual) 0 % (0.0-1.8) 06/29/19 13:25 Metamyelocytes % 0 % 06/29/19 13:25 Myelocytes % 0 % 06/29/19 13:25 Promyelocytes % 0 % 06/29/19 13:25 Blast Cells % 0 % 06/29/19 13:25 Nucleated RBC % 2.0 % (0.0-0.9) H 06/29/19 13:25 Seg Neutrophils # Man 3.0 K/mm3 (1.8-7.7) 06/29/19 13:25 Band Neutrophils # 0.0 K/mm3 06/29/19 13:25 Lymphocytes # (Manual) 2.8 K/mm3 (1.2-5.4) 06/29/19 13:25 Abs React Lymphs (Man) 0.0 K/mm3 06/29/19 13:25 Monocytes # (Manual) 0.8 K/mm3 (0.0-0.8) 06/29/19 13:25 Eosinophils # (Manual) 0.2 K/mm3 (0.0-0.4) 06/29/19 13:25 Basophils # (Manual) 0.0 K/mm3 (0.0-0.1) 06/29/19 13:25 Metamyelocytes # 0.0 K/mm3 06/29/19 13:25 Myelocytes # 0.0 K/mm3 06/29/19 13:25 Promyelocytes # 0.0 K/mm3 06/29/19 13:25 Blast Cells # 0.0 K/mm3 06/29/19 13:25 WBC Morphology Not Reportable 06/29/19 13:25 Hypersegmented Neuts Not Reportable 06/29/19 13:25 Hyposegmented Neuts Not Reportable 06/29/19 13:25 Hypogranular Neuts Not Reportable 06/29/19 13:25 Smudge Cells Not Reportable 06/29/19 13:25 Toxic Granulation Not Reportable 06/29/19 13:25 Toxic Vacuolation Not Reportable 06/29/19 13:25 Dohle Bodies Not Reportable 06/29/19 13:25 Pelger-Huet Anomaly Not Reportable 06/29/19 13:25 Steve Rods Not Reportable 06/29/19 13:25 Platelet Estimate Not Reportable 06/29/19 13:25 Clumped Platelets Not Reportable 06/29/19 13:25 Plt Clumps, EDTA Not Reportable 06/29/19 13:25 Large Platelets Not Reportable 06/29/19 13:25 Giant Platelets Not Reportable 06/29/19 13:25 Platelet Satelliting Not Reportable 06/29/19 13:25 Plt Morphology Comment Not Reportable 06/29/19 13:25 RBC Morphology Not Reportable 06/29/19 13:25 Dimorphic RBCs Not Reportable 06/29/19 13:25 Polychromasia 1+ 06/29/19 13:25 Hypochromasia Not Reportable 06/29/19 13:25 Poikilocytosis Not Reportable 06/29/19 13:25 Anisocytosis 1+ 06/29/19 13:25 Microcytosis Not Reportable 06/29/19 13:25 Macrocytosis 1+ 06/29/19 13:25 Spherocytes Not Reportable 06/29/19 13:25 Pappenheimer Bodies Not Reportable 06/29/19 13:25 Sickle Cells Not Reportable 06/29/19 13:25 Target Cells 1+ 06/29/19 13:25 Tear Drop Cells Not Reportable 06/29/19 13:25 Ovalocytes Not Reportable 06/29/19 13:25 Helmet Cells Not Reportable 06/29/19 13:25 Gran[place] Bodies Not Reportable 06/29/19 13:25 [place] Rings Not Reportable 06/29/19 13:25 Jessie Cells Not Reportable 06/29/19 13:25 Bite Cells Not Reportable 06/29/19 13:25 Crenated Cell Not Reportable 06/29/19 13:25 Elliptocytes 1+ 06/29/19 13:25 Acanthocytes (Spur) Not Reportable 06/29/19 13:25 Rouleaux Not Reportable 06/29/19 13:25 Hemoglobin C Crystals Not Reportable 06/29/19 13:25 Schistocytes Not Reportable 06/29/19 13:25 Malaria parasites Not Reportable 06/29/19 13:25 Percent Retic 8.52 % (0.78-2.58) H 06/29/19 13:25 Laurent Bodies Not Reportable 06/29/19 13:25 Hem Pathologist Commnt No 06/29/19 13:25 Hemoglobin A1c 5.0 % (4-6) 06/29/19 00:14 Urine Color Yellow (Yellow) 06/29/19 03:00 Urine Turbidity Clear (Clear) 06/29/19 03:00 Urine pH 7.0 (5.0-7.0) 06/29/19 03:00 Ur Specific [place] 1.008 (1.003-1.030) 06/29/19 03:00 Urine Protein <15 mg/dl mg/dL (Negative) 06/29/19 03:00 Urine Glucose (UA) Neg mg/dL (Negative) 06/29/19 03:00 Urine Ketones Neg mg/dL (Negative) 06/29/19 03:00 Urine Blood Neg (Negative) 06/29/19 03:00 Urine Nitrite Neg (Negative) 06/29/19 03:00 Urine Bilirubin Neg (Negative) 06/29/19 03:00 Urine Urobilinogen < 2.0 mg/dL (<2.0) 06/29/19 03:00 Ur Leukocyte Esterase Neg (Negative) 06/29/19 03:00 Urine WBC (Auto) < 1.0 /HPF (0.0-6.0) 06/29/19 03:00 Urine RBC (Auto) < 1.0 /HPF (0.0-6.0) 06/29/19 03:00 Active Medications - Current Medications Current Medications: Generic Name Dose Route Start Last Admin Trade Name Freq PRN Reason Stop Dose Admin Acetaminophen 650 mg 06/29/19 23:43 Tylenol PO Q4H PRN Pain MILD(1-3)/Fever >100.5/BENAVIDEZ Alprazolam 2 mg 06/29/19 23:49 Xanax PO BID PRN Anxiety Diphenhydramine HCl 25 mg 06/30/19 01:18 06/30/19 06:15 Benadryl IV 25 mg Q3H PRN Administration Itching Diphenhydramine HCl 25 mg 06/30/19 00:21 06/30/19 01:57 Benadryl IV 25 mg Q6H PRN Administration Itching Famotidine 20 mg 06/29/19 23:45 06/30/19 00:12 Pepcid IV 20 mg BID SAHARA Administration Folic Acid 1 mg 06/30/19 10:00 Folvite PO QDAY SAHARA Hydromorphone HCl 1 mg 06/29/19 23:43 06/30/19 06:15 Dilaudid IV 1 mg Q3H PRN Administration Pain , Severe (7-10) Dextrose/Sodium Chloride 1,000 mls @ 125 mls/hr 06/29/19 23:45 06/30/19 06:19 D5ns IV 125 mls/hr DIRECT SAHARA Administration Magnesium Oxide 400 mg 06/30/19 10:00 Mag-Ox PO QDAY SAHARA Metoclopramide HCl 10 mg 06/29/19 23:43 Reglan IV Q6H PRN Nausea And Vomiting Ondansetron HCl 4 mg 06/29/19 23:43 Zofran IV Q3H PRN Nausea And Vomiting Oxycodone HCl 30 mg 06/29/19 23:45 06/30/19 00:11 Oxycontin PO 30 mg BID SAHARA Administration Oxycodone/Acetaminophen 1 tab 06/29/19 23:43 06/30/19 01:31 Percocet 5/325 PO 1 tab Q6H PRN Administration Pain, Moderate (4-6) Sodium Chloride 10 ml 06/30/19 10:00 Sodium Chloride Flush Syringe 10 Ml IV BID SAHARA Sodium Chloride 10 ml 06/29/19 23:43 Sodium Chloride Flush Syringe 10 Ml IV PRN PRN LINE FLUSH
[2019-06-30] MEDS: MAGNESIUM OXIDE 400 MG TAB PO SCH (09:22)
[2019-06-30] MEDS: FOLIC ACID 1 MG TAB PO SCH (09:22)
[2019-06-30 09:38] LABS: Basophils % (Auto) 0.4 % (0.0-1.8); Eosinophils # (Auto) 0.7 K/mm3 (0.0-0.4); Eosinophils % (Auto) 7.2 % (0.0-4.3); Hematocrit 25.1 % (35.5-45.6); Hemoglobin 8.6 gm/dl (11.8-15.2); Lymphocytes # (Auto) 3.2 K/mm3 (1.2-5.4); Lymphocytes % (Auto) 33.8 % (13.4-35.0); Mean Corpuscular HGB Conc 34 % (32-34); Monocytes # (Auto) 1.3 K/mm3 (0.0-0.8); Monocytes % (Auto) 13.6 % (0.0-7.3); Platelet Count 200 K/mm3 (140-440); Red Blood Count 2.17 M/mm3 (3.65-5.03)
[2019-06-30 09:41] LABS: Mean Corpuscular Volume 116 fl (84-94); Red Cell Distribution Width 20.2 % (13.2-15.2)
[2019-06-30 09:58] LABS: Alanine Aminotransferase 8 units/L (7-56); Albumin 3.1 g/dL (3.9-5); BUN/Creatinine Ratio 18; Blood Urea Nitrogen 9 mg/dL (9-20); Calcium 7.8 mg/dL (8.4-10.2); Hemolysis Index 3
[2019-06-30] MEDS: levETIRAcetam 500 MG/5 ML ORAL LIQD PO SCH ×2 (12:47→21:53)
[2019-06-30] MEDS: ALPRAZolam 1 MG TAB PO PRN ×2 (13:19→22:26)
[2019-06-30] MEDS: PHENYTOIN 100 MG CAPSULE.ER PO SCH (21:53)
[2019-06-30] MEDS: AMITRIPTYLINE 25 MG TAB PO SCH (21:54)
[2019-06-30] MEDS ORDERED: AMITRIPTYLINE 50 MG PO SCH (22:00)
[2019-07-01] MEDS: HYDROmorphone 1 MG/1 ML INJ IV PRN ×8 (03:05→23:49)
[2019-07-01] MEDS: diphenhydrAMINE 50 MG/ML VIAL IV PRN ×8 (03:06→23:49)
[2019-07-01] MEDS: oxyCODONE /ACETAMINOPHEN 5-325MG TAB PO PRN (04:28)
[2019-07-01] MEDS: D5W/0.9% NACL 1,000 ML IV SCH ×3 (04:29→20:39)
[2019-07-01] MEDS: PHENYTOIN 100 MG CAPSULE.ER PO SCH ×3 (05:48→22:09)
[2019-07-01 07:40] LABS: Hematocrit 23.8 % (35.5-45.6); Hemoglobin 8.2 gm/dl (11.8-15.2); Mean Corpuscular HGB Conc 34 % (32-34); Mean Corpuscular Volume 115 fl (84-94); Platelet Count 198 K/mm3 (140-440); Red Blood Count 2.07 M/mm3 (3.65-5.03); Red Cell Distribution Width 19.4 % (13.2-15.2)
[2019-07-01 07:59] LABS: BUN/Creatinine Ratio 15; Blood Urea Nitrogen 6 mg/dL (9-20); Calcium 7.9 mg/dL (8.4-10.2); Hemolysis Index 5
[2019-07-01] MEDS: MAGNESIUM OXIDE 400 MG TAB PO SCH (09:50)
[2019-07-01] MEDS: FOLIC ACID 1 MG TAB PO SCH (09:50)
[2019-07-01] MEDS: oxyCODONE ER 10 MG TAB PO SCH ×2 (09:50→22:10)
[2019-07-01] MEDS: FAMOTIDINE 20 MG/2 ML INJ IV SCH (09:50)
[2019-07-01] MEDS: levETIRAcetam 500 MG/5 ML ORAL LIQD PO SCH ×2 (09:50→22:08)
[2019-07-01] MEDS: ALPRAZolam 1 MG TAB PO PRN ×2 (10:55→22:11)
--- NOTE | 2019-07-01 15:12 | Progress Note ---
Assessment and Plan Assessment and plan: Sickle cell pain crisis -Pain fairly controlled. -Percocet dose increase -Continue other narcotics -Continue IV fluid Hypokalemia -On repletion, will monitor level -We'll check mg level Sickle cell anemia -H&H stable Chronic Opioid dependant syndrome -Continue current narcotics Generalized anxiety disorder -Stable -On when necessary Xanax Seizure disorder -Stable -On Dilantin on Keppra -Seizure precautions DVT prophylaxis: Lovenox Disposition: For discharge when pain is controlled History Interval history: Patient stated that his pain is currently 8/10. He requested adjustment in his narcotics. Hospitalist Physical - Constitutional Vitals: Temp Pulse Resp BP Pulse Ox 97.8 F 82 18 97/49 95 07/01/19 11:47 07/01/19 11:47 07/01/19 11:47 07/01/19 11:47 07/01/19 11:47 General appearance: Present: no acute distress - EENT Eyes: Present: PERRL, EOM intact ENT: hearing intact, clear oral mucosa - Neck Neck: Present: supple - Respiratory Respiratory effort: normal Respiratory: bilateral: CTA - Cardiovascular Rhythm: regular Heart Sounds: Present: S1 & S2 - Extremities Extremities: No edema - Abdominal General gastrointestinal: soft, non-tender, non-distended, normal bowel sounds - Integumentary Integumentary: Present: warm, dry - Psychiatric Psychiatric: cooperative - Neurologic Neurologic: CNII-XII intact Results - Labs CBC & Chem 7: 07/01/19 05:15 07/01/19 05:15 Labs: Laboratory Last Values WBC 8.0 K/mm3 (4.5-11.0) 07/01/19 05:15 RBC 2.07 M/mm3 (3.65-5.03) L 07/01/19 05:15 Hgb 8.2 gm/dl (11.8-15.2) L 07/01/19 05:15 Hct 23.8 % (35.5-45.6) L 07/01/19 05:15 MCV 115 fl (84-94) H 07/01/19 05:15 MCH 40 pg (28-32) H 07/01/19 05:15 MCHC 34 % (32-34) 07/01/19 05:15 RDW 19.4 % (13.2-15.2) H 07/01/19 05:15 Plt Count 198 K/mm3 (140-440) 07/01/19 05:15 Lymph % (Auto) 33.8 % (13.4-35.0) 06/30/19 09:18 [place] % (Auto) 13.6 % (0.0-7.3) H 06/30/19 09:18 Eos % (Auto) 7.2 % (0.0-4.3) H 06/30/19 09:18 Baso % (Auto) 0.4 % (0.0-1.8) 06/30/19 09:18 Lymph # 3.2 K/mm3 (1.2-5.4) 06/30/19 09:18 [place] # 1.3 K/mm3 (0.0-0.8) H 06/30/19 09:18 Eos # 0.7 K/mm3 (0.0-0.4) H 06/30/19 09:18 Baso # 0.0 K/mm3 (0.0-0.1) 06/30/19 09:18 Add Manual Diff Complete 06/29/19 13:25 Total Counted 100 06/29/19 13:25 Seg Neutrophils % 45.0 % (40.0-70.0) 06/30/19 09:18 Seg Neuts % (Manual) 44.0 % (40.0-70.0) 06/29/19 13:25 Band Neutrophils % 0 % 06/29/19 13:25 Lymphocytes % (Manual) 41 % (13.4-35.0) H 06/29/19 13:25 Reactive Lymphs % (Man) 0 % 06/29/19 13:25 Monocytes % (Manual) 12 % (0.0-7.3) H 06/29/19 13:25 Eosinophils % (Manual) 3.0 % (0.0-4.3) 06/29/19 13:25 Basophils % (Manual) 0 % (0.0-1.8) 06/29/19 13:25 Metamyelocytes % 0 % 06/29/19 13:25 Myelocytes % 0 % 06/29/19 13:25 Promyelocytes % 0 % 06/29/19 13:25 Blast Cells % 0 % 06/29/19 13:25 Nucleated RBC % 2.0 % (0.0-0.9) H 06/29/19 13:25 Seg Neutrophils # 4.2 K/mm3 (1.8-7.7) 06/30/19 09:18 Seg Neutrophils # Man 3.0 K/mm3 (1.8-7.7) 06/29/19 13:25 Band Neutrophils # 0.0 K/mm3 06/29/19 13:25 Lymphocytes # (Manual) 2.8 K/mm3 (1.2-5.4) 06/29/19 13:25 Abs React Lymphs (Man) 0.0 K/mm3 06/29/19 13:25 Monocytes # (Manual) 0.8 K/mm3 (0.0-0.8) 06/29/19 13:25 Eosinophils # (Manual) 0.2 K/mm3 (0.0-0.4) 06/29/19 13:25 Basophils # (Manual) 0.0 K/mm3 (0.0-0.1) 06/29/19 13:25 Metamyelocytes # 0.0 K/mm3 06/29/19 13:25 Myelocytes # 0.0 K/mm3 06/29/19 13:25 Promyelocytes # 0.0 K/mm3 06/29/19 13:25 Blast Cells # 0.0 K/mm3 06/29/19 13:25 WBC Morphology Not Reportable 06/29/19 13:25 Hypersegmented Neuts Not Reportable 06/29/19 13:25 Hyposegmented Neuts Not Reportable 06/29/19 13:25 Hypogranular Neuts Not Reportable 06/29/19 13:25 Smudge Cells Not Reportable 06/29/19 13:25 Toxic Granulation Not Reportable 06/29/19 13:25 Toxic Vacuolation Not Reportable 06/29/19 13:25 Dohle Bodies Not Reportable 06/29/19 13:25 Pelger-Huet Anomaly Not Reportable 06/29/19 13:25 Steve Rods Not Reportable 06/29/19 13:25 Platelet Estimate Not Reportable 06/29/19 13:25 Clumped Platelets Not Reportable 06/29/19 13:25 Plt Clumps, EDTA Not Reportable 06/29/19 13:25 Large Platelets Not Reportable 06/29/19 13:25 Giant Platelets Not Reportable 06/29/19 13:25 Platelet Satelliting Not Reportable 06/29/19 13:25 Plt Morphology Comment Not Reportable 06/29/19 13:25 RBC Morphology Not Reportable 06/29/19 13:25 Dimorphic RBCs Not Reportable 06/29/19 13:25 Polychromasia 1+ 06/29/19 13:25 Hypochromasia Not Reportable 06/29/19 13:25 Poikilocytosis Not Reportable 06/29/19 13:25 Anisocytosis 1+ 06/29/19 13:25 Microcytosis Not Reportable 06/29/19 13:25 Macrocytosis 1+ 06/29/19 13:25 Spherocytes Not Reportable 06/29/19 13:25 Pappenheimer Bodies Not Reportable 06/29/19 13:25 Sickle Cells Not Reportable 06/29/19 13:25 Target Cells 1+ 06/29/19 13:25 Tear Drop Cells Not Reportable 06/29/19 13:25 Ovalocytes Not Reportable 06/29/19 13:25 Helmet Cells Not Reportable 06/29/19 13:25 Gran[place] Bodies Not Reportable 06/29/19 13:25 [place] Rings Not Reportable 06/29/19 13:25 [place] Cells Not Reportable 06/29/19 13:25 Bite Cells Not Reportable 06/29/19 13:25 Crenated Cell Not Reportable 06/29/19 13:25 Elliptocytes 1+ 06/29/19 13:25 Acanthocytes (Spur) Not Reportable 06/29/19 13:25 Rouleaux Not Reportable 06/29/19 13:25 Hemoglobin C Crystals Not Reportable 06/29/19 13:25 Schistocytes Not Reportable 06/29/19 13:25 Malaria parasites Not Reportable 06/29/19 13:25 Percent Retic 8.52 % (0.78-2.58) H 06/29/19 13:25 Laurent Bodies Not Reportable 06/29/19 13:25 Hem Pathologist Commnt No 06/29/19 13:25 Sodium 141 mmol/L (137-145) 07/01/19 05:15 Potassium 3.4 mmol/L (3.6-5.0) L 07/01/19 05:15 Chloride 106.0 mmol/L (98-107) 07/01/19 05:15 Carbon Dioxide 24 mmol/L (22-30) 07/01/19 05:15 Anion Gap 14 mmol/L 07/01/19 05:15 BUN 6 mg/dL (9-20) L 07/01/19 05:15 Creatinine 0.4 mg/dL (0.8-1.5) L 07/01/19 05:15 Estimated GFR > 60 ml/min 07/01/19 05:15 BUN/Creatinine Ratio 15 % 07/01/19 05:15 Glucose 113 mg/dL (75-100) H 07/01/19 05:15 Hemoglobin A1c 5.0 % (4-6) 06/29/19 00:14 Calcium 7.9 mg/dL (8.4-10.2) L 07/01/19 05:15 Total Bilirubin 1.60 mg/dL (0.1-1.2) H 06/30/19 09:18 AST 15 units/L (5-40) 06/30/19 09:18 ALT 8 units/L (7-56) 06/30/19 09:18 Alkaline Phosphatase 76 units/L (35-129) 06/30/19 09:18 Total Protein 7.4 g/dL (6.3-8.2) 06/30/19 09:18 Albumin 3.1 g/dL (3.9-5) L 06/30/19 09:18 Albumin/Globulin Ratio 0.7 % 06/30/19 09:18 Urine Color Yellow (Yellow) 06/29/19 03:00 Urine Turbidity Clear (Clear) 06/29/19 03:00 Urine pH 7.0 (5.0-7.0) 06/29/19 03:00 Ur Specific [place] 1.008 (1.003-1.030) 06/29/19 03:00 Urine Protein <15 mg/dl mg/dL (Negative) 06/29/19 03:00 Urine Glucose (UA) Neg mg/dL (Negative) 06/29/19 03:00 Urine Ketones Neg mg/dL (Negative) 06/29/19 03:00 Urine Blood Neg (Negative) 06/29/19 03:00 Urine Nitrite Neg (Negative) 06/29/19 03:00 Urine Bilirubin Neg (Negative) 06/29/19 03:00 Urine Urobilinogen < 2.0 mg/dL (<2.0) 06/29/19 03:00 Ur Leukocyte Esterase Neg (Negative) 06/29/19 03:00 Urine WBC (Auto) < 1.0 /HPF (0.0-6.0) 06/29/19 03:00 Urine RBC (Auto) < 1.0 /HPF (0.0-6.0) 06/29/19 03:00 Active Medications - Current Medications Current Medications: Generic Name Dose Route Start Last Admin Trade Name Freq PRN Reason Stop Dose Admin Acetaminophen 650 mg 06/29/19 23:43 Tylenol PO Q4H PRN Pain MILD(1-3)/Fever >100.5/BENAVIDEZ Alprazolam 2 mg 06/29/19 23:49 07/01/19 10:55 Xanax PO 2 mg BID PRN Administration Anxiety Amitriptyline HCl 50 mg 06/30/19 22:00 06/30/19 21:54 Elavil PO 50 mg QHS SAHARA Administration Diphenhydramine HCl 25 mg 06/30/19 01:18 07/01/19 14:30 Benadryl IV 25 mg Q3H PRN Administration Itching Famotidine 20 mg 06/29/19 23:45 07/01/19 09:50 Pepcid IV 20 mg BID SAHARA Administration Folic Acid 1 mg 06/30/19 10:00 07/01/19 09:50 Folvite PO 1 mg QDAY SAHARA Administration Hydromorphone HCl 1 mg 06/29/19 23:43 07/01/19 14:29 Dilaudid IV 1 mg Q3H PRN Administration Pain , Severe (7-10) Dextrose/Sodium Chloride 1,000 mls @ 150 mls/hr 06/29/19 23:45 07/01/19 13:29 D5ns IV 125 mls/hr DIRECT SAHARA Administration Levetiracetam 750 mg 06/30/19 11:00 07/01/19 09:50 Keppra PO 750 mg BID SAHARA Administration Magnesium Oxide 400 mg 06/30/19 10:00 07/01/19 09:50 Mag-Ox PO 400 mg QDAY SHAARA Administration Metoclopramide HCl 10 mg 06/29/19 23:43 Reglan IV Q6H PRN Nausea And Vomiting Ondansetron HCl 4 mg 06/29/19 23:43 Zofran IV Q3H PRN Nausea And Vomiting Oxycodone HCl 30 mg 06/29/19 23:45 07/01/19 09:50 Oxycontin PO 30 mg BID SAHARA Administration Oxycodone HCl 5 mg 07/01/19 10:52 Roxicodone PO Q4H PRN Pain, Moderate (4-6) Oxycodone/Acetaminophen 1 tab 07/01/19 10:51 Percocet 5/325 PO Q4H PRN Pain, Moderate (4-6) Phenytoin 100 mg 06/30/19 22:00 07/01/19 13:29 Dilantin PO 100 mg Q8HR SAHARA Administration Sodium Chloride 10 ml 06/30/19 10:00 07/01/19 09:51 Sodium Chloride Flush Syringe 10 Ml IV 10 ml BID SAHARA Administration Sodium Chloride 10 ml 06/29/19 23:43 Sodium Chloride Flush Syringe 10 Ml IV PRN PRN LINE FLUSH
[2019-07-01] MEDS ORDERED: ENOXAPARIN 60 MG/0.6 ML INJ SUB-Q SCH (16:00)
[2019-07-01] MEDS: POTASSIUM CHLORIDE ER 20 MEQ TAB PO SCH (16:09)
[2019-07-01] MEDS: AMITRIPTYLINE 25 MG TAB PO SCH (22:09)
[2019-07-02] MEDS: HYDROmorphone 1 MG/1 ML INJ IV PRN ×7 (02:48→23:03)
[2019-07-02] MEDS: diphenhydrAMINE 50 MG/ML VIAL IV PRN ×7 (02:49→23:02)
[2019-07-02] MEDS: D5W/0.9% NACL 1,000 ML IV SCH ×4 (02:50→20:17)
[2019-07-02] MEDS: oxyCODONE 5 MG TAB PO PRN ×2 (04:48→16:27)
[2019-07-02] MEDS: oxyCODONE /ACETAMINOPHEN 5-325MG TAB PO PRN (04:49)
[2019-07-02 05:19] LABS: BUN/Creatinine Ratio 15; Blood Urea Nitrogen 6 mg/dL (9-20); Calcium 7.7 mg/dL (8.4-10.2); Hemolysis Index 1
[2019-07-02] MEDS: PHENYTOIN 100 MG CAPSULE.ER PO SCH ×3 (06:23→22:56)
[2019-07-02] MEDS: POTASSIUM CHLORIDE ER 20 MEQ TAB PO SCH (09:27)
[2019-07-02] MEDS: FOLIC ACID 1 MG TAB PO SCH (09:28)
[2019-07-02] MEDS: levETIRAcetam 500 MG/5 ML ORAL LIQD PO SCH ×2 (09:29→22:55)
[2019-07-02] MEDS: ENOXAPARIN 40 MG/0.4 ML INJ SUB-Q SCH (10:01)
[2019-07-02] MEDS: ALPRAZolam 1 MG TAB PO PRN (10:03)
[2019-07-02] MEDS: oxyCODONE ER 10 MG TAB PO SCH (10:08)
[2019-07-02] MEDS: MAGNESIUM OXIDE 400 MG TAB PO SCH (10:09)
--- NOTE | 2019-07-02 13:31 | Progress Note ---
Assessment and Plan Assessment and plan: Sickle cell pain crisis -Pain down to 02/05 -We will change PRN IV dilaudid to 2 mg every 3 hours -We'll continue other narcotics and IV fluid Hypokalemia -Improving on repletion, will monitor level Sickle cell anemia -H&H stable Chronic Opioid dependant syndrome -Continue current narcotics Generalized anxiety disorder -Stable -On when necessary Xanax Seizure disorder -Stable -On Dilantin and Keppra -Seizure precautions DVT prophylaxis: Lovenox Disposition: For discharge when pain is well controlled History Interval history: Patient stated that he usually gets 2 mg of Dilaudid every 3 hours when he's admitted to the hospital. He is currently down to 02/05 Hospitalist Physical - Constitutional Vitals: Temp Pulse Resp BP Pulse Ox 98.5 F 81 16 103/65 95 07/02/19 12:02 07/02/19 12:02 07/02/19 12:02 07/02/19 12:02 07/02/19 12:02 General appearance: Present: no acute distress - EENT Eyes: Present: PERRL, EOM intact ENT: hearing intact, clear oral mucosa - Neck Neck: Present: supple - Respiratory Respiratory effort: normal Respiratory: bilateral: CTA - Cardiovascular Rhythm: regular Heart Sounds: Present: S1 & S2 - Extremities Extremities: No edema - Abdominal General gastrointestinal: soft, non-tender, non-distended, normal bowel sounds - Integumentary Integumentary: Present: warm, dry - Psychiatric Psychiatric: cooperative - Neurologic Neurologic: CNII-XII intact Results - Labs CBC & Chem 7: 07/01/19 05:15 07/02/19 04:35 Labs: Laboratory Last Values WBC 8.0 K/mm3 (4.5-11.0) 07/01/19 05:15 RBC 2.07 M/mm3 (3.65-5.03) L 07/01/19 05:15 Hgb 8.2 gm/dl (11.8-15.2) L 07/01/19 05:15 Hct 23.8 % (35.5-45.6) L 07/01/19 05:15 MCV 115 fl (84-94) H 07/01/19 05:15 MCH 40 pg (28-32) H 07/01/19 05:15 MCHC 34 % (32-34) 07/01/19 05:15 RDW 19.4 % (13.2-15.2) H 07/01/19 05:15 Plt Count 198 K/mm3 (140-440) 07/01/19 05:15 Lymph % (Auto) 33.8 % (13.4-35.0) 06/30/19 09:18 [place] % (Auto) 13.6 % (0.0-7.3) H 06/30/19 09:18 Eos % (Auto) 7.2 % (0.0-4.3) H 06/30/19 09:18 Baso % (Auto) 0.4 % (0.0-1.8) 06/30/19 09:18 Lymph # 3.2 K/mm3 (1.2-5.4) 06/30/19 09:18 [place] # 1.3 K/mm3 (0.0-0.8) H 06/30/19 09:18 Eos # 0.7 K/mm3 (0.0-0.4) H 06/30/19 09:18 Baso # 0.0 K/mm3 (0.0-0.1) 06/30/19 09:18 Add Manual Diff Complete 06/29/19 13:25 Total Counted 100 06/29/19 13:25 Seg Neutrophils % 45.0 % (40.0-70.0) 06/30/19 09:18 Seg Neuts % (Manual) 44.0 % (40.0-70.0) 06/29/19 13:25 Band Neutrophils % 0 % 06/29/19 13:25 Lymphocytes % (Manual) 41 % (13.4-35.0) H 06/29/19 13:25 Reactive Lymphs % (Man) 0 % 06/29/19 13:25 Monocytes % (Manual) 12 % (0.0-7.3) H 06/29/19 13:25 Eosinophils % (Manual) 3.0 % (0.0-4.3) 06/29/19 13:25 Basophils % (Manual) 0 % (0.0-1.8) 06/29/19 13:25 Metamyelocytes % 0 % 06/29/19 13:25 Myelocytes % 0 % 06/29/19 13:25 Promyelocytes % 0 % 06/29/19 13:25 Blast Cells % 0 % 06/29/19 13:25 Nucleated RBC % 2.0 % (0.0-0.9) H 06/29/19 13:25 Seg Neutrophils # 4.2 K/mm3 (1.8-7.7) 06/30/19 09:18 Seg Neutrophils # Man 3.0 K/mm3 (1.8-7.7) 06/29/19 13:25 Band Neutrophils # 0.0 K/mm3 06/29/19 13:25 Lymphocytes # (Manual) 2.8 K/mm3 (1.2-5.4) 06/29/19 13:25 Abs React Lymphs (Man) 0.0 K/mm3 06/29/19 13:25 Monocytes # (Manual) 0.8 K/mm3 (0.0-0.8) 06/29/19 13:25 Eosinophils # (Manual) 0.2 K/mm3 (0.0-0.4) 06/29/19 13:25 Basophils # (Manual) 0.0 K/mm3 (0.0-0.1) 06/29/19 13:25 Metamyelocytes # 0.0 K/mm3 06/29/19 13:25 Myelocytes # 0.0 K/mm3 06/29/19 13:25 Promyelocytes # 0.0 K/mm3 06/29/19 13:25 Blast Cells # 0.0 K/mm3 06/29/19 13:25 WBC Morphology Not Reportable 06/29/19 13:25 Hypersegmented Neuts Not Reportable 06/29/19 13:25 Hyposegmented Neuts Not Reportable 06/29/19 13:25 Hypogranular Neuts Not Reportable 06/29/19 13:25 Smudge Cells Not Reportable 06/29/19 13:25 Toxic Granulation Not Reportable 06/29/19 13:25 Toxic Vacuolation Not Reportable 06/29/19 13:25 Dohle Bodies Not Reportable 06/29/19 13:25 Pelger-Huet Anomaly Not Reportable 06/29/19 13:25 Steve Rods Not Reportable 06/29/19 13:25 Platelet Estimate Not Reportable 06/29/19 13:25 Clumped Platelets Not Reportable 06/29/19 13:25 Plt Clumps, EDTA Not Reportable 06/29/19 13:25 Large Platelets Not Reportable 06/29/19 13:25 Giant Platelets Not Reportable 06/29/19 13:25 Platelet Satelliting Not Reportable 06/29/19 13:25 Plt Morphology Comment Not Reportable 06/29/19 13:25 RBC Morphology Not Reportable 06/29/19 13:25 Dimorphic RBCs Not Reportable 06/29/19 13:25 Polychromasia 1+ 06/29/19 13:25 Hypochromasia Not Reportable 06/29/19 13:25 Poikilocytosis Not Reportable 06/29/19 13:25 Anisocytosis 1+ 06/29/19 13:25 Microcytosis Not Reportable 06/29/19 13:25 Macrocytosis 1+ 06/29/19 13:25 Spherocytes Not Reportable 06/29/19 13:25 Pappenheimer Bodies Not Reportable 06/29/19 13:25 Sickle Cells Not Reportable 06/29/19 13:25 Target Cells 1+ 06/29/19 13:25 Tear Drop Cells Not Reportable 06/29/19 13:25 Ovalocytes Not Reportable 06/29/19 13:25 Helmet Cells Not Reportable 06/29/19 13:25 Granado-Diagonal Bodies Not Reportable 06/29/19 13:25 [place] Rings Not Reportable 06/29/19 13:25 [place] Cells Not Reportable 06/29/19 13:25 Bite Cells Not Reportable 06/29/19 13:25 Crenated Cell Not Reportable 06/29/19 13:25 Elliptocytes 1+ 06/29/19 13:25 Acanthocytes (Spur) Not Reportable 06/29/19 13:25 Rouleaux Not Reportable 06/29/19 13:25 Hemoglobin C Crystals Not Reportable 06/29/19 13:25 Schistocytes Not Reportable 06/29/19 13:25 Malaria parasites Not Reportable 06/29/19 13:25 Percent Retic 8.52 % (0.78-2.58) H 06/29/19 13:25 Laurent Bodies Not Reportable 06/29/19 13:25 Hem Pathologist Commnt No 06/29/19 13:25 Sodium 138 mmol/L (137-145) 07/02/19 04:35 Potassium 3.8 mmol/L (3.6-5.0) 07/02/19 04:35 Chloride 106.8 mmol/L (98-107) 07/02/19 04:35 Carbon Dioxide 26 mmol/L (22-30) 07/02/19 04:35 Anion Gap 9 mmol/L 07/02/19 04:35 BUN 6 mg/dL (9-20) L 07/02/19 04:35 Creatinine 0.4 mg/dL (0.8-1.5) L 07/02/19 04:35 Estimated GFR > 60 ml/min 07/02/19 04:35 BUN/Creatinine Ratio 15 % 07/02/19 04:35 Glucose 103 mg/dL (75-100) H 07/02/19 04:35 Hemoglobin A1c 5.0 % (4-6) 06/29/19 00:14 Calcium 7.7 mg/dL (8.4-10.2) L 07/02/19 04:35 Magnesium 1.80 mg/dL (1.7-2.3) 07/02/19 04:35 Total Bilirubin 1.60 mg/dL (0.1-1.2) H 06/30/19 09:18 AST 15 units/L (5-40) 06/30/19 09:18 ALT 8 units/L (7-56) 06/30/19 09:18 Alkaline Phosphatase 76 units/L (35-129) 06/30/19 09:18 Total Protein 7.4 g/dL (6.3-8.2) 06/30/19 09:18 Albumin 3.1 g/dL (3.9-5) L 06/30/19 09:18 Albumin/Globulin Ratio 0.7 % 06/30/19 09:18 Urine Color Yellow (Yellow) 06/29/19 03:00 Urine Turbidity Clear (Clear) 06/29/19 03:00 Urine pH 7.0 (5.0-7.0) 06/29/19 03:00 Ur Specific [place] 1.008 (1.003-1.030) 06/29/19 03:00 Urine Protein <15 mg/dl mg/dL (Negative) 06/29/19 03:00 Urine Glucose (UA) Neg mg/dL (Negative) 06/29/19 03:00 Urine Ketones Neg mg/dL (Negative) 06/29/19 03:00 Urine Blood Neg (Negative) 06/29/19 03:00 Urine Nitrite Neg (Negative) 06/29/19 03:00 Urine Bilirubin Neg (Negative) 06/29/19 03:00 Urine Urobilinogen < 2.0 mg/dL (<2.0) 06/29/19 03:00 Ur Leukocyte Esterase Neg (Negative) 06/29/19 03:00 Urine WBC (Auto) < 1.0 /HPF (0.0-6.0) 06/29/19 03:00 Urine RBC (Auto) < 1.0 /HPF (0.0-6.0) 06/29/19 03:00 Active Medications - Current Medications Current Medications: Generic Name Dose Route Start Last Admin Trade Name Freq PRN Reason Stop Dose Admin Acetaminophen 650 mg 06/29/19 23:43 Tylenol PO Q4H PRN Pain MILD(1-3)/Fever >100.5/BENAVIDEZ Alprazolam 2 mg 06/29/19 23:49 07/02/19 10:03 Xanax PO 2 mg BID PRN Administration Anxiety Amitriptyline HCl 50 mg 06/30/19 22:00 07/01/19 22:09 Elavil PO 50 mg QHS SAHARA Administration Diphenhydramine HCl 25 mg 06/30/19 01:18 07/02/19 11:56 Benadryl IV 25 mg Q3H PRN Administration Itching Enoxaparin Sodium 40 mg 07/02/19 10:00 07/02/19 10:01 Enoxaparin SUB-Q 40 mg QDAY@1000 SAHARA Administration Folic Acid 1 mg 06/30/19 10:00 07/02/19 09:28 Folvite PO 1 mg QDAY SAHARA Administration Hydromorphone HCl 2 mg 07/02/19 12:10 Dilaudid IV Q3H PRN Pain , Severe (7-10) Dextrose/Sodium Chloride 1,000 mls @ 150 mls/hr 06/29/19 23:45 07/02/19 10:04 D5ns IV 125 mls/hr DIRECT SAHARA Administration Levetiracetam 750 mg 06/30/19 11:00 07/02/19 09:29 Keppra PO 750 mg BID SAHARA Administration Magnesium Oxide 400 mg 06/30/19 10:00 07/02/19 10:09 Mag-Ox PO 400 mg QDAY SAHARA Administration Metoclopramide HCl 10 mg 06/29/19 23:43 Reglan IV Q6H PRN Nausea And Vomiting Ondansetron HCl 4 mg 06/29/19 23:43 Zofran IV Q3H PRN Nausea And Vomiting Oxycodone HCl 30 mg 06/29/19 23:45 07/02/19 10:08 Oxycontin PO 30 mg BID SAHARA Administration Oxycodone HCl 5 mg 07/01/19 10:52 07/02/19 04:48 Roxicodone PO 5 mg Q4H PRN Administration Pain, Moderate (4-6) Oxycodone/Acetaminophen 1 tab 07/01/19 10:51 07/02/19 04:49 Percocet 5/325 PO 1 tab Q4H PRN Administration Pain, Moderate (4-6) Phenytoin 100 mg 06/30/19 22:00 07/02/19 06:23 Dilantin PO 100 mg Q8HR SAHARA Administration Potassium Chloride 40 meq 07/01/19 16:00 07/02/19 09:27 K-[place] PO 07/03/19 10:01 40 meq QDAY SAHARA Administration Sodium Chloride 10 ml 06/30/19 10:00 07/02/19 10:08 Sodium Chloride Flush Syringe 10 Ml IV 10 ml BID SAHARA Administration Sodium Chloride 10 ml 06/29/19 23:43 Sodium Chloride Flush Syringe 10 Ml IV PRN PRN LINE FLUSH
[2019-07-03] MEDS: AMITRIPTYLINE 25 MG TAB PO SCH ×2 (00:29→22:43)
[2019-07-03] MEDS: oxyCODONE ER 10 MG TAB PO SCH ×3 (00:30→22:45)
[2019-07-03] MEDS: diphenhydrAMINE 50 MG/ML VIAL IV PRN ×5 (04:13→20:15)
[2019-07-03] MEDS: HYDROmorphone 1 MG/1 ML INJ IV PRN ×5 (04:14→20:14)
[2019-07-03 04:54] LABS: BUN/Creatinine Ratio 18; Blood Urea Nitrogen 7 mg/dL (9-20); Calcium 7.9 mg/dL (8.4-10.2)
[2019-07-03 04:55] LABS: Hemolysis Index 4
[2019-07-03] MEDS: D5W/0.9% NACL 1,000 ML IV SCH ×2 (06:18→12:53)
[2019-07-03] MEDS: ALPRAZolam 1 MG TAB PO PRN (06:28)
[2019-07-03] MEDS: PHENYTOIN 100 MG CAPSULE.ER PO SCH ×3 (06:28→22:31)
[2019-07-03] MEDS: oxyCODONE /ACETAMINOPHEN 5-325MG TAB PO PRN ×2 (06:28→15:55)
[2019-07-03] MEDS: oxyCODONE 5 MG TAB PO PRN ×2 (06:29→15:55)
[2019-07-03] MEDS: ENOXAPARIN 40 MG/0.4 ML INJ SUB-Q SCH (10:20)
[2019-07-03] MEDS: MAGNESIUM OXIDE 400 MG TAB PO SCH (10:21)
[2019-07-03] MEDS: FOLIC ACID 1 MG TAB PO SCH (10:21)
[2019-07-03] MEDS: levETIRAcetam 500 MG/5 ML ORAL LIQD PO SCH ×2 (10:21→22:44)
[2019-07-03] MEDS: POTASSIUM CHLORIDE ER 20 MEQ TAB PO SCH (10:21)
--- NOTE | 2019-07-03 15:22 | Progress Note ---
Assessment and Plan Assessment and plan: Sickle cell pain crisis -Pain down to 6/10 -We will continue current narcotics -Will DC IV fluid Hypokalemia -Resolved Sickle cell anemia -H&H stable Chronic Opioid dependant syndrome -Continue current narcotics Generalized anxiety disorder -Stable -On when necessary Xanax Seizure disorder -Stable -On Dilantin and Keppra -Seizure precautions DVT prophylaxis: Lovenox Disposition: For possible discharge in a.m. if pain control continues to improve History Interval history: Pt reports that his pain is down to 6/10. Hospitalist Physical - Constitutional Vitals: Temp Pulse Resp BP Pulse Ox 98.1 F 89 18 105/57 92 07/03/19 04:40 07/03/19 04:16 07/03/19 06:29 07/03/19 04:40 07/02/19 21:50 General appearance: Present: no acute distress - EENT Eyes: Present: PERRL, EOM intact ENT: hearing intact, clear oral mucosa - Neck Neck: Present: supple - Respiratory Respiratory effort: normal Respiratory: bilateral: CTA - Cardiovascular Rhythm: regular Heart Sounds: Present: S1 & S2 - Extremities Extremities: No edema - Abdominal General gastrointestinal: soft, non-tender, normal bowel sounds - Integumentary Integumentary: Present: warm, dry - Psychiatric Psychiatric: cooperative - Neurologic Neurologic: CNII-XII intact Results - Labs CBC & Chem 7: 07/01/19 05:15 07/03/19 04:20 Labs: Laboratory Last Values WBC 8.0 K/mm3 (4.5-11.0) 07/01/19 05:15 RBC 2.07 M/mm3 (3.65-5.03) L 07/01/19 05:15 Hgb 8.2 gm/dl (11.8-15.2) L 07/01/19 05:15 Hct 23.8 % (35.5-45.6) L 07/01/19 05:15 MCV 115 fl (84-94) H 07/01/19 05:15 MCH 40 pg (28-32) H 07/01/19 05:15 MCHC 34 % (32-34) 07/01/19 05:15 RDW 19.4 % (13.2-15.2) H 07/01/19 05:15 Plt Count 198 K/mm3 (140-440) 07/01/19 05:15 Lymph % (Auto) 33.8 % (13.4-35.0) 06/30/19 09:18 [place] % (Auto) 13.6 % (0.0-7.3) H 06/30/19 09:18 Eos % (Auto) 7.2 % (0.0-4.3) H 06/30/19 09:18 Baso % (Auto) 0.4 % (0.0-1.8) 06/30/19 09:18 Lymph # 3.2 K/mm3 (1.2-5.4) 06/30/19 09:18 [place] # 1.3 K/mm3 (0.0-0.8) H 06/30/19 09:18 Eos # 0.7 K/mm3 (0.0-0.4) H 06/30/19 09:18 Baso # 0.0 K/mm3 (0.0-0.1) 06/30/19 09:18 Add Manual Diff Complete 06/29/19 13:25 Total Counted 100 06/29/19 13:25 Seg Neutrophils % 45.0 % (40.0-70.0) 06/30/19 09:18 Seg Neuts % (Manual) 44.0 % (40.0-70.0) 06/29/19 13:25 Band Neutrophils % 0 % 06/29/19 13:25 Lymphocytes % (Manual) 41 % (13.4-35.0) H 06/29/19 13:25 Reactive Lymphs % (Man) 0 % 06/29/19 13:25 Monocytes % (Manual) 12 % (0.0-7.3) H 06/29/19 13:25 Eosinophils % (Manual) 3.0 % (0.0-4.3) 06/29/19 13:25 Basophils % (Manual) 0 % (0.0-1.8) 06/29/19 13:25 Metamyelocytes % 0 % 06/29/19 13:25 Myelocytes % 0 % 06/29/19 13:25 Promyelocytes % 0 % 06/29/19 13:25 Blast Cells % 0 % 06/29/19 13:25 Nucleated RBC % 2.0 % (0.0-0.9) H 06/29/19 13:25 Seg Neutrophils # 4.2 K/mm3 (1.8-7.7) 06/30/19 09:18 Seg Neutrophils # Man 3.0 K/mm3 (1.8-7.7) 06/29/19 13:25 Band Neutrophils # 0.0 K/mm3 06/29/19 13:25 Lymphocytes # (Manual) 2.8 K/mm3 (1.2-5.4) 06/29/19 13:25 Abs React Lymphs (Man) 0.0 K/mm3 06/29/19 13:25 Monocytes # (Manual) 0.8 K/mm3 (0.0-0.8) 06/29/19 13:25 Eosinophils # (Manual) 0.2 K/mm3 (0.0-0.4) 06/29/19 13:25 Basophils # (Manual) 0.0 K/mm3 (0.0-0.1) 06/29/19 13:25 Metamyelocytes # 0.0 K/mm3 06/29/19 13:25 Myelocytes # 0.0 K/mm3 06/29/19 13:25 Promyelocytes # 0.0 K/mm3 06/29/19 13:25 Blast Cells # 0.0 K/mm3 06/29/19 13:25 WBC Morphology Not Reportable 06/29/19 13:25 Hypersegmented Neuts Not Reportable 06/29/19 13:25 Hyposegmented Neuts Not Reportable 06/29/19 13:25 Hypogranular Neuts Not Reportable 06/29/19 13:25 Smudge Cells Not Reportable 06/29/19 13:25 Toxic Granulation Not Reportable 06/29/19 13:25 Toxic Vacuolation Not Reportable 06/29/19 13:25 Dohle Bodies Not Reportable 06/29/19 13:25 Pelger-Huet Anomaly Not Reportable 06/29/19 13:25 Steve Rods Not Reportable 06/29/19 13:25 Platelet Estimate Not Reportable 06/29/19 13:25 Clumped Platelets Not Reportable 06/29/19 13:25 Plt Clumps, EDTA Not Reportable 06/29/19 13:25 Large Platelets Not Reportable 06/29/19 13:25 Giant Platelets Not Reportable 06/29/19 13:25 Platelet Satelliting Not Reportable 06/29/19 13:25 Plt Morphology Comment Not Reportable 06/29/19 13:25 RBC Morphology Not Reportable 06/29/19 13:25 Dimorphic RBCs Not Reportable 06/29/19 13:25 Polychromasia 1+ 06/29/19 13:25 Hypochromasia Not Reportable 06/29/19 13:25 Poikilocytosis Not Reportable 06/29/19 13:25 Anisocytosis 1+ 06/29/19 13:25 Microcytosis Not Reportable 06/29/19 13:25 Macrocytosis 1+ 06/29/19 13:25 Spherocytes Not Reportable 06/29/19 13:25 Pappenheimer Bodies Not Reportable 06/29/19 13:25 Sickle Cells Not Reportable 06/29/19 13:25 Target Cells 1+ 06/29/19 13:25 Tear Drop Cells Not Reportable 06/29/19 13:25 Ovalocytes Not Reportable 06/29/19 13:25 Helmet Cells Not Reportable 06/29/19 13:25 Granado-[place] Bodies Not Reportable 06/29/19 13:25 [place] Rings Not Reportable 06/29/19 13:25 [place] Cells Not Reportable 06/29/19 13:25 Bite Cells Not Reportable 06/29/19 13:25 Crenated Cell Not Reportable 06/29/19 13:25 Elliptocytes 1+ 06/29/19 13:25 Acanthocytes (Spur) Not Reportable 06/29/19 13:25 Rouleaux Not Reportable 06/29/19 13:25 Hemoglobin C Crystals Not Reportable 06/29/19 13:25 Schistocytes Not Reportable 06/29/19 13:25 Malaria parasites Not Reportable 06/29/19 13:25 Percent Retic 7.67 % (0.78-2.58) H 07/03/19 04:20 Laurent Bodies Not Reportable 06/29/19 13:25 Hem Pathologist Commnt No 06/29/19 13:25 Sodium 141 mmol/L (137-145) 07/03/19 04:20 Potassium 3.8 mmol/L (3.6-5.0) 07/03/19 04:20 Chloride 110.0 mmol/L (98-107) H 07/03/19 04:20 Carbon Dioxide 26 mmol/L (22-30) 07/03/19 04:20 Anion Gap 9 mmol/L 07/03/19 04:20 BUN 7 mg/dL (9-20) L 07/03/19 04:20 Creatinine 0.4 mg/dL (0.8-1.5) L 07/03/19 04:20 Estimated GFR > 60 ml/min 07/03/19 04:20 BUN/Creatinine Ratio 18 % 07/03/19 04:20 Glucose 104 mg/dL (75-100) H 07/03/19 04:20 Hemoglobin A1c 5.0 % (4-6) 06/29/19 00:14 Calcium 7.9 mg/dL (8.4-10.2) L 07/03/19 04:20 Magnesium 1.80 mg/dL (1.7-2.3) 07/02/19 04:35 Total Bilirubin 1.60 mg/dL (0.1-1.2) H 06/30/19 09:18 AST 15 units/L (5-40) 06/30/19 09:18 ALT 8 units/L (7-56) 06/30/19 09:18 Alkaline Phosphatase 76 units/L (35-129) 06/30/19 09:18 Total Protein 7.4 g/dL (6.3-8.2) 06/30/19 09:18 Albumin 3.1 g/dL (3.9-5) L 06/30/19 09:18 Albumin/Globulin Ratio 0.7 % 06/30/19 09:18 Urine Color Yellow (Yellow) 06/29/19 03:00 Urine Turbidity Clear (Clear) 06/29/19 03:00 Urine pH 7.0 (5.0-7.0) 06/29/19 03:00 Ur Specific [place] 1.008 (1.003-1.030) 06/29/19 03:00 Urine Protein <15 mg/dl mg/dL (Negative) 06/29/19 03:00 Urine Glucose (UA) Neg mg/dL (Negative) 06/29/19 03:00 Urine Ketones Neg mg/dL (Negative) 06/29/19 03:00 Urine Blood Neg (Negative) 06/29/19 03:00 Urine Nitrite Neg (Negative) 06/29/19 03:00 Urine Bilirubin Neg (Negative) 06/29/19 03:00 Urine Urobilinogen < 2.0 mg/dL (<2.0) 06/29/19 03:00 Ur Leukocyte Esterase Neg (Negative) 06/29/19 03:00 Urine WBC (Auto) < 1.0 /HPF (0.0-6.0) 06/29/19 03:00 Urine RBC (Auto) < 1.0 /HPF (0.0-6.0) 06/29/19 03:00 Active Medications - Current Medications Current Medications: Generic Name Dose Route Start Last Admin Trade Name Freq PRN Reason Stop Dose Admin Acetaminophen 650 mg 06/29/19 23:43 Tylenol PO Q4H PRN Pain MILD(1-3)/Fever >100.5/BENAVIDEZ Alprazolam 2 mg 06/29/19 23:49 07/02/19 10:03 Xanax PO 2 mg BID PRN Administration Anxiety Amitriptyline HCl 50 mg 06/30/19 22:00 07/03/19 00:29 Elavil PO 50 mg QHS SAHARA Administration Diphenhydramine HCl 25 mg 06/30/19 01:18 07/03/19 12:56 Benadryl IV 25 mg Q3H PRN Administration Itching Enoxaparin Sodium 40 mg 07/02/19 10:00 07/03/19 10:20 Enoxaparin SUB-Q 40 mg QDAY@1000 SAHARA Administration Folic Acid 1 mg 06/30/19 10:00 07/03/19 10:21 Folvite PO 1 mg QDAY SAHARA Administration Hydromorphone HCl 2 mg 07/02/19 12:10 07/03/19 12:56 Dilaudid IV 2 mg Q3H PRN Administration Pain , Severe (7-10) Dextrose/Sodium Chloride 1,000 mls @ 150 mls/hr 06/29/19 23:45 07/03/19 12:53 D5ns IV 125 mls/hr DIRECT SAHARA Administration Levetiracetam 750 mg 06/30/19 11:00 07/03/19 10:21 Keppra PO 750 mg BID SAHARA Administration Magnesium Oxide 400 mg 06/30/19 10:00 07/03/19 10:21 Mag-Ox PO 400 mg QDAY SAHARA Administration Metoclopramide HCl 10 mg 06/29/19 23:43 Reglan IV Q6H PRN Nausea And Vomiting Ondansetron HCl 4 mg 06/29/19 23:43 07/02/19 14:20 Zofran IV 4 mg Q3H PRN Administration Nausea And Vomiting Oxycodone HCl 30 mg 06/29/19 23:45 07/03/19 10:21 Oxycontin PO 30 mg BID SAHARA Administration Oxycodone HCl 5 mg 07/01/19 10:52 07/03/19 06:29 Roxicodone PO 5 mg Q4H PRN Administration Pain, Moderate (4-6) Oxycodone/Acetaminophen 1 tab 07/01/19 10:51 07/03/19 06:28 Percocet 5/325 PO 1 tab Q4H PRN Administration Pain, Moderate (4-6) Phenytoin 100 mg 06/30/19 22:00 07/03/19 13:57 Dilantin PO 100 mg Q8HR SAHARA Administration Sodium Chloride 10 ml 06/30/19 10:00 07/03/19 10:23 Sodium Chloride Flush Syringe 10 Ml IV 10 ml BID SAHARA Administration Sodium Chloride 10 ml 06/29/19 23:43 Sodium Chloride Flush Syringe 10 Ml IV PRN PRN LINE FLUSH
[2019-07-04] MEDS: HYDROmorphone 1 MG/1 ML INJ IV PRN ×3 (00:20→09:49)
[2019-07-04] MEDS: diphenhydrAMINE 50 MG/ML VIAL IV PRN ×3 (00:21→09:50)
[2019-07-04] MEDS: ALPRAZolam 1 MG TAB PO PRN (00:28)
[2019-07-04] MEDS: PHENYTOIN 100 MG CAPSULE.ER PO SCH (05:25)
[2019-07-04 06:51] VITALS: BP 107/53
[2019-07-04] MEDS: FOLIC ACID 1 MG TAB PO SCH (09:50)
[2019-07-04] MEDS: levETIRAcetam 500 MG/5 ML ORAL LIQD PO SCH (09:50)
[2019-07-04] MEDS: oxyCODONE ER 10 MG TAB PO SCH (09:50)
[2019-07-04] MEDS: MAGNESIUM OXIDE 400 MG TAB PO SCH (09:50)
[2019-07-04] MEDS: ENOXAPARIN 40 MG/0.4 ML INJ SUB-Q SCH (09:51)
[2019-07-04 10:30] LABS: BUN/Creatinine Ratio 12; Blood Urea Nitrogen 6 mg/dL (9-20); Calcium 7.8 mg/dL (8.4-10.2); Hemolysis Index 2
--- NOTE | 2019-07-04 11:08 | Discharge Summary ---
Providers - Providers Date of Admission: 06/30/19 09:13 Date of discharge: 07/04/19 Attending physician: MICHELLE HERNANDEZ 06/29/19 23:43 Consult to Physician [CONS] Routine Comment: Consulting Provider: OLAF HUNTER Physician Instructions: Reason For Exam: sickle cell crisis Primary care physician: STUNT WOMAN Hospitalization Reason for admission: Sickle cell pain crisis Condition: Stable Procedures: None Hospital course: Final discharge diagnosis: Sickle cell pain crisis Hypokalemia Sickle cell anemia Chronic Opioid dependant syndrome Generalized anxiety disorder Seizure disorder Hospital course: Pt was admitted and placed on IVF and multiple PRN narcotics for pain control. He later developed hypokalemia for which he received K supplements. Subsequently, his pain became well controlled and was then deemed stable for d/c with clinic f/u. Disposition: DC-01 TO HOME OR SELFCARE Time spent for discharge: 38 mins Core Measure Documentation - Palliative Care Palliative Care/ Comfort Measures: Not Applicable - Core Measures Any of the following diagnoses?: none Exam - Constitutional Vitals: Temp Pulse Resp BP Pulse Ox 98.4 F 86 20 107/53 95 07/04/19 05:55 07/04/19 05:55 07/04/19 05:55 07/04/19 05:55 07/04/19 05:55 General appearance: Present: no acute distress, well-nourished - EENT Eyes: Present: PERRL, EOM intact ENT: hearing intact, clear oral mucosa - Neck Neck: Present: supple, normal ROM - Respiratory Respiratory effort: normal Respiratory: bilateral: CTA - Cardiovascular Rhythm: regular Heart Sounds: Present: S1 & S2. Absent: rub, click - Extremities Extremities: No edema - Abdominal General gastrointestinal: Present: soft, non-tender, non-distended, normal bowel sounds - Integumentary Integumentary: Present: clear, warm, dry - Musculoskeletal Musculoskeletal: gait normal, strength equal bilaterally - Psychiatric Psychiatric: appropriate mood/affect, intact judgment & insight - Neurologic Neurologic: CNII-XII intact, moves all extremities Plan Follow up with: PRIMARY CARE, [Primary Care Provider] - 7 Days Prescriptions: oxyCODONE /ACETAMINOPHEN [Percocet 5/325 mg] 1 tab PO Q6H PRN #15 tablet PRN Reason: Pain, Moderate (4-6)
== END 2019-07-04 11:45 | disposition home or self-care (01) | DRG 812 ==
LOC: ED 07:21 → 3A 17:47 → OBSVTOIN 06-30 09:13
PROVIDERS: ADMIT Internal Medicine; ATTEND Internal Medicine
DX: D57.00 Hb-SS disease with crisis, unspecified (principal); F11.20 Opioid dependence, uncomplicated; F41.1 Generalized anxiety disorder; G40.909 Epilepsy, unspecified, not intractable, without status epilepticus; G89.29 Other chronic pain; M54.9 Dorsalgia, unspecified; E87.6 Hypokalemia; Z90.49 Acquired absence of other specified parts of digestive tract; Z86.718 Personal history of other venous thrombosis and embolism; Z82.49 Family history of ischemic heart disease and other diseases of the circulatory system
CPT/HCPCS: 36415; 72100; 80048; 80053; 81001; 83036; 83735; 85007; 85025; 85027; 85045; 87116; 96374; G0378; J1170; J1200; J1642; J1650; J1885; J2405; J7042

== ENCOUNTER 2019-07-31 18:32 | Emergency (ER) | payer MEDICARE ==
--- NOTE | 2019-07-31 22:26 | Event Note ---
ED Screening Note Date of service: 07/31/19 Time: 22:25 ED Screening Note: 39 year old presents with back and leg pain PMH sickle cell This initial assessment/diagnostic orders/clinical plan/treatment(s) is/are subject to change based on patients health status, clinical progression and re-assessment by fellow clinical providers in the ED. Further treatment and workup at subsequent clinical providers discretion. Patient/guardian urged not to elope from the ED as their condition may be serious if not clinically assessed and managed. Initial orders include: cbc, retic
[2019-07-31] MEDS ORDERED: ONDANSETRON 4 MG/2 ML INJ IV ONE (23:31)
[2019-07-31] MEDS ORDERED: HYDROmorphone 1 MG/1 ML INJ IV ONE (23:31)
[2019-07-31] MEDS ORDERED: SODIUM CHLORIDE 0.9% 1000 ML 1,000 ML IV ONE ×2 (23:31→23:32)
[2019-07-31] MEDS ORDERED: KETOROLAC 30 MG/1 ML INJ IV ONE (23:31)
[2019-07-31] MEDS ORDERED: diphenhydrAMINE 50 MG/ML VIAL IV ONE (23:32)
[2019-08-01 01:10] LABS: Basophils # (Auto) 0.1 K/mm3 (0.0-0.1); Basophils % (Auto) 0.8 % (0.0-1.8); Eosinophils # (Auto) 0.4 K/mm3 (0.0-0.4); Eosinophils % (Auto) 5.9 % (0.0-4.3); Hematocrit 29.5 % (35.5-45.6); Hemoglobin 10.3 gm/dl (11.8-15.2); Lymphocytes # (Auto) 2.9 K/mm3 (1.2-5.4); Mean Corpuscular HGB Conc 35 % (32-34); Mean Corpuscular Volume 112 fl (84-94); Monocytes # (Auto) 0.9 K/mm3 (0.0-0.8); Monocytes % (Auto) 13.4 % (0.0-7.3); Platelet Count 234 K/mm3 (140-440); Red Blood Count 2.63 M/mm3 (3.65-5.03); Red Cell Distribution Width 18.2 % (13.2-15.2)
[2019-08-01 01:22] LABS: BUN/Creatinine Ratio 15; Blood Urea Nitrogen 6 mg/dL (9-20); Hemolysis Index 3
[2019-08-01] MEDS ORDERED: HYDROmorphone 1 MG/1 ML INJ IV ONE ×2 (02:22→04:09)
[2019-08-01] MEDS ORDERED: diphenhydrAMINE 50 MG/ML VIAL IV ONE ×2 (02:27→04:09)
--- NOTE | 2019-08-01 04:45 | Emergency Department Report ---
ED General Adult HPI - General Chief complaint: Sickle Cell Crisis Stated complaint: SICKLE CELL CRISIS Time Seen by Provider: 07/31/19 23:31 Source: patient Mode of arrival: Ambulatory Limitations: No Limitations - History of Present Illness Initial comments: Patient is a 39-year-old Male with past medical history of sickle cell who is complaining of leg and back pain. Patient states pains are consistent with sickle cell crisis. Pain is 10 out of 10 in severity as aching and throbbing. Patient was to weather may have been triggered. He denies chest pain fevers chills nausea vomiting diarrhea cough cold or congestion at this time. Severity scale (0 -10): 5 - Related Data Home Medications Medication Instructions Recorded Confirmed Last Taken ALPRAZolam [Xanax TAB] 2 mg PO BID PRN 06/29/19 06/29/19 Unknown Methadone [Dolophine] 10 mg PO Q12H 06/29/19 06/29/19 Unknown Amitriptyline [Elavil] 50 mg PO QHS 06/30/19 06/30/19 06/11/19 50 mg Phenytoin [Dilantin] 300 mg PO QHS 06/30/19 06/30/19 06/28/19 300 mg levETIRAcetam [Keppra TAB] 1,500 mg PO BID 06/30/19 06/30/19 06/28/19 1500 Previous Rx's Medication Instructions Recorded Last Taken Type Folic Acid [Folvite] 1 mg PO QDAY #30 tablet 01/21/19 Unknown Rx Magnesium Oxide [Mag-Ox] 400 mg PO QDAY #10 tablet 01/21/19 Unknown Rx Oxycodone HCl [roxiCODONE] 30 mg PO BID #14 tablet 01/21/19 Unknown Rx oxyCODONE /ACETAMINOPHEN [Percocet 1 tab PO Q6H PRN #15 tablet 07/04/19 Unknown Rx 5/325 mg] Allergies Allergy/AdvReac Type Severity Reaction Status Date / Time No Known Allergies Allergy Verified 01/15/19 13:39 ED Review of Systems ROS: Stated complaint: SICKLE CELL CRISIS Other details as noted in HPI Comment: All other systems reviewed and negative ED Past Medical Hx - Past Medical History Previous Medical History?: Yes Hx Hypertension: No Hx CVA: No Hx Heart Attack/AMI: No Hx Congestive Heart Failure: No Hx Diabetes: No Hx Deep Vein Thrombosis: Yes (LEFT LEG & right arm) Hx Pulmonary Embolism: No Hx GERD: No Hx Liver Disease: No Hx Renal Disease: No Hx Sickle Cell Disease: Yes Hx Arthritis: No Hx Headaches / Migraines: No Hx Seizures: Yes Hx Kidney Stones: No Hx Psychiatric Treatment: Yes (anxiety) Hx Asthma: No Hx COPD: No Hx Tuberculosis: No Hx Dementia: No Hx HIV: No Additional medical history: 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 New port placed 2014. - Social History Smoking Status: Never Smoker Substance Use Type: None - Medications Home Medications: Home Medications Medication Instructions Recorded Confirmed Last Taken Type Folic Acid [Folvite] 1 mg PO QDAY #30 tablet 01/21/19 06/29/19 Unknown Rx Magnesium Oxide [Mag-Ox] 400 mg PO QDAY #10 tablet 01/21/19 06/29/19 Unknown Rx Oxycodone HCl [roxiCODONE] 30 mg PO BID #14 tablet 01/21/19 06/29/19 Unknown Rx ALPRAZolam [Xanax TAB] 2 mg PO BID PRN 06/29/19 06/29/19 Unknown History Methadone [Dolophine] 10 mg PO Q12H 06/29/19 06/29/19 Unknown History Amitriptyline [Elavil] 50 mg PO QHS 06/30/19 06/30/19 06/11/19 History 50 mg Phenytoin [Dilantin] 300 mg PO QHS 06/30/19 06/30/19 06/28/19 History 300 mg levETIRAcetam [Keppra TAB] 1,500 mg PO BID 06/30/19 06/30/19 06/28/19 History 1500 oxyCODONE /ACETAMINOPHEN [Percocet 1 tab PO Q6H PRN #15 tablet 07/04/19 Unknown Rx 5/325 mg] ED Physical Exam - General Limitations: No Limitations General appearance: alert, in no apparent distress - Head Head exam: Present: atraumatic, normocephalic - Eye Eye exam: Present: normal appearance - ENT ENT exam: Present: normal exam, mucous membranes moist - Neck Neck exam: Present: normal inspection - Respiratory Respiratory exam: Present: normal lung sounds bilaterally. Absent: respiratory distress, wheezes, rales, rhonchi - Cardiovascular Cardiovascular Exam: Present: regular rate, normal rhythm, normal heart sounds. Absent: systolic murmur, diastolic murmur, rubs, gallop - GI/Abdominal GI/Abdominal exam: Present: soft, normal bowel sounds. Absent: distended, tenderness, guarding, rebound - Rectal Rectal exam: Present: deferred - Extremities Exam Extremities exam: Present: normal inspection - Back Exam Back exam: Present: normal inspection - Neurological Exam Neurological exam: Present: alert, oriented X3 - Psychiatric Psychiatric exam: Present: normal affect, normal mood - Skin Skin exam: Present: warm, dry, intact, normal color. Absent: rash ED Course Vital Signs 07/31/19 07/31/19 07/31/19 19:35 23:36 23:37 Temperature 99.3 F 98.3 F Pulse Rate 75 72 70 Respiratory 18 12 17 Rate Blood Pressure 101/41 Blood Pressure [left arm] O2 Sat by Pulse 98 96 93 Oximetry 07/31/19 08/01/19 08/01/19 23:39 00:00 00:30 Temperature Pulse Rate 72 Respiratory 13 Rate Blood Pressure 115/74 108/70 Blood Pressure 115/74 [left arm] O2 Sat by Pulse 95 98 Oximetry 08/01/19 08/01/19 08/01/19 01:00 01:15 01:31 Temperature Pulse Rate 71 65 70 Respiratory 18 29 H 15 Rate Blood Pressure 108/70 107/60 Blood Pressure 107/60 [left arm] O2 Sat by Pulse 95 98 92 Oximetry 08/01/19 02:00 Temperature Pulse Rate 72 Respiratory 10 L Rate Blood Pressure 111/64 Blood Pressure [left arm] O2 Sat by Pulse 95 Oximetry ED Medical Decision Making - Lab Data Result diagrams: 08/01/19 00:54 08/01/19 00:54 Lab Results 08/01/19 08/01/19 Range/Units 00:54 00:54 WBC 7.0 (4.5-11.0) K/mm3 RBC 2.63 L (3.65-5.03) M/mm3 Hgb 10.3 L (11.8-15.2) gm/dl Hct 29.5 L (35.5-45.6) % MCV 112 H (84-94) fl MCH 39 H (28-32) pg MCHC 35 H (32-34) % RDW 18.2 H (13.2-15.2) % Plt Count 234 (140-440) K/mm3 Lymph % (Auto) 42.0 H (13.4-35.0) % [place] % (Auto) 13.4 H (0.0-7.3) % Eos % (Auto) 5.9 H (0.0-4.3) % Baso % (Auto) 0.8 (0.0-1.8) % Lymph # 2.9 (1.2-5.4) K/mm3 [place] # 0.9 H (0.0-0.8) K/mm3 Eos # 0.4 (0.0-0.4) K/mm3 Baso # 0.1 (0.0-0.1) K/mm3 Seg Neutrophils % 37.9 L (40.0-70.0) % Seg Neutrophils # 2.6 (1.8-7.7) K/mm3 Percent Retic 7.01 H (0.78-2.58) % Sodium 141 (137-145) mmol/L Potassium 3.1 L (3.6-5.0) mmol/L Chloride 106.2 (98-107) mmol/L Carbon Dioxide 26 (22-30) mmol/L Anion Gap 12 mmol/L BUN 6 L (9-20) mg/dL Creatinine 0.4 L (0.8-1.5) mg/dL Estimated GFR > 60 ml/min BUN/Creatinine Ratio 15 % Glucose 114 H (75-100) mg/dL Calcium 8.0 L (8.4-10.2) mg/dL - Medical Decision Making She received several doses of Dilaudid as well as Toradol and Benadryl IV fluids. Patient's pain is down to a 4 out of 10 which she states is tolerable. Patient to be discharged home. Critical care attestation.: If time is entered above; I have spent that time in minutes in the direct care of this critically ill patient, excluding procedure time. ED Disposition Clinical Impression: Sickle cell anemia with crisis Disposition: DC- TO HOME OR SELFCARE Is pt being admited?: No Does the pt Need Aspirin: No Condition: Stable Additional Instructions: Please follow up with her primary care physician for further pain management Referrals: PRIMARY MD MIKEL [Primary Care Provider] - 3-5 Days Time of Disposition: 04:44
[2019-08-01 05:28] VITALS: BP 107/62
== END 2019-08-01 05:30 | disposition home or self-care (01) ==
LOC: ED 18:32
DX: D57.819 Other sickle-cell disorders with crisis, unspecified (principal); F41.9 Anxiety disorder, unspecified; Z90.49 Acquired absence of other specified parts of digestive tract; Z86.718 Personal history of other venous thrombosis and embolism; Z79.01 Long term (current) use of anticoagulants; Z79.899 Other long term (current) drug therapy; Z98.890 Other specified postprocedural states
CPT/HCPCS: 36415; 80048; 85025; 85045; 96374; 96375; 96376; 99283; J1170; J1200; J1642; J1885; J2405; J7030

== ENCOUNTER 2019-09-22 05:43 | Emergency (ER) | payer MEDICARE ==
[2019-09-22] MEDS ORDERED: SODIUM CHLORIDE 0.9% 1000 ML 1,000 ML IV ONE ×2 (07:43→09:07)
[2019-09-22] MEDS ORDERED: HYDROmorphone 2 MG/1 ML INJ IV ONE (07:44)
--- NOTE | 2019-09-22 07:53 | Emergency Department Report ---
HPI - General Chief Complaint: Sickle Cell Crisis Time Seen by Provider: 09/22/19 07:37 - HPI HPI: This is a 39-year-old -Citizen Of [place] male who is well known to both myself and his emergency department who presents to the emergency department with a 2 to 3- day history of pain in the back and legs that he says is consistent with a sickle cell pain crisis. The patient has been taking his methadone and oxycodone for his symptoms without any relief. His primary care physician is through [facility] [place] and his service delivery analyst is Dr. Medina Craven. He denies any fever, chest pain, cough, nausea, vomiting, shortness of breath. Patient also complains of some type of a lump or nodule to the right side of his neck that he says has been there for about a month. This was seen by his service delivery analyst who told him that he may need to follow-up with his primary care physician or have some type of imaging done in the future. The patient has not yet followed up with primary care regarding this. He denies any painful or difficulty swallowing. Besides the sickle cell anemia, the patient has a previous history of DVT, anxiety, seizures. No recent travel or sick contacts at home. 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 New port placed 2014. - Social History Smoking Status: Current Every Day Smoker Substance Use Type: None - Medications Home Medications: Home Medications Medication Instructions Recorded Confirmed Last Taken Type Folic Acid [Folvite] 1 mg PO QDAY #30 tablet 06/25/19 12/01/19 Unknown Rx Magnesium Oxide [Mag-Ox] 400 mg PO QDAY #10 tablet 01/21/19 06/29/19 Unknown Rx Oxycodone HCl [roxiCODONE] 30 mg PO BID #14 tablet 01/21/19 06/29/19 Unknown Rx ALPRAZolam [Xanax TAB] 2 mg PO BID PRN 06/29/19 06/29/19 Unknown History Methadone [Dolophine] 10 mg PO Q12H 06/29/19 06/29/19 Unknown History Amitriptyline [Elavil] 50 mg PO QHS 06/30/19 06/30/19 06/11/19 History 50 mg Phenytoin [Dilantin] 300 mg PO QHS 06/30/19 06/30/19 06/28/19 History 300 mg levETIRAcetam [Keppra TAB] 1,500 mg PO BID 06/30/19 06/30/19 06/28/19 History 1500 oxyCODONE /ACETAMINOPHEN [Percocet 1 tab PO Q6H PRN #15 tablet 07/04/19 Unknown Rx 5/325 mg] ED Review of Systems ROS: Stated complaint: SICKLE CELL Other details as noted in HPI Comment: All other systems reviewed and negative Constitutional: denies: chills, fever Eyes: denies: eye pain, vision change ENT: denies: ear pain, throat pain Respiratory: denies: cough, shortness of breath Cardiovascular: denies: chest pain, palpitations Gastrointestinal: denies: abdominal pain, vomiting Genitourinary: denies: dysuria, discharge Musculoskeletal: myalgia. denies: joint swelling Neurological: denies: headache, numbness, paresthesias Physical Exam - Physical Exam Vital Signs: Vital Signs 09/22/19 09/22/19 05:46 07:40 Temperature 99.0 F Pulse Rate 96 H 87 Respiratory 18 17 Rate Blood Pressure 114/70 Blood Pressure 103/61 [Left] O2 Sat by Pulse 97 97 Oximetry Physical Exam: GENERAL: The patient is well-developed well-nourished. HENT: Normocephalic. Atraumatic. Patient has moist mucous membranes. EYES: Extraocular motions are intact. NECK: Supple. Trachea is midline. CHEST/LUNGS: Clear to auscultation. There is no respiratory distress noted. HEART/CARDIOVASCULAR: Regular. There is no tachycardia. There is no murmur. ABDOMEN: Abdomen is soft, nontender. Patient has normal bowel sounds. SKIN: Skin is warm and dry. NEURO: The patient is awake, alert, and oriented. The patient is cooperative. The patient has no focal neurologic deficits. Normal speech. MUSCULOSKELETAL: There is no tenderness or deformity. There is no evidence of acute injury. BACK: No midline thoracic or lumbar tenderness to palpation, step-off or deformity. There is some reproducible lower thoracic and lumbar bilateral paraspinal tenderness. ED Course Vital Signs 09/22/19 09/22/19 05:46 07:40 Temperature 99.0 F Pulse Rate 96 H 87 Respiratory 18 17 Rate Blood Pressure 114/70 Blood Pressure 103/61 [Left] O2 Sat by Pulse 97 97 Oximetry ED Medical Decision Making - Lab Data Result diagrams: 09/22/19 08:06 09/22/19 08:06 - Medical Decision Making This patient presents to the emergency department with some pain to the back and legs consistent with previous sickle cell pain crisis. Patient's labs show a h emoglobin of 9 and reticulocyte count of 7 that are consistent with previous visits. Patient was given a dose of analgesia and some IV fluid resuscitation with some improvement of his discomfort. The patient already has pain management through his service delivery analyst including methadone and oxycodone. The patient was seen ambulatory in the emergency department and appears stable. The patient does exhibit some drug-seeking behavior. He is seen multiple times resting comfortably, watching TV and/or videos on his phone, talking to friends, acting jovial, and does not appear in any acute distress. The patient has a primary care physician and a service delivery analyst and therefore good outpatient follow-up. He does not appear to have any chest crisis. With his hemoglobin of 9 he does not appear to require any blood transfusion. Patient appears safe for discharge home at this time. He has been instructed to return to the emergency department with any worsening of his symptoms or any acute distress. - Differential Diagnosis Sickle cell pain crisis, muscle spasm, electrolyte abnormalities, fibromyal Critical Care Time: No Critical care attestation.: If time is entered above; I have spent that time in minutes in the direct care of this critically ill patient, excluding procedure time. ED Disposition Clinical Impression: Sickle cell pain crisis Sickle cell anemia Qualifiers: Sickle-cell associated disorders: with unspecified crisis Qualified Code(s): D57.00 - Hb-SS disease with crisis, unspecified; D57.0 - Hb-SS disease with crisis Disposition: DC- TO HOME OR SELFCARE Is pt being admited?: No Condition: Stable Instructions: Sickle Cell Crisis (ED) Additional Instructions: Please follow-up with your primary care physician and service delivery analyst in the next few days. Return to the emergency department with any worsening of your symptoms, or with any acute distress. Referrals: TRANG MORIN MD [Primary Care Provider] - 2-3 Days MEDINA CRAVEN MD [Referring] - 2-3 Days Time of Disposition: 10:36
[2019-09-22 08:26] LABS: Basophils % (Auto) 0.5 % (0.0-1.8); Eosinophils # (Auto) 0.7 K/mm3 (0.0-0.4); Eosinophils % (Auto) 8.3 % (0.0-4.3); Hematocrit 25.4 % (35.5-45.6); Lymphocytes # (Auto) 2.6 K/mm3 (1.2-5.4); Lymphocytes % (Auto) 31.7 % (13.4-35.0); Mean Corpuscular HGB Conc 36 % (32-34); Mean Corpuscular Volume 111 fl (84-94); Monocytes # (Auto) 0.9 K/mm3 (0.0-0.8); Platelet Count 267 K/mm3 (140-440); Red Blood Count 2.28 M/mm3 (3.65-5.03); Red Cell Distribution Width 19.3 % (13.2-15.2)
[2019-09-22 08:45] LABS: Alanine Aminotransferase 7 units/L (7-56); Albumin 3.5 g/dL (3.9-5); BUN/Creatinine Ratio 14; Blood Urea Nitrogen 7 mg/dL (9-20); Calcium 8.3 mg/dL (8.4-10.2); Hemolysis Index 4
[2019-09-22] MEDS ORDERED: POTASSIUM CHLORIDE ER 10 MEQ TAB PO SCH (09:00)
[2019-09-22] MEDS ORDERED: KETOROLAC 30 MG/1 ML INJ IV ONE (09:07)
[2019-09-22] MEDS ORDERED: diphenhydrAMINE 50 MG/ML VIAL IV ONE (09:07)
[2019-09-22] MEDS ORDERED: ONDANSETRON 4 MG/2 ML INJ IV ONE (09:07)
[2019-09-22 10:48] VITALS: BP 97/49
== END 2019-09-22 10:53 | disposition home or self-care (01) ==
LOC: ED 05:43
DX: D57.00 Hb-SS disease with crisis, unspecified (principal); G40.909 Epilepsy, unspecified, not intractable, without status epilepticus; F41.9 Anxiety disorder, unspecified; F17.200 Nicotine dependence, unspecified, uncomplicated; Z90.49 Acquired absence of other specified parts of digestive tract; Z98.890 Other specified postprocedural states; Z79.899 Other long term (current) drug therapy
CPT/HCPCS: 36415; 80053; 85025; 85045; 96374; 96375; 99284; J1170; J1200; J1642; J1885; J2405; J7030